=== PATIENT | female | born 1960 | race Caucasian/White ===

== ENCOUNTER 2016-09-11 09:02 | Inpatient (IN) | payer MEDICARE ==
[2016-09-11] MEDS ORDERED: Colace 100 MG PO PRN (12:34)
[2016-09-11] MEDS ORDERED: Phenergan 25 MG INJ IV PRN (12:34)
[2016-09-11] MEDS ORDERED: Sodium Chloride 0.9% 10 ML FLUSH Syringe IJ PRN (12:34)
--- NOTE | 2016-09-11 13:04 | XRAY ---
Indication: Short of breath. COPD. Comparison: None PA/lateral chest hyperinflated without focal infiltrate, consolidation, or large effusion. Heart is not enlarged. Vascularity normal. Bony thorax intact. Numerous surgical clips project over the base of the neck. Impression: Nonacute hyperinflated chest.
[2016-09-11 13:10] LABS: BASOPHIL % 0.2 % (0.0-0.4); Eosinophil % 0.3 % (0.00-5.0); Granulocytes % 77.1 % (36.0-66.0); Lymphocytes % 14.2 % (24.0-44.0); Mean Cell Volume 94.3 fl (78-100); Mean Corpuscular Hemoglobin 30.7 pg (26-32); Mean Platelet Volume 10.3 fl (6-9.5); Monocytes % 8.2 % (0.0-12.0); Platelet Count 235 K/mm3 (150-450); Red Blood Count 4.53 M/mm3 (4.1-5.4); Red Cell Distribution Width 13.5 % (11.5-14.0); White Blood Count 15.6 K/mm3 (4.0-10.5)
[2016-09-11 13:38] LABS: ALBUMIN 3.8 g/dL (3.4-5.0); ALKALINE PHOSPHATASE 133 U/L (46-116); ANION GAP 10.7 MEQ/L (5-15); BILIRUBIN,TOTAL 1.6 mg/dL (0.2-1.0); BLOOD UREA NITROGEN 12 mg/dL (9-20); CHLORIDE 98 mEq/L (98-107); Carbon Dioxide 35.4 mEq/L (21-32); Glucose 105 MG/DL (70-110); Potassium 4.2 mEq/L (3.5-5.1); SGOT/AST 19 U/L (15-37); SGPT/ALT 33 U/L (12-78); SODIUM 140 mEq/L (136-145); TROPONIN < 0.017 ng/ml (0.000-0.056); Total Protein 7.5 gm/dL (6.4-8.2)
[2016-09-11] MEDS: DUONEB 0.5-3 MG/3 ml Neb IH SCH ×3 (13:50→22:39)
[2016-09-11] MEDS: solu-MEDROL 125 MG IV SCH ×3 (13:55→23:21)
[2016-09-11] MEDS: Zithromax 500 MG/ 250 ML NaCl Premix 250 ML IV SCH (13:55)
[2016-09-11] MEDS: Sodium Chloride 0.9% 10 ML FLUSH Syringe IJ SCH ×2 (13:56→22:07)
[2016-09-11] MEDS: Advair Hfa 115/21 Common canister IH SCH (18:35)
[2016-09-11] MEDS: Mirapex 0.5 MG Tablet PO SCH (22:06)
[2016-09-11] MEDS: Lyrica 25 MG PO SCH (22:06)
[2016-09-11] MEDS: Lyrica 50MG PO SCH (22:06)
[2016-09-11] MEDS: Toprol-Xl 25MG Tablets PO SCH (22:06)
[2016-09-12] MEDS: DUONEB 0.5-3 MG/3 ml Neb IH SCH ×5 (02:51→20:29)
[2016-09-12 05:45] LABS: BASOPHIL % 0.1 % (0.0-0.4); Granulocytes % 91.4 % (36.0-66.0); Lymphocytes % 6.5 % (24.0-44.0); Mean Cell Volume 94.1 fl (78-100); Mean Corpuscular Hemoglobin 30.3 pg (26-32); Mean Platelet Volume 10.6 fl (6-9.5); Platelet Count 242 K/mm3 (150-450); Red Blood Count 4.22 M/mm3 (4.1-5.4); Red Cell Distribution Width 13.2 % (11.5-14.0); White Blood Count 13.1 K/mm3 (4.0-10.5)
[2016-09-12 06:07] LABS: ANION GAP 16.5 MEQ/L (5-15); Carbon Dioxide 30.5 mEq/L (21-32)
[2016-09-12] MEDS: solu-MEDROL 125 MG IV SCH ×3 (06:07→23:36)
[2016-09-12] MEDS: Sodium Chloride 0.9% 10 ML FLUSH Syringe IJ SCH ×3 (06:07→23:36)
[2016-09-12] MEDS: Advair Hfa 115/21 Common canister IH SCH ×2 (07:10→20:29)
[2016-09-12] MEDS: TYLENOL 325 MG PO PRN ×2 (07:41→23:37)
[2016-09-12] MEDS: Toprol-Xl 25MG Tablets PO SCH ×2 (07:42→23:37)
[2016-09-12] MEDS: Zithromax 500 MG/ 250 ML NaCl Premix 250 ML IV SCH (07:42)
[2016-09-12] MEDS: Lyrica 25 MG PO SCH ×2 (07:42→23:36)
[2016-09-12] MEDS: Lyrica 50MG PO SCH ×2 (07:42→23:35)
[2016-09-12] MEDS ORDERED: BUSPIRONE HCL 7.5 MG PO PRN (08:03)
[2016-09-12] MEDS ORDERED: BUSPAR 5 MG PO PRN (08:53)
--- NOTE | 2016-09-12 09:24 | HP ---
HISTORY OF PRESENT ILLNESS: This is a 56 year-old patient of mine who presented to the clinic complaining of increased shortness of breath over the past few days. She has a long standing history of chronic obstructive pulmonary disease and also has some congestive heart failure. She is on home oxygen 2 to 3 liters nasal cannula. She states she started feeling bad on Sunday. She was coughing up some sputum inside her CPAP and had trouble wearing her CPAP because of this. She felt like she was choking. She reported a fever up to 102.4F and states she was sleeping sitting up because if she laid down she felt like she was drowning. She reports her oxygen saturation at home on the meter that she had was 84%. She has been using her breathing treatments even up to every three hours. She denied any sick contacts. She did have a friend that had come over to the house that smoked outside. REVIEW OF SYSTEMS: She had some nausea but no vomiting. She had diarrhea on Sunday but not on Sunday. She had the cough and headache. Otherwise review of systems is negative. PAST MEDICAL HISTORY: Chronic obstructive pulmonary disease with history of hypoxia. She sees Dr. Abner Wade. History of thyroid cancer with the gland removed in 2007. Depression, hyperlipidemia. She had a cardiac stress test June 2016 but they opted for medical management. Hypertension. Hypothyroidism. Langerhans cell histiocytosis. Restless leg syndrome. C3 to C6 herniated or bulging disc. Carpal tunnel both wrists. Fibromyalgia. Obstructive sleep apnea for which she wears CPAP at night. Edema. 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 PAST SURGICAL HISTORY: Knee arthroscopy. Cholecystectomy. Hysterectomy. She had upper endoscopy 08/01/2016 which revealed gastritis. Colonoscopy 08/01/2016 revealed normal colon but poor prep and chronic constipation. Her thyroid gland was removed in 2007. MEDICATIONS: Albuterol 2 puffs b.i.d. as needed, DuoNebs 3 to 4 times a day, aspirin 81 mg p.o. daily, atorvastatin 20 mg p.o. daily, buspirone 7.5 mg p.o. b.i.d., fluoxetine 40 mg daily, Breo 1 puff daily, furosemide 40 mg p.o. daily, levothyroxine 150 mcg p.o. daily, Amitiza 24 mcg p.o. daily, metoprolol succinate 25 mg p.o. b.i.d., nitroglycerin 0.4 mg as needed, MiraLAX 17 gm daily, potassium chloride 20 mEq daily, Mirapex 2 tablets p.o. q.h.s., Lyrica 75 mg p.o. b.i.d., ranitidine 150 mg p.o. daily, Aldactone 50 mg p.o. daily. ALLERGIES: IODINATED CONTRAST, LEVAQUIN, PENICILLIN. SOCIAL HISTORY: She uses marijuana, denies any alcohol use. She used to smoke and used tobacco for 44 years. She is a . FAMILY HISTORY: Her mother of coronary artery disease at age 72 and her father of coronary artery disease at age of 49. PHYSICAL EXAMINATION: VITAL SIGNS: Temperature current 98.3F, temperature max 98.3F, heart rate 82 to 85, respiratory rate 18 to 21, blood pressure 112 to 121 over 58 to 60, weight 118 kg. Oxygen saturation 92 to 96% on 3 to 4 liters nasal cannula. GENERAL: The patient is a pleasant talkative lady sitting up in no acute distress. CVS: She has a regular rate and rhythm. No murmurs, gallops or rubs. CHEST: She has a few scattered wheezes, equal breath sounds. She is talking in full sentences. ABDOMEN: Soft, nontender, nondistended with normal bowel sounds. EXTREMITIES: Trace edema. No clubbing, no cyanosis. SKIN: Warm, dry and intact. LABORATORY DATA AND TESTS: On admission white blood cell count 15,600 with 77% granulocytes. Repeat white blood cell today was 13,100 with 91% granulocytes. BMP revealed glucose of 227 today. BNP was slightly elevated at 460. She has blood cultures and sputum culture in lab. Chest x-ray was read as nonacute hyperinflated chest. EKG sinus rhythm with no ST-T wave changes. Her troponin was negative. ASSESSMENT AND PLAN: 1) CHRONIC OBSTRUCTIVE PULMONARY DISEASE EXACERBATION: She was started on ceftriaxone and azithromycin. Will plan to continue with these. Continue with oxygen and breathing treatments. She was also started on IV steroids will plan to work on decreasing these after wheezing has improved and plan to observe her another night. If she is doing well and back to her home oxygen requirement she may be able to be discharged tomorrow. 2) HISTORY OF CORONARY ARTERY DISEASE: Will continue with her home medications. She appears stable at this time. 3) DEEP VENOUS THROMBOSIS PROPHYLAXIS: Will start her on Lovenox. 4) HYPERTENSION: This is currently well controlled on her home antihypertensive.
[2016-09-12] MEDS: Prozac 20 MG PO SCH (09:44)
[2016-09-12] MEDS: ECOTRIN 81 MG PO SCH (09:44)
[2016-09-12] MEDS: SYNTHROID 150 MCG PO SCH (09:45)
[2016-09-12] MEDS: Miralax Powder 17GM PACKET PO SCH (09:45)
[2016-09-12] MEDS: Lasix 40 MG PO SCH (09:45)
[2016-09-12] MEDS ORDERED: SYNTHROID 112 MCG PO SCH (10:00)
[2016-09-12] MEDS ORDERED: NON-FORMULARY ITEM (Fluoxetine Hcl [Prozac] 40 MG) PO SCH (10:00)
[2016-09-12] MEDS ORDERED: NON-FORMULARY ITEM (Aspirin [Aspirin] 81 MG) PO SCH (10:00)
[2016-09-12] MEDS ORDERED: NON-FORMULARY ITEM (Atorvastatin Calcium [Lipitor] 20 MG) PO SCH (10:00)
[2016-09-12] MEDS: AMITIZA PO SCH (10:51)
[2016-09-12] MEDS: ENOXAPARIN SODIUM SQ SCH (13:50)
[2016-09-12] MEDS: Robitussin 100 MG/5 ML PO PRN ×2 (17:14→23:38)
[2016-09-12] MEDS: Mirapex 0.5 MG Tablet PO SCH (23:36)
[2016-09-12] MEDS: ZOCOR 20MG PO SCH (23:37)
[2016-09-13] MEDS: DUONEB 0.5-3 MG/3 ml Neb IH SCH ×7 (01:21→22:54)
[2016-09-13] MEDS: solu-MEDROL 125 MG IV SCH ×3 (05:10→22:22)
[2016-09-13] MEDS: Sodium Chloride 0.9% 10 ML FLUSH Syringe IJ SCH ×3 (05:10→22:22)
[2016-09-13 05:58] LABS: Granulocytes % 89.4 % (36.0-66.0); Lymphocytes % 6.4 % (24.0-44.0); Mean Cell Volume 95.5 fl (78-100); Mean Platelet Volume 10.5 fl (6-9.5); Monocytes % 4.2 % (0.0-12.0); Platelet Count 253 K/mm3 (150-450); Red Blood Count 3.96 M/mm3 (4.1-5.4); Red Cell Distribution Width 13.2 % (11.5-14.0)
[2016-09-13 06:04] LABS: Mean Corpuscular Hemoglobin 30.5 pg (26-32)
[2016-09-13 06:18] LABS: ANION GAP 10.6 MEQ/L (5-15); BLOOD UREA NITROGEN 21 mg/dL (9-20); CHLORIDE 101 mEq/L (98-107); Carbon Dioxide 32.9 mEq/L (21-32); Glucose 202 MG/DL (70-110); Potassium 4.4 mEq/L (3.5-5.1); SODIUM 140 mEq/L (136-145)
[2016-09-13] MEDS: Advair Hfa 115/21 Common canister IH SCH ×2 (06:39→19:21)
[2016-09-13] MEDS: Zithromax 500 MG/ 250 ML NaCl Premix 250 ML IV SCH (09:57)
[2016-09-13] MEDS: Prozac 20 MG PO SCH (10:00)
[2016-09-13] MEDS: Miralax Powder 17GM PACKET PO SCH (10:00)
[2016-09-13] MEDS: ENOXAPARIN SODIUM SQ SCH (10:00)
[2016-09-13] MEDS: SYNTHROID 150 MCG PO SCH (10:01)
[2016-09-13] MEDS: Toprol-Xl 25MG Tablets PO SCH ×2 (10:01→22:22)
[2016-09-13] MEDS: ECOTRIN 81 MG PO SCH (10:01)
[2016-09-13] MEDS: Lyrica 50MG PO SCH ×2 (10:01→22:21)
[2016-09-13] MEDS: Lasix 40 MG PO SCH (10:01)
[2016-09-13] MEDS: Lyrica 25 MG PO SCH ×2 (10:01→22:21)
[2016-09-13] MEDS: AMITIZA PO SCH (10:01)
--- NOTE | 2016-09-13 18:22 | PCM.NOTE ---
Date and Time: 09/13/161817 Subjective Assessment: She reports that she continues to have some cough but she is starting to feel better. She has been able to get up around her room some. Her appetite has been ok. - Review of Systems Constitutional: No Symptoms Eyes: No Symptoms Ears, Nose, & Throat: No Symptoms Respiratory: Cough, Short Of Breath, Wheezing Cardiac: No Symptoms Abdominal/Gastrointestinal: No Symptoms Genitourinary Symptoms: No Symptoms Musculoskeletal: No Symptoms Objective Exam General Appearance: no apparent distress, alert, obese Neurologic Exam: alert, cooperative, normal mood/affect Skin Exam: normal color, warm, dry Respiratory Exam: other (few scattered wheezes, equal breath sounds, distant breath sounds) Cardiovascular Exam: regular rate/rhythm, normal heart sounds, No murmur, No friction rub, No gallop Gastrointestinal/Abdomen Exam: soft, normal bowel sounds, No tenderness, No distention, No mass, No guarding Extremity Exam: normal inspection, other (trace edema, no c/c) OBJECTIVE DATA Vital Signs: Vital Signs - 24 hr Temp Pulse Resp BP Pulse Ox 09/13/16 16:46 97.8 F 86 22 128/67 94 L 09/13/16 14:42 93 H 20 96 09/13/16 11:46 97.9 F 79 20 114/56 94 L 09/13/16 10:28 87 20 96 09/13/16 09:06 98 09/13/16 07:48 97.6 F 73 22 105/57 96 09/13/16 06:42 68 22 92 L 09/13/16 04:00 98.2 F 80 84 H 109/55 95 09/13/16 03:32 80 18 96 09/12/16 21:52 98.0 F 83 22 123/60 95 09/12/16 20:50 97 09/12/16 20:30 80 18 97 Oxygen-Last 24 hours O2 Percentage 2 Liters = 28% O2 Percentage 2 Liters = 28% O2 Percentage 4 Liters = 36% O2 Percentage 5 Liters = 40% O2 Percentage 4 Liters = 36% Pain Assessment - Last Documented Pain Intensity 4 Pain Scale Used 0-10 Pain Scale Intake and Output: Intake & Output 09/11/16 09/12/16 09/13/16 09/14/16 06:59 06:59 06:59 06:59 Intake Total 840 1180 1740 Output Total 2300 900 1000 Balance -1460 280 740 Weight 118.115 kg 120.021 kg Lab Results: Lab Results-Last 24 Hours 09/13/16 09/13/16 Range/Units 05:30 05:30 WBC 15.0 H (4.0-10.5) K/mm3 RBC 3.96 L (4.1-5.4) M/mm3 Hgb 12.1 (12.0-16.0) gm/dl Hct 37.8 (35-47) % MCV 95.5 (78-100) fl MCH 30.5 (26-32) pg MCHC 32.0 (32-36) g/dl RDW 13.2 (11.5-14.0) % Plt Count 253 (150-450) K/mm3 MPV 10.5 H (6-9.5) fl Gran % 89.4 H (36.0-66.0) % Lymphocytes % 6.4 L (24.0-44.0) % Monocytes % 4.2 (0.0-12.0) % Eosinophils % 0.0 (0.00-5.0) % Basophils % 0.0 (0.0-0.4) % Basophils # 0 (0-0.4) Sodium 140 (136-145) mEq/L Potassium 4.4 (3.5-5.1) mEq/L Chloride 101 (98-107) mEq/L Carbon Dioxide 32.9 H (21-32) mEq/L Anion Gap 10.6 (5-15) MEQ/L BUN 21 H (9-20) mg/dL Creatinine 0.87 (0.55-1.30) mg/dl Estimated GFR > 60 ML/MIN Glucose 202 H (70-110) MG/DL Calcium 9.0 (8.5-10.1) mg/dL Assessment/Plan (1) COPD exacerbation Current Visit: Yes Status: Acute Assessment & Plan: Continue with IV antibiotics and try to wean oxygen down to home level of 2 L by NC. Continue IV steroids. Continue breathing treatments. Slowly improving. One blood culture with growth. She has a severe allergic reaction with both penicillins and levofloxacin so plan to continue azithromycin right now as she is showing clinical improvement and she has been afebrile.. Code(s): J44.1 - CHRONIC OBSTRUCTIVE PULMONARY DISEASE W (ACUTE) EXACERBATION (2) Hx of coronary artery disease Current Visit: Yes Status: Acute Assessment & Plan: Stable. Continue home medications. Code(s): Z86.79 - PERSONAL HISTORY OF OTHER DISEASES OF THE CIRCULATORY SYSTEM (3) Hypertension Current Visit: Yes Status: Acute Assessment & Plan: Continue home medications. Stable. Code(s): I10 - ESSENTIAL (PRIMARY) HYPERTENSION
[2016-09-13] MEDS: Pepcid 20 MG PO SCH (18:25)
[2016-09-13] MEDS: Aldactone 25 MG PO SCH (18:25)
[2016-09-13] MEDS: Robitussin 100 MG/5 ML PO PRN (18:25)
[2016-09-13] MEDS ORDERED: PRAMIPEXOLE DI HCL PO SCH (22:00)
[2016-09-13] MEDS: Mirapex 0.5 MG Tablet PO SCH (22:21)
[2016-09-13] MEDS: ZOCOR 20MG PO SCH (22:23)
[2016-09-14] MEDS: DUONEB 0.5-3 MG/3 ml Neb IH SCH ×3 (02:59→10:14)
[2016-09-14] MEDS: solu-MEDROL 125 MG IV SCH (05:53)
[2016-09-14 05:54] LABS: BASOPHIL % 0.1 % (0.0-0.4); Eosinophil % 0.1 % (0.00-5.0); Lymphocytes % 6.7 % (24.0-44.0); Mean Cell Volume 97.4 fl (78-100); Mean Platelet Volume 10.5 fl (6-9.5); Monocytes % 4.1 % (0.0-12.0); Platelet Count 264 K/mm3 (150-450); Red Blood Count 3.86 M/mm3 (4.1-5.4); Red Cell Distribution Width 13.6 % (11.5-14.0); White Blood Count 10.3 K/mm3 (4.0-10.5)
[2016-09-14] MEDS: Sodium Chloride 0.9% 10 ML FLUSH Syringe IJ SCH (05:54)
[2016-09-14 06:03] LABS: Mean Corpuscular Hemoglobin 30.5 pg (26-32)
[2016-09-14 06:09] LABS: ANION GAP 12.5 MEQ/L (5-15); BLOOD UREA NITROGEN 19 mg/dL (9-20); CHLORIDE 103 mEq/L (98-107); Carbon Dioxide 30.5 mEq/L (21-32); Glucose 231 MG/DL (70-110); Potassium 4.4 mEq/L (3.5-5.1); SODIUM 142 mEq/L (136-145)
[2016-09-14] MEDS: Advair Hfa 115/21 Common canister IH SCH (07:05)
[2016-09-14] MEDS: Lasix 40 MG PO SCH (08:59)
[2016-09-14] MEDS: Miralax Powder 17GM PACKET PO SCH (08:59)
[2016-09-14] MEDS: Aldactone 25 MG PO SCH (08:59)
[2016-09-14] MEDS: Prozac 20 MG PO SCH (08:59)
[2016-09-14] MEDS: ENOXAPARIN SODIUM SQ SCH (08:59)
[2016-09-14] MEDS: Lyrica 25 MG PO SCH (09:00)
[2016-09-14] MEDS: Lyrica 50MG PO SCH (09:00)
[2016-09-14] MEDS: ECOTRIN 81 MG PO SCH (09:00)
[2016-09-14] MEDS: SYNTHROID 150 MCG PO SCH (09:00)
[2016-09-14] MEDS: AMITIZA PO SCH (09:00)
[2016-09-14] MEDS: Pepcid 20 MG PO SCH (09:00)
[2016-09-14] MEDS: Zithromax 500 MG/ 250 ML NaCl Premix 250 ML IV SCH (09:01)
[2016-09-14] MEDS: Toprol-Xl 25MG Tablets PO SCH (09:05)
--- NOTE | 2016-09-14 09:30 | PCM.DCORD ---
- Discharge Discharge Date: 09/14/16 Disposition: Home, Self-Care Condition: Good Prescriptions: New Azithromycin 250 mg PO DAILY #1 tablet Albuterol/Ipratropium 3ml Neb* [DUONEB 0.5-3 MG/3 ml Neb] 3 ml IH Q6H #150 ampul.neb Prednisone 20 mg [Deltasone 20 mg] 20 mg PO UD #18 tablet Levothyroxine Sodium 150 Mcg [Synthroid 150 Mcg] 150 mcg PO DAILY #30 tablet Continue Potassium Chloride 10 Meq Tab* [Klor Con 10 MEQ] 20 meq PO DAILY Furosemide 40 mg [Lasix 40 MG] 40 mg PO DAILY Albuterol Sulfate [Proair Hfa] 2 puffs IH BIDPRN PRN PRN Reason: Shortness Of Breath Fluoxetine HCl [Prozac] 40 mg PO DAILY Spironolactone [Aldactone] 50 mg PO DAILY Buspirone HCl 7.5 mg PO BIDPRN PRN PRN Reason: Anxiety Ranitidine HCl [Zantac] 150 mg PO DAILY Pramipexole Di-HCl [Mirapex] 2 tab PO HS Pregabalin [Lyrica] 75 mg PO BID Metoprolol Succinate 25 mg Xl* [Toprol-Xl 25MG Tablets] 25 mg PO BID Fluticasone/Vilanterol [Breo Ellipta 100-25 Mcg INH] 1 inh IH DAILY Atorvastatin Calcium [Lipitor] 20 mg PO DAILY Aspirin 81 mg PO DAILY Nitroglycerin 0.4 mg Tablet [Nitrostat 0.4 MG Tablet] 0.4 mg IH UD Polyethylene Glycol 3350 17 gm [Miralax Powder 17GM PACKET] 17 gm PO DAILY Lubiprostone [Amitiza] 24 mcg PO DAILY Discontinued Albuterol/Ipratropium 3ml Neb* [DUONEB 0.5-3 MG/3 ml Neb] 3 ml IH TID Levothyroxine Sodium 112 Mcg [Synthroid 112 Mcg] 150 mcg PO DAILY Instructions: Chronic Obstructive Pulmonary Disease, Fever (Symptom) -- Adult Additional Instructions: [facility] WILL CALL YOU TO ARRANGE YOUR FIRST VISIT. YOU MAY REACH THEM AT ext [phone] FOR ANY QUESTIONS OR CONCERNS. Follow up with: ILA SPAULDING [Primary Care Provider] - 09/22/16 1:00 pm Forms: Discharge Instructions, Patient Portal Information
[2016-09-14] MEDS ORDERED: Klor Con 10 MEQ PO SCH (10:00)
[2016-09-14] MEDS ORDERED: NON-FORMULARY ITEM (Spironolactone [Aldactone] 50 MG) PO SCH (10:00)
[2016-09-14 11:17] VITALS: BP 136/65; PULSE 83; O2SAT 93
--- NOTE | 2016-09-14 12:03 | DS ---
DISCHARGE DIAGNOSES: 1) CHRONIC OBSTRUCTIVE PULMONARY DISEASE EXACERBATION. 2) HISTORY OF CORONARY ARTERY DISEASE. 3) HYPERTENSION. 4) HYPOTHYROIDISM. DISCHARGE PHYSICAL EXAMINATION: VITALS: Temperature current 97.9F, temperature max 97.9F, heart rate 72 to 89, respiratory rate 18 to 22, blood pressure 117 to 152 over 69 to 74. Oxygen saturation 92 to 95% on 2 liters nasal cannula. GENERAL: The patient is pleasant talkative lady sitting up in no acute distress. CVS: She has a regular rate and rhythm. No murmurs, gallops or rubs. CHEST: Scattered wheezes throughout with equal breath sounds and good air exchange. No crackles are appreciated. ABDOMEN: Soft, nontender, nondistended with normal bowel sounds. EXTREMITIES: Trace edema. No clubbing or cyanosis. SKIN: Warm, dry and intact. HOSPITAL COURSE: 1) Chronic obstructive pulmonary disease exacerbation: She was started on azithromycin 500 mg IV and received four doses of that while she was here in the hospital. I am planning to discharge her on azithromycin 250 mg p.o. once tomorrow. She was on oxygen here in the hospital up to 4 liters this was weaned down to her home oxygen of 2 liters and she is going to have a repeat home oxygen evaluation for [facility] as she would like to switch her oxygen from [facility] to [facility]. She was continued on DuoNeb during her hospitalization as well as her inhaled steroids. She was given IV steroids and these were slowly weaned down and will plan to discharge her on prednisone 60 mg daily for three days and then 40 mg daily for three days and then 20 mg daily for three days. Will have her follow up with me in the clinic this coming week. 2) History of coronary artery disease: She did not have any problems while here in the hospital and was continued on her home medications. 3) Hypertension: Her blood pressure was well controlled during her hospitalization and she was continued on her home antihypertensive. 4) Hypothyroidism: She is due to have her TSH checked. I just put an order in for that. Will continue her home dose of levothyroxine until we have that result back and a prescription was written for this. DISCHARGE MEDICATIONS: She is to resume all her home medications as well as take azithromycin and prednisone as above. She will also need home oxygen. She usually wears 2 liters per nasal cannula and the respiratory therapist is going to evaluate her for this before discharge. DISPOSITION: The patient was discharged to home in fair condition to follow up with me in one week.
== END 2016-09-14 12:30 | disposition home or self-care (01) | DRG 192 ==
LOC: MED SURG 09:02 → OBSVTOIN 09-12 09:02
PROVIDERS: ADMIT Internal Medicine; ATTEND Internal Medicine
DX: J44.1 Chronic obstructive pulmonary disease with (acute) exacerbation (principal); I25.10 Atherosclerotic heart disease of native coronary artery without angina pectoris; I10 Essential (primary) hypertension; E03.9 Hypothyroidism, unspecified; Z99.81 Dependence on supplemental oxygen; M79.7 Fibromyalgia; E78.5 Hyperlipidemia, unspecified; G47.33 Obstructive sleep apnea (adult) (pediatric)
CPT/HCPCS: 36415; 71020; 80048; 80053; 83605; 83880; 84443; 84484; 85025; 87040; 87070; 93005; 93268; 94640; 94760; G0378; J0456; J1650; J2930

== ENCOUNTER 2016-09-18 09:15 | Emergency (ER) | payer MEDICARE ==
[2016-09-18] MEDS ORDERED: ROCEPHIN 1 Gm-D5w 50 ml Bag** 50 ML IV ONE ×2 (09:45→09:56)
[2016-09-18] MEDS ORDERED: PROVENTIL 2.5 MG/3 ML NEB IH ONE (09:45)
[2016-09-18] MEDS ORDERED: solu-MEDROL 125 MG IV ONE (09:45)
[2016-09-18] MEDS ORDERED: BUMEX 1 MG IV ONE (09:48)
[2016-09-18] MEDS ORDERED: PROVENTIL Solution 2.5 MG/0.5 ML IH ONE ×2 (09:52→09:58)
[2016-09-18] MEDS ORDERED: Sodium Chloride 3 ML UD NEBULES IH ONE (09:53)
[2016-09-18] MEDS ORDERED: solu-MEDROL 125 MG ONE (09:56)
[2016-09-18] MEDS ORDERED: BUMEX 1 MG ONE (09:56)
--- NOTE | 2016-09-18 10:02 | XRAY ---
Indication: Cough and short of breath. Comparison: September 11. Portable chest unchanged again hyperinflated and clear. Heart is not enlarged. No new/acute findings.
--- NOTE | 2016-09-18 10:09 | ERPHSYRPT ---
- History of Present Illness Time Seen by Provider: 09/18/16 09:35 Source: patient Exam Limitations: clinical condition Patient Subjective Stated Complaint: pt co increase sob for over a week , pt was dc for pnuemonia and states she was only better for couple days, pt normally wears home o2,pt is finished with antiboitics, Triage Nursing Assessment: pt alert and resp labored with talking, has dry hacky cough, chest with wheezes, had resp tx at about 0730 this am.slin w/d, pink, edema to lower legs plus 1, legs tight. Physician History: PATIENT WITH A HISTORY OF CORONARY ARTERY DISEASE, COPD, RECENTLY HOSPITALIZED 4 DAYS AGO FOR EXACERBATION OR COPE, COMPLAINS OF PERSIST DYSPNEA, DIFFICULTY BREATHING, WHEEZES ASSOCIATED WITH A NONPRODUCTIVE COUGH. DENIES CHEST PAIN, FEVER OR CHILLS. Timing/Duration: day(s) Activities at Onset: activity Severity of Dyspnea-Max: moderate Severity of Dyspnea-Current: moderate Possible Cause: occasional episodes Modifying Factors: Improves With: coughing Associated Symptoms: cough, wheezing International travel in last 2 weeks: No Allergies/Adverse Reactions: Iodinated Contrast Media - Oral and [Iodinated Contrast Media - IV Dye] Allergy (Severe, Verified 09/18/16 09:34) Difficulty Breathing USED 2 EPI PENS Penicillins Allergy (Severe, Verified 09/18/16 09:34) Difficulty Breathing EPI PEN USED. levofloxacin [From Levaquin] Allergy (Verified 09/18/16 09:34) CYST BEHIND BOTH KNEES. Home Medications: Albuterol Sulfate [Proair Hfa] 2 puffs IH BIDPRN PRN 10/20/15 [History] Fluoxetine HCl [Prozac] 40 mg PO DAILY 10/20/15 [History] Furosemide 40 mg [Lasix 40 MG] 40 mg PO DAILY 10/20/15 [History] Potassium Chloride 10 Meq Tab* [Klor Con 10 MEQ] 20 meq PO DAILY 10/20/15 [ History] Buspirone HCl 7.5 mg PO BIDPRN PRN 07/11/16 [History] Spironolactone [Aldactone] 50 mg PO DAILY 07/11/16 [History] Fluticasone/Vilanterol [Breo Ellipta 100-25 Mcg INH] 1 inh IH DAILY 07/27/16 [ History] Metoprolol Succinate 25 mg Xl* [Toprol-Xl 25MG Tablets] 25 mg PO BID [History] Pramipexole Di-HCl [Mirapex] 2 tab PO HS 07/27/16 [History] Pregabalin [Lyrica] 75 mg PO BID 07/27/16 [History] Ranitidine HCl [Zantac] 150 mg PO DAILY 07/27/16 [History] Aspirin 81 mg PO DAILY 09/11/16 [History] Atorvastatin Calcium [Lipitor] 20 mg PO DAILY 09/11/16 [History] Lubiprostone [Amitiza] 24 mcg PO DAILY 09/11/16 [History] Nitroglycerin 0.4 mg Tablet [Nitrostat 0.4 MG Tablet] 0.4 mg IH UD [History] Polyethylene Glycol 3350 17 gm [Miralax Powder 17GM PACKET] 17 gm PO DAILY [History] Hx Tetanus, Diphtheria Vaccination/Date Given: Yes (up to date) Hx Influenza Vaccination/Date Given: Yes Hx Pneumococcal Vaccination/Date Given: Yes (2012) - Review of Systems Constitutional: No Fever, No Chills Eyes: No Symptoms Ears, Nose, & Throat: No Symptoms Respiratory: Cough, Dyspnea Cardiac: No Symptoms, No Chest Pain, No Edema, No Syncope Abdominal/Gastrointestinal: No Symptoms, No Abdominal Pain, No Nausea, No Vomiting, No Diarrhea Genitourinary Symptoms: No Symptoms, No Dysuria Musculoskeletal: No Symptoms, No Back Pain, No Neck Pain Skin: No Symptoms, No Rash Neurological: No Symptoms, No Dizziness, No Focal Weakness, No Sensory Changes Psychological: No Symptoms Endocrine: No Symptoms All Other Systems: Reviewed and Negative - Past Medical History Pertinent Past Medical History: Yes Neurological History: No Pertinent History ENT History: No Pertinent History Cardiac History: Hypertension Respiratory History: COPD, Other Endocrine Medical History: Thyroid Cancer Musculoskeletal History: Fibromyalgia GI Medical History: GERD, Other History: No Pertinent History Psycho-Social History: Anxiety, Depression Female Reproductive Disorders: Fibroids Other Medical History: neuropathy. 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 colonscopy. spinal L4,L5 , S1 removed disc "completely"per pt and "not fused". thyroidectomy. right ovary removed - Social History Smoking Status: Former smoker How long have you smoked: 42 YEARS Exposure to second hand smoke: Yes Drug Use: none Patient Lives Alone: No - Female History Hx Last Menstrual Period: post - Nursing Vital Signs Nursing Vital Signs: Initial Vital Signs Temperature 98.0 F Temperature Source Oral Pulse Rate 66 Respiratory Rate 18 Blood Pressure [Right Arm] 122/58 Pain Intensity 0 - Physical Exam General Appearance: mild distress Eye Exam: PERRL/EOMI, eyes nml inspection Ears, Nose, Throat Exam: abnormal TM (R) Neck Exam: normal inspection, supple Respiratory Exam: diminished breath sounds, prolonged expirations Cardiovascular/Chest Exam: normal heart sounds, regular rate/rhythm Abdominal/Gastrointestinal Exam: soft, normal bowel sounds (NONTENDER), No tenderness, No distention, No mass Extremity Exam: non-tender, normal range of motion, normal inspection, no calf tenderness, no pedal edema Peripheral Pulses Exam: carotid (R): 2+, carotid (L): 2+, femoral (R): 2+, femoral (L): 2+, dorsalis-pedis (R): 2+, dorsalis-pedis (L): 2+ Neurologic Exam: alert, oriented x 3, cooperative, 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 as tested, sensation nml, No motor deficits Skin Exam: normal color, warm, No dry SpO2 Interpretation: borderline oxygenation SpO2: 94 Oxygen Delivery: Room Air - Course EKG Interpreted by Me: RATE, Sinus Rhythm, NORMAL AXIS - Radiology Exams Chest X-ray Interpretation: Discussed w/ radiologist (CHEST UNCHANGED AGAIN HYPERINFLATED AND CLEAR) Ordered Tests: Active Orders 24 hr Category Date Time Status Door Maker STAT Care 09/18/16 09:45 Active EKG-ER Only STAT Care 09/18/16 09:45 Active IV Insertion STAT Care 09/18/16 09:45 Active Oxygen-ED Only NASAL CANNULA 2 lpm Care 09/18/16 09:54 Active CHEST 1 VIEW (PORTABLE) Stat Exams 09/18/16 09:46 Completed BLOOD CULTURE Stat Lab 09/18/16 09:59 Received CBC W DIFF Stat Lab 09/18/16 09:59 Completed CMP Stat Lab 09/18/16 09:50 Completed MAGNESIUM Stat Lab 09/18/16 09:50 Completed Manual Differential NC Stat Lab 09/18/16 09:59 Completed NT PRO BNP Stat Lab 09/18/16 09:50 Completed PROTIME WITH INR Stat Lab 09/18/16 09:59 Completed TROPONIN Stat Lab 09/18/16 09:50 Completed Respiratory Nebulizer STAT RT 09/18/16 09:47 Completed Medication Summary Discontinued Medications Generic Name Dose Route Start Last Admin Trade Name Freq PRN Reason Stop Dose Admin Albuterol Sulfate 10 mg 09/18/16 09:45 Proventil 2.5 Mg/3 Ml Neb IH 09/18/16 09:46 STAT ONE Albuterol Sulfate Confirm 09/18/16 09:52 Proventil Solution 2.5 Mg/0.5 Ml Administered 09/18/16 09:53 Dose 10 mg IH .STK-MED ONE Albuterol Sulfate 10 mg 09/18/16 09:58 09/18/16 10:01 Proventil Solution 2.5 Mg/0.5 Ml IH 09/18/16 09:59 10 mg STAT ONE Administration Bumetanide 1 mg 09/18/16 09:48 09/18/16 10:00 Bumex 1 Mg IV 09/18/16 09:49 1 mg STAT ONE Administration Bumetanide Confirm 09/18/16 09:56 Bumex 1 Mg Administered 09/18/16 09:57 Dose 1 mg .ROUTE .STK-MED ONE Ceftriaxone Sodium/Dextrose 50 mls @ 100 mls/hr 09/18/16 09:45 09/18/16 10:00 Rocephin 1 Gm-D5w 50 Ml Bag IV 09/18/16 10:14 100 mls/hr STAT ONE Administration Ceftriaxone Sodium/Dextrose Confirm 09/18/16 09:56 Rocephin 1 Gm-D5w 50 Ml Bag Administered 09/18/16 09:57 Dose 50 mls @ ud IV .STK-MED ONE Methylprednisolone Sodium Succinate 125 mg 09/18/16 09:45 09/18/16 10:00 Solu-Medrol 125 Mg IV 09/18/16 09:46 125 mg STAT ONE Administration Methylprednisolone Sodium Succinate Confirm 09/18/16 09:56 Solu-Medrol 125 Mg Administered 09/18/16 09:57 Dose 125 mg .ROUTE .STK-MED ONE Sodium Chloride Confirm 09/18/16 09:53 Sodium Chloride 3 Ml Ud Nebules Administered 09/18/16 09:54 Dose 9 ml IH .STK-MED ONE Lab/Rad Data: Laboratory Result Diagrams 09/18/16 09:59 09/18/16 09:50 Laboratory Results 09/18/16 09/18/16 09/18/16 Range/Units 09:59 09:59 09:50 WBC 11.7 H (4.0-10.5) K/mm3 RBC 4.40 (4.1-5.4) M/mm3 Hgb 13.5 (12.0-16.0) gm/dl Hct 41.9 (35-47) % MCV 95.2 (78-100) fl MCH 30.7 (26-32) pg MCHC 32.2 (32-36) g/dl RDW 13.6 (11.5-14.0) % Plt Count 304 (150-450) K/mm3 MPV 9.6 H (6-9.5) fl Gran % 76.0 H (36.0-66.0) % Lymphocytes % 13.4 L (24.0-44.0) % Monocytes % 7.1 (0.0-12.0) % Eosinophils % 3.5 (0.00-5.0) % Basophils % 0.0 (0.0-0.4) % Basophils # 0 (0-0.4) INR 0.99 (0.8-3.0) Sodium 143 (136-145) mEq/L Potassium 3.9 (3.5-5.1) mEq/L Chloride 101 (98-107) mEq/L Carbon Dioxide 33.0 H (21-32) mEq/L Anion Gap 12.4 (5-15) MEQ/L BUN 14 (9-20) mg/dL Creatinine 1.14 (0.55-1.30) mg/dl Estimated GFR 52 ML/MIN Glucose 156 H (70-110) MG/DL Calcium 9.3 (8.5-10.1) mg/dL Magnesium 2.1 (1.8-2.4) mg/dL Total Bilirubin 0.8 (0.2-1.0) mg/dL AST 32 (15-37) U/L ALT 41 (12-78) U/L Alkaline Phosphatase 108 (46-116) U/L Troponin I < 0.017 (0.000-0.056) ng/ml NT-Pro-B Natriuret Pep 626 H (0-125) pg/ml Serum Total Protein 6.7 (6.4-8.2) gm/dL Albumin 3.4 (3.4-5.0) g/dL - Progress Progress: improved Air Movement: good Progress Note: 09/18/16 10:10 PATIENT GIVEN CONTINUOUS ALBUTEROL AEROSOL 10MG OVER 1 HOUR, SOLUMEDROL 125MG IV AND ROCEPHIN 1GM IVPB AFTER BLOOD CULTURES OTBAINED 09/18/16 11:40 CLINICAL EXAM-CHEST BREATH SOUNDS IMPROVED, WHEEZES ARE FAINT Blood Culture(s) Obtained: Yes Antibiotics given: Yes Counseled pt/family regarding: lab results, diagnosis, need for follow-up - Departure Time of Disposition: 11:39 Departure Disposition: Home Clinical Impression: EXACERBATION COPD Condition: Stable Critical Care Time: No Additional Instructions: CONTINUE AEROSOL TREATMENTS EVERY 4 HOURS NEEDED FOR DIFFICULTY BREATHING. ANTIBIOTIC CEFTIN 250MG TWICE DAILY FOR 10 DAYS. PREDNISONE 20MG TWICE DAILY FOR 5 DAYS. CONSULT YOUR FAMILY PHYSICIAN FOR FOLLOWUP, CALL OFFICE TODAY TO SCHEDULE APPOINTMENT. FOLLOWUP WITH DR BROWN FOR APPOINTMENT ON Sep AT 10:45AM Prescriptions: Cefuroxime Axetil [Cefuroxime] 250 mg PO BID #20 tablet Prednisone 20 mg [Deltasone 20 mg] 20 mg PO BID #10 tablet
[2016-09-18 10:22] LABS: Eosinophil % 3.5 % (0.00-5.0); Lymphocytes % 13.4 % (24.0-44.0); Mean Cell Volume 95.2 fl (78-100); Mean Corpuscular Hemoglobin 30.7 pg (26-32); Mean Platelet Volume 9.6 fl (6-9.5); Monocytes % 7.1 % (0.0-12.0); Platelet Count 304 K/mm3 (150-450); Red Cell Distribution Width 13.6 % (11.5-14.0); White Blood Count 11.7 K/mm3 (4.0-10.5)
[2016-09-18 10:31] LABS: INR 0.99 (0.8-3.0); PROTIME 11.1 SECONDS (9.95-12.35)
[2016-09-18 11:06] LABS: ALBUMIN 3.4 g/dL (3.4-5.0); ALKALINE PHOSPHATASE 108 U/L (46-116); ANION GAP 12.4 MEQ/L (5-15); BILIRUBIN,TOTAL 0.8 mg/dL (0.2-1.0); BLOOD UREA NITROGEN 14 mg/dL (9-20); CHLORIDE 101 mEq/L (98-107); Glucose 156 MG/DL (70-110); MAGNESIUM 2.1 mg/dL (1.8-2.4); Potassium 3.9 mEq/L (3.5-5.1); SGOT/AST 32 U/L (15-37); SGPT/ALT 41 U/L (12-78); SODIUM 143 mEq/L (136-145); Total Protein 6.7 gm/dL (6.4-8.2)
[2016-09-18 11:08] LABS: TROPONIN < 0.017 ng/ml (0.000-0.056)
[2016-09-18 12:09] VITALS: BP 116/64; PULSE 71; O2SAT 97
[2016-09-18 12:28] LABS: Eosinophil 5 % (0.00-3.0); Total Cells Counted 100
[2016-09-18 12:29] LABS: ANISOCYTOSIS 1+; Platelet Estimate NORMAL (NORMAL); Poikilocytosis 1+
== END 2016-09-18 12:09 | disposition home or self-care (01) ==
LOC: ED 09:15
DX: J44.1 Chronic obstructive pulmonary disease with (acute) exacerbation (principal); I25.10 Atherosclerotic heart disease of native coronary artery without angina pectoris
CPT/HCPCS: 36000; 36415; 71010; 80053; 83735; 83880; 84484; 85025; 85610; 87040; 93005; 93041; 94640; 96365; 96374; 96375; 99284; J0696; J2930

== ENCOUNTER 2016-11-14 20:46 | Inpatient (IN) | payer MEDICARE ==
[2016-11-14] MEDS ORDERED: Hydromorphone 1 mg/ml Ampule IV ONE (21:42)
[2016-11-14] MEDS ORDERED: Phenergan 25 MG INJ IV ONE (21:42)
[2016-11-14] MEDS ORDERED: CLINDAMYCIN-D5W 900 MG/50 ML*** 50 ML IV ONE ×2 (21:44→21:54)
[2016-11-14] MEDS ORDERED: Sodium Chloride 0.9% 1000 ML 1,000 ML IV SCH ×2 (21:45→23:53)
[2016-11-14] MEDS ORDERED: PROVENTIL 2.5 MG/3 ML NEB IH ONE ×2 (21:48→22:08)
--- NOTE | 2016-11-14 21:48 | ERPHSYRPT ---
- History of Present Illness Time Seen by Provider: 11/14/16 21:39 Source: patient Exam Limitations: no limitations Patient Subjective Stated Complaint: pt states she has been having swelling in her lower extremities since june. her doctor changed her meds around and increased lasix and added aldactone but she hasnt been voiding any more and is still having swelling and is now having redness and swelling Triage Nursing Assessment: pt alert and oriented, answers questions approp. skin pink warm and dry. pt ambulatory with steady gait noted. respirations nonlabored, lungs with insp and exp wheezes throughout. +3 nonpitting edema to bilat lower ext. redness noted to bilat lower legs. Physician History: FOR THE PAST 5 MONTHS PT HAS HAD PROGRESSIVE SWELLING IN BOTH LEGS; FOR THE PAST 3 MONTHS INTERMITTENT HEADACHE; FOR THE PAST 2 MONTHS INTERMITTENT DIARRHEA ; FOR THE PAST MONTH PAIN IN BOTH LEGS; FOR THE PAST 2 WEEKS ABDOMINAL BLOATING AND REDNESS OF THE LEGS. PT ALSO C/O INTERMITTENT DIAPHORESIS AND CHILLS FOR THE PAST 4 YEARS. Allergies/Adverse Reactions: Iodinated Contrast Media - Oral and [Iodinated Contrast Media - IV Dye] Allergy (Severe, Verified 11/14/16 21:24) Difficulty Breathing USED 2 EPI PENS Penicillins Allergy (Severe, Verified 11/14/16 21:24) Difficulty Breathing EPI PEN USED. levofloxacin [From Levaquin] Allergy (Verified 11/14/16 21:24) CYST BEHIND BOTH KNEES. Home Medications: Albuterol Sulfate [Proair Hfa] 2 puffs IH BIDPRN PRN 10/20/15 [History] Furosemide 40 mg [Lasix 40 MG] 80 mg PO DAILY 10/20/15 [History] Buspirone HCl 7.5 mg PO BIDPRN PRN 07/11/16 [History] Spironolactone [Aldactone] 50 mg PO DAILY 07/11/16 [History] Fluticasone/Vilanterol [Breo Ellipta 100-25 Mcg INH] 1 inh IH DAILY 07/27/16 [ History] Metoprolol Succinate 25 mg Xl* [Toprol-Xl 25MG Tablets] 25 mg PO BID [History] Pramipexole Di-HCl [Mirapex] 2 tab PO HS 07/27/16 [History] Pregabalin [Lyrica] 75 mg PO BID 07/27/16 [History] Ranitidine HCl [Zantac] 150 mg PO DAILY 07/27/16 [History] Aspirin 81 mg PO DAILY 09/11/16 [History] Atorvastatin Calcium [Lipitor] 20 mg PO HS 09/11/16 [History] Nitroglycerin 0.4 mg Tablet [Nitrostat 0.4 MG Tablet] 0.4 mg IH UD [History] Albuterol/Ipratropium 3ml Neb* [DUONEB 0.5-3 MG/3 ml Neb] 3 ml IH TID [History] Levothyroxine Sodium 150 Mcg [Synthroid 150 Mcg] 125 mcg PO DAILY 11/14/16 [History] Potassium Chloride 20 meq PO DAILY 11/14/16 [History] Prednisone 20 mg [Deltasone 20 mg] 10 mg PO BID 11/14/16 [History] Hx Tetanus, Diphtheria Vaccination/Date Given: Yes (up to date) Hx Influenza Vaccination/Date Given: Yes Hx Pneumococcal Vaccination/Date Given: Yes (2012) Immunizations Up to Date: Yes - Review of Systems Constitutional: Chills Abdominal/Gastrointestinal: Diarrhea, Other (ABDOMINAL BLOATING) Musculoskeletal: Other (PAIN, SWELLING AND REDNESS OF THE LEGS.) Neurological: Headache Endocrine: Excessive Sweating All Other Systems: Reviewed and Negative - Past Medical History Pertinent Past Medical History: Yes Neurological History: No Pertinent History ENT History: No Pertinent History Cardiac History: Hypertension Respiratory History: COPD, Other Endocrine Medical History: Thyroid Cancer Musculoskeletal History: Fibromyalgia GI Medical History: GERD, Other History: No Pertinent History Psycho-Social History: Anxiety, Depression Female Reproductive Disorders: Fibroids Other Medical History: neuropathy. 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 colonscopy. spinal L4,L5 , S1 removed disc "completely"per pt and "not fused". thyroidectomy. right ovary removed - Social History Smoking Status: Former smoker How long have you smoked: 42 YEARS Exposure to second hand smoke: Yes Drug Use: none Patient Lives Alone: Yes - Female History Hx Last Menstrual Period: post - Nursing Vital Signs Nursing Vital Signs: Initial Vital Signs Temperature 97.9 F Temperature Source Oral Pulse Rate 69 Respiratory Rate 21 Blood Pressure [] 106/66 Pain Intensity 10 - Physical Exam General Appearance: alert Eye Exam: PERRL/EOMI Ears, Nose, Throat Exam: pharynx normal, moist mucous membranes Neck Exam: normal inspection Respiratory Exam: wheezing (MILD) Cardiovascular Exam: normal heart sounds Gastrointestinal/Abdomen Exam: soft, normal bowel sounds, No tenderness Back Exam: normal range of motion Extremity Exam: swelling (+3 EDEMA, ANTERIOR ERYTHEMA AND MILD TENDERNESS OF BOTH LEGS) Neurologic Exam: alert, cooperative Skin Exam: warm, dry SpO2 Interpretation: normal SpO2: 95 Oxygen Delivery: Nasal Cannula - Course Nursing assessment & vital signs reviewed: Yes - Radiology Exams Chest X-ray Interpretation: Interpreted by me, No Pneumonia - Radiology Ultrasound Exam Venous Lower Extremity Ultrasound: Other (TECH REPORT: NO DVT EITHER LEG.) Ordered Tests: Active Orders 24 hr Category Date Time Status IV Insertion STAT Care 11/14/16 21:42 Active Oxygen-ED Only NASAL CANNULA 2 lpm Care 11/14/16 21:48 Active Pulse Oximetry (ED) STAT Care 11/14/16 21:48 Active CHEST 1 VIEW (PORTABLE) Stat Exams 11/14/16 21:48 Taken VENOUS BILATERAL EXTREMITY [US] Stat Exams 11/14/16 21:46 Ordered AMYLASE Stat Lab 11/14/16 22:00 Completed BLOOD CULTURE Stat Lab 11/14/16 22:05 Received CBC W DIFF Stat Lab 11/14/16 22:00 Completed CMP Stat Lab 11/14/16 22:00 Completed Erythrocyte Sedimentation Rate Stat Lab 11/14/16 22:00 Completed LIPASE Stat Lab 11/14/16 22:00 Completed T4 Stat Lab 11/14/16 22:00 Completed TSH [TSH, 3RD Generation] Stat Lab 11/14/16 22:00 Completed UA Stat Lab 11/14/16 22:19 Completed Respiratory Nebulizer STAT RT 11/14/16 21:49 Completed Medication Summary Generic Name Dose Route Start Last Admin Trade Name Freq PRN Reason Stop Dose Admin Sodium Chloride 1,000 mls @ 100 mls/hr 11/14/16 21:45 11/14/16 21:57 Sodium Chloride 0.9% 1000 Ml IV 04/27/17 21:44 100 mls/hr .Q10H OSWALDO Administration Discontinued Medications Generic Name Dose Route Start Last Admin Trade Name Danilo HUTSON Reason Stop Dose Admin Albuterol Sulfate 2.5 mg 11/14/16 21:48 11/14/16 22:10 Proventil 2.5 Mg/3 Ml Neb IH 11/14/16 21:49 2.5 mg STAT ONE Administration Albuterol Sulfate Confirm 11/14/16 22:08 Proventil 2.5 Mg/3 Ml Neb Administered 11/14/16 22:09 Dose 2.5 mg IH .STK-MED ONE Hydromorphone HCl 0.5 mg 11/14/16 21:42 11/14/16 21:58 Hydromorphone 1 Mg/Ml Ampule IV 11/14/16 21:43 0.5 mg STAT ONE Administration Hydromorphone HCl Confirm 11/14/16 21:54 Hydromorphone 1 Mg/Ml Ampule Administered 11/14/16 21:55 Dose 1 mg .ROUTE .STK-MED ONE Clindamycin HCl/Dextrose 50 mls @ 100 mls/hr 11/14/16 21:44 11/14/16 21:57 Clindamycin-D5w 900 Mg/50 Ml IV 11/14/16 22:13 100 mls/hr STAT ONE Administration Clindamycin HCl/Dextrose Confirm 11/14/16 21:54 Clindamycin-D5w 900 Mg/50 Ml Administered 11/14/16 21:55 Dose 50 mls @ ud IV .STK-MED ONE Sodium Chloride Confirm 11/14/16 21:55 Sodium Chloride 0.9% 1000 Ml Administered 11/14/16 21:56 Dose 1,000 mls @ ud .ROUTE .STK-MED ONE Promethazine HCl 6.25 mg 11/14/16 21:42 11/14/16 21:58 Phenergan 25 Mg Inj IV 11/14/16 21:43 6.25 mg STAT ONE Administration Promethazine HCl Confirm 11/14/16 21:54 Phenergan 25 Mg Inj Administered 11/14/16 21:55 Dose 25 mg .ROUTE .STK-MED ONE Lab/Rad Data: Laboratory Result Diagrams 11/14/16 22:00 11/14/16 22:00 Laboratory Results 11/14/16 11/14/16 11/14/16 Range/Units 22:19 22:00 22:00 WBC (4.0-10.5) K/mm3 RBC (4.1-5.4) M/mm3 Hgb (12.0-16.0) gm/dl Hct (35-47) % MCV (78-100) fl MCH (26-32) pg MCHC (32-36) g/dl RDW (11.5-14.0) % Plt Count (150-450) K/mm3 MPV (6-9.5) fl Gran % (36.0-66.0) % Lymphocytes % (24.0-44.0) % Monocytes % (0.0-12.0) % Eosinophils % (0.00-5.0) % Basophils % (0.0-0.4) % Basophils # (0-0.4) ESR 9 (0-20) mm/hr Sodium (136-145) mEq/L Potassium (3.5-5.1) mEq/L Chloride (98-107) mEq/L Carbon Dioxide (21-32) mEq/L Anion Gap (5-15) MEQ/L BUN (9-20) mg/dL Creatinine (0.55-1.30) mg/dl Estimated GFR ML/MIN Glucose (70-110) MG/DL Calcium (8.5-10.1) mg/dL Total Bilirubin (0.2-1.0) mg/dL AST (15-37) U/L ALT (12-78) U/L Alkaline Phosphatase (46-116) U/L Serum Total Protein (6.4-8.2) gm/dL Albumin (3.4-5.0) g/dL Amylase (25-115) U/L Lipase (73-393) U/L Thyroxine (T4) 7.1 (4.7-13.3) UG/DL TSH 3rd Generation 8.500 H (0.358-3.740) mIU/L Ur Collection Type CCMS Urine Color YELLOW (YELLOW) Urine Appearance CLEAR (CLEAR) Urine pH 5.5 (5-6) Ur Specific [place] 1.025 (1.005-1.025) Urine Protein NEGATIVE (Negative) Urine Glucose (UA) NEGATIVE (NEGATIVE) mg/dL Urine Ketones NEGATIVE (NEGATIVE) Urine Nitrite NEGATIVE (NEGATIVE) Urine Bilirubin NEGATIVE (NEGATIVE) Urine Urobilinogen 1 (0-1) mg/dL Urine WBC (Auto) NEGATIVE (NEGATIVE) Urine RBC (Auto) NEGATIVE (0-5) Francisco Javier/ul Specimen Received 11-14-16 2225 11/14/16 11/14/16 Range/Units 22:00 22:00 WBC 8.2 (4.0-10.5) K/mm3 RBC 4.53 (4.1-5.4) M/mm3 Hgb 14.0 (12.0-16.0) gm/dl Hct 42.7 (35-47) % MCV 94.3 (78-100) fl MCH 30.9 (26-32) pg MCHC 32.8 (32-36) g/dl RDW 14.2 H (11.5-14.0) % Plt Count 238 (150-450) K/mm3 MPV 10.1 H (6-9.5) fl Gran % 60.0 (36.0-66.0) % Lymphocytes % 28.3 (24.0-44.0) % Monocytes % 8.8 (0.0-12.0) % Eosinophils % 2.4 (0.00-5.0) % Basophils % 0.5 (0.0-0.4) % Basophils # 0.04 (0-0.4) ESR (0-20) mm/hr Sodium 144 (136-145) mEq/L Potassium 3.9 (3.5-5.1) mEq/L Chloride 104 (98-107) mEq/L Carbon Dioxide 33.4 H (21-32) mEq/L Anion Gap 10.8 (5-15) MEQ/L BUN 22 H (9-20) mg/dL Creatinine 1.17 (0.55-1.30) mg/dl Estimated GFR 50 ML/MIN Glucose 98 (70-110) MG/DL Calcium 8.8 (8.5-10.1) mg/dL Total Bilirubin 0.7 (0.2-1.0) mg/dL AST 22 (15-37) U/L ALT 24 (12-78) U/L Alkaline Phosphatase 129 H (46-116) U/L Serum Total Protein 7.1 (6.4-8.2) gm/dL Albumin 3.8 (3.4-5.0) g/dL Amylase 38 (25-115) U/L Lipase 147 (73-393) U/L Thyroxine (T4) (4.7-13.3) UG/DL TSH 3rd Generation (0.358-3.740) mIU/L Ur Collection Type Urine Color (YELLOW) Urine Appearance (CLEAR) Urine pH (5-6) Ur Specific [place] (1.005-1.025) Urine Protein (Negative) Urine Glucose (UA) (NEGATIVE) mg/dL Urine Ketones (NEGATIVE) Urine Nitrite (NEGATIVE) Urine Bilirubin (NEGATIVE) Urine Urobilinogen (0-1) mg/dL Urine WBC (Auto) (NEGATIVE) Urine RBC (Auto) (0-5) Francisco Javier/ul Specimen Received - Progress Discussed with : Tom (OBS - [id number]) - Departure Time of Disposition: 23:00 Departure Disposition: Observation Clinical Impression: CELLULITIS OF LEGS, COPD, HTN, FIBROMYALGIA, GERD, ANXIETY, DEPRESSION, NEUROPATHY, HYPOTHYROIDISM, ELEVATED TSH Condition: Stable Critical Care Time: No Referrals: ILA SPAULDING [Primary Care Provider] -
[2016-11-14] MEDS ORDERED: Phenergan 25 MG INJ ONE (21:54)
[2016-11-14] MEDS ORDERED: Hydromorphone 1 mg/ml Ampule ONE (21:54)
[2016-11-14] MEDS ORDERED: Sodium Chloride 0.9% 1000 ML 1,000 ML ONE (21:55)
[2016-11-14 22:11] LABS: BASOPHIL % 0.5 % (0.0-0.4); Eosinophil % 2.4 % (0.00-5.0); Lymphocytes % 28.3 % (24.0-44.0); Mean Cell Volume 94.3 fl (78-100); Mean Corpuscular Hemoglobin 30.9 pg (26-32); Mean Platelet Volume 10.1 fl (6-9.5); Monocytes % 8.8 % (0.0-12.0); Platelet Count 238 K/mm3 (150-450); Red Blood Count 4.53 M/mm3 (4.1-5.4); Red Cell Distribution Width 14.2 % (11.5-14.0); White Blood Count 8.2 K/mm3 (4.0-10.5)
[2016-11-14 22:23] LABS: Collection Type CCMS
[2016-11-14 22:24] LABS: COMPLETE URINE MICROSCOPIC? NO; Ph 5.5 (5-6)
[2016-11-14 22:39] LABS: ALBUMIN 3.8 g/dL (3.4-5.0); ANION GAP 10.8 MEQ/L (5-15); BILIRUBIN,TOTAL 0.7 mg/dL (0.2-1.0); Carbon Dioxide 33.4 mEq/L (21-32); Potassium 3.9 mEq/L (3.5-5.1); Total Protein 7.1 gm/dL (6.4-8.2)
[2016-11-14] MEDS ORDERED: Zofran 4 MG/2 ML VIAL IV PRN (23:53)
[2016-11-14] MEDS ORDERED: Phenergan 25 MG INJ IV PRN (23:53)
[2016-11-14] MEDS ORDERED: TYLENOL 325 MG PO PRN (23:53)
[2016-11-14] MEDS ORDERED: PROVENTIL 2.5 MG/3 ML NEB IH PRN (23:53)
[2016-11-15] MEDS: Lyrica 25 MG PO SCH ×3 (00:35→21:28)
[2016-11-15] MEDS: Toprol-Xl 25MG Tablets PO SCH ×3 (00:35→21:28)
[2016-11-15] MEDS: Mirapex 0.5 MG Tablet PO SCH ×2 (00:35→21:27)
[2016-11-15] MEDS: Cleocin Phosphate IV 600 MG/4 ML IV SCH ×2 (00:37→05:09)
[2016-11-15] MEDS ORDERED: DUONEB 0.5-3 MG/3 ml Neb IH ONE (02:35)
[2016-11-15] MEDS: DUONEB 0.5-3 MG/3 ml Neb IH SCH ×6 (02:38→22:40)
[2016-11-15] MEDS ORDERED: CLINDAMYCIN-D5W 600 MG/50 ML*** 50 ML IV ONE (05:08)
[2016-11-15 05:29] LABS: BASOPHIL % 0.3 % (0.0-0.4); Eosinophil % 2.5 % (0.00-5.0); Granulocytes % 57.9 % (36.0-66.0); Lymphocytes % 28.8 % (24.0-44.0); Monocytes % 10.5 % (0.0-12.0); Platelet Count 197 K/mm3 (150-450); Red Blood Count 3.98 M/mm3 (4.1-5.4); Red Cell Distribution Width 14.2 % (11.5-14.0); White Blood Count 6.4 K/mm3 (4.0-10.5)
[2016-11-15 05:38] LABS: Mean Corpuscular Hemoglobin 30.6 pg (26-32)
[2016-11-15 06:02] LABS: ALBUMIN 3.2 g/dL (3.4-5.0); ANION GAP 10.7 MEQ/L (5-15); BILIRUBIN,TOTAL 0.6 mg/dL (0.2-1.0); Carbon Dioxide 30.7 mEq/L (21-32); Potassium 3.9 mEq/L (3.5-5.1); Total Protein 6.1 gm/dL (6.4-8.2)
[2016-11-15] MEDS: Advair Hfa 115/21 Common canister IH SCH ×2 (06:44→19:15)
--- NOTE | 2016-11-15 08:41 | XRAY ---
Indication: Wheezing and swollen legs. Comparison: September 18, 2016. Portable apical lordotic chest again demonstrates chronic interstitial lung markings without focal infiltrate, consolidation, or large effusion. Heart is not enlarged for AP portable technique. Bony thorax intact again with mild degenerative changes. Impression: Stable nonacute chest with chronic features.
--- NOTE | 2016-11-15 08:43 | XRAY ---
Indication: Pain, erythema, and edema. 2 dimensional US and color Doppler imaging of the major veins of the left and right leg performed. Comparison: July 11, 2016. Again no thrombus seen in the examined deep venous of the left and right leg including greater saphenous veins. Veins demonstrate normal compression. Venous wave forms are normal. Impression: Left and right legs again negative for DVT. Comment: Preliminary report was given.
--- NOTE | 2016-11-15 09:27 | PCM.HP ---
History of Present Illness - Chief Complaint Chief Complaint: Bilateral leg Cellulitis, COPD, Wlevated TSH of 8.5 History of Present Illness: is a 56 year old female with a history of chronic lower extremity edema, she states she has had problems since June 2016. She reported to the ER with increasing pain, swelling and redness to bilateral lower extremities. 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 She also has a history of copd, she is chronically dependant on oxygen. She has wheezing and nonproductive cough, states her current breathing is worse than usual. - Review of Systems Constitutional: No Fever, No Chills Respiratory: Cough, Wheezing Cardiac: No Chest Pain, No Edema, No Syncope Skin: Cellulitis Neurological: No Dizziness, No Focal Weakness, No Sensory Changes All Other Systems: Reviewed and Negative Medications & Allergies Home Medications: Home Medication List Albuterol Sulfate [Proair Hfa] 2 puffs IH BIDPRN PRN 10/20/15 [History Confirmed 11/14/16] Furosemide 40 mg [Lasix 40 MG] 80 mg PO DAILY 10/20/15 [History Confirmed 11/14/16] Buspirone HCl 7.5 mg PO BIDPRN PRN 07/11/16 [History Confirmed 11/14/16] Spironolactone [Aldactone] 50 mg PO DAILY 07/11/16 [History Confirmed 11/14/16] Fluticasone/Vilanterol [Breo Ellipta 100-25 Mcg INH] 1 inh IH DAILY 07/27/16 [ History Confirmed 11/14/16] Metoprolol Succinate 25 mg Xl* [Toprol-Xl 25MG Tablets] 25 mg PO BID [History Confirmed 11/14/16] Pramipexole Di-HCl [Mirapex] 0.5 tab PO HS 07/27/16 [History Confirmed 11/15/16] Pregabalin [Lyrica] 75 mg PO BID 07/27/16 [History Confirmed 11/14/16] Ranitidine HCl [Zantac] 150 mg PO DAILY 07/27/16 [History Confirmed 11/14/16] Aspirin 81 mg PO DAILY 09/11/16 [History Confirmed 11/14/16] Atorvastatin Calcium [Lipitor] 20 mg PO HS 09/11/16 [History Confirmed 11/14/16] Nitroglycerin 0.4 mg Tablet [Nitrostat 0.4 MG Tablet] 0.4 mg IH UD [History Confirmed 11/14/16] Albuterol/Ipratropium 3ml Neb* [DUONEB 0.5-3 MG/3 ml Neb] 3 ml IH TID [History Confirmed 11/14/16] Levothyroxine Sodium 150 Mcg [Synthroid 150 Mcg] 125 mcg PO DAILY 11/14/16 [History Confirmed 11/14/16] Potassium Chloride 20 meq PO DAILY 11/14/16 [History Confirmed 11/14/16] Prednisone 20 mg [Deltasone 20 mg] 10 mg PO BID 11/14/16 [History Confirmed 11/14/16] Allergies/Adverse Reactions: Allergies Allergy/AdvReac Type Severity Reaction Status Date / Time Iodinated Contrast Media - Allergy Severe Difficulty Verified 11/14/16 21:24 Oral and Breathing [Iodinated Contrast Media - IV Dye] Penicillins Allergy Severe Difficulty Verified 11/14/16 21:24 Breathing levofloxacin [From Levaquin] Allergy Verified 11/14/16 21:24 - Past Medical History Past Medical History: Yes Neurological History: No Pertinent History ENT History: No Pertinent History Cardiac History: High Cholesterol, Hypertension Respiratory History: Asthma, COPD, Pneumonia, Pulmonary Embolism, Sleep Apnea, Other Endocrine Medical History: Thyroid Cancer Musculoskelatal History: Fibromyalgia GI Medical History: GERD History: No Pertinent History Pyscho-Social History: Anxiety, Depression Reproductive Disorders: Fibroids, Other Comment: neuropathy. 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 colonscopy. spinal L4,L5 , S1 removed disc "completely"per pt and "not fused". thyroidectomy. right ovary removed - Social History Smoking Status: Former smoker How long have you smoked: 42 YEARS Exposure to second hand smoke: Yes Alcohol: None Drug Use: none - Physical Exam Vital Signs: Vital Signs - 24 hr Temp Pulse Resp BP Pulse Ox 11/15/16 07:54 97.6 F 68 20 108/69 95 11/15/16 06:47 71 20 96 11/15/16 05:43 18 11/15/16 04:20 97.5 F 62 18 104/61 93 L 11/15/16 02:38 66 18 93 L 11/15/16 00:45 97.5 F 73 24 131/78 95 11/15/16 00:10 66 23 96 11/14/16 23:16 86 18 98/34 96 11/14/16 23:00 95 11/14/16 22:19 96 11/14/16 22:10 69 21 94 L 11/14/16 21:55 67 20 106/66 100 11/14/16 20:52 97.9 F 68 20 108/60 95 Oxygen-Last 24 hours O2 Percentage 3 Liters = 32% O2 Percentage 3 Liters = 32% O2 Percentage 3 Liters = 32% O2 Percentage 2 Liters = 28% O2 Percentage 2 Liters = 28% O2 Percentage 100% General Appearance: no apparent distress, alert Respiratory Exam: prolonged expirations, wheezing Cardiovascular Exam: regular rate/rhythm, normal heart sounds, normal peripheral pulses Gastrointestinal/Abdomen Exam: soft, normal bowel sounds, No tenderness, No mass Extremity Exam: pedal edema, swelling (2+ pitting edema BLE, warmth anteriorly to palpation), No saturnino's sign Results - Labs Lab/Micro Results: Lab Results-Last 24 Hours 11/15/16 11/15/16 Range/Units 05:25 05:25 WBC 6.4 (4.0-10.5) K/mm3 RBC 3.98 L (4.1-5.4) M/mm3 Hgb 12.2 (12.0-16.0) gm/dl Hct 37.8 (35-47) % MCV 95.0 (78-100) fl MCH 30.6 (26-32) pg MCHC 32.3 (32-36) g/dl RDW 14.2 H (11.5-14.0) % Plt Count 197 (150-450) K/mm3 MPV 10.0 H (6-9.5) fl Gran % 57.9 (36.0-66.0) % Lymphocytes % 28.8 (24.0-44.0) % Monocytes % 10.5 (0.0-12.0) % Eosinophils % 2.5 (0.00-5.0) % Basophils % 0.3 (0.0-0.4) % Basophils # 0.02 (0-0.4) Sodium 144 (136-145) mEq/L Potassium 3.9 (3.5-5.1) mEq/L Chloride 106 (98-107) mEq/L Carbon Dioxide 30.7 (21-32) mEq/L Anion Gap 10.7 (5-15) MEQ/L BUN 21 H (9-20) mg/dL Creatinine 1.08 (0.55-1.30) mg/dl Estimated GFR 55 ML/MIN Glucose 104 (70-110) MG/DL Calcium 8.1 L (8.5-10.1) mg/dL Total Bilirubin 0.6 (0.2-1.0) mg/dL AST 21 (15-37) U/L ALT 21 (12-78) U/L Alkaline Phosphatase 106 (46-116) U/L Serum Total Protein 6.1 L (6.4-8.2) gm/dL Albumin 3.2 L (3.4-5.0) g/dL - Other Procedures and Tests Respiratory Therapy 11/15/16 00:18 BiPap/CPAP Assessment ROUTINE Respiratory Nebulizer PRN 11/15/16 03:00 Respiratory Nebulizer Q4H 11/15/16 07:00 Respiratory MDI BID Assessment/Plan (1) Cellulitis Current Visit: Yes Status: Acute Assessment & Plan: continue IV clindamycin at this time, will attempt to diurese with lasix. no hx of chf per patient, has had echo with cardiology within the last year Code(s): L03.90 - CELLULITIS, UNSPECIFIED (2) COPD exacerbation Current Visit: Yes Status: Acute Assessment & Plan: IV solumedrol and nebs ordered. significant wheezing on exam Code(s): J44.1 - CHRONIC OBSTRUCTIVE PULMONARY DISEASE W (ACUTE) EXACERBATION (3) Hypothyroidism Current Visit: Yes Status: Acute Assessment & Plan: synthroid dosage increased, was subtherapeutic. in hopes there will be improvement with swelling if we can get her euthyroid Code(s): E03.9 - HYPOTHYROIDISM, UNSPECIFIED
[2016-11-15] MEDS ORDERED: BUSPIRONE HCL 7.5 MG PO PRN (09:52)
[2016-11-15] MEDS ORDERED: BUSPAR 5 MG PO PRN (09:59)
[2016-11-15] MEDS ORDERED: NON-FORMULARY ITEM (Spironolactone [Aldactone] 50 MG) PO SCH (10:00)
[2016-11-15] MEDS ORDERED: SYNTHROID 150 MCG PO SCH (10:00)
[2016-11-15] MEDS ORDERED: NON-FORMULARY ITEM (Aspirin [Aspirin] 81 MG) PO SCH (10:00)
[2016-11-15] MEDS: Aldactone 25 MG PO SCH (10:12)
[2016-11-15] MEDS: ECOTRIN 81 MG PO SCH (10:13)
[2016-11-15] MEDS: SYNTHROID 100 MCG PO SCH (10:13)
[2016-11-15] MEDS: Pepcid 20 MG PO SCH (10:13)
[2016-11-15] MEDS: ENOXAPARIN SODIUM SQ SCH (10:14)
[2016-11-15] MEDS: Klor Con 10 MEQ PO SCH ×2 (10:14→21:27)
[2016-11-15] MEDS: solu-MEDROL 125 MG IV SCH ×2 (10:14→17:27)
[2016-11-15] MEDS: Lasix 40 MG/4 ML IV SCH ×2 (10:14→21:21)
[2016-11-15] MEDS: PROTONIX 40 MG IV IV SCH (10:14)
[2016-11-15] MEDS ORDERED: PREVNAR 13 SYRINGE IM ONE (10:15)
[2016-11-15] MEDS: SYNTHROID 75 MCG PO SCH (10:15)
[2016-11-15] MEDS: CLINDAMYCIN-D5W 600 MG/50 ML*** 50 ML IV SCH ×2 (11:45→17:26)
[2016-11-15] MEDS: DILAUDID 2 MG INJECTION IV PRN ×2 (14:25→21:44)
[2016-11-15] MEDS: ZOCOR 20MG PO SCH (21:28)
[2016-11-15] MEDS ORDERED: NON-FORMULARY ITEM (Atorvastatin Calcium [Lipitor] 20 MG) PO SCH (22:00)
[2016-11-16] MEDS: CLINDAMYCIN-D5W 600 MG/50 ML*** 50 ML IV SCH ×4 (00:27→17:02)
[2016-11-16] MEDS: solu-MEDROL 125 MG IV SCH ×3 (01:39→17:02)
[2016-11-16] MEDS: DUONEB 0.5-3 MG/3 ml Neb IH SCH ×6 (02:54→23:24)
[2016-11-16 05:56] LABS: BASOPHIL % 0.1 % (0.0-0.4); Granulocytes % 87.3 % (36.0-66.0); Lymphocytes % 10.3 % (24.0-44.0); Mean Cell Volume 94.3 fl (78-100); Mean Corpuscular Hemoglobin 30.7 pg (26-32); Mean Platelet Volume 10.1 fl (6-9.5); Monocytes % 2.3 % (0.0-12.0); Platelet Count 223 K/mm3 (150-450); Red Blood Count 4.23 M/mm3 (4.1-5.4); Red Cell Distribution Width 14.2 % (11.5-14.0); White Blood Count 7.4 K/mm3 (4.0-10.5)
[2016-11-16] MEDS: Advair Hfa 115/21 Common canister IH SCH ×2 (06:35→18:46)
[2016-11-16 06:37] LABS: ANION GAP 11.7 MEQ/L (5-15); Carbon Dioxide 33.2 mEq/L (21-32); Potassium 4.7 mEq/L (3.5-5.1)
--- NOTE | 2016-11-16 08:20 | PCM.NOTE ---
Date and Time: 11/16/16818 Subjective Assessment: breathing is improved, not as labored or wheezing as much. redness, pain and swelling have improved slightly as well in yung feet and lower legs Objective Exam General Appearance: no apparent distress, alert Respiratory Exam: prolonged expirations, wheezing Cardiovascular Exam: regular rate/rhythm, normal heart sounds Gastrointestinal/Abdomen Exam: soft, No tenderness, No mass Extremity Exam: pedal edema, swelling (mild erythema anterior lower shins with warmth, improved) OBJECTIVE DATA Vital Signs: Vital Signs - 24 hr Temp Pulse Resp BP Pulse Ox 11/16/16 07:13 82 21 117/56 92 L 11/16/16 06:38 78 20 96 11/16/16 06:00 16 11/16/16 04:00 97.8 F 74 16 118/57 94 L 11/16/16 02:58 74 16 94 L 11/16/16 02:00 16 11/16/16 00:00 98.1 F 76 18 122/66 97 11/15/16 22:43 82 20 91 L 11/15/16 22:00 19 11/15/16 20:00 97.9 F 74 19 121/63 94 L 11/15/16 19:00 80 20 97 11/15/16 18:00 18 11/15/16 16:00 98.7 F 80 23 108/55 97 11/15/16 15:00 74 16 97 11/15/16 14:00 22 11/15/16 11:15 97.8 F 73 20 127/83 97 11/15/16 10:32 71 22 87 L 11/15/16 10:00 20 Oxygen-Last 24 hours O2 Percentage 3 Liters = 32% O2 Percentage 3 Liters = 32% O2 Percentage 3 Liters = 32% O2 Percentage 3 Liters = 32% Pain Assessment - Last Documented Pain Intensity 6 Pain Scale Used 0-10 Pain Scale Intake and Output: Intake & Output 11/13/16 11/14/16 11/15/16 11/16/16 11:59 11:59 11:59 11:59 Intake Total 1196 1900 Output Total 700 Balance 496 1900 Weight 125.9 kg 119.476 kg Lab Results: Lab Results-Last 24 Hours 11/16/16 11/16/16 Range/Units 05:40 05:40 WBC 7.4 (4.0-10.5) K/mm3 RBC 4.23 (4.1-5.4) M/mm3 Hgb 13.0 (12.0-16.0) gm/dl Hct 39.9 (35-47) % MCV 94.3 (78-100) fl MCH 30.7 (26-32) pg MCHC 32.6 (32-36) g/dl RDW 14.2 H (11.5-14.0) % Plt Count 223 (150-450) K/mm3 MPV 10.1 H (6-9.5) fl Gran % 87.3 H (36.0-66.0) % Lymphocytes % 10.3 L (24.0-44.0) % Monocytes % 2.3 (0.0-12.0) % Eosinophils % 0.0 (0.00-5.0) % Basophils % 0.1 (0.0-0.4) % Basophils # 0.01 (0-0.4) Sodium 143 (136-145) mEq/L Potassium 4.7 (3.5-5.1) mEq/L Chloride 103 (98-107) mEq/L Carbon Dioxide 33.2 H (21-32) mEq/L Anion Gap 11.7 (5-15) MEQ/L BUN 16 (9-20) mg/dL Creatinine 1.06 (0.55-1.30) mg/dl Estimated GFR 57 ML/MIN Glucose 177 H (70-110) MG/DL Calcium 8.6 (8.5-10.1) mg/dL Assessment/Plan (1) Cellulitis Current Visit: Yes Status: Acute Assessment & Plan: improving cellulitis and swelling, continue lasix and vanc Code(s): L03.90 - CELLULITIS, UNSPECIFIED (2) COPD exacerbation Current Visit: Yes Status: Acute Code(s): J44.1 - CHRONIC OBSTRUCTIVE PULMONARY DISEASE W (ACUTE) EXACERBATION (3) Hypothyroidism Current Visit: Yes Status: Acute Assessment & Plan: improving Code(s): E03.9 - HYPOTHYROIDISM, UNSPECIFIED
[2016-11-16] MEDS: DILAUDID 2 MG INJECTION IV PRN ×3 (08:48→22:23)
[2016-11-16] MEDS: PROTONIX 40 MG IV IV SCH (08:49)
[2016-11-16] MEDS: SYNTHROID 75 MCG PO SCH (08:50)
[2016-11-16] MEDS: SYNTHROID 100 MCG PO SCH (08:50)
[2016-11-16] MEDS: Aldactone 25 MG PO SCH (08:50)
[2016-11-16] MEDS: Pepcid 20 MG PO SCH (08:50)
[2016-11-16] MEDS: Klor Con 10 MEQ PO SCH ×2 (08:50→22:01)
[2016-11-16] MEDS: Toprol-Xl 25MG Tablets PO SCH ×2 (08:50→22:01)
[2016-11-16] MEDS: ENOXAPARIN SODIUM SQ SCH (08:51)
[2016-11-16] MEDS: Lyrica 25 MG PO SCH ×2 (08:51→22:00)
[2016-11-16] MEDS: ECOTRIN 81 MG PO SCH (08:51)
[2016-11-16] MEDS: Lasix 40 MG/4 ML IV SCH ×2 (08:51→22:00)
[2016-11-16] MEDS: ZOCOR 20MG PO SCH (22:01)
[2016-11-16] MEDS: Mirapex 0.5 MG Tablet PO SCH (22:01)
[2016-11-17] MEDS: CLINDAMYCIN-D5W 600 MG/50 ML*** 50 ML IV SCH ×3 (00:44→11:02)
[2016-11-17] MEDS: solu-MEDROL 125 MG IV SCH ×2 (01:26→09:04)
[2016-11-17] MEDS: DUONEB 0.5-3 MG/3 ml Neb IH SCH ×3 (03:32→10:30)
[2016-11-17 05:53] LABS: BASOPHIL % 0.1 % (0.0-0.4); Granulocytes % 88.7 % (36.0-66.0); Lymphocytes % 7.4 % (24.0-44.0); Mean Cell Volume 96.7 fl (78-100); Mean Corpuscular Hemoglobin 30.3 pg (26-32); Mean Platelet Volume 10.3 fl (6-9.5); Monocytes % 3.8 % (0.0-12.0); Platelet Count 241 K/mm3 (150-450); Red Blood Count 4.22 M/mm3 (4.1-5.4); Red Cell Distribution Width 14.7 % (11.5-14.0); White Blood Count 11.7 K/mm3 (4.0-10.5)
[2016-11-17 06:28] LABS: ANION GAP 10.3 MEQ/L (5-15); BLOOD UREA NITROGEN 22 mg/dL (9-20); CHLORIDE 102 mEq/L (98-107); Carbon Dioxide 34.8 mEq/L (21-32); Glucose 181 MG/DL (70-110); Potassium 4.3 mEq/L (3.5-5.1); SODIUM 143 mEq/L (136-145)
[2016-11-17] MEDS: Advair Hfa 115/21 Common canister IH SCH (06:56)
--- NOTE | 2016-11-17 08:16 | PCM.DS ---
Discharge Summary Date of Admission: 11/15/16 09:22 Admitting Physician: ILA SPAULDING Primary Care Provider: ILA SPAULDING Allergies Allergies Iodinated Contrast Media - Oral and [Iodinated Contrast Media - IV Dye] Allergy (Severe, Verified 11/14/16 21:24) Difficulty Breathing USED 2 EPI PENS Penicillins Allergy (Severe, Verified 11/14/16 21:24) Difficulty Breathing EPI PEN USED. levofloxacin [From Levaquin] Allergy (Verified 11/14/16 21:24) CYST BEHIND BOTH KNEES. Hospital Summary - Hospital Course Hospital Course: patient was admitted with cellulitis BLE, has chronic severe edema and is on lasix 80mg po daily and aldactone 50mg daily. has severe copd, is oxygen dependant. always has wheezing per patient. she was diuresed with IV lasix, swelling in legs has improved but still presetn, redness is dramatically better. no warmth. lung sounds have improved and breathing is back to baseline. - Vitals & Intake/Output Vital Signs: Vital Signs Temperature 97.5 F 11/17/16 07:15 Pulse Rate 66 11/17/16 07:15 Respiratory Rate 18 11/17/16 07:15 Blood Pressure 123/70 11/17/16 07:15 O2 Sat by Pulse Oximetry 95 11/17/16 07:15 Oxygen-Last Documented O2 Percentage 2 Liters = 28% Intake & Output: Intake & Output 11/14/16 11/15/16 11/16/16 11/17/16 11:59 11:59 11:59 11:59 Intake Total 447 2300 1860 Output Total 700 Balance -253 2300 1860 Weight 119.476 kg 120.656 kg - Lab Result Diagrams: 11/17/16 05:00 11/17/16 05:20 Lab Results-Last 24 Hrs: Lab Results-Last 24 Hours 11/17/16 11/17/16 Range/Units 05:00 05:20 WBC 11.7 H (4.0-10.5) K/mm3 RBC 4.22 (4.1-5.4) M/mm3 Hgb 12.8 (12.0-16.0) gm/dl Hct 40.8 (35-47) % MCV 96.7 (78-100) fl MCH 30.3 (26-32) pg MCHC 31.4 L (32-36) g/dl RDW 14.7 H (11.5-14.0) % Plt Count 241 (150-450) K/mm3 MPV 10.3 H (6-9.5) fl Gran % 88.7 H (36.0-66.0) % Lymphocytes % 7.4 L (24.0-44.0) % Monocytes % 3.8 (0.0-12.0) % Eosinophils % 0.0 (0.00-5.0) % Basophils % 0.1 (0.0-0.4) % Basophils # 0.01 (0-0.4) Sodium 143 (136-145) mEq/L Potassium 4.3 (3.5-5.1) mEq/L Chloride 102 (98-107) mEq/L Carbon Dioxide 34.8 H (21-32) mEq/L Anion Gap 10.3 (5-15) MEQ/L BUN 22 H (9-20) mg/dL Creatinine 0.88 (0.55-1.30) mg/dl Estimated GFR > 60 ML/MIN Glucose 181 H (70-110) MG/DL Calcium 8.6 (8.5-10.1) mg/dL Discharge Exam General Appearance: no apparent distress, alert Respiratory Exam: prolonged expirations, wheezing Cardiovascular Exam: regular rate/rhythm, normal heart sounds Gastrointestinal/Abdomen Exam: soft, No tenderness, No mass Extremity Exam: swelling (1+ edema BLE, mild erythema, warmth absent now) Final Diagnosis/Problem List - Final Discharge Diagnosis/Problem (1) Cellulitis Current Visit: Yes Status: Acute Assessment & Plan: improved on clindamycin, will continue x 7 more days. resume home doses of diuretics (2) COPD exacerbation Current Visit: Yes Status: Acute Assessment & Plan: add po prednisone 20mg daily x 7 days, seems to be at her baseline at this time (3) Hypothyroidism Current Visit: Yes Status: Acute Assessment & Plan: TSH was 8.5 dose was increased during hospital stay from 125mcg to 175mcg daily , rx written at discharge, will need followup labs in 6-8 weeks - Discharge Disposition: Home, Self-Care Condition: Stable Prescriptions: New Clindamycin HCl 1 cap PO TID #21 capsule Tramadol HCl [Ultram] 50 mg PO Q6H PRN PRN #20 tablet PRN Reason: Pain Levothyroxine Sodium 100 Mcg [Synthroid 100 Mcg] 100 mcg PO QAM #30 tablet Levothyroxine Sodium 75 Mcg [Synthroid 75 Mcg] 75 mcg PO QAM #30 tablet Continue Furosemide 40 mg [Lasix 40 MG] 80 mg PO DAILY Albuterol Sulfate [Proair Hfa] 2 puffs IH BIDPRN PRN PRN Reason: Shortness Of Breath Spironolactone [Aldactone] 50 mg PO DAILY Buspirone HCl 7.5 mg PO BIDPRN PRN PRN Reason: Anxiety Ranitidine HCl [Zantac] 150 mg PO DAILY Pramipexole Di-HCl [Mirapex] 0.5 tab PO HS Pregabalin [Lyrica] 75 mg PO BID Metoprolol Succinate 25 mg Xl* [Toprol-Xl 25MG Tablets] 25 mg PO BID Fluticasone/Vilanterol [Breo Ellipta 100-25 Mcg INH] 1 inh IH DAILY Atorvastatin Calcium [Lipitor] 20 mg PO HS Aspirin 81 mg PO DAILY Nitroglycerin 0.4 mg Tablet [Nitrostat 0.4 MG Tablet] 0.4 mg IH UD Albuterol/Ipratropium 3ml Neb* [DUONEB 0.5-3 MG/3 ml Neb] 3 ml IH TID Potassium Chloride 20 meq PO DAILY Changed Prednisone 20 mg [Deltasone 20 mg] 20 mg PO DAILY #7 tablet Discontinued Levothyroxine Sodium 150 Mcg [Synthroid 150 Mcg] 125 mcg PO DAILY Follow up with: ILA SPAULDING [Primary Care Provider] -
[2016-11-17] MEDS: PROTONIX 40 MG IV IV SCH (09:04)
[2016-11-17] MEDS: Lasix 40 MG/4 ML IV SCH (09:06)
[2016-11-17] MEDS: DILAUDID 2 MG INJECTION IV PRN (09:11)
[2016-11-17] MEDS: ENOXAPARIN SODIUM SQ SCH (09:12)
[2016-11-17] MEDS: Aldactone 25 MG PO SCH (09:13)
[2016-11-17] MEDS: Toprol-Xl 25MG Tablets PO SCH (09:13)
[2016-11-17] MEDS: ECOTRIN 81 MG PO SCH (09:13)
[2016-11-17] MEDS: Pepcid 20 MG PO SCH (09:13)
[2016-11-17] MEDS: SYNTHROID 75 MCG PO SCH (09:14)
[2016-11-17] MEDS: Klor Con 10 MEQ PO SCH (09:14)
[2016-11-17] MEDS: SYNTHROID 100 MCG PO SCH (09:14)
[2016-11-17] MEDS: Lyrica 25 MG PO SCH (09:14)
[2016-11-17 12:21] VITALS: BP 121/62; PULSE 72; O2SAT 92
== END 2016-11-17 12:40 | disposition home or self-care (01) | DRG 603 ==
LOC: ED 20:46 → ICU 23:52 → OBSVTOIN 11-15 09:22 → MED SURG 11-15 11:34
PROVIDERS: ADMIT Internal Medicine; ATTEND Internal Medicine
DX: L03.116 Cellulitis of left lower limb (principal); L03.115 Cellulitis of right lower limb; J44.9 Chronic obstructive pulmonary disease, unspecified; E03.9 Hypothyroidism, unspecified; F41.9 Anxiety disorder, unspecified; Z79.899 Other long term (current) drug therapy; I10 Essential (primary) hypertension; G47.30 Sleep apnea, unspecified; M79.89 Other specified soft tissue disorders; J45.909 Unspecified asthma, uncomplicated; Z86.711 Personal history of pulmonary embolism; Z85.850 Personal history of malignant neoplasm of thyroid; M79.7 Fibromyalgia; K21.9 Gastro-esophageal reflux disease without esophagitis; F41.8 Other specified anxiety disorders
CPT/HCPCS: 36000; 36415; 71010; 80048; 80053; 81002; 82150; 83690; 84436; 84443; 85025; 85652; 87040; 90670; 93970; 94640; 94660; 94760; 96360; 96361; 96365; 99285; J1170; J1650; J1940; J2550; J2930; A9270-GY

== ENCOUNTER 2017-10-15 21:05 | Inpatient (IN) | payer MEDICARE ==
[2017-10-15] MEDS ORDERED: PROVENTIL 2.5 MG/3 ML NEB IH ONE ×2 (21:12→21:24)
[2017-10-15] MEDS ORDERED: solu-MEDROL 125 MG IV ONE (21:12)
--- NOTE | 2017-10-15 21:17 | ERPHSYRPT ---
- History of Present Illness Time Seen by Provider: 10/15/17 21:10 Source: patient, family Exam Limitations: no limitations Patient Subjective Stated Complaint: shortness of breath Physician History: 57 y/o female with history of Langerhan's Histiocytosis and COPD on home O2 comes to the ER with complaints of shortness of breath, cough, congestion, wheezing and subjective fever for the past 2 days. Pt also noted her O2 sat being 81%. Pt is on prednisone 10mg and has been using duonebs with no relief. Pt also admits to having substernal chest pain that started today. No sick contacts. Timing/Duration: day(s) Activities at Onset: none Severity of Dyspnea-Max: severe Severity of Dyspnea-Current: severe Possible Cause: occasional episodes Modifying Factors: Improves With: nothing Associated Symptoms: cough, chest pain/discomfort, fever International travel in last 2 weeks: No Allergies/Adverse Reactions: Iodinated Contrast- Oral and IV Dye [Iodinated Contrast Media - IV Dye] Allergy (Severe, Verified 10/15/17 21:34) Difficulty Breathing USED 2 EPI PENS Penicillins Allergy (Severe, Verified 10/15/17 21:34) Difficulty Breathing EPI PEN USED. levofloxacin [From Levaquin] Allergy (Verified 10/15/17 21:34) CYST BEHIND BOTH KNEES. Home Medications: Albuterol Sulfate [Proair Hfa] 2 puffs IH BIDPRN PRN 10/20/15 [History] Spironolactone [Aldactone] 50 mg PO DAILY 07/11/16 [History] Fluticasone/Vilanterol [Breo Ellipta 100-25 Mcg INH] 1 inh IH DAILY 07/27/16 [ History] Metoprolol Succinate 25 mg Xl* [Toprol-Xl 25MG Tablets] 25 mg PO BID [History] Pramipexole Di-HCl [Mirapex] 0.5 tab PO HS 07/27/16 [History] Ranitidine HCl [Zantac] 150 mg PO HS 07/27/16 [History] Aspirin 81 mg PO DAILY 09/11/16 [History] Atorvastatin Calcium [Lipitor] 20 mg PO HS 09/11/16 [History] Nitroglycerin 0.4 mg Tablet [Nitrostat 0.4 MG Tablet] 0.4 mg IH UD [History] Albuterol/Ipratropium 3ml Neb* [DUONEB 0.5-3 MG/3 ml Neb] 3 ml IH QID [History] Potassium Chloride 20 meq PO DAILY 11/14/16 [History] Bumetanide [Bumetanide] 2 mg PO BIDWM 10/16/17 [History] Duloxetine HCl 30 mg [Cymbalta 30 MG Capsule] 30 mg PO BID 10/16/17 [ History] Levothyroxine Sodium 150 mcg PO DAILY 10/16/17 [History] Lubiprostone [Amitiza] 24 mg PO DAILY 10/16/17 [History] Metformin HCl 500 mg [Glucophage 500 MG] 500 mg PO DAILY 10/16/17 [History ] Modafinil [Modafinil] 200 mg PO BID 10/16/17 [History] Hx Tetanus, Diphtheria Vaccination/Date Given: Yes (up to date) Hx Influenza Vaccination/Date Given: Yes Hx Pneumococcal Vaccination/Date Given: Yes (2012) - Review of Systems Constitutional: Fever, No Chills Eyes: No Symptoms Ears, Nose, & Throat: No Symptoms, Nose Discharge Respiratory: Cough, Dyspnea, Dyspnea on Exertion (HDEZ), Wheezing Cardiac: Chest Pain, No Edema, No Syncope Abdominal/Gastrointestinal: No Abdominal Pain, No Nausea, No Vomiting, No Diarrhea Genitourinary Symptoms: No Dysuria Musculoskeletal: No Back Pain, No Neck Pain Skin: No Rash Neurological: No Dizziness, No Focal Weakness, No Sensory Changes Psychological: No Symptoms Endocrine: No Symptoms All Other Systems: Reviewed and Negative - Past Medical History Pertinent Past Medical History: Yes Neurological History: No Pertinent History ENT History: No Pertinent History Cardiac History: High Cholesterol, Hypertension Respiratory History: Asthma, COPD, Pneumonia, Pulmonary Embolism, Sleep Apnea, Other Endocrine Medical History: Thyroid Cancer Musculoskeletal History: Fibromyalgia GI Medical History: GERD History: No Pertinent History Psycho-Social History: Anxiety, Depression Female Reproductive Disorders: Fibroids, Other Other Medical History: neuropathy. cytosis, rt ovary removed - Past Surgical History Past Surgical History: Yes Neuro Surgical History: No Pertinent History Cardiac: Cardiac Catheterization, Cardiac Stent Respiratory: Other Gastrointestinal: Cholecystectomy Genitourinary: No Pertinent History Musculoskeletal: Orthopedic Surgery Female Surgical History: Hysterectomy, Other Other Surgical History: lung biopsy right lung 2013 r/t langerhines cytosis of the lungs. colonscopy. spinal L4,L5 , S1 removed disc "completely"per pt and "not fused". thyroidectomy. right ovary removed - Social History Smoking Status: Former smoker How long have you smoked: 42 YEARS Exposure to second hand smoke: Yes Drug Use: none Patient Lives Alone: Yes - Nursing Vital Signs Nursing Vital Signs: Initial Vital Signs Temperature 97.9 F 10/15/17 21:34 Pulse Rate 85 10/15/17 21:34 Respiratory Rate 28 H 10/15/17 21:34 Blood Pressure 109/84 10/15/17 21:34 O2 Sat by Pulse Oximetry 98 10/15/17 21:34 Pain Scale Pain Intensity 3 - Physical Exam General Appearance: moderate distress, alert Eye Exam: PERRL/EOMI Neck Exam: normal inspection, supple Respiratory Exam: respiratory distress, crackles/rales, wheezing Cardiovascular/Chest Exam: normal heart sounds, regular rate/rhythm, normal peripheral pulses Abdominal/Gastrointestinal Exam: soft, normal bowel sounds, No tenderness, No distention, No mass Extremity Exam: non-tender, normal range of motion, normal inspection, no calf tenderness, no pedal edema Neurologic Exam: alert, oriented x 3, cooperative, learning design specialist II-XII nml as tested, sensation nml, No motor deficits Skin Exam: normal color, warm, No dry SpO2 Interpretation: normal SpO2: 98 - Course Nursing assessment & vital signs reviewed: Yes EKG Interpreted by Me: RATE, NORMAL AXIS, NORMAL INTERVALS, NORMAL QRS, NORMAL ST-T (HR 69) Ordered Tests: Active Orders 24 hr Category Date Time Status Bedrest ROUTINE Activity 10/15/17 22:33 Active Admission/Status Order ROUTINE Care 10/15/17 22:33 Active Pmo Manager STAT Care 10/15/17 21:12 Completed Code Status Order ROUTINE Care 10/15/17 22:33 Active EKG-ER Only STAT Care 10/15/17 21:12 Completed IV Care Q6H Care 10/15/17 22:33 Active IV Insertion STAT Care 10/15/17 21:12 Completed Moreno Arcos, Apply ROUTINE Care 10/15/17 22:33 Active Weight,Daily 0600 Care 10/15/17 22:33 Active Cardiac Diet Diet 10/16/17 Breakfast Active CHEST 1 VIEW (PORTABLE) Stat Exams 10/15/17 21:13 Taken ARTERIAL BLOOD GASES Stat Lab 10/15/17 21:40 Completed BLOOD CULTURE Stat Lab 10/15/17 21:35 Received BMP AM.LAB Lab 10/16/17 04:00 Ordered CBC AM.LAB Lab 10/16/17 04:00 Ordered CBC W DIFF Stat Lab 10/15/17 21:30 Completed CMP Stat Lab 10/15/17 21:30 Completed Lactic Acid Stat Lab 10/15/17 21:40 Completed NT PRO BNP Stat Lab 10/15/17 21:30 Completed PROTIME WITH INR Stat Lab 10/15/17 21:30 Completed PTT Stat Lab 10/15/17 21:30 Completed TROPONIN Q3H Lab 10/15/17 21:30 Completed TROPONIN Q3H Lab 10/16/17 00:23 Completed TROPONIN Q3H Lab 10/16/17 03:15 Ordered TROPONIN Q3H Lab 10/16/17 06:15 Ordered TROPONIN Q3H Lab 10/16/17 09:15 Ordered UA W/RFX UR CULTURE Stat Lab 10/15/17 21:12 Ordered Oxygen NASAL CANNULA 2 lpm RT 10/15/17 22:33 Active Respiratory Nebulizer STAT RT 10/15/17 21:13 Completed Respiratory Nebulizer STAT RT 10/15/17 22:13 Completed Medication Summary Generic Name Dose Route Start Last Admin Trade Name Freq PRN Reason Stop Dose Admin Acetaminophen 650 mg 10/16/17 01:55 10/16/17 02:08 Tylenol 325 Mg PO 11/15/17 01:54 650 mg Q4H PRN PRN Administration PAIN AND/OR FEVER Albuterol Sulfate 2.5 mg 10/15/17 23:00 10/15/17 23:48 Proventil 2.5 Mg/3 Ml Neb IH 11/14/17 22:59 Not Given Q4HRT OSWALDO Duloxetine HCl 30 mg 10/16/17 02:00 10/16/17 02:08 Cymbalta 30 Mg Capsule PO 11/15/17 01:59 30 mg BID OSWALDO Administration Famotidine 20 mg 10/16/17 02:00 10/16/17 02:08 Pepcid 20 Mg PO 11/15/17 01:59 20 mg HS OWSALDO Administration Azithromycin 500 mg in 250 mls @ 250 mls/hr 10/16/17 10:00 Zithromax 500 Mg/ 250 Ml Nacl Premix IV 11/15/17 09:59 Q24H10 OSWALDO Insulin Aspart 0 unit 10/16/17 01:57 Novolog Insulin SQ 11/15/17 01:56 UD PRN HYPERGLYCEMIA Methylprednisolone Sodium Succinate 80 mg 10/16/17 00:00 Solu-Medrol 125 Mg IV 11/15/17 00:00 Q6HT OSWALDO Metoprolol Succinate 25 mg 10/16/17 02:00 10/16/17 02:08 Toprol-Xl 25mg Tablets PO 11/15/17 01:59 25 mg BID OSWALDO Administration Pramipexole Dihydrochloride 0.5 mg 10/16/17 02:00 10/16/17 02:08 Mirapex 0.5 Mg Tablet PO 11/15/17 01:59 0.5 mg HS OSWALDO Administration Simvastatin 20 mg 10/16/17 02:00 10/16/17 02:08 Zocor 20mg PO 11/15/17 01:59 20 mg HS OSWALDO Administration Discontinued Medications Generic Name Dose Route Start Last Admin Trade Name Freq PRN Reason Stop Dose Admin Albuterol Sulfate 2.5 mg 10/15/17 21:12 10/15/17 21:28 Proventil 2.5 Mg/3 Ml Neb IH 10/15/17 21:13 2.5 mg STAT ONE Administration Albuterol Sulfate Confirm 10/15/17 21:24 Proventil 2.5 Mg/3 Ml Neb Administered 10/15/17 21:25 Dose 2.5 mg IH .STK-MED ONE Albuterol/Ipratropium 3 ml 10/15/17 22:13 10/15/17 22:28 Duoneb 0.5-3 Mg/3 Ml Neb IH 10/15/17 22:14 3 ml STAT ONE Administration Albuterol/Ipratropium Confirm 10/15/17 22:27 Duoneb 0.5-3 Mg/3 Ml Neb Administered 10/15/17 22:28 Dose 3 ml IH .STK-MED ONE Furosemide 40 mg 10/15/17 22:29 10/15/17 23:07 Lasix 40 Mg/4 Ml IV 10/15/17 22:30 40 mg STAT ONE Administration Furosemide Confirm 10/15/17 22:43 Lasix 40 Mg/4 Ml Administered 10/15/17 22:44 Dose 40 mg .ROUTE .STK-MED ONE Azithromycin 500 mg in 250 mls @ 250 mls/hr 10/15/17 21:50 10/15/17 21:58 Zithromax 500 Mg/ 250 Ml Nacl Premix IV 10/15/17 22:49 250 mls/hr STAT ONE Administration Azithromycin Confirm 10/15/17 21:55 Zithromax 500 Mg/ 250 Ml Nacl Premix Administered 10/15/17 21:56 Dose 500 mg in 250 mls @ ud IV .STK-MED ONE Methylprednisolone Sodium Succinate 125 mg 10/15/17 21:12 10/15/17 21:49 Solu-Medrol 125 Mg IV 10/15/17 21:13 125 mg STAT ONE Administration Methylprednisolone Sodium Succinate Confirm 10/15/17 21:32 Solu-Medrol 125 Mg Administered 10/15/17 21:33 Dose 125 mg .ROUTE .STK-MED ONE Lab/Rad Data: Laboratory Result Diagrams 10/15/17 21:30 10/15/17 21:30 Laboratory Results 10/15/17 10/15/17 10/15/17 Range/Units 21:40 21:30 21:30 WBC (4.0-10.5) K/mm3 RBC (4.1-5.4) M/mm3 Hgb (12.0-16.0) gm/dl Hct (35-47) % MCV (78-100) fl MCH (26-32) pg MCHC (32-36) g/dl RDW (11.5-14.0) % Plt Count (150-450) K/mm3 MPV (6-9.5) fl Gran % (36.0-66.0) % Lymphocytes % (24.0-44.0) % Monocytes % (0.0-12.0) % Eosinophils % (0.00-5.0) % Basophils % (0.0-0.4) % Basophils # (0-0.4) INR (0.8-3.0) APTT (25.3-37.0) SECONDS Puncture Site RIGHT RADIAL pCO2 57 H (35-45) mmHg pO2 89 (75-100) mmHg Base Excess 12.8 H (-2.0-2.0) O2 Saturation 95.3 (94-100) g/dF ABG pH 7.45 (7.35-7.45) ABG HCO3 39.6 H* (22-28) ABG O2 Sat (Measured) 98.3 (95-100) % Jaun Test YES A-a Gradient 96 a/A Ratio 0.48 Hemoglobin 15.5 Carboxyhemoglobin 2.0 (0.0-6.9) % THgb Methemoglobin 1.1 L (1.4-1.5) % Temperature 37.0 C POC O2 Flow Rate 36 % Sodium (136-145) mEq/L Potassium 4.0 (3.5-5.1) mEq/L Chloride (98-107) mEq/L Carbon Dioxide (21-32) mEq/L Anion Gap (5-15) MEQ/L BUN (9-20) mg/dL Creatinine (0.55-1.30) mg/dl Estimated GFR ML/MIN Glucose (70-110) MG/DL Lactic Acid 1.0 (0.4-2.0) Calcium (8.5-10.1) mg/dL Total Bilirubin (0.2-1.0) mg/dL AST (15-37) U/L ALT (12-78) U/L Alkaline Phosphatase (46-116) U/L Troponin I < 0.017 (0.000-0.056) ng/ml NT-Pro-B Natriuret Pep (0-125) pg/ml Serum Total Protein (6.4-8.2) gm/dL Albumin (3.4-5.0) g/dL Influenza Type A Ag NEGATIVE (NEGATIVE) Influenza Type B Ag NEGATIVE (NEGATIVE) RSV (PCR) NEGATIVE (Negative) 10/15/17 10/15/17 10/15/17 Range/Units 21:30 21:30 21:30 WBC 10.5 (4.0-10.5) K/mm3 RBC 5.03 (4.1-5.4) M/mm3 Hgb 15.3 (12.0-16.0) gm/dl Hct 46.8 (35-47) % MCV 93.0 (78-100) fl MCH 30.4 (26-32) pg MCHC 32.7 (32-36) g/dl RDW 13.6 (11.5-14.0) % Plt Count 268 (150-450) K/mm3 MPV 9.9 H (6-9.5) fl Gran % 69.8 H (36.0-66.0) % Lymphocytes % 21.1 L (24.0-44.0) % Monocytes % 7.8 (0.0-12.0) % Eosinophils % 1.0 (0.00-5.0) % Basophils % 0.3 (0.0-0.4) % Basophils # 0.03 (0-0.4) INR 1.02 (0.8-3.0) APTT 32.1 (25.3-37.0) SECONDS Puncture Site pCO2 (35-45) mmHg pO2 (75-100) mmHg Base Excess (-2.0-2.0) O2 Saturation (94-100) g/dF ABG pH (7.35-7.45) ABG HCO3 (22-28) ABG O2 Sat (Measured) (95-100) % Jaun Test A-a Gradient a/A Ratio Hemoglobin Carboxyhemoglobin (0.0-6.9) % THgb Methemoglobin (1.4-1.5) % Temperature C POC O2 Flow Rate % Sodium 144 (136-145) mEq/L Potassium 3.9 (3.5-5.1) mEq/L Chloride 100 (98-107) mEq/L Carbon Dioxide 35.0 H (21-32) mEq/L Anion Gap 12.7 (5-15) MEQ/L BUN 20 (9-20) mg/dL Creatinine 1.05 (0.55-1.30) mg/dl Estimated GFR 57 ML/MIN Glucose 115 H (70-110) MG/DL Lactic Acid (0.4-2.0) Calcium 9.5 (8.5-10.1) mg/dL Total Bilirubin 0.40 (0.2-1.0) mg/dL AST 24 (15-37) U/L ALT 44 (12-78) U/L Alkaline Phosphatase 180 H (46-116) U/L Troponin I (0.000-0.056) ng/ml NT-Pro-B Natriuret Pep 328 H (0-125) pg/ml Serum Total Protein 8.0 (6.4-8.2) gm/dL Albumin 4.2 (3.4-5.0) g/dL Influenza Type A Ag (NEGATIVE) Influenza Type B Ag (NEGATIVE) RSV (PCR) (Negative) - Progress Progress: improved Air Movement: fair Progress Note: 10/15/17 22:30 Pt feels slightly better after receiving 2 duonebs and solumedrol. The CXR shows vascular congestion, BNP over 300 and the patient will receive a dose of lasix 40mg IV X 1 dose. The influenza is negative and the rest of the labs are unremarkable. The patient will also receive a dose of azithromycin. Pt has been admitted to Dr Santiago for CHF and COPD. - Departure Time of Disposition: 22:32 Departure Disposition: In-patient Admission Clinical Impression: COPD exacerbation CHF (congestive heart failure) Qualifiers: Heart failure type: unspecified Heart failure chronicity: acute on chronic Qualified Code(s): I50.9 - Heart failure, unspecified Condition: Fair Critical Care Time: Yes Critical Care Time(excluding separately billable procedures): 75-104 minutes
[2017-10-15] MEDS ORDERED: solu-MEDROL 125 MG ONE (21:32)
[2017-10-15 21:43] LABS: BASOPHIL % 0.3 % (0.0-0.4); Basophil (Absolute #) 0.03 (0-0.4); Granulocyte Absolute (ANC) 7.34 (1.4-6.9); Granulocytes % 69.8 % (36.0-66.0); Hematocrit 46.8 % (35-47); Hemoglobin 15.3 gm/dl (12.0-16.0); Lymphocyte (Absolute #) 2.22 (1.0-4.6); Lymphocytes % 21.1 % (24.0-44.0); Mean Corpuscular Hemoglobin 30.4 pg (26-32); Mean Corpuscular Hgb Concent. 32.7 g/dl (32-36); Mean Platelet Volume 9.9 fl (6-9.5); Monocyte (Absolute #) 0.82 (0.0-1.3); Monocytes % 7.8 % (0.0-12.0); Platelet Count 268 K/mm3 (150-450); Red Blood Count 5.03 M/mm3 (4.1-5.4); Red Cell Distribution Width 13.6 % (11.5-14.0); White Blood Count 10.5 K/mm3 (4.0-10.5)
[2017-10-15 21:45] LABS: A-aADO2 96; ABG HEMOGLOBIN 15.5; ABG SITE RIGHT RADIAL; ALLEN TEST OK? YES; ARTERIAL BLD GAS O2 SATURATION 98.3 % (95-100); ARTERIAL BLOOD GAS BASE EXCESS 12.8 (-2.0-2.0); ARTERIAL BLOOD GAS FIO2 36 %; ARTERIAL BLOOD GAS PCO2 57 mmHg (35-45); ARTERIAL BLOOD GAS PO2 89 mmHg (75-100); ARTERIAL BLOOD GAS pH 7.45 (7.35-7.45); HCO3- 39.6 (22-28); HGB O2 SAT 95.3 g/dF (94-100); Methhemoglobin 1.1 % (1.4-1.5); paO2 pAO1 0.48
[2017-10-15] MEDS ORDERED: Zithromax 500 MG/ 250 ML NaCl Premix 500 MG/250 ML IVPB IV ONE ×2 (21:50→21:55)
[2017-10-15 21:57] LABS: INR 1.02 (0.8-3.0)
[2017-10-15 22:00] LABS: PTT 32.1 SECONDS (25.3-37.0)
[2017-10-15 22:12] LABS: ALBUMIN 4.2 g/dL (3.4-5.0); ANION GAP 12.7 MEQ/L (5-15); BILIRUBIN,TOTAL 0.4 mg/dL (0.2-1.0); Calcium 9.5 mg/dL (8.5-10.1); Creatinine 1 1.05 mg/dl (0.55-1.30); Potassium 3.9 mEq/L (3.5-5.1)
[2017-10-15] MEDS ORDERED: DUONEB 0.5-3 MG/3 ml Neb IH ONE ×2 (22:13→22:27)
[2017-10-15 22:19] LABS: INFLUENZA A NEGATIVE (NEGATIVE); INFLUENZA B NEGATIVE (NEGATIVE); RESPIRATORY SYNCTIAL VIRUS NEGATIVE (Negative)
[2017-10-15] MEDS ORDERED: Lasix 40 MG/4 ML IV ONE (22:29)
[2017-10-15] MEDS ORDERED: Lasix 40 MG/4 ML ONE (22:43)
[2017-10-15] MEDS: PROVENTIL 2.5 MG/3 ML NEB IH SCH (23:48)
[2017-10-16] MEDS ORDERED: solu-MEDROL 125 MG IV SCH
[2017-10-16] MEDS ORDERED: TYLENOL 325 MG PO PRN (01:55)
[2017-10-16] MEDS ORDERED: Toprol-Xl 25MG Tablets PO SCH (02:00)
[2017-10-16] MEDS: Mirapex 0.5 MG Tablet PO SCH ×2 (02:08→22:45)
[2017-10-16] MEDS: Pepcid 20 MG PO SCH ×2 (02:08→22:45)
[2017-10-16] MEDS: Cymbalta 30 MG Capsule PO SCH ×3 (02:08→22:44)
[2017-10-16] MEDS: ZOCOR 20MG PO SCH ×2 (02:08→22:45)
[2017-10-16] MEDS: PROVENTIL 2.5 MG/3 ML NEB IH SCH ×6 (03:23→23:36)
[2017-10-16] MEDS: Advair Hfa 115/21 Common canister IH SCH ×2 (07:04→19:17)
[2017-10-16 07:08] LABS: Hematocrit 43.5 % (35-47); Hemoglobin 14.4 gm/dl (12.0-16.0); Mean Cell Volume 93.3 fl (78-100); Mean Corpuscular Hemoglobin 30.9 pg (26-32); Mean Corpuscular Hgb Concent. 33.1 g/dl (32-36); Mean Platelet Volume 10.2 fl (6-9.5); Platelet Count 261 K/mm3 (150-450); Red Blood Count 4.66 M/mm3 (4.1-5.4); Red Cell Distribution Width 13.5 % (11.5-14.0); White Blood Count 9.2 K/mm3 (4.0-10.5)
[2017-10-16 07:46] LABS: ANION GAP 13.9 MEQ/L (5-15); Calcium 9.2 mg/dL (8.5-10.1); Carbon Dioxide 33.3 mEq/L (21-32); Creatinine 1 1.16 mg/dl (0.55-1.30)
--- NOTE | 2017-10-16 08:36 | XRAY ---
Indication: Short of breath. Comparison: November 14, 2016. Portable chest unchanged again demonstrating chronic interstitial lung markings, right apical suture material, and left midlung calcified granuloma. Heart is not enlarged. Bony thorax intact again with mild degenerative changes. Impression: Stable nonacute chest with chronic features.
[2017-10-16] MEDS ORDERED: Ventolin Hfa MDI IH PRN (09:32)
[2017-10-16] MEDS ORDERED: PROVENTIL COMMON CANISTER IH PRN (09:41)
[2017-10-16] MEDS ORDERED: NON-FORMULARY ITEM (Spironolactone [Aldactone] 50 MG) PO SCH (10:00)
[2017-10-16] MEDS ORDERED: NON-FORMULARY ITEM (Aspirin [Aspirin] 81 MG) PO SCH (10:00)
[2017-10-16] MEDS ORDERED: BUMEX 1 MG PO SCH (10:00)
[2017-10-16] MEDS ORDERED: NON-FORMULARY ITEM (Potassium Chloride [Potassium Chloride] 20 MEQ) PO SCH (10:00)
--- NOTE | 2017-10-16 10:14 | HP ---
HISTORY OF PRESENT ILLNESS: This is a 57 year-old patient of mine who presented to the emergency department with worsening shortness of breath, chest pain and cough. She reports that she started to feel bad on 10/12/2017 with a cough. She sometimes will cough until she vomits. She reports that she had lots of nasal congestion, rhinorrhea and headache that felt like a squeezing pain. She reports she checked her oxygen saturation at home and that it was 81% on 3 liters of oxygen at home with exertion and 85 to 87% at rest. She reports she normally wears 2 liters of oxygen at home. She was also using her CPAP at night she reports. She reports temperature up to 99.1F and also coughing up some yellow-green sputum. She reports chest pain is in the sternal area. She states it felt like a fluttering last night but a pressure this morning and it still hurt. She reports recently being told she has a complex cyst to the left of her bladder. She has a report dated 09/26/2017 on her phone from [facility] where it said it measured 7.8 to 9.5. She reports she has a PET scan scheduled ordered by Dr. Hickey tomorrow evening at 1800 hours[address] I spoke with Dr. Hickey and he reports she had some scans set up to further assess this and either saw Dr. Car or will be seeing him. Dr. Hickey was made aware of her admission. The patient also reports she has continued to have some pain in her left lower abdomen that radiates to her right back. REVIEW OF SYSTEMS: She had watery diarrhea that started Sunday that is better now. No constipation. She vomits with her cough. She reports she is always nauseated when she wakes up. She reports the headache. She has some urinary retention alternating with some stress incontinence. She reports cyst of her left hand that are painful. The chest pain as described above and abdominal pain as described above. PAST MEDICAL HISTORY: Chronic obstructive pulmonary disease. Thyroid cancer with the thyroid gland being removed in 2007. Depression. Diabetes mellitus type 2 diagnosed June 2017. Hyperlipidemia. History of chest pain. She reported an abnormal stress test 07/05/2017 and following up with Dr. Bradford Fortune. Hypertension, hypothyroidism, Langerhans cell histiocytosis, hypoxia on home oxygen 2 to 3 liters by nasal cannula provided by [facility] [place]. Restless leg syndrome, C3-C6 herniated or bulging disc in her neck. According to the patient carpal tunnel bilaterally, fibromyalgia, obstructive sleep apnea for which she wears CPAP at night, narcolepsy diagnosed on the sleep study in 2018. Edema in her feet and knees. PAST SURGICAL HISTORY: Knee scopes bilaterally for Cabezas's cyst. Cholecystectomy, upper endoscopy and colonoscopy July 2016 revealing gastritis and a normal colon with poor prep. Thyroid removed 2007. Right lung biopsy. One ovary removed she is unsure which one. Lipoma removed from her left upper quadrant. She reports ductal surgery on her left breast x2 when she was 28 years old. Bilateral carpal tunnel surgery 2016. MEDICATIONS: Albuterol 2 puffs b.i.d. PRN, DuoNeb 3 ml four times a day, aspirin 81 mg daily, atorvastatin 20 mg p.o. q.h.s., bumetanide 2 mg p.o. b.i.d. with meals, Cymbalta 30 mg b.i.d., Breo 1 puff daily, levothyroxine 150 mcg p.o. daily, Amitiza 24 mg p.o. daily, Metformin 500 mg daily, metoprolol succinate 25 mg b.i.d., Provigil 200 mg p.o. b.i.d., nitroglycerin 0.4 mg sublingual as needed, potassium chloride 20 mEq daily, Mirapex 0.5 mg p.o. q.h.s., prednisone 20 mg p.o. daily, ranitidine 150 mg p.o. q.h.s., Spironolactone 50 mg p.o. daily. ALLERGIES: CEFTIN, IODINATED CONTRAST, ORAL AND IV LEVAQUIN, PENICILLIN. SOCIAL HISTORY: She quit smoking February 2017. She still smokes marijuana rarely. She reports no alcohol. She has a friend that lives at home with her. FAMILY HISTORY: Both her mother and father had coronary artery disease. PHYSICAL EXAMINATION: VITAL SIGNS: Temperature current 98.6F, temperature max 98.6F, heart rate 71 to 85, respiratory rate 15 to 30 currently 18, blood pressure 107 to 136 over 60 to 84, weight 118 kg. Oxygen saturation 93 to 98% on 3 to 4 liters nasal cannula. GENERAL: The patient is sitting up, a pleasant talkative lady speaking in full sentences in no acute distress. CVS: She has a regular rate and rhythm. Other heart sounds are hard to hear over wheezing in her lungs. CHEST: She has scattered wheezes throughout. No retractions. No tachypnea. ABDOMEN: Soft, nontender, nondistended with normal bowel sounds. EXTREMITIES: No clubbing, cyanosis or edema. SKIN: Warm, dry and intact. LABORATORY DATA AND TESTS: Her CBC is within normal limits. Carbon dioxide on admission was 35, glucose 115, alkaline phosphatase 180, BNP 328. She had three negative serial troponins. Influenza A, B and respiratory syncytial virus were all negative. Chest x-ray has not been read by the radiologist yet but looks some mild vascular congestion. EKG revealed 10/15/2017 2118 hours was normal sinus rhythm with no ST-T wave changes. ASSESSMENT AND PLAN: 1) CHRONIC OBSTRUCTIVE PULMONARY DISEASE EXACERBATION: She has been started on IV Solu-Medrol as well as azithromycin. She was not started on ceftriaxone and levofloxacin as she has allergies to both of these. Will ask the performance makeup artist, Dr. Abner Wade, to see her. We will continue with oxygen as needed. 2) CONGESTIVE HEART FAILURE: She was given a dose of IV Lasix in the emergency room with good response. Will continue her home dose of Bumex and Spironolactone and ask her diagnostics tech, Dr. Bradford Fortune to see her. 3) HISTORY OF LANGERHANS CELL HISTIOCYTOSIS: She follows Dr. Hickey. He was made aware of her admission as the patient reports she had a PET scan scheduled tomorrow night at 1800 hours at [facility]. 4) DIABETES MELLITUS TYPE 2: I will use low dose sliding scale of insulin and continue her Metformin. 5) ILLICIT DRUG USE: The patient has been counseled extensively in the past that she should quit smoking marijuana. 6) HYPERTENSION: Currently well controlled. I am holding her metoprolol because her systolic blood pressure is at the lower end of normal. 7) HYPOTHYROIDISM: Will continue with her current dose of levothyroxine. 8) DEEP VENOUS THROMBOSIS PROPHYLAXIS: I started her on NERI hose and Lovenox.
[2017-10-16] MEDS: ENOXAPARIN SODIUM SQ SCH (10:28)
[2017-10-16] MEDS: SYNTHROID 150 MCG PO SCH (10:29)
[2017-10-16] MEDS: Provigil 100MG Tablet PO SCH ×2 (10:29→22:50)
[2017-10-16] MEDS: Klor Con 10 MEQ PO SCH (10:29)
[2017-10-16] MEDS: Glucophage 500 MG PO SCH (10:29)
[2017-10-16] MEDS: ECOTRIN 81 MG PO SCH (10:29)
[2017-10-16] MEDS: Aldactone 25 MG PO SCH (10:29)
[2017-10-16] MEDS: AMITIZA PO SCH (10:30)
[2017-10-16] MEDS: solu-MEDROL 125 MG IV SCH ×3 (11:28→23:34)
[2017-10-16] MEDS: NovoLOG Insulin SQ PRN (11:49)
--- NOTE | 2017-10-16 12:41 | PCM.HP ---
History of Present Illness - Chief Complaint Chief Complaint: COPD, CHF Date: 10/16/17 History of Present Illness: Reason for consultation: CHF Requesting provider: Dr. Cleary is a 57 year old female with history of COPD, diastolic CHF, HTN, CAD who presented with URI symptoms and progressive shortness breath and was found to be in an acute COPD exacerbation. Her BNP was also slightly increased and she has been continued on her oral Bumex. She has not noted any real increase in urine output overnight. She continues to have shortness of breath and wheezing but no chest pain. Her diuretics are principally managed by Dr. Thibodeaux and has been on a combination of Bumex, spironolactone and metolazone in the past. Currently, denies fever/chills, no orthopnea/PND. She does use CPAP at night for MIESHA. Tropnins are negative. - Review of Systems Constitutional: No Fever, No Chills Eyes: No Symptoms Ears, Nose, & Throat: No Symptoms Respiratory: Cough, Short Of Breath, Wheezing Cardiac: Edema, No Chest Pain, No Syncope, No Orthopnea, No PND Abdominal/Gastrointestinal: No Abdominal Pain, No Nausea, No Vomiting, No Diarrhea Genitourinary Symptoms: No Dysuria, No Frequency Musculoskeletal: No Symptoms Skin: No Symptoms, No Rash Neurological: No Dizziness, No Focal Weakness, No Sensory Changes Psychological: No Symptoms Endocrine: No Symptoms Hematologic/Lymphatic: No Symptoms Immunological/Allergic: No Symptoms Medications & Allergies Home Medications: Home Medication List Albuterol Sulfate [Proair Hfa] 2 puffs IH BIDPRN PRN 10/20/15 [History Confirmed 10/16/17] Spironolactone [Aldactone] 50 mg PO DAILY 07/11/16 [History Confirmed 10/16/17] Fluticasone/Vilanterol [Breo Ellipta 100-25 Mcg INH] 1 inh IH DAILY 07/27/16 [ History Confirmed 10/16/17] Metoprolol Succinate 25 mg Xl* [Toprol-Xl 25MG Tablets] 25 mg PO BID [History Confirmed 10/16/17] Pramipexole Di-HCl [Mirapex] 0.5 tab PO HS 07/27/16 [History Confirmed 10/16/17] Ranitidine HCl [Zantac] 150 mg PO HS 07/27/16 [History Confirmed 10/16/17] Aspirin 81 mg PO DAILY 09/11/16 [History Confirmed 10/16/17] Atorvastatin Calcium [Lipitor] 20 mg PO HS 09/11/16 [History Confirmed 10/16/17] Nitroglycerin 0.4 mg Tablet [Nitrostat 0.4 MG Tablet] 0.4 mg IH UD [History Confirmed 10/16/17] Albuterol/Ipratropium 3ml Neb* [DUONEB 0.5-3 MG/3 ml Neb] 3 ml IH QID [History Confirmed 10/16/17] Potassium Chloride 20 meq PO DAILY 11/14/16 [History Confirmed 10/16/17] Prednisone 20 mg [Deltasone 20 mg] 20 mg PO DAILY #7 tablet 11/17/16 [Rx Confirmed 10/16/17] Bumetanide [Bumetanide] 2 mg PO BIDWM 10/16/17 [History Confirmed 10/16/17] Duloxetine HCl 30 mg [Cymbalta 30 MG Capsule] 30 mg PO BID 10/16/17 [ History Confirmed 10/16/17] Levothyroxine Sodium 150 mcg PO DAILY 10/16/17 [History Confirmed 10/16/17] Lubiprostone [Amitiza] 24 mg PO DAILY 10/16/17 [History Confirmed 10/16/17] Metformin HCl 500 mg [Glucophage 500 MG] 500 mg PO DAILY 10/16/17 [ History Confirmed 10/16/17] Modafinil [Modafinil] 200 mg PO BID 10/16/17 [History Confirmed 10/16/17] Allergies/Adverse Reactions: Allergies Allergy/AdvReac Type Severity Reaction Status Date / Time Iodinated Contrast- Oral and Allergy Severe Difficulty Verified 10/15/17 21:34 IV Dye Breathing [Iodinated Contrast Media - IV Dye] Penicillins Allergy Severe Difficulty Verified 10/15/17 21:34 Breathing levofloxacin [From Levaquin] Allergy Verified 10/15/17 21:34 - Past Medical History Past Medical History: Yes Neurological History: No Pertinent History ENT History: No Pertinent History Cardiac History: High Cholesterol, Hypertension Respiratory History: Asthma, COPD, Pneumonia, Pulmonary Embolism, Sleep Apnea, Other Endocrine Medical History: Thyroid Cancer Musculoskelatal History: Fibromyalgia GI Medical History: GERD History: No Pertinent History Pyscho-Social History: Anxiety, Depression Reproductive Disorders: Fibroids, Other Comment: neuropathy. cytosis, rt ovary removed - Female History Are you now?: No - Past Surgical History Past Surgical History: Yes Neuro Surgical History: No Pertinent History Cardiac History: Cardiac Catheterization, Cardiac Stent Respiratory Surgery: Other GI Surgical History: Cholecystectomy Genitourinary Surgical Hx: No Pertinent History Musculskeletal Surgical Hx: Orthopedic Surgery Female Surgical History: Hysterectomy, Other Other Surgical History: lung biopsy right lung 2013 r/t langerhines cytosis of the lungs. colonscopy. spinal L4,L5 , S1 removed disc "completely"per pt and "not fused". thyroidectomy. right ovary removed - Social History Smoking Status: Former smoker How long have you smoked: 42 YEARS Exposure to second hand smoke: Yes Alcohol: None Drug Use: none - Physical Exam Vital Signs: Vital Signs - 24 hr Temp Pulse Resp BP Pulse Ox 10/16/17 10:41 80 20 10/16/17 08:00 18 10/16/17 07:49 98.6 F 71 18 120/60 93 L 10/16/17 07:08 81 22 96 10/16/17 04:00 97.9 F 79 15 107/56 93 L 10/16/17 03:00 98 10/16/17 03:00 74 22 90 L 10/16/17 01:54 85 24 97 10/16/17 00:08 98.6 F 80 21 136/63 95 10/15/17 22:37 85 24 97 10/15/17 22:05 72 20 112/74 98 10/15/17 21:53 78 30 H 98 10/15/17 21:34 97.9 F 85 28 H 109/84 98 Oxygen-Last 24 hours O2 Percentage 2 Liters = 28% O2 Percentage 4 Liters = 36% O2 Percentage 3 Liters = 32% Oxygen Flowrate (L/min)-RT 4 General Appearance: no apparent distress, alert, obese Neurologic Exam: alert, oriented x 3, cooperative Eye Exam: eyes nml inspection Ears, Nose, Throat Exam: other (hearing intact) Neck Exam: non-tender, supple, full range of motion, No carotid bruit Respiratory Exam: crackles/rales, wheezing, No respiratory distress, No accessory muscle use Cardiovascular Exam: regular rate/rhythm, normal heart sounds, edema, No murmur , No gallop Gastrointestinal/Abdomen Exam: soft, No tenderness, No distention, No guarding, No rebound Extremity Exam: pedal edema Skin Exam: normal color, warm Results - Labs Lab/Micro Results: Accuchecks Accucheck Value: 279 Accucheck Value: 196 Lab Results-Last 24 Hours 10/16/17 10/16/17 10/16/17 Range/Units 00:23 04:03 06:20 WBC (4.0-10.5) K/mm3 RBC (4.1-5.4) M/mm3 Hgb (12.0-16.0) gm/dl Hct (35-47) % MCV (78-100) fl MCH (26-32) pg MCHC (32-36) g/dl RDW (11.5-14.0) % Plt Count (150-450) K/mm3 MPV (6-9.5) fl Sodium (136-145) mEq/L Potassium (3.5-5.1) mEq/L Chloride (98-107) mEq/L Carbon Dioxide (21-32) mEq/L Anion Gap (5-15) MEQ/L BUN (9-20) mg/dL Creatinine (0.55-1.30) mg/dl Estimated GFR ML/MIN Glucose (70-110) MG/DL Calcium (8.5-10.1) mg/dL Troponin I < 0.017 < 0.017 < 0.017 (0.000-0.056) ng/ml 10/16/17 10/16/17 10/16/17 Range/Units 06:20 06:20 09:15 WBC 9.2 (4.0-10.5) K/mm3 RBC 4.66 (4.1-5.4) M/mm3 Hgb 14.4 (12.0-16.0) gm/dl Hct 43.5 (35-47) % MCV 93.3 (78-100) fl MCH 30.9 (26-32) pg MCHC 33.1 (32-36) g/dl RDW 13.5 (11.5-14.0) % Plt Count 261 (150-450) K/mm3 MPV 10.2 H (6-9.5) fl Sodium 143 (136-145) mEq/L Potassium 4.0 (3.5-5.1) mEq/L Chloride 100 (98-107) mEq/L Carbon Dioxide 33.3 H (21-32) mEq/L Anion Gap 13.9 (5-15) MEQ/L BUN 24 H (9-20) mg/dL Creatinine 1.16 (0.55-1.30) mg/dl Estimated GFR 51 ML/MIN Glucose 170 H (70-110) MG/DL Calcium 9.2 (8.5-10.1) mg/dL Troponin I < 0.017 (0.000-0.056) ng/ml Accuchecks Accucheck Value: 279 Accucheck Value: 196 - Radiology Impressions Radiology Exams & Impressions: Radiology Procedures Category Date Time Status ECHO W/2D AND DOPPLER [US] Routine Exams 10/16/17 Ordered - Other Procedures and Tests Respiratory Therapy 10/16/17 01:44 BiPap/CPAP Assessment ROUTINE 10/16/17 03:00 Respiratory Nebulizer Q4H 10/16/17 07:03 Respiratory MDI BID Assessment/Plan (1) CHF (congestive heart failure) Current Visit: Yes Status: Acute Qualifiers: Heart failure type: unspecified Heart failure chronicity: acute on chronic Qualified Code(s): I50.9 - Heart failure, unspecified Assessment & Plan: - Change Bumex 2mg IV BID; once she has good diuresis can transition back to PO Bumex. She may need metolazone intermittently to augment diuresis - Monitor renal function and electrolytes daily - Obtain echo Code(s): I50.9 - HEART FAILURE, UNSPECIFIED (2) Sick sinus syndrome Current Visit: Yes Status: Chronic Onset Date: ~06/20/17 Assessment & Plan: Noted multiple >3 second pauses on 30 day event monitor. She also had episode of dizziness correlated with sinus pause > 3 seconds. Also with intermittent 2nd degree, type 1 AV block on monitor. She has continued to have dizziness and monitor was ordered because she was found unresponsive on the side of the road. - She will need a permanent pacemaker as an outpatient - Monitor for bradyarrhythmias - Avoid AV-node blocking agents Code(s): I49.5 - SICK SINUS SYNDROME (3) COPD exacerbation Current Visit: Yes Status: Acute Assessment & Plan: Continue treatment per Dr. Cleary. I feel this is the primary cause of shortness of breath and hypoxia at this time Code(s): J44.1 - CHRONIC OBSTRUCTIVE PULMONARY DISEASE W (ACUTE) EXACERBATION (4) Hypertension Current Visit: No Status: Chronic Qualifiers: Hypertension type: essential hypertension Qualified Code(s): I10 - Essential (primary) hypertension Assessment & Plan: stable Code(s): I10 - ESSENTIAL (PRIMARY) HYPERTENSION (5) Hx of coronary artery disease Current Visit: No Status: Chronic Assessment & Plan: stable Code(s): Z86.79 - PERSONAL HISTORY OF OTHER DISEASES OF THE CIRCULATORY SYSTEM
[2017-10-16 16:42] LABS: Appearance CLEAR (CLEAR); Bilirubin NEGATIVE (NEGATIVE); Blood NEGATIVE Ery/ul (0-5); Glucose NEGATIVE (NEGATIVE); Ketones NEGATIVE (NEGATIVE); Leukocyte Esterase NEGATIVE (NEGATIVE); Nitrite NEGATIVE (NEGATIVE); Protein,Urine Dip NEGATIVE (Negative); Urobilinogen NORMAL mg/dL (0-1)
[2017-10-16] MEDS: BUMEX 1 MG IV SCH (17:09)
[2017-10-16] MEDS ORDERED: Zithromax 500 MG/ 250 ML NaCl Premix 500 MG/250 ML IVPB IV SCH (22:00)
[2017-10-17] MEDS: PROVENTIL 2.5 MG/3 ML NEB IH SCH ×2 (03:24→07:30)
[2017-10-17 06:00] LABS: Basophil (Absolute #) 0 (0-0.4); Eosinophil (Absolute #) 0 (0-0.5); Granulocyte Absolute (ANC) 10.47 (1.4-6.9); Granulocytes % 89.1 % (36.0-66.0); Hematocrit 42.1 % (35-47); Hemoglobin 13.8 gm/dl (12.0-16.0); Lymphocyte (Absolute #) 0.83 (1.0-4.6); Lymphocytes % 7.1 % (24.0-44.0); Mean Cell Volume 92.9 fl (78-100); Mean Corpuscular Hemoglobin 30.5 pg (26-32); Mean Corpuscular Hgb Concent. 32.8 g/dl (32-36); Mean Platelet Volume 10.3 fl (6-9.5); Monocyte (Absolute #) 0.45 (0.0-1.3); Monocytes % 3.8 % (0.0-12.0); Platelet Count 287 K/mm3 (150-450); Red Blood Count 4.53 M/mm3 (4.1-5.4); Red Cell Distribution Width 13.6 % (11.5-14.0); White Blood Count 11.8 K/mm3 (4.0-10.5)
[2017-10-17] MEDS: solu-MEDROL 125 MG IV SCH ×3 (06:34→18:30)
[2017-10-17 06:51] LABS: ANION GAP 13.1 MEQ/L (5-15); Calcium 9.6 mg/dL (8.5-10.1); Carbon Dioxide 32.8 mEq/L (21-32); Creatinine 1 1.12 mg/dl (0.55-1.30); Potassium 3.9 mEq/L (3.5-5.1)
[2017-10-17] MEDS: DUONEB 0.5-3 MG/3 ml Neb IH SCH ×5 (07:30→22:10)
--- NOTE | 2017-10-17 08:52 | PCM.NOTE ---
Date and Time: 10/17/17846 Subjective Assessment: She reports she thinks she is feeling a little better. She has been able to ambulate in her room. She reports her driller multiple spindle, Dr. Cesia Fortune, came in person to see her yesterday and told her that she will need a pacemaker. She continues to have a cough but isn't coughing up as much and her nasal congestion is a little better although she reports the nasal cannula is irritating her nose more. She struggles at home with housework and is agreeable to home health care and meals and wheels if these would be available to her. She also has trouble with transportation at home. - Review of Systems Constitutional: Fatigue Ears, Nose, & Throat: No Symptoms Respiratory: Cough, Short Of Breath Cardiac: No Symptoms Abdominal/Gastrointestinal: No Symptoms Genitourinary Symptoms: No Symptoms Musculoskeletal: No Symptoms Skin: No Symptoms Objective Exam General Appearance: obese, other (mild dyspnea but speaking in full sentences; she has her oxygen off and reports this is because she just took her cpap off) Neurologic Exam: alert, cooperative, normal mood/affect Skin Exam: normal color, warm, dry Respiratory Exam: normal breath sounds, airway intact, prolonged expirations, wheezing, No accessory muscle use, No crackles/rales Cardiovascular Exam: regular rate/rhythm, normal heart sounds, No murmur, No friction rub, No gallop Gastrointestinal/Abdomen Exam: soft, normal bowel sounds, No tenderness, No distention, No mass, No guarding Extremity Exam: other (no c/c/e) OBJECTIVE DATA Vital Signs: Vital Signs - 24 hr Temp Pulse Resp BP BP Pulse Ox 10/17/17 07:39 97.5 F 85 20 142/74 92 L 10/17/17 07:38 97.5 F 85 20 142/74 92 L 10/17/17 04:00 97.4 F 109 H 18 114/55 93 L 10/17/17 03:24 109 H 18 93 L 10/17/17 00:00 97.4 F 90 17 107/57 93 L 10/16/17 23:36 90 17 93 L 10/16/17 20:00 97.4 F 90 20 119/59 94 L 10/16/17 19:17 90 20 94 L 10/16/17 16:00 98.2 F 78 20 125/60 92 L 10/16/17 15:42 80 20 94 L 10/16/17 12:00 98.5 F 81 20 113/64 95 10/16/17 10:41 80 20 Oxygen-Last 24 hours O2 Percentage 2 Liters = 28% O2 Percentage 2 Liters = 28% O2 Percentage 2 Liters = 28% O2 Percentage 2 Liters = 28% Oxygen Flowrate (L/min)-RT 3 Oxygen Flowrate (L/min)-RT 3 Oxygen Flowrate (L/min)-RT 3 Pain Assessment - Last Documented Pain Intensity 5 Pain Scale Used 0-10 Pain Scale Intake and Output: Intake & Output 10/15/17 10/16/17 10/17/17 10/18/17 06:59 06:59 06:59 06:59 Intake Total 360 1470 240 Output Total 2000 Balance 360 -530 240 Weight 119 kg 119.2 kg Lab Results: Accuchecks Accucheck Value: 183 Accucheck Value: 167 Accucheck Value: 279 Lab Results-Last 24 Hours 10/16/17 10/16/17 10/17/17 Range/Units 09:15 16:42 05:34 WBC 11.8 H (4.0-10.5) K/mm3 RBC 4.53 (4.1-5.4) M/mm3 Hgb 13.8 (12.0-16.0) gm/dl Hct 42.1 (35-47) % MCV 92.9 (78-100) fl MCH 30.5 (26-32) pg MCHC 32.8 (32-36) g/dl RDW 13.6 (11.5-14.0) % Plt Count 287 (150-450) K/mm3 MPV 10.3 H (6-9.5) fl Gran % 89.1 H (36.0-66.0) % Lymphocytes % 7.1 L (24.0-44.0) % Monocytes % 3.8 (0.0-12.0) % Eosinophils % 0.0 (0.00-5.0) % Basophils % 0.0 (0.0-0.4) % Basophils # 0 (0-0.4) Sodium (136-145) mEq/L Potassium (3.5-5.1) mEq/L Chloride (98-107) mEq/L Carbon Dioxide (21-32) mEq/L Anion Gap (5-15) MEQ/L BUN (9-20) mg/dL Creatinine (0.55-1.30) mg/dl Estimated GFR ML/MIN Glucose (70-110) MG/DL Calcium (8.5-10.1) mg/dL Troponin I < 0.017 (0.000-0.056) ng/ml Ur Collection Type CLEAN CATCH Urine Color YELLOW (YELLOW) Urine Appearance CLEAR (CLEAR) Urine pH 5.0 (5-6) Ur Specific Kirkman 1.010 (1.005-1.025) Urine Protein NEGATIVE (Negative) Urine Ketones NEGATIVE (NEGATIVE) Urine Blood NEGATIVE (0-5) Francisco Javier/ul Urine Nitrite NEGATIVE (NEGATIVE) Urine Bilirubin NEGATIVE (NEGATIVE) Urine Urobilinogen NORMAL (0-1) mg/dL Ur Leukocyte Esterase NEGATIVE (NEGATIVE) Urine Culture Reflexed NO (NO) Urine Glucose NEGATIVE (NEGATIVE) mg/dL Specimen Received 10-16-17 1600 10/17/17 Range/Units 05:34 WBC (4.0-10.5) K/mm3 RBC (4.1-5.4) M/mm3 Hgb (12.0-16.0) gm/dl Hct (35-47) % MCV (78-100) fl MCH (26-32) pg MCHC (32-36) g/dl RDW (11.5-14.0) % Plt Count (150-450) K/mm3 MPV (6-9.5) fl Gran % (36.0-66.0) % Lymphocytes % (24.0-44.0) % Monocytes % (0.0-12.0) % Eosinophils % (0.00-5.0) % Basophils % (0.0-0.4) % Basophils # (0-0.4) Sodium 142 (136-145) mEq/L Potassium 3.9 (3.5-5.1) mEq/L Chloride 100 (98-107) mEq/L Carbon Dioxide 32.8 H (21-32) mEq/L Anion Gap 13.1 (5-15) MEQ/L BUN 28 H (9-20) mg/dL Creatinine 1.12 (0.55-1.30) mg/dl Estimated GFR 53 ML/MIN Glucose 239 H (70-110) MG/DL Calcium 9.6 (8.5-10.1) mg/dL Troponin I (0.000-0.056) ng/ml Ur Collection Type Urine Color (YELLOW) Urine Appearance (CLEAR) Urine pH (5-6) Ur Specific Kirkman (1.005-1.025) Urine Protein (Negative) Urine Ketones (NEGATIVE) Urine Blood (0-5) Francisco Javier/ul Urine Nitrite (NEGATIVE) Urine Bilirubin (NEGATIVE) Urine Urobilinogen (0-1) mg/dL Ur Leukocyte Esterase (NEGATIVE) Urine Culture Reflexed (NO) Urine Glucose (NEGATIVE) mg/dL Specimen Received Radiology Exams: Radiology Procedures Category Date Time Status ECHO W/2D AND DOPPLER [US] Routine Exams 10/16/17 14:44 Taken Assessment/Plan (1) Acute exacerbation of CHF (congestive heart failure) Current Visit: Yes Status: Acute Assessment & Plan: She continues on IV bumex per Dr. Cesia Fortune. Continue to monitor ins and outs and daily weights. Will need to consider an CELSA inhibitor at discharge. Echo ordered and taken but not read yet. Beta john paul held due to low normal blood pressure yesterday. Code(s): I50.9 - HEART FAILURE, UNSPECIFIED (2) COPD exacerbation Current Visit: Yes Status: Acute Assessment & Plan: Continue azithromycin and IV steroids. Her electrical prospecting supervisor, Dr. Ewa Wade consulted. Continue breathing treatments and oxygen. Code(s): J44.1 - CHRONIC OBSTRUCTIVE PULMONARY DISEASE W (ACUTE) EXACERBATION (3) Langerhans cell histiocytoses Current Visit: Yes Status: Acute Assessment & Plan: I talked with Dr. Hickey yesterday to let him know of her admission. She will not be discharged in time to go to her PET scan this evening at 6 pm. Code(s): C96.6 - UNIFOCAL LANGERHANS-CELL HISTIOCYTOSIS (4) Sick sinus syndrome Current Visit: Yes Status: Chronic Onset Date: ~06/20/17 Assessment & Plan: Dr. Fortune plans on pacemaker in the future. Continue telemetry. Further management per driller multiple spindle. Code(s): I49.5 - SICK SINUS SYNDROME (5) Diabetes Current Visit: Yes Status: Acute Qualifiers: Diabetes mellitus type: type 2 Diabetes mellitus complication status: without complication Diabetes mellitus [facility] insulin use: without [facility] use Qualified Code(s): E11.9 - Type 2 diabetes mellitus without complications Assessment & Plan: Her blood glucose is higher this am most likely due to steroids. Continue metformin and low dose sliding scale of insulin. Code(s): E11.9 - TYPE 2 DIABETES MELLITUS WITHOUT COMPLICATIONS (6) Hypertension Current Visit: No Status: Chronic Qualifiers: Hypertension type: essential hypertension Qualified Code(s): I10 - Essential (primary) hypertension Assessment & Plan: Fairly well controlled. Beta john paul currently held. Code(s): I10 - ESSENTIAL (PRIMARY) HYPERTENSION (7) Illicit drug use Current Visit: Yes Status: Acute Code(s): F19.90 - OTHER PSYCHOACTIVE SUBSTANCE USE, UNSPECIFIED, UNCOMPLICATED (8) Hypothyroidism Current Visit: No Status: Acute Assessment & Plan: Continue levothyroxine. Code(s): E03.9 - HYPOTHYROIDISM, UNSPECIFIED
[2017-10-17] MEDS: Advair Hfa 115/21 Common canister IH SCH ×2 (10:45→17:40)
[2017-10-17] MEDS: Aldactone 25 MG PO SCH (11:02)
[2017-10-17] MEDS: Klor Con 10 MEQ PO SCH (11:02)
[2017-10-17] MEDS: Provigil 100MG Tablet PO SCH ×2 (11:02→22:30)
[2017-10-17] MEDS: BUMEX 1 MG IV SCH ×2 (11:02→18:01)
[2017-10-17] MEDS: SYNTHROID 150 MCG PO SCH (11:02)
[2017-10-17] MEDS: Glucophage 500 MG PO SCH (11:02)
[2017-10-17] MEDS: Cymbalta 30 MG Capsule PO SCH ×2 (11:03→21:41)
[2017-10-17] MEDS: ENOXAPARIN SODIUM SQ SCH (11:03)
[2017-10-17] MEDS: ECOTRIN 81 MG PO SCH (11:03)
[2017-10-17] MEDS: AMITIZA PO SCH (11:03)
[2017-10-17] MEDS: ZOCOR 20MG PO SCH (21:41)
[2017-10-17] MEDS: Pepcid 20 MG PO SCH (21:41)
[2017-10-17] MEDS: Mirapex 0.5 MG Tablet PO SCH (21:41)
[2017-10-17] MEDS: NovoLOG Insulin SQ PRN (22:30)
[2017-10-17] MEDS ORDERED: BENADRYL 25 MG CAPSULE PO PRN (23:20)
[2017-10-18] MEDS: solu-MEDROL 125 MG IV SCH ×4 (01:13→22:38)
[2017-10-18] MEDS: DUONEB 0.5-3 MG/3 ml Neb IH SCH ×6 (02:11→23:49)
[2017-10-18 06:16] LABS: Hematocrit 45.5 % (35-47); Hemoglobin 14.7 gm/dl (12.0-16.0); Mean Corpuscular Hemoglobin 30.4 pg (26-32); Mean Corpuscular Hgb Concent. 32.3 g/dl (32-36); Mean Platelet Volume 10.2 fl (6-9.5); Platelet Count 298 K/mm3 (150-450); Red Blood Count 4.84 M/mm3 (4.1-5.4); White Blood Count 15.8 K/mm3 (4.0-10.5)
[2017-10-18] MEDS: Advair Hfa 115/21 Common canister IH SCH ×2 (06:40→19:56)
[2017-10-18 06:47] LABS: ANION GAP 15.1 MEQ/L (5-15); Calcium 10.1 mg/dL (8.5-10.1); Carbon Dioxide 32.7 mEq/L (21-32); Creatinine 1 1.25 mg/dl (0.55-1.30); Potassium 4.2 mEq/L (3.5-5.1)
[2017-10-18] MEDS ORDERED: Nitrostat 0.4 MG Tablet SL PRN (07:08)
[2017-10-18 07:29] LABS: BAND 8 % (0.0-2.0); Lymphocytes 9 % (24-44); Monocyte 7 % (0.0-12.0); Neutrophils 76 % (36.0-66.0); Total Cells Counted 100
[2017-10-18 07:30] LABS: Platelet Estimate NORMAL (NORMAL)
--- NOTE | 2017-10-18 07:42 | CONS ---
CONSULT DATE: 10/17/2017 HISTORY: Patti Clifford is a 57 year-old woman with history of chronic obstructive pulmonary disease, well known to me who has been sick for about four to five days. The patient reportedly started having cough, shortness of breath, wheezing and called our office on Sunday. She was noted to have significant clinical bronchospasm even on phone and we advised that she go to the emergency room. The patient presented to the emergency room at [facility] with oxygen saturation of 81% on room air. She reported cough productive of yellow expectoration along with episodes of vomiting. After initial work up the patient has now been hospitalized. She reportedly has been doing "much better" according to her since admission. She has cough which has been productive of clear expectoration. She has been afebrile. The patient has been able to ambulate in the room. PAST MEDICAL HISTORY: Positive for chronic obstructive pulmonary disease, obstructive sleep apnea, hypoxemia, coronary artery disease. She sees Dr. Tonia Fortune and has been scheduled for pacemaker placement soon. In addition, the patient was noted to have a bladder tumor which is being investigated by urology and oncology as well. There is also history of hypertension, hyperlipidemia and reflux. PAST SURGICAL HISTORY: Knee scope for bilateral Cabezas's cyst. Cholecystectomy. Upper GI endoscopy. Thyroidectomy. Right lung biopsy. PERSONAL AND SOCIAL HISTORY: The patient quit smoking about six months ago. She still smokes marijuana. MEDICATIONS: Home and current medications are reviewed. ALLERGIES: CEFTIN, CONTRAST, LEVAQUIN, PENICILLIN. PHYSICAL EXAMINATION: This is a middle aged woman who appears comfortable. The patient is able to speak full sentences. Vital signs are noted. HEENT: Normocephalic. Oral exam shows small oropharynx. NECK: Supple. Accessory muscles are mildly prominent.CVS: First and second heart sounds are normal, regular, rhythmic. RESPIRATORY: Shows diminished breath sounds, bilateral rhonchi heard. ABDOMEN: Obese, minimal edema is noted. LABORATORY DATA AND TESTS: Chest x-ray was negative. Blood cultures have been negative to date. Sodium 142, potassium 3.9, chloride 100, bicarb 33, glucose 239, BUN 20, creatinine 1.1. White blood cell count 11.8, hemoglobin 13.8, hematocrit 42, PLT 287,000. UA unremarkable. Troponin I negative. ASSESSMENT: This is a 57 year old woman admitted with: 1) Chronic obstructive pulmonary disease with acute exacerbation. 2) Acute bronchitis. 3) Hypoxemia. 4) Obstructive sleep apnea. 5) Coronary artery disease. 6) Substance abuse. RECOMMENDATIONS: The patient is showing clinical improvement with current therapy. I agree with current treatment. Gradual steroid taper, continue bronchodilators, continue antibiotics, deep venous thrombosis and GI prophylaxis. Cardiology follow up has been arranged as outpatient. I will see the patient within a week of being discharged from the hospital in outpatient setting as well. Thank you for allowing me to participate in the care of Patti Clifford.
--- NOTE | 2017-10-18 08:33 | XRAY ---
Exam: AP upright portable chest film from 0713 hours on 10/18/2017. Comparison: AP upright chest film from 10/15/2017. Indication: Chest pain. Findings: I again see some fine surgical suture material overlying the right upper lobe. The film has been obtained in a lordotic projection. The transverse heart size appears within normal limits. The ana and mediastinal structures appear unremarkable. No air space infiltrates, significant vascular congestion, Mario B lines, pneumothorax, or pleural fluid is seen. Multiple leads are seen in place. There appears to be some surgical suture material projected over the base of the neck on each side of midline representing no change. No acute osseous process is seen. Impression: 1. No acute cardiopulmonary disease is seen. The findings are unchanged from 10/15/2017.
--- NOTE | 2017-10-18 09:26 | PCM.NOTE ---
Date and Time: 10/18/17919 Subjective Assessment: She had a rash on her chest, legs, abdomen and ankles last night. She states it was itchy. She had not had her azithromycin yet for the day when she got the rash. Dr. Wade was able to see her yesterday. She developed chest pain during a breathing treatment this AM. She states it felt like someone was standing on her chest. Sh estates it lasted for 7-9 minutes and then felt better after 2 nitro but she still has some slight pain like someone is sitting there. This radiated to her left breast. She is not sure if she had shortness of breath as she was receiving a breathing treatment when it happened. - Review of Systems Constitutional: No Symptoms Eyes: No Symptoms Ears, Nose, & Throat: No Symptoms Respiratory: Short Of Breath, Wheezing Cardiac: Chest Pain Abdominal/Gastrointestinal: Constipation Genitourinary Symptoms: No Symptoms Musculoskeletal: No Symptoms Skin: Rash Objective Exam General Appearance: no apparent distress, alert Neurologic Exam: alert, cooperative, normal mood/affect Skin Exam: normal color, warm, dry, other (a little rash over her chest) Respiratory Exam: other (scattered wheezes throughout, equal breath sounds, no crackles, no retractions.) Cardiovascular Exam: regular rate/rhythm, normal heart sounds, No murmur, No friction rub, No gallop Gastrointestinal/Abdomen Exam: soft, normal bowel sounds, No tenderness, No distention, No mass Extremity Exam: other (no c/c/e) OBJECTIVE DATA Vital Signs: Vital Signs - 24 hr Temp Pulse Resp BP BP Pulse Ox 10/18/17 08:00 97.6 F 90 16 164/65 92 L 10/18/17 07:00 97 H 20 92 L 10/18/17 04:00 97.8 F 98 H 18 124/65 125/60 10/18/17 03:43 19 10/18/17 02:11 91 H 19 95 10/18/17 00:00 97.8 F 94 H 19 128/67 92 L 10/17/17 22:10 107 H 20 94 L 10/17/17 20:00 98.3 F 106 H 20 123/62 125/60 95 10/17/17 17:42 106 H 20 95 10/17/17 16:00 98.3 F 98 H 20 123/62 91 L 10/17/17 15:21 97 H 20 95 10/17/17 12:00 20 10/17/17 11:43 97.6 F 84 20 144/36 91 L 10/17/17 10:52 102 H 20 92 L Oxygen-Last 24 hours O2 Percentage 3 Liters = 32% O2 Percentage 3 Liters = 32% O2 Percentage 2 Liters = 28% O2 Percentage 2 Liters = 28% Pain Assessment - Last Documented Pain Intensity 5 Pain Scale Used 0-10 Pain Scale Intake and Output: Intake & Output 10/16/17 10/17/17 10/18/17 10/19/17 06:59 06:59 06:59 06:59 Intake Total 360 1470 1760 360 Output Total 2000 1400 400 Balance 360 -530 360 -40 Weight 119 kg 119.2 kg 119.2 kg Lab Results: Accuchecks Date 10/18/17 Date 10/17/17 Date 10/17/17 Time 07:30 Time 16:30 Time 11:30 Accucheck Value: 188 Accucheck Value: 263 Accucheck Value: 130 Accucheck Value: 234 Lab Results-Last 24 Hours 10/17/17 10/18/17 10/18/17 Range/Units 05:30 06:06 06:06 WBC 15.8 H (4.0-10.5) K/mm3 RBC 4.84 (4.1-5.4) M/mm3 Hgb 14.7 (12.0-16.0) gm/dl Hct 45.5 (35-47) % MCV 94.0 (78-100) fl MCH 30.4 (26-32) pg MCHC 32.3 (32-36) g/dl RDW 14.0 (11.5-14.0) % Plt Count 298 (150-450) K/mm3 MPV 10.2 H (6-9.5) fl Segmented Neutrophils 76 H (36.0-66.0) % Band Neutrophils 8 H (0.0-2.0) % Lymphocytes (Manual) 9 L (24-44) % Monocytes (Manual) 7 (0.0-12.0) % Differential Comment NORMAL Platelet Estimate NORMAL (NORMAL) Sodium 140 (136-145) mEq/L Potassium 4.2 (3.5-5.1) mEq/L Chloride 96 L (98-107) mEq/L Carbon Dioxide 32.7 H (21-32) mEq/L Anion Gap 15.1 H (5-15) MEQ/L BUN 31 H (9-20) mg/dL Creatinine 1.25 (0.55-1.30) mg/dl Estimated GFR 47 ML/MIN Glucose 188 H (70-110) MG/DL Hemoglobin A1c 6.0 (4.5-6.2) Calcium 10.1 (8.5-10.1) mg/dL Troponin I (0.000-0.056) ng/ml 10/18/17 Range/Units 07:10 WBC (4.0-10.5) K/mm3 RBC (4.1-5.4) M/mm3 Hgb (12.0-16.0) gm/dl Hct (35-47) % MCV (78-100) fl MCH (26-32) pg MCHC (32-36) g/dl RDW (11.5-14.0) % Plt Count (150-450) K/mm3 MPV (6-9.5) fl Segmented Neutrophils (36.0-66.0) % Band Neutrophils (0.0-2.0) % Lymphocytes (Manual) (24-44) % Monocytes (Manual) (0.0-12.0) % Differential Comment Platelet Estimate (NORMAL) Sodium (136-145) mEq/L Potassium (3.5-5.1) mEq/L Chloride (98-107) mEq/L Carbon Dioxide (21-32) mEq/L Anion Gap (5-15) MEQ/L BUN (9-20) mg/dL Creatinine (0.55-1.30) mg/dl Estimated GFR ML/MIN Glucose (70-110) MG/DL Hemoglobin A1c (4.5-6.2) Calcium (8.5-10.1) mg/dL Troponin I < 0.017 (0.000-0.056) ng/ml Radiology Exams: Radiology Procedures Category Date Time Status CHEST 1 VIEW (PORTABLE) Stat Exams 10/18/17 07:03 Completed ECHO W/2D AND DOPPLER [US] Routine Exams 10/16/17 14:44 Taken Assessment/Plan (1) Acute exacerbation of CHF (congestive heart failure) Current Visit: Yes Status: Acute Assessment & Plan: Continue management per supervisor metal hanging. He was notified of her chest pain this AM and increased her bumex and also put her on a fluid restriction. Code(s): I50.9 - HEART FAILURE, UNSPECIFIED (2) COPD exacerbation Current Visit: Yes Status: Acute Assessment & Plan: Dr. Wade saw her yesterday and agreed with current management. Will start to wean IV steroids. I think the IV steroids are causing her leukocytosis. I will change her azithromycin to doxycycline today as she had a rash yesterday. She has multiple allergies which limits which antibiotics can be used. Code(s): J44.1 - CHRONIC OBSTRUCTIVE PULMONARY DISEASE W (ACUTE) EXACERBATION (3) Langerhans cell histiocytoses Current Visit: Yes Status: Acute Code(s): C96.6 - UNIFOCAL LANGERHANS-CELL HISTIOCYTOSIS (4) Sick sinus syndrome Current Visit: Yes Status: Chronic Onset Date: ~06/20/17 Assessment & Plan: Management per her supervisor metal hanging. Her nurse noted that she had some bigeminy on her tele this AM and Dr. Cesia Fortune was notified. Code(s): I49.5 - SICK SINUS SYNDROME (5) Diabetes Current Visit: Yes Status: Acute Qualifiers: Diabetes mellitus type: type 2 Diabetes mellitus complication status: without complication Diabetes mellitus jail insulin use: without ferry terminal agent use Qualified Code(s): E11.9 - Type 2 diabetes mellitus without complications Assessment & Plan: Continue metformin and start lantus 10 units daily and continue low dose sliding scale of novolog. Code(s): E11.9 - TYPE 2 DIABETES MELLITUS WITHOUT COMPLICATIONS (6) Hypertension Current Visit: No Status: Chronic Qualifiers: Hypertension type: essential hypertension Qualified Code(s): I10 - Essential (primary) hypertension Assessment & Plan: Restart her metoprolol today. Code(s): I10 - ESSENTIAL (PRIMARY) HYPERTENSION (7) Illicit drug use Current Visit: Yes Status: Acute Code(s): F19.90 - OTHER PSYCHOACTIVE SUBSTANCE USE, UNSPECIFIED, UNCOMPLICATED (8) Hypothyroidism Current Visit: No Status: Acute Code(s): E03.9 - HYPOTHYROIDISM, UNSPECIFIED (9) Chest pain Current Visit: Yes Status: Acute Assessment & Plan: Better with sublingual nitro. EKG with PVC but otherwise normal. Troponin neg , will check two more serial troponins today and again, her supervisor metal hanging is following too. Code(s): R07.9 - CHEST PAIN, UNSPECIFIED
[2017-10-18] MEDS: Provigil 100MG Tablet PO SCH ×2 (11:13→22:39)
[2017-10-18] MEDS: ECOTRIN 81 MG PO SCH (11:13)
[2017-10-18] MEDS: Toprol-Xl 25MG Tablets PO SCH ×2 (11:13→22:39)
[2017-10-18] MEDS: Vibramycin 100 MG PO SCH ×2 (11:14→22:39)
[2017-10-18] MEDS: Aldactone 25 MG PO SCH (11:14)
[2017-10-18] MEDS: SYNTHROID 150 MCG PO SCH (11:14)
[2017-10-18] MEDS: Cymbalta 30 MG Capsule PO SCH ×2 (11:14→22:39)
[2017-10-18] MEDS: Glucophage 500 MG PO SCH (11:14)
[2017-10-18] MEDS: SENOKOT 8.6 MG PO PRN (11:15)
[2017-10-18] MEDS: Klor Con 10 MEQ PO SCH (11:15)
[2017-10-18] MEDS: ENOXAPARIN SODIUM SQ SCH (11:15)
[2017-10-18] MEDS: AMITIZA PO SCH (11:16)
[2017-10-18] MEDS: BUMEX 1 MG IV SCH ×3 (11:16→17:36)
[2017-10-18] MEDS: Lantus Insulin SQ SCH (11:20)
[2017-10-18] MEDS: Mirapex 0.5 MG Tablet PO SCH (22:39)
[2017-10-18] MEDS: Pepcid 20 MG PO SCH (22:39)
[2017-10-18] MEDS: ZOCOR 20MG PO SCH (22:39)
[2017-10-19] MEDS: DUONEB 0.5-3 MG/3 ml Neb IH SCH ×3 (03:29→10:25)
[2017-10-19 06:13] LABS: Hematocrit 43.8 % (35-47); Mean Cell Volume 94.6 fl (78-100); Mean Corpuscular Hemoglobin 30.2 pg (26-32); Mean Platelet Volume 10.1 fl (6-9.5); Platelet Count 274 K/mm3 (150-450); Red Blood Count 4.63 M/mm3 (4.1-5.4); Red Cell Distribution Width 14.1 % (11.5-14.0)
[2017-10-19 06:31] LABS: ANION GAP 11.6 MEQ/L (5-15); Calcium 9.2 mg/dL (8.5-10.1); Carbon Dioxide 35.6 mEq/L (21-32); Creatinine 1 1.17 mg/dl (0.55-1.30); Potassium 3.4 mEq/L (3.5-5.1)
[2017-10-19] MEDS: solu-MEDROL 125 MG IV SCH ×2 (06:53→13:25)
[2017-10-19] MEDS: Advair Hfa 115/21 Common canister IH SCH (06:56)
[2017-10-19 07:22] LABS: BAND 1 % (0.0-2.0); Lymphocytes 8 % (24-44); Monocyte 4 % (0.0-12.0); Neutrophils 87 % (36.0-66.0); Total Cells Counted 100
[2017-10-19 07:23] LABS: ANISOCYTOSIS 1+; Platelet Estimate NORMAL (NORMAL)
[2017-10-19] MEDS: Lantus Insulin SQ SCH (08:17)
[2017-10-19] MEDS: ENOXAPARIN SODIUM SQ SCH (08:17)
[2017-10-19] MEDS: Cymbalta 30 MG Capsule PO SCH (08:18)
[2017-10-19] MEDS: Glucophage 500 MG PO SCH (08:18)
[2017-10-19] MEDS: Provigil 100MG Tablet PO SCH (08:18)
[2017-10-19] MEDS: SYNTHROID 150 MCG PO SCH (08:18)
[2017-10-19] MEDS: Vibramycin 100 MG PO SCH (08:18)
[2017-10-19] MEDS: Klor Con 10 MEQ PO SCH (08:18)
[2017-10-19] MEDS: SENOKOT 8.6 MG PO PRN (08:19)
[2017-10-19] MEDS: Toprol-Xl 25MG Tablets PO SCH (08:19)
[2017-10-19] MEDS: ECOTRIN 81 MG PO SCH (08:19)
[2017-10-19] MEDS: Aldactone 25 MG PO SCH (08:19)
[2017-10-19] MEDS: AMITIZA PO SCH (08:19)
[2017-10-19] MEDS: BUMEX 1 MG IV SCH ×2 (08:19→13:25)
--- NOTE | 2017-10-19 09:10 | PCM.DCORD ---
- Discharge Discharge Date: 10/19/17 Disposition: Swing Bed @ [facility] Condition: Fair Prescriptions: New Bumetanide 1 mg [Bumex 1 mg] 2 mg IV TID DIURETIC vial Enoxaparin Sodium [Enoxaparin Sodium] 40 mg SQ DAILY ml Insulin Glargine [Lantus Insulin] 10 unit SQ AMINSULIN unit Senna 8.6 mg [Senokot 8.6 mg] 17.2 mg PO DAILY PRN tablet PRN Reason: Constipation Methylprednis Sod Succ 125 mg* [solu-MEDROL 125 MG] 60 mg IV Q8HT vial Acetaminophen 325 mg [Tylenol 325 mg] 650 mg PO Q4H PRN PRN tablet PRN Reason: Pain And/Or Fever Doxycycline Hyclate 100 mg [Vibramycin 100 MG] 100 mg PO BID tab Continue Albuterol Sulfate [Proair Hfa] 2 puffs IH BIDPRN PRN PRN Reason: Shortness Of Breath Spironolactone [Aldactone] 50 mg PO DAILY Ranitidine HCl [Zantac] 150 mg PO HS Pramipexole Di-HCl [Mirapex] 0.5 tab PO HS Metoprolol Succinate 25 mg Xl* [Toprol-Xl 25MG Tablets] 25 mg PO BID Fluticasone/Vilanterol [Breo Ellipta 100-25 Mcg INH] 1 inh IH DAILY Atorvastatin Calcium [Lipitor] 20 mg PO HS Aspirin 81 mg PO DAILY Nitroglycerin 0.4 mg Tablet [Nitrostat 0.4 MG Tablet] 0.4 mg IH UD Albuterol/Ipratropium 3ml Neb* [DUONEB 0.5-3 MG/3 ml Neb] 3 ml IH QID Potassium Chloride 20 meq PO DAILY Metformin HCl 500 mg [Glucophage 500 MG] 500 mg PO DAILY Modafinil 200 mg PO BID Lubiprostone [Amitiza] 24 mg PO DAILY Levothyroxine Sodium 150 mcg PO DAILY Duloxetine HCl 30 mg [Cymbalta 30 MG Capsule] 30 mg PO BID Discontinued Prednisone 20 mg [Deltasone 20 mg] 20 mg PO DAILY #7 tablet Bumetanide [Bumetanide] 2 mg PO BIDWM Additional Instructions: appointment with Dr. Car at [facility] on 11/13/17 at 10:25 AM. 's office rescheduled your abd/pelvic/chest scan which is now set for 10/26/17 @ 4p.m. Follow up with: JOSE BANEGAS [ACTIVE STAFF] - 1 Week (FOLLOW UP IN 1 WEEK UPON D/C ) SHAGGY CAR MD [CONSULTING PHYSICIAN] - 11/13/17 10:25 am
[2017-10-19 13:48] VITALS: BP 167/75; PULSE 93; O2SAT 98
== END 2017-10-19 14:00 | disposition swing bed (61) | DRG 292 ==
LOC: ED 21:05 → MED SURG 23:39
PROVIDERS: ADMIT Internal Medicine; ATTEND Internal Medicine
DX: I50.9 Heart failure, unspecified (principal); J44.1 Chronic obstructive pulmonary disease with (acute) exacerbation; E78.00 Pure hypercholesterolemia, unspecified; J44.9 Chronic obstructive pulmonary disease, unspecified; J45.909 Unspecified asthma, uncomplicated; Z86.711 Personal history of pulmonary embolism; G47.30 Sleep apnea, unspecified; C96.6 Unifocal Langerhans-cell histiocytosis; F41.8 Other specified anxiety disorders; I49.5 Sick sinus syndrome; I10 Essential (primary) hypertension; G62.9 Polyneuropathy, unspecified; F17.200 Nicotine dependence, unspecified, uncomplicated; I25.10 Atherosclerotic heart disease of native coronary artery without angina pectoris; E11.9 Type 2 diabetes mellitus without complications; Z79.4 Long term (current) use of insulin; F19.90 Other psychoactive substance use, unspecified, uncomplicated; K21.9 Gastro-esophageal reflux disease without esophagitis; M79.7 Fibromyalgia; Z85.850 Personal history of malignant neoplasm of thyroid; Z87.891 Personal history of nicotine dependence; E03.9 Hypothyroidism, unspecified; E78.5 Hyperlipidemia, unspecified; F12.929 Cannabis use, unspecified with intoxication, unspecified; J20.9 Acute bronchitis, unspecified; R09.02 Hypoxemia; G47.33 Obstructive sleep apnea (adult) (pediatric)
CPT/HCPCS: 36000; 36415; 36600; 71045; 80048; 80053; 81002; 82375; 82803; 82962; 83036; 83605; 83735; 83880; 84484; 85025; 85027; 85610; 85730; 87040; 87070; 87631; 93005; 93041; 93306; 94150; 94640; 94760; 96365; 96374; 99285; J0456; J1650; J1940; J2930; A9270-GY

== ENCOUNTER 2017-10-19 10:05 | Inpatient (IN) | payer MEDICARE ==
[2017-10-19] MEDS ORDERED: DUONEB 0.5-3 MG/3 ml Neb IH ONE (14:21)
[2017-10-19] MEDS ORDERED: PROVENTIL 2.5 MG/3 ML NEB IH SCH (14:29)
[2017-10-19] MEDS ORDERED: PROVENTIL COMMON CANISTER IH PRN (14:29)
[2017-10-19] MEDS ORDERED: TYLENOL 325 MG PO PRN (14:29)
[2017-10-19] MEDS ORDERED: BENADRYL 25 MG CAPSULE PO PRN (14:29)
[2017-10-19] MEDS: DUONEB 0.5-3 MG/3 ml Neb IH SCH ×3 (14:30→22:05)
[2017-10-19] MEDS: BUMEX 1 MG IV SCH (16:24)
[2017-10-19] MEDS: Provigil 100MG Tablet PO SCH (16:24)
[2017-10-19] MEDS: Toprol-Xl 25MG Tablets PO SCH (22:36)
[2017-10-19] MEDS: Vibramycin 100 MG PO SCH (22:36)
[2017-10-19] MEDS: solu-MEDROL 125 MG IV SCH (22:36)
[2017-10-19] MEDS: Pepcid 20 MG PO SCH (22:36)
[2017-10-19] MEDS: Cymbalta 30 MG Capsule PO SCH (22:36)
[2017-10-19] MEDS: ZOCOR 20MG PO SCH (22:36)
[2017-10-19] MEDS: Mirapex 0.5 MG Tablet PO SCH (22:36)
[2017-10-20] MEDS: DUONEB 0.5-3 MG/3 ml Neb IH SCH ×6 (02:59→23:15)
[2017-10-20] MEDS: solu-MEDROL 125 MG IV SCH ×3 (06:10→22:12)
[2017-10-20 06:27] LABS: Hematocrit 42.7 % (35-47); Hemoglobin 13.8 gm/dl (12.0-16.0); Mean Cell Volume 94.9 fl (78-100); Mean Corpuscular Hemoglobin 30.7 pg (26-32); Mean Corpuscular Hgb Concent. 32.3 g/dl (32-36); Mean Platelet Volume 10.2 fl (6-9.5); Platelet Count 270 K/mm3 (150-450); Red Cell Distribution Width 13.9 % (11.5-14.0)
[2017-10-20 06:58] LABS: ANION GAP 10.3 MEQ/L (5-15); Calcium 9.1 mg/dL (8.5-10.1); Carbon Dioxide 36.5 mEq/L (21-32); Creatinine 1 1.18 mg/dl (0.55-1.30); Potassium 4.4 mEq/L (3.5-5.1)
[2017-10-20] MEDS: Advair Hfa 115/21 Common canister IH SCH ×2 (06:59→19:32)
[2017-10-20] MEDS: ENOXAPARIN SODIUM SQ SCH (07:47)
[2017-10-20] MEDS: SYNTHROID 150 MCG PO SCH (07:48)
[2017-10-20] MEDS: Aldactone 25 MG PO SCH (07:48)
[2017-10-20] MEDS: SENOKOT 8.6 MG PO PRN (07:48)
[2017-10-20] MEDS: Klor Con 10 MEQ PO SCH (07:48)
[2017-10-20] MEDS: Toprol-Xl 25MG Tablets PO SCH ×2 (07:48→22:12)
[2017-10-20] MEDS: Provigil 100MG Tablet PO SCH ×2 (07:48→17:24)
[2017-10-20] MEDS: Vibramycin 100 MG PO SCH ×2 (07:48→22:13)
[2017-10-20] MEDS: ECOTRIN 81 MG PO SCH (07:49)
[2017-10-20] MEDS: Cymbalta 30 MG Capsule PO SCH ×2 (07:49→22:12)
[2017-10-20] MEDS: Glucophage 500 MG PO SCH (07:49)
[2017-10-20] MEDS: Lantus Insulin SQ SCH (07:49)
[2017-10-20] MEDS: AMITIZA PO SCH (07:50)
[2017-10-20] MEDS: BUMEX 1 MG IV SCH ×3 (07:51→17:24)
[2017-10-20] MEDS ORDERED: Aplisol ID SCH (10:00)
[2017-10-20] MEDS: Mirapex 0.5 MG Tablet PO SCH (22:12)
[2017-10-20] MEDS: ZOCOR 20MG PO SCH (22:13)
[2017-10-20] MEDS: Pepcid 20 MG PO SCH (22:13)
[2017-10-21] MEDS: NovoLOG Insulin SQ PRN ×2 (00:20→11:39)
[2017-10-21] MEDS: solu-MEDROL 125 MG IV SCH ×3 (06:17→22:36)
[2017-10-21] MEDS: Advair Hfa 115/21 Common canister IH SCH ×2 (07:37→19:54)
[2017-10-21] MEDS: DUONEB 0.5-3 MG/3 ml Neb IH SCH ×4 (07:37→19:47)
[2017-10-21] MEDS: ENOXAPARIN SODIUM SQ SCH (08:32)
[2017-10-21] MEDS: Toprol-Xl 25MG Tablets PO SCH ×2 (08:33→22:35)
[2017-10-21] MEDS: Provigil 100MG Tablet PO SCH ×2 (08:33→17:59)
[2017-10-21] MEDS: Vibramycin 100 MG PO SCH ×2 (08:33→22:35)
[2017-10-21] MEDS: Klor Con 10 MEQ PO SCH (08:33)
[2017-10-21] MEDS: BUMEX 1 MG IV SCH ×3 (08:33→17:30)
[2017-10-21] MEDS: Lantus Insulin SQ SCH (08:33)
[2017-10-21] MEDS: Cymbalta 30 MG Capsule PO SCH ×2 (08:33→22:35)
[2017-10-21] MEDS: SENOKOT 8.6 MG PO PRN (08:33)
[2017-10-21] MEDS: Aldactone 25 MG PO SCH (08:34)
[2017-10-21] MEDS: Glucophage 500 MG PO SCH (08:34)
[2017-10-21] MEDS: ECOTRIN 81 MG PO SCH (08:34)
[2017-10-21] MEDS: SYNTHROID 150 MCG PO SCH (08:34)
[2017-10-21] MEDS: AMITIZA PO SCH (08:34)
[2017-10-21] MEDS: Nitrostat 0.4 MG Tablet SL PRN ×2 (16:24→16:48)
[2017-10-21] MEDS ORDERED: MORPHINE SULFATE 4 MG INJ IV PRN (16:31)
[2017-10-21] MEDS ORDERED: ZOFRAN ODT 4 MG PO PRN (17:41)
[2017-10-21] MEDS: Mirapex 0.5 MG Tablet PO SCH (22:34)
[2017-10-21] MEDS: ZOCOR 20MG PO SCH (22:35)
[2017-10-21] MEDS: Pepcid 20 MG PO SCH (22:35)
[2017-10-22] MEDS: solu-MEDROL 125 MG IV SCH (06:14)
[2017-10-22] MEDS: Advair Hfa 115/21 Common canister IH SCH (07:20)
[2017-10-22] MEDS: DUONEB 0.5-3 MG/3 ml Neb IH SCH (07:20)
[2017-10-22] MEDS ORDERED: Sodium Chloride 0.9% 10 ML FLUSH Syringe IV PRN (07:35)
[2017-10-22] MEDS: Lantus Insulin SQ SCH (08:23)
[2017-10-22] MEDS: Provigil 100MG Tablet PO SCH ×2 (08:23→17:42)
--- NOTE | 2017-10-22 08:45 | XRAY ---
Indication: Short of breath. CHF. Comparison: October 18, 2017. Portable apical lordotic chest unchanged again demonstrating normal heart and lungs. Bony thorax intact with mild degenerative changes. No new/acute findings. Comment: Preliminary interpretation was made by [facility]. No discrepancy.
[2017-10-22] MEDS: Aldactone 25 MG PO SCH (09:44)
[2017-10-22] MEDS: BUMEX 1 MG PO SCH ×2 (09:44→17:42)
[2017-10-22] MEDS: ENOXAPARIN SODIUM SQ SCH (09:45)
[2017-10-22] MEDS: DELTASONE 20 MG PO SCH (09:45)
[2017-10-22] MEDS: Cymbalta 30 MG Capsule PO SCH ×2 (09:45→22:01)
[2017-10-22] MEDS: ECOTRIN 81 MG PO SCH (09:45)
[2017-10-22] MEDS: Vibramycin 100 MG PO SCH ×2 (09:47→22:01)
[2017-10-22] MEDS: SYNTHROID 150 MCG PO SCH (09:47)
[2017-10-22] MEDS: Toprol-Xl 25MG Tablets PO SCH ×2 (09:47→22:01)
[2017-10-22] MEDS: Klor Con 10 MEQ PO SCH (09:47)
[2017-10-22] MEDS: Glucophage 500 MG PO SCH (09:47)
[2017-10-22] MEDS ORDERED: Xopenex 1.25 MG/0.5 ML UD NEBULE IH ONE (09:48)
[2017-10-22] MEDS: AMITIZA PO SCH (09:52)
[2017-10-22] MEDS: Spiriva 18 Mcg/Cap Inhaler IH SCH (10:50)
[2017-10-22] MEDS: Xopenex 1.25 MG/0.5 ML UD NEBULE IH SCH ×3 (10:50→20:09)
[2017-10-22] MEDS: Sodium Chloride 3 ML UD NEBULES IH SCH ×3 (10:50→20:09)
[2017-10-22] MEDS: NovoLOG Insulin SQ PRN (11:59)
[2017-10-22] MEDS: Sodium Chloride 0.9% 10 ML FLUSH Syringe IV SCH ×2 (14:05→22:01)
--- NOTE | 2017-10-22 21:51 | PCM.NOTE ---
Date and Time: 10/22/172145 Subjective Assessment: Patient and nurses report she had chest pain last night. She reports some nausea too and was afraid to eat her supper 10/21/17. She states her chest pain feels like a fluttering and then like someone is sitting on her chest or a pressure on her chest that gets better with nitro. - Review of Systems Constitutional: No Symptoms Eyes: No Symptoms Ears, Nose, & Throat: No Symptoms Respiratory: Cough, Wheezing Cardiac: Chest Pain Abdominal/Gastrointestinal: Other (She reports a good bowel movement) Genitourinary Symptoms: No Symptoms Musculoskeletal: No Symptoms Skin: No Symptoms Objective Exam General Appearance: no apparent distress, obese Neurologic Exam: alert, cooperative, normal mood/affect Skin Exam: normal color, warm, dry, No rash Respiratory Exam: airway intact, wheezing, No respiratory distress, No diminished breath sounds, No accessory muscle use, No crackles/rales, No rhonchi Cardiovascular Exam: regular rate/rhythm, normal heart sounds, No murmur, No friction rub, No gallop Gastrointestinal/Abdomen Exam: soft, normal bowel sounds Extremity Exam: other (trace edema, no c/c) OBJECTIVE DATA Vital Signs: Vital Signs - 24 hr Temp Pulse Resp BP Pulse Ox 10/22/17 21:39 97.9 F 76 20 111/66 98 10/22/17 20:33 79 20 96 10/22/17 16:00 97.6 F 88 22 129/71 92 L 10/22/17 14:46 88 20 10/22/17 11:11 66 20 94 L 10/22/17 07:36 97.8 F 66 20 105/64 94 L 10/22/17 07:20 88 22 94 L Oxygen-Last 24 hours O2 Percentage 3 Liters = 32% O2 Percentage 3 Liters = 32% O2 Percentage 3 Liters = 32% Pain Assessment - Last Documented Pain Intensity 0 Pain Scale Used 0-10 Pain Scale Intake and Output: Intake & Output 10/20/17 10/21/17 10/22/17 10/23/17 06:59 06:59 06:59 06:59 Intake Total 920 958 365 2676 Output Total 1600 4500 0878 700 [facility], [place] [phone] 800 Weight 119.9 kg 118.7 kg 119 kg Lab Results: Accuchecks Date 10/22/17 Date 10/22/17 Date 10/22/17 Date 10/21/17 Time 16:30 Time 11:30 Time 07:30 Time 21:30 Accucheck Value: 112 Accucheck Value: 258 Accucheck Value: 164 Accucheck Value: 173 Lab Results-Last 24 Hours 10/22/17 Range/Units 05:20 Troponin I < 0.017 (0.000-0.056) ng/ml Radiology Exams: Radiology Procedures Category Date Time Status CHEST 1 VIEW (PORTABLE) Stat Exams 10/21/17 18:30 Completed Assessment/Plan (1) Acute exacerbation of CHF (congestive heart failure) Current Visit: No Status: Acute Assessment & Plan: I called Dr. Bradford Fortune this AM and discussed with him. He asked to change her back to oral bumex at her home dose. Continue with fluid restriction and he will plan to follow up with her as an outpatient. Code(s): I50.9 - HEART FAILURE, UNSPECIFIED (2) COPD exacerbation Current Visit: No Status: Acute Assessment & Plan: IV steroids changed to prednisone 20 mg po daily. At the request of her supervisor microfilm duplicating unit, stopped albuterol and started xopenex prn. Also added spiriva as duonebs were stopped. Continue inhaled steroid. Continue oxygen. Code(s): J44.1 - CHRONIC OBSTRUCTIVE PULMONARY DISEASE W (ACUTE) EXACERBATION (3) Chest pain Current Visit: No Status: Acute Assessment & Plan: Her troponin last night and this AM were neg. Dr. Cesia Fortune, supervisor microfilm duplicating unit, aware of her chest pain. He reports she has had a negative stress test in the past. He states he will follow up as an outpatient. Code(s): R07.9 - CHEST PAIN, UNSPECIFIED (4) Diabetes Current Visit: No Status: Acute Qualifiers: Diabetes mellitus type: type 2 Diabetes mellitus complication status: with hyperglycemia Diabetes mellitus emt intermediate insulin use: without emt intermediate use Qualified Code(s): E11.65 - Type 2 diabetes mellitus with hyperglycemia Assessment & Plan: She may need to go home on lantus. I will need to see how her blood glucoses do as her steroids are weaned. Code(s): E11.9 - TYPE 2 DIABETES MELLITUS WITHOUT COMPLICATIONS (5) Hypoxia Current Visit: No Status: Acute Assessment & Plan: She wears 3 L oxygen at home which is what she is on here. Code(s): R09.02 - HYPOXEMIA (6) Illicit drug use Current Visit: No Status: Acute Code(s): F19.90 - OTHER PSYCHOACTIVE SUBSTANCE USE, UNSPECIFIED, UNCOMPLICATED (7) Langerhans cell histiocytoses Current Visit: No Status: Acute Code(s): C96.6 - UNIFOCAL LANGERHANS-CELL HISTIOCYTOSIS (8) Sick sinus syndrome Current Visit: No Status: Chronic Onset Date: ~06/20/17 Assessment & Plan: Dr. Cesia Fortune plans for pacemaker as an outpatient. Code(s): I49.5 - SICK SINUS SYNDROME
[2017-10-22] MEDS: Pepcid 20 MG PO SCH (22:01)
[2017-10-22] MEDS: Mirapex 0.5 MG Tablet PO SCH (22:01)
[2017-10-22] MEDS: ZOCOR 20MG PO SCH (22:02)
[2017-10-23] MEDS: Sodium Chloride 3 ML UD NEBULES IH SCH ×4 (06:49→20:54)
[2017-10-23] MEDS: Xopenex 1.25 MG/0.5 ML UD NEBULE IH SCH ×4 (06:49→20:54)
[2017-10-23] MEDS: DUONEB 0.5-3 MG/3 ml Neb IH SCH (08:10)
[2017-10-23] MEDS: Aldactone 25 MG PO SCH (08:50)
[2017-10-23] MEDS: Cymbalta 30 MG Capsule PO SCH ×2 (08:50→21:16)
[2017-10-23] MEDS: BUMEX 1 MG PO SCH ×2 (08:50→17:09)
[2017-10-23] MEDS: DELTASONE 20 MG PO SCH (08:50)
[2017-10-23] MEDS: SENOKOT 8.6 MG PO PRN (08:51)
[2017-10-23] MEDS: Toprol-Xl 25MG Tablets PO SCH ×2 (08:51→21:17)
[2017-10-23] MEDS: Provigil 100MG Tablet PO SCH ×2 (08:51→17:09)
[2017-10-23] MEDS: Klor Con 10 MEQ PO SCH (08:51)
[2017-10-23] MEDS: SYNTHROID 150 MCG PO SCH (08:51)
[2017-10-23] MEDS: Vibramycin 100 MG PO SCH ×2 (08:52→21:17)
[2017-10-23] MEDS: ECOTRIN 81 MG PO SCH (08:52)
[2017-10-23] MEDS: ENOXAPARIN SODIUM SQ SCH (08:52)
[2017-10-23] MEDS: Glucophage 500 MG PO SCH (08:52)
[2017-10-23] MEDS: AMITIZA PO SCH (08:53)
[2017-10-23] MEDS: Lantus Insulin SQ SCH (08:53)
--- NOTE | 2017-10-23 08:54 | PCM.NOTE ---
Date and Time: 10/23/17 0850 Subjective Assessment: Patient reports she has felt a little more wheezy. She was able to go to rehab yesterday and states she felt like where was some pulling in her chest when she lifted the weights. - Review of Systems Constitutional: No Symptoms Eyes: No Symptoms Ears, Nose, & Throat: No Symptoms Respiratory: Cough, Short Of Breath, Wheezing Cardiac: No Symptoms Abdominal/Gastrointestinal: No Symptoms, Other (She reports a normal stool 2 days ago) Genitourinary Symptoms: No Symptoms Musculoskeletal: No Symptoms Skin: No Symptoms Objective Exam General Appearance: no apparent distress, alert, obese, other (on oxygen by MD) Neurologic Exam: alert, cooperative, normal mood/affect Skin Exam: normal color, warm, dry, No rash Respiratory Exam: airway intact, wheezing, other (equal breath sounds), No respiratory distress, No accessory muscle use, No crackles/rales, No rhonchi Cardiovascular Exam: regular rate/rhythm, normal heart sounds, No murmur, No friction rub, No gallop Gastrointestinal/Abdomen Exam: soft, normal bowel sounds Extremity Exam: other (no c/c/e) OBJECTIVE DATA Vital Signs: Vital Signs - 24 hr Temp Pulse Resp BP Pulse Ox 10/23/17 08:32 98 F 67 22 109/64 96 10/23/17 06:58 78 20 97 10/22/17 21:39 97.9 F 76 20 111/66 98 10/22/17 20:33 79 20 96 10/22/17 16:00 97.6 F 88 22 129/71 92 L 10/22/17 14:46 88 20 10/22/17 11:11 66 20 94 L Oxygen-Last 24 hours O2 Percentage 3 Liters = 32% O2 Percentage 3 Liters = 32% Pain Assessment - Last Documented Pain Intensity 6 Pain Scale Used 0-10 Pain Scale Intake and Output: Intake & Output 10/21/17 10/22/17 10/23/17 10/24/17 06:59 06:59 06:59 06:59 Intake Total 530 608 1370 Output Total 6702 8280 9310 Balance -5960 -5880 -800 Weight 118.7 kg 119 kg 119.4 kg Lab Results: Accuchecks Date 10/22/17 Date 10/22/17 Time 16:30 Time 11:30 Accucheck Value: 114 Accucheck Value: 112 Accucheck Value: 258 Radiology Exams: Radiology Procedures Category Date Time Status CHEST 1 VIEW (PORTABLE) Stat Exams 10/21/17 18:30 Completed Assessment/Plan (1) Acute exacerbation of CHF (congestive heart failure) Current Visit: No Status: Acute Assessment & Plan: Continue bumex, check BMP, continue fluid restriction, plan for her to follow up with cycle counter as an outpatient. Code(s): I50.9 - HEART FAILURE, UNSPECIFIED (2) COPD exacerbation Current Visit: No Status: Acute Assessment & Plan: Continue prednisone, continue doxycycline, continue oxygen and breathing treatments. Code(s): J44.1 - CHRONIC OBSTRUCTIVE PULMONARY DISEASE W (ACUTE) EXACERBATION (3) Diabetes Current Visit: No Status: Acute Qualifiers: Diabetes mellitus type: type 2 Diabetes mellitus complication status: with hyperglycemia Diabetes mellitus shelter insulin use: without shelter use Qualified Code(s): E11.65 - Type 2 diabetes mellitus with hyperglycemia Code(s): E11.9 - TYPE 2 DIABETES MELLITUS WITHOUT COMPLICATIONS (4) Hypoxia Current Visit: No Status: Acute Code(s): R09.02 - HYPOXEMIA (5) Illicit drug use Current Visit: No Status: Acute Code(s): F19.90 - OTHER PSYCHOACTIVE SUBSTANCE USE, UNSPECIFIED, UNCOMPLICATED (6) Langerhans cell histiocytoses Current Visit: No Status: Acute Code(s): C96.6 - UNIFOCAL LANGERHANS-CELL HISTIOCYTOSIS (7) Sick sinus syndrome Current Visit: No Status: Chronic Onset Date: ~06/20/17 Code(s): I49.5 - SICK SINUS SYNDROME
[2017-10-23 12:23] LABS: Granulocyte Absolute (ANC) 15.87 (1.4-6.9); Hematocrit 50.8 % (35-47); Hemoglobin 16.6 gm/dl (12.0-16.0); Mean Cell Volume 93.6 fl (78-100); Mean Corpuscular Hgb Concent. 32.7 g/dl (32-36); Mean Platelet Volume 10.1 fl (6-9.5); Platelet Count 283 K/mm3 (150-450); Red Blood Count 5.43 M/mm3 (4.1-5.4); Red Cell Distribution Width 13.9 % (11.5-14.0); White Blood Count 19.6 K/mm3 (4.0-10.5)
[2017-10-23 12:57] LABS: Mean Corpuscular Hemoglobin 30.5 pg (26-32)
[2017-10-23 13:37] LABS: BLOOD UREA NITROGEN 41 mg/dl (7-17); CHLORIDE 90 mEq/L (98-107); Calcium 9.4 mg/dl (8.4-10.2); Carbon Dioxide > 40 mmol/L (22-30); Creatinine 1 1.15 mg/dl (0.52-1.04); Glucose 114 mg/dL (74-106); Potassium 4.5 mmol/L (3.5-5.1); SODIUM 138 mmol/L (137-145)
[2017-10-23 16:46] LABS: ATYPICAL LYMPHS 2 %; Eosinophil 2 % (0.00-3.0); Lymphocytes 5 % (24-44); Monocyte 5 % (0.0-12.0); Neutrophils 86 % (36.0-66.0); Platelet Estimate NORMAL (NORMAL); Total Cells Counted 100
[2017-10-23] MEDS: Mirapex 0.5 MG Tablet PO SCH (21:16)
[2017-10-23] MEDS: Pepcid 20 MG PO SCH (21:16)
[2017-10-23] MEDS: ZOCOR 20MG PO SCH (21:17)
[2017-10-24] MEDS: Xopenex 1.25 MG/0.5 ML UD NEBULE IH SCH ×4 (06:51→20:09)
[2017-10-24] MEDS: Sodium Chloride 3 ML UD NEBULES IH SCH ×4 (06:51→20:08)
[2017-10-24] MEDS: Spiriva 18 Mcg/Cap Inhaler IH SCH (06:54)
[2017-10-24] MEDS: Toprol-Xl 25MG Tablets PO SCH ×2 (08:48→22:05)
[2017-10-24] MEDS: Aldactone 25 MG PO SCH (08:49)
[2017-10-24] MEDS: SENOKOT 8.6 MG PO PRN (08:49)
[2017-10-24] MEDS: Glucophage 500 MG PO SCH (08:49)
[2017-10-24] MEDS: Klor Con 10 MEQ PO SCH (08:49)
[2017-10-24] MEDS: SYNTHROID 150 MCG PO SCH (08:49)
[2017-10-24] MEDS: Vibramycin 100 MG PO SCH ×2 (08:49→22:06)
[2017-10-24] MEDS: BUMEX 1 MG PO SCH ×2 (08:50→17:10)
[2017-10-24] MEDS: AMITIZA PO SCH (08:50)
[2017-10-24] MEDS: Provigil 100MG Tablet PO SCH ×2 (08:50→17:10)
[2017-10-24] MEDS: ECOTRIN 81 MG PO SCH (08:50)
[2017-10-24] MEDS: DELTASONE 20 MG PO SCH (08:50)
[2017-10-24] MEDS: Cymbalta 30 MG Capsule PO SCH ×2 (08:50→22:05)
[2017-10-24] MEDS: ENOXAPARIN SODIUM SQ SCH (08:50)
[2017-10-24] MEDS: Mirapex 0.5 MG Tablet PO SCH (22:05)
[2017-10-24] MEDS: Pepcid 20 MG PO SCH (22:05)
[2017-10-24] MEDS: ZOCOR 20MG PO SCH (22:06)
[2017-10-25] MEDS: Xopenex 1.25 MG/0.5 ML UD NEBULE IH SCH ×2 (06:28→11:02)
[2017-10-25] MEDS: Sodium Chloride 3 ML UD NEBULES IH SCH ×2 (06:28→11:02)
[2017-10-25] MEDS: Spiriva 18 Mcg/Cap Inhaler IH SCH (06:30)
[2017-10-25] MEDS: Provigil 100MG Tablet PO SCH (08:25)
--- NOTE | 2017-10-25 09:05 | PCM.DCORD ---
- Discharge Disposition: Home, Self-Care Condition: Good Prescriptions: New Bumetanide 1 mg [Bumex 1 mg] 2 mg PO BID DIURETIC tablet Prednisone 10 mg [Deltasone 10 mg] 10 mg PO DAILY #7 tablet Nitroglycerin 0.4 mg Tablet [Nitrostat 0.4 MG Tablet] 0.4 mg SL Q5MIN PRN MR X 3 PRN #20 bottle PRN Reason: Chest Pain Tiotropium Anderson Inhaler [Spiriva 18 Mcg/Cap Inhaler] 1 ea IH DAILY # 30 inh Metoprolol Succinate 25 mg Xl* [Toprol-Xl 25MG Tablets] 25 mg PO BID tab Levalbuterol HCl 1.25 MG/0.5M* [Xopenex 1.25 MG/0.5 ML UD NEBULE] 1.25 mg IH QIDRT #120 neb Continue Albuterol Sulfate [Proair Hfa] 2 puffs IH BIDPRN PRN PRN Reason: Shortness Of Breath Spironolactone [Aldactone] 50 mg PO DAILY Ranitidine HCl [Zantac] 150 mg PO HS Pramipexole Di-HCl [Mirapex] 0.5 tab PO HS Fluticasone/Vilanterol [Breo Ellipta 100-25 Mcg INH] 1 inh IH DAILY Atorvastatin Calcium [Lipitor] 20 mg PO HS Aspirin 81 mg PO DAILY Potassium Chloride 20 meq PO DAILY Metformin HCl 500 mg [Glucophage 500 MG] 500 mg PO DAILY Modafinil 200 mg PO BID Lubiprostone [Amitiza] 24 mg PO DAILY Levothyroxine Sodium 150 mcg PO DAILY Duloxetine HCl 30 mg [Cymbalta 30 MG Capsule] 30 mg PO BID Senna 8.6 mg [Senokot 8.6 mg] 17.2 mg PO DAILY PRN tablet PRN Reason: Constipation Acetaminophen 325 mg [Tylenol 325 mg] 650 mg PO Q4H PRN PRN tablet PRN Reason: Pain And/Or Fever Discontinued Metoprolol Succinate 25 mg Xl* [Toprol-Xl 25MG Tablets] 25 mg PO BID Nitroglycerin 0.4 mg Tablet [Nitrostat 0.4 MG Tablet] 0.4 mg IH UD Albuterol/Ipratropium 3ml Neb* [DUONEB 0.5-3 MG/3 ml Neb] 3 ml IH QID Bumetanide 1 mg [Bumex 1 mg] 2 mg IV TID DIURETIC vial Enoxaparin Sodium [Enoxaparin Sodium] 40 mg SQ DAILY ml Insulin Glargine [Lantus Insulin] 10 unit SQ AMINSULIN unit Methylprednis Sod Succ 125 mg* [solu-MEDROL 125 MG] 60 mg IV Q8HT vial Doxycycline Hyclate 100 mg [Vibramycin 100 MG] 100 mg PO BID tab Additional Instructions: Follow up with at [facility] @on 11/13/17 @ 10:25. 's office rescheduled your abd/pelvic/chest scan which is now set for 10/26/17 @ 4 p.m. Follow up with: JOSE BANEGAS [ACTIVE STAFF] - 1 Week SHAGGY CAR MD [CONSULTING PHYSICIAN] - 11/13/17 10:25 am ILA SPAULDING [Primary Care Provider] - 1 Week
[2017-10-25 10:07] VITALS: BP 117/56
[2017-10-25] MEDS: Aldactone 25 MG PO SCH (10:08)
[2017-10-25] MEDS: DELTASONE 20 MG PO SCH (10:09)
[2017-10-25] MEDS: Cymbalta 30 MG Capsule PO SCH (10:09)
[2017-10-25] MEDS: AMITIZA PO SCH (10:09)
[2017-10-25] MEDS: BUMEX 1 MG PO SCH (10:09)
[2017-10-25] MEDS: Glucophage 500 MG PO SCH (10:10)
[2017-10-25] MEDS: ECOTRIN 81 MG PO SCH (10:10)
[2017-10-25] MEDS: Klor Con 10 MEQ PO SCH (10:10)
[2017-10-25] MEDS: SYNTHROID 150 MCG PO SCH (10:10)
[2017-10-25] MEDS: Vibramycin 100 MG PO SCH (10:11)
[2017-10-25] MEDS: Toprol-Xl 25MG Tablets PO SCH (10:11)
[2017-10-25] MEDS: ENOXAPARIN SODIUM SQ SCH (10:11)
[2017-10-25 11:06] VITALS: PULSE 83; O2SAT 95
--- NOTE | 2017-10-25 14:26 | DS ---
DISCHARGE DIAGNOSES: 1) CHRONIC OBSTRUCTIVE PULMONARY DISEASE EXACERBATION. 2) CONGESTIVE HEART FAILURE. 3) HISTORY OF LANGERHAN CELL HISTIOCYTOSIS. 4) DIABETES MELLITUS TYPE 2. 5) ILLICIT DRUG USE. 6) HYPERTENSION. 7) HYPOTHYROIDISM. DISCHARGE PHYSICAL EXAMINATION: VITALS: Temperature current 97.3F, temperature max 98.3F, heart rate 55 to 82, respiratory rate 18 to 20, blood pressure 94 to 115 over 59 to 65, weight 116 kg. Oxygen saturation 96 to 99% on 3 liters nasal cannula. GENERAL: The patient is a pleasant talkative lady sitting up in no acute distress on 3 liters oxygen by nasal cannula. CVS: She has a regular rate and rhythm. No murmurs, gallops or rubs. CHEST: She has a few scattered wheezes throughout, equal breath sounds. No dyspnea. No retractions. ABDOMEN: Soft, nontender, nondistended with normal bowel sounds. EXTREMITIES: No clubbing, cyanosis or edema. SKIN: Warm, dry and intact. HOSPITAL COURSE: 1) CHRONIC OBSTRUCTIVE PULMONARY DISEASE EXACERBATION: In the swing-bed she was continued on doxycycline 100 mg p.o. b.i.d. Her last white blood cell count that was checked was elevated at 19,600 but I think this was from steroids that she has been on. Clinically she continued to improve during her hospitalization. The patient was in rehab and reported that she was able to ride on the bike on her oxygen which she always wears at home without a drop in her oxygen saturation. Her DuoNeb was changed to Xopenex during the hospitalization because of palpitations and chest pain. She had no further palpitations or chest pain once we changed her to Xopenex. Since the DuoNeb was stopped she was started on Spiriva. Dr. Abner Wade had seen her during her inpatient hospitalization and she plans to follow up with him as an outpatient. She will need to continue on the 3 liters of oxygen by nasal cannula. 2) CONGESTIVE HEART FAILURE: She was seen by Dr. Bradford Fortune, her configuration management consultant, during her hospital stay. She had good diuresis. She was continued on fluid restriction and I have asked the nurse to clarify if he wants her to continue this at home. Her discharge weight was 116 kg down from 119.9 kg. She was discharged on metoprolol. At the time of discharge her blood pressure was on the low end of normal so CELSA inhibitor was not started and also that decision was left up to the configuration management consultant, Dr. Bradford Fortune. 3) HISTORY OF LANGERHAN CELL HISTIOCYTOSIS: Dr. Hickey was made aware of her admission. She did miss a PET scan while she was here and Dr. Hickey will need to have that rescheduled. 4) DIABETES MELLITUS TYPE 2: She is on a low dose sliding scale here and also while she was on IV steroids 10 units of Lantus daily. At the time of discharge we continued her Metformin. Her blood sugars were well controlled at the time of discharge. 5) ILLICIT DRUG USE: The patient has been counseled extensively in the past that she should not be smoking marijuana. 6) HYPERTENSION: Her blood pressure was well controlled during her hospitalization. 7) HYPOTHYROIDISM: She was continued on levothyroxine during her hospital stay. DISCHARGE MEDICATIONS: Please see her discharge order. FOLLOW UP: She is to follow up with me in one week, Dr. Abner Wade in one week and she has an appointment set up with her configuration management consultant, Dr. Bradford Fortune. She is also interested in cardiopulmonary rehab which I think would greatly benefit the patient and we are working on approval for that. DISPOSITION: The patient was discharged to home in good condition.
[2017-10-30] MEDS ORDERED: Aplisol ID SCH (10:00)
== END 2017-10-25 13:40 | disposition home or self-care (01) | DRG 999 ==
LOC: MED SURG 14:00
PROVIDERS: ADMIT Internal Medicine; ATTEND Internal Medicine
DX: J44.9 Chronic obstructive pulmonary disease, unspecified (principal); C96.6 Unifocal Langerhans-cell histiocytosis; I50.9 Heart failure, unspecified; E11.9 Type 2 diabetes mellitus without complications; F19.90 Other psychoactive substance use, unspecified, uncomplicated; I10 Essential (primary) hypertension; E03.9 Hypothyroidism, unspecified; R07.9 Chest pain, unspecified; R11.0 Nausea; I49.5 Sick sinus syndrome
CPT/HCPCS: 36415; 71045; 80048; 82962; 84484; 85025; 85027; 93005; 94150; 94640; 94760; J1650; J2270; J2930; Q0162; 97110-GP; A9270-GY

== ENCOUNTER 2018-06-07 17:01 | Emergency (ER) | payer MEDICARE ==
--- NOTE | 2018-06-07 17:36 | ERPHSYRPT ---
- History of Present Illness Time Seen by Provider: 06/07/18 17:36 Source: patient, family Exam Limitations: no limitations Physician History: 57 y/o white female presents with cough for 5 days. pt has copd and gets bronchitis and pneumonia a few times a year. she was just prescribed an increase in her steroids. pt states she can take rocephin and zpack. pt would like rx for tessalon perles. Timing/Duration: day(s) (5) Cough Quality/Degree: moderate, dry cough Possible Cause: occasional episodes Modifying Factors: Improves With: nothing Associated Symptoms: cough Allergies/Adverse Reactions: Iodinated Contrast- Oral and IV Dye [Iodinated Contrast Media - IV Dye] Allergy (Severe, Verified 06/07/18 17:45) Difficulty Breathing USED 2 EPI PENS Penicillins Allergy (Severe, Verified 06/07/18 17:45) Difficulty Breathing EPI PEN USED. clindamycin Allergy (Verified 06/07/18 17:45) levofloxacin [From Levaquin] Allergy (Verified 06/07/18 17:45) CYST BEHIND BOTH KNEES. Home Medications: Albuterol Sulfate [Proair Hfa] 2 puffs IH BIDPRN PRN 10/20/15 [History] Spironolactone [Aldactone] 50 mg PO DAILY 07/11/16 [History] Pramipexole Di-HCl [Mirapex] 0.5 tab PO HS 07/27/16 [History] Ranitidine HCl [Zantac] 150 mg PO HS 07/27/16 [History] Aspirin 81 mg PO DAILY 09/11/16 [History] Atorvastatin Calcium [Lipitor] 20 mg PO HS 09/11/16 [History] Potassium Chloride 20 meq PO DAILY 11/14/16 [History] Duloxetine HCl 30 mg [Cymbalta 30 MG Capsule] 30 mg PO BID 10/16/17 [ History] Levothyroxine Sodium 150 mcg PO DAILY 10/16/17 [History] Lubiprostone [Amitiza] 24 mg PO DAILY 10/16/17 [History] Metformin HCl 500 mg [Glucophage 500 MG] 500 mg PO DAILY 10/16/17 [History ] Modafinil 200 mg PO BID 10/16/17 [History] Fluticasone/Umeclidin/Vilanter [Trelegy Ellipta 100-62.5-25] 0 mg IH DAILY 06/07 [History] Furosemide 40 mg PO DAILY 06/07/18 [History] Lipase/Protease/Amylase [Creon Dr 24,000 Units Capsule] 72,000 mg PO 5XD [History] Ondansetron [Ondansetron Odt] 4 mg PO AC 06/07/18 [History] Hx Tetanus, Diphtheria Vaccination/Date Given: Yes (up to date) Hx Influenza Vaccination/Date Given: Yes Hx Pneumococcal Vaccination/Date Given: Yes (2012) - Review of Systems Constitutional: No Symptoms, No Fever Eyes: No Symptoms Ears, Nose, & Throat: No Symptoms Respiratory: Cough, Wheezing Cardiac: No Symptoms, No Chest Pain, No Palpitations, No Syncope Abdominal/Gastrointestinal: No Symptoms, No Abdominal Pain, No Nausea, No Vomiting, No Diarrhea Genitourinary Symptoms: No Symptoms, Dysuria, Frequency, No Hematuria Musculoskeletal: No Symptoms Skin: No Symptoms Neurological: No Symptoms Psychological: No Symptoms Endocrine: No Symptoms Hematologic/Lymphatic: No Symptoms Immunological/Allergic: No Symptoms All Other Systems: Reviewed and Negative - Past Medical History Pertinent Past Medical History: Yes Neurological History: No Pertinent History ENT History: No Pertinent History Cardiac History: High Cholesterol, Hypertension Respiratory History: Asthma, COPD, Pneumonia, Pulmonary Embolism, Sleep Apnea, Other Endocrine Medical History: Thyroid Cancer Musculoskeletal History: Fibromyalgia GI Medical History: GERD History: No Pertinent History Psycho-Social History: Anxiety, Depression Female Reproductive Disorders: Fibroids, Other Other Medical History: neuropathy. cytosis, rt ovary removed. CA - Past Surgical History Past Surgical History: Yes Neuro Surgical History: No Pertinent History Cardiac: Cardiac Catheterization, Cardiac Stent Respiratory: Other Gastrointestinal: Cholecystectomy Genitourinary: No Pertinent History Musculoskeletal: Orthopedic Surgery Female Surgical History: Hysterectomy, Other Other Surgical History: lung biopsy right lung 2012 r/t [facility] cytosis of the lungs. colonscopy. spinal L4,L5 , S1 removed disc "completely"per pt and "not fused". thyroidectomy. right ovary removed. carpel tunnel bilateral hands - Social History Smoking Status: Former smoker How long have you smoked: 42 YEARS Exposure to second hand smoke: Yes Drug Use: none Patient Lives Alone: Yes - Nursing Vital Signs Nursing Vital Signs: Initial Vital Signs Temperature 98.3 F 06/07/18 17:33 Pulse Rate 81 10/19/18 17:33 Respiratory Rate 20 06/07/18 17:33 Blood Pressure 124/59 06/07/18 17:33 O2 Sat by Pulse Oximetry 91 L 06/07/18 17:33 Pain Scale Pain Intensity 8 - Physical Exam General Appearance: no apparent distress, mild distress, alert Eye Exam: PERRL/EOMI Ears, Nose, Throat Exam: normal ENT inspection, moist mucous membranes Neck Exam: normal inspection, non-tender, supple, full range of motion Respiratory Exam: wheezing, No chest tenderness, No respiratory distress, No accessory muscle use, No rhonchi, No stridor Cardiovascular Exam: regular rate/rhythm, normal heart sounds, normal peripheral pulses Gastrointestinal/Abdomen Exam: soft, normal bowel sounds, No tenderness, No guarding, No rebound Pelvic Exam: not done Rectal Exam: not done Back Exam: normal inspection, normal range of motion, No CVA tenderness, No vertebral tenderness Extremity Exam: normal inspection Neurologic Exam: alert, oriented x 3, cooperative, dot compliance specialist II-XII nml as tested Skin Exam: normal color, warm, dry Lymphatic Exam: No adenopathy SpO2 Interpretation: normal - Course Nursing assessment & vital signs reviewed: Yes Ordered Tests: Active Orders 24 hr Category Date Time Status Peak Expiratory Flow Rate ONCE RT 06/07/18 18:40 Active Respiratory Therapy Assessment DAILY RT 06/07/18 18:39 Active Medication Summary Discontinued Medications Generic Name Dose Route Start Last Admin Trade Name Freq PRN Reason Stop Dose Admin Albuterol/Ipratropium Confirm 06/07/18 18:30 Duoneb 0.5-3 Mg/3 Ml Neb Administered 06/07/18 18:31 Dose 3 ml IH .STK-MED ONE Albuterol/Ipratropium 3 ml 06/07/18 18:30 06/07/18 18:33 Duoneb 0.5-3 Mg/3 Ml Neb IH 06/07/18 18:31 3 ml STAT ONE Administration Ceftriaxone Sodium 1,000 mg 06/07/18 18:30 Rocephin 1000 Mg Inj IM 06/07/18 18:31 STAT ONE Ceftriaxone Sodium Confirm 06/07/18 18:35 Rocephin 1000 Mg Inj Administered 06/07/18 18:36 Dose 1,000 mg .ROUTE .STK-MED ONE Lidocaine HCl Confirm 06/07/18 18:35 Xylocaine 1% Hcl 20 Ml Mdv Administered 06/07/18 18:36 Dose 3 ml .ROUTE .STK-MED ONE Methylprednisolone Sodium Succinate 125 mg 06/07/18 18:31 Solu-Medrol 125 Mg IM 06/07/18 18:32 STAT ONE Methylprednisolone Sodium Succinate Confirm 06/07/18 18:35 Solu-Medrol 125 Mg Administered 06/07/18 18:36 Dose 125 mg .ROUTE .STK-MED ONE - Progress Progress: improved Air Movement: good Progress Note: 06/07/18 18:28 i discussed with pt and told her i can order a cxr to eval for pneumonia. i told her this is likely copd exacerbation, bronchitis or pneumonia and i would tx for these. she does not want a cxr. Blood Culture(s) Obtained: No Antibiotics given: No Counseled pt/family regarding: diagnosis, need for follow-up - Departure Time of Disposition: 18:35 Departure Disposition: Home Clinical Impression: Bronchitis Condition: Stable Critical Care Time: No Referrals: ILA SPAULDING [Primary Care Provider] - Additional Instructions: continue your medications as prescribed. follow up with primary doctor for further management. Prescriptions: Azithromycin 250 mg [Zithromax 250 MG TABLET] 250 mg PO ZPACK #6 tablet Benzonatate [Tessalon Perle] 100 mg PO TID PRN #15 capsule PRN Reason: Cough
[2018-06-07] MEDS ORDERED: DUONEB 0.5-3 MG/3 ml Neb IH ONE ×2 (18:30)
[2018-06-07] MEDS ORDERED: Rocephin 1000 MG INJ IM ONE (18:30)
[2018-06-07] MEDS ORDERED: solu-MEDROL 125 MG IM ONE (18:31)
[2018-06-07] MEDS ORDERED: XYLOCAINE 1% HCL 20 ML MDV ONE (18:35)
[2018-06-07] MEDS ORDERED: solu-MEDROL 125 MG ONE (18:35)
[2018-06-07] MEDS ORDERED: Rocephin 1000 MG INJ ONE (18:35)
[2018-06-07] MEDS ORDERED: HYDROCODONE-ACETAMIN 2.5-108/5 ML SOLUTION PO STA (18:42)
[2018-06-07] MEDS ORDERED: HYDROCODONE-ACETAMIN 2.5-108/5 ML SOLUTION ONE (18:46)
[2018-06-07 18:50] VITALS: O2SAT 95
[2018-06-07 19:17] VITALS: BP 106/64; PULSE 74
== END 2018-06-07 19:18 | disposition home or self-care (01) ==
LOC: ED 17:01
DX: J20.9 Acute bronchitis, unspecified (principal); J44.9 Chronic obstructive pulmonary disease, unspecified; Z79.899 Other long term (current) drug therapy; R05 Cough; R06.2 Wheezing; Z95.1 Presence of aortocoronary bypass graft; Z98.61 Coronary angioplasty status
CPT/HCPCS: 94150; 94640; 96372; 99284; J0696; J2930; A9270-GY

== ENCOUNTER 2018-08-06 19:55 | Emergency (ER) | payer MEDICARE ==
--- NOTE | 2018-08-06 21:01 | ERPHSYRPT ---
- History of Present Illness Time Seen by Provider: 08/06/18 20:25 Source: patient, family Patient Subjective Stated Complaint: Facial/Neck swelling Triage Nursing Assessment: Patient ambulated back to ED and transferred to bed per self. Patient A+O X 3. Patient complains of facial swelling and neck swelling since yesterday when she had a bronchoscopy done per Dr. Debbie Wade. Slight swelling noted to neck. No respiratory distress noted. Patient on 2 liters per N/C at home. O2 sat 96% on 2 liters per N/C. Wheezes noted throughout lung mendes. Patient also complaining of left lower leg redness and swelling. Left lower leg noted to be slightly swollen and red. Physician History: 57 y/o obese white female presents to ED one day after bronchoscopy as an outpatient with c/o swollen neck and painful swallowing. pt denies cp. pt ate well today for breakfast and lunch. Timing/Duration: today Severity: mild Modifying Factors: Improves With: other (hurts to swallow ) Associated Symptoms: No cough, No chest pain Allergies/Adverse Reactions: Iodinated Contrast- Oral and IV Dye [Iodinated Contrast Media - IV Dye] Allergy (Severe, Verified 08/06/18 20:34) Difficulty Breathing USED 2 EPI PENS Penicillins Allergy (Severe, Verified 08/06/18 20:34) Difficulty Breathing EPI PEN USED. clindamycin Allergy (Verified 08/06/18 20:34) levofloxacin [From Levaquin] Allergy (Verified 08/06/18 20:34) CYST BEHIND BOTH KNEES. Home Medications: Albuterol Sulfate [Proair Hfa] 2 puffs IH BIDPRN PRN 10/20/15 [History] Spironolactone [Aldactone] 50 mg PO DAILY 07/11/16 [History] Pramipexole Di-HCl [Mirapex] 0.5 tab PO HS 07/27/16 [History] Ranitidine HCl [Zantac] 150 mg PO HS 07/27/16 [History] Aspirin 81 mg PO DAILY 09/11/16 [History] Atorvastatin Calcium [Lipitor] 20 mg PO HS 09/11/16 [History] Potassium Chloride 20 meq PO DAILY 11/14/16 [History] Duloxetine HCl 30 mg [Cymbalta 30 MG Capsule] 30 mg PO BID 10/16/17 [ History] Levothyroxine Sodium 150 mcg PO DAILY 10/16/17 [History] Lubiprostone [Amitiza] 24 mg PO DAILY 10/16/17 [History] Metformin HCl 500 mg [Glucophage 500 MG] 500 mg PO DAILY 10/16/17 [History ] Modafinil 200 mg PO BID 10/16/17 [History] Fluticasone/Umeclidin/Vilanter [Trelegy Ellipta 100-62.5-25] 0 mg IH DAILY 06/07 [History] Furosemide 40 mg PO DAILY 06/07/18 [History] Lipase/Protease/Amylase [Creon Dr 24,000 Units Capsule] 72,000 mg PO 5XD [History] Ondansetron [Ondansetron Odt] 4 mg PO AC 06/07/18 [History] Hx Tetanus, Diphtheria Vaccination/Date Given: Yes Hx Influenza Vaccination/Date Given: Yes Hx Pneumococcal Vaccination/Date Given: Yes Immunizations Up to Date: Yes (2012) - Review of Systems Constitutional: No Symptoms Eyes: No Symptoms Ears, Nose, & Throat: Throat Pain Respiratory: No Symptoms Cardiac: No Symptoms Abdominal/Gastrointestinal: No Symptoms Genitourinary Symptoms: No Symptoms Musculoskeletal: No Symptoms Skin: No Symptoms Neurological: No Symptoms Psychological: No Symptoms Endocrine: No Symptoms Hematologic/Lymphatic: No Symptoms Immunological/Allergic: No Symptoms All Other Systems: Reviewed and Negative - Past Medical History Pertinent Past Medical History: Yes Neurological History: No Pertinent History ENT History: No Pertinent History Cardiac History: High Cholesterol, Hypertension Respiratory History: Asthma, COPD, Pneumonia, Pulmonary Embolism, Sleep Apnea, Other Endocrine Medical History: Thyroid Cancer Musculoskeletal History: Fibromyalgia GI Medical History: GERD History: No Pertinent History Psycho-Social History: Anxiety, Depression Female Reproductive Disorders: Fibroids, Other Other Medical History: neuropathy. cytosis, rt ovary removed. CA. Narcolepsy - Past Surgical History Past Surgical History: Yes Neuro Surgical History: No Pertinent History Cardiac: Cardiac Catheterization, Cardiac Stent, Pacemaker Respiratory: Other Gastrointestinal: Cholecystectomy Genitourinary: No Pertinent History Musculoskeletal: Orthopedic Surgery Female Surgical History: Hysterectomy, Other Other Surgical History: lung biopsy right lung 2012 r/t [facility] cytosis of the lungs. colonscopy. spinal L4,L5 , S1 removed disc "completely"per pt and "not fused". thyroidectomy. right ovary removed. carpel tunnel bilateral hands - Social History Smoking Status: Former smoker How long have you smoked: 45 years Exposure to second hand smoke: No Drug Use: none Patient Lives Alone: No - Female History Hx Now: No - Nursing Vital Signs Nursing Vital Signs: Initial Vital Signs Temperature 98.2 F 08/06/18 20:20 Pulse Rate 85 08/06/18 20:20 Respiratory Rate 18 08/06/18 20:20 Blood Pressure 150/117 08/06/18 20:20 O2 Sat by Pulse Oximetry 93 L 08/06/18 20:20 Pain Scale Pain Intensity 9 - Physical Exam General Appearance: no apparent distress, alert Eye Exam: PERRL/EOMI Ears, Nose, Throat Exam: normal ENT inspection, TMs normal, pharynx normal, moist mucous membranes Neck Exam: normal inspection, non-tender, supple, full range of motion, other ( no stridor; no obvious swelling; no crepitance) Respiratory Exam: normal breath sounds, lungs clear, airway intact, No chest tenderness, No respiratory distress, No accessory muscle use, No rhonchi, No wheezing, No stridor Cardiovascular Exam: regular rate/rhythm, normal heart sounds, normal peripheral pulses Gastrointestinal/Abdomen Exam: soft, normal bowel sounds, No tenderness, No guarding, No rebound Pelvic Exam: not done Rectal Exam: not done Back Exam: normal inspection, normal range of motion, No CVA tenderness, No vertebral tenderness Extremity Exam: normal inspection, normal range of motion, pelvis stable Neurologic Exam: alert, oriented x 3, cooperative, processing rep II-XII nml as tested Skin Exam: normal color, warm, dry Lymphatic Exam: No adenopathy SpO2 Interpretation: normal (for copd pt.) SpO2: 93 Oxygen Delivery: Nasal Cannula - Course Nursing assessment & vital signs reviewed: Yes - Progress Counseled pt/family regarding: diagnosis, need for follow-up, rad results - Departure Time of Disposition: 21:01 Departure Disposition: Home Clinical Impression: Pharyngitis Condition: Stable Critical Care Time: No Referrals: ILA SPAULDING [Primary Care Provider] - Additional Instructions: drink plenty of liquids. follow up with your student services dean tomorrow for further management. Prescriptions: Hydrocodone Bit/Acetaminophen [Hydrocodone-Acetaminophen Soln] 10 ml PO Q6H # 120 ml Prednisone 10 mg [Deltasone 10 mg] 10 mg PO TID #12 tablet
[2018-08-06] MEDS ORDERED: HYDROCODONE-ACETAMIN 2.5-108/5 ML SOLUTION PO STA (21:05)
[2018-08-06] MEDS ORDERED: solu-MEDROL 125 MG IM ONE (21:05)
[2018-08-06] MEDS ORDERED: HYDROCODONE-ACETAMIN 2.5-108/5 ML SOLUTION ONE (21:22)
[2018-08-06] MEDS ORDERED: solu-MEDROL 125 MG ONE (21:22)
[2018-08-06 21:28] VITALS: BP 107/66; PULSE 81; O2SAT 94
== END 2018-08-06 21:53 | disposition home or self-care (01) ==
LOC: ED 19:55
DX: J02.9 Acute pharyngitis, unspecified (principal); Z98.890 Other specified postprocedural states; Z79.899 Other long term (current) drug therapy
CPT/HCPCS: 96372; 99283; J2930; A9270-GY

== ENCOUNTER 2018-09-14 17:32 | Inpatient (IN) | payer MEDICARE ==
--- NOTE | 2018-09-14 18:00 | ERPHSYRPT ---
- History of Present Illness Time Seen by Provider: 09/14/18 17:50 Source: patient, family Exam Limitations: no limitations Patient Subjective Stated Complaint: cough for 3-4 days,has occ has blood in sputum. fever 102. chills, headache Triage Nursing Assessment: pt alert, walked in, resp labored with excertion, has cough, pt wears home o2 at 2 LNC, Physician History: 58 y/o obese white female with oxygen and steroid dependent copd presents with cough and worsening soa over last few days. pt was coughing up blood. pt states she had a fever of 102 F at home. no cp, no abd pain. pt has pacemaker in place Timing/Duration: day(s) (3 to 4) Activities at Onset: none Severity of Dyspnea-Max: moderate Severity of Dyspnea-Current: moderate Possible Cause: occasional episodes Associated Symptoms: cough, hemoptysis Allergies/Adverse Reactions: Iodinated Contrast- Oral and IV Dye [Iodinated Contrast Media - IV Dye] Allergy (Severe, Verified 09/14/18 17:50) Difficulty Breathing USED 2 EPI PENS Penicillins Allergy (Severe, Verified 09/14/18 17:50) Difficulty Breathing EPI PEN USED. clindamycin Allergy (Verified 09/14/18 17:50) levofloxacin [From Levaquin] Allergy (Verified 09/14/18 17:50) CYST BEHIND BOTH KNEES. Home Medications: Albuterol Sulfate [Proair Hfa] 2 puffs IH BIDPRN PRN 10/20/15 [History] Spironolactone [Aldactone] 50 mg PO DAILY 07/11/16 [History] Pramipexole Di-HCl [Mirapex] 0.5 tab PO HS 07/27/16 [History] Ranitidine HCl [Zantac] 150 mg PO HS 07/27/16 [History] Aspirin 81 mg PO DAILY 09/11/16 [History] Atorvastatin Calcium [Lipitor] 20 mg PO HS 09/11/16 [History] Potassium Chloride 20 meq PO DAILY 11/14/16 [History] Duloxetine HCl 30 mg [Cymbalta 30 MG Capsule] 30 mg PO BID 10/16/17 [ History] Levothyroxine Sodium 150 mcg PO DAILY 10/16/17 [History] Lubiprostone [Amitiza] 24 mg PO DAILY 10/16/17 [History] Metformin HCl 500 mg [Glucophage 500 MG] 500 mg PO DAILY 10/16/17 [History ] Modafinil 200 mg PO BID 10/16/17 [History] Fluticasone/Umeclidin/Vilanter [Trelegy Ellipta 100-62.5-25] 0 mg IH DAILY 06/07 [History] Furosemide 40 mg PO DAILY 06/07/18 [History] Lipase/Protease/Amylase [Creon Dr 24,000 Units Capsule] 72,000 mg PO 5XD [History] Citalopram Hydrobromide [Celexa] 20 mg DAILY 09/14/18 [History] Fluticasone/Umeclidin/Vilanter [Trelegy Ellipta 100-62.5-25] 1 puff DAILY [History] Lipase/Protease/Amylase [Creon Dr 24,000 Units Capsule] 1 tab DAILY 09/14/18 [ History] Pregabalin [Lyrica 100Mg] 100 mg BID 09/14/18 [History] Hx Tetanus, Diphtheria Vaccination/Date Given: Yes Hx Influenza Vaccination/Date Given: Yes Hx Pneumococcal Vaccination/Date Given: Yes (2012) Immunizations Up to Date: Yes - Review of Systems Constitutional: Fever Eyes: No Symptoms Ears, Nose, & Throat: No Symptoms Respiratory: Cough, Dyspnea (mild), Wheezing, No Stridor Cardiac: No Symptoms, No Chest Pain, No Palpitations, No Syncope Abdominal/Gastrointestinal: No Symptoms, No Abdominal Pain, No Nausea, No Vomiting, No Diarrhea Genitourinary Symptoms: No Symptoms, No Dysuria, No Frequency, No Hematuria Musculoskeletal: No Symptoms Skin: No Symptoms Neurological: No Symptoms Psychological: No Symptoms Endocrine: No Symptoms Hematologic/Lymphatic: No Symptoms Immunological/Allergic: No Symptoms All Other Systems: Reviewed and Negative - Past Medical History Pertinent Past Medical History: Yes Neurological History: No Pertinent History ENT History: No Pertinent History Cardiac History: High Cholesterol, Hypertension Respiratory History: Asthma, COPD, Pneumonia, Pulmonary Embolism, Sleep Apnea, Other Endocrine Medical History: Thyroid Cancer Musculoskeletal History: Fibromyalgia GI Medical History: GERD History: No Pertinent History Psycho-Social History: Anxiety, Depression Female Reproductive Disorders: Fibroids, Other Other Medical History: neuropathy. cytosis, rt ovary removed. CA. Narcolepsy - Past Surgical History Past Surgical History: Yes Neuro Surgical History: No Pertinent History Cardiac: Cardiac Catheterization, Cardiac Stent, Pacemaker Respiratory: Other Gastrointestinal: Cholecystectomy Genitourinary: No Pertinent History Musculoskeletal: Orthopedic Surgery Female Surgical History: Hysterectomy, Other Other Surgical History: lung biopsy right lung 2013 r/t [facility] cytosis of the lungs. colonscopy. spinal L4,L5 , S1 removed disc "completely"per pt and "not fused". thyroidectomy. right ovary removed. carpel tunnel bilateral hands - Social History Smoking Status: Former smoker How long have you smoked: 45 years Exposure to second hand smoke: No Drug Use: none Patient Lives Alone: No - Female History Hx Last Menstrual Period: post Hx Now: No - Nursing Vital Signs Nursing Vital Signs: Initial Vital Signs Temperature 100.0 F 09/14/18 17:41 Pulse Rate 105 H 09/14/18 17:41 Respiratory Rate 28 H 09/14/18 17:41 Blood Pressure 105/71 09/14/18 17:41 O2 Sat by Pulse Oximetry 95 09/14/18 17:41 Pain Scale Pain Intensity 6 - Physical Exam General Appearance: mild distress, alert, anxiety Eye Exam: PERRL/EOMI Ears, Nose, Throat Exam: hearing grossly normal, normal ENT inspection, normal pharynx Neck Exam: normal inspection, non-tender, supple, full range of motion Respiratory Exam: airway intact, wheezing, No chest tenderness, No lungs clear, No respiratory distress, No accessory muscle use, No rhonchi, No stridor Cardiovascular/Chest Exam: normal heart sounds, tachycardia Abdominal/Gastrointestinal Exam: soft, normal bowel sounds, No tenderness, No guarding Rectal Exam: not done Extremity Exam: non-tender, normal range of motion, normal inspection Neurologic Exam: alert, oriented x 3, cooperative, photoresist contact printer II-XII nml as tested Skin Exam: normal color, warm, dry Lymphatic Exam: No adenopathy SpO2 Interpretation: normal (for this copd pt.) SpO2: 95 O2 Delivery: Nasal Cannula - Course Nursing assessment & vital signs reviewed: Yes EKG Interpreted by Me: RATE (99), Sinus Rhythm, NORMAL AXIS, NORMAL INTERVALS, NORMAL QRS, Other (no change from comparison ekg dated ) Ordered Tests: Active Orders 24 hr Category Date Time Status Electrical Design Engineer STAT Care 09/14/18 18:02 Active EKG-ER Only STAT Care 09/14/18 18:01 Active IV Insertion STAT Care 09/14/18 18:01 Active CHEST 1 VIEW (PORTABLE) Stat Exams 09/14/18 18:01 Taken BLOOD CULTURE Stat Lab 09/14/18 18:38 Received CBC W DIFF Stat Lab 09/14/18 18:14 Completed CMP Stat Lab 09/14/18 18:14 Completed D-DIMER QUANTITATION Stat Lab 09/14/18 18:39 Completed Lactic Acid Stat Lab 09/14/18 18:15 Completed NT PRO BNP Stat Lab 09/14/18 18:14 Completed TROPONIN Q3H Lab 09/14/18 18:14 Completed TROPONIN Q3H Lab 09/14/18 21:15 Ordered TROPONIN Q3H Lab 09/15/18 00:15 Ordered TROPONIN Q3H Lab 09/15/18 03:15 Ordered TROPONIN Q3H Lab 09/15/18 06:15 Ordered Peak Expiratory Flow Rate ONCE RT 09/14/18 18:39 Active Respiratory Therapy Assessment DAILY RT 09/14/18 18:38 Active Transfer Order Routine Transfer 09/14/18 Ordered Medication Summary Discontinued Medications Generic Name Dose Route Start Last Admin Trade Name Freq PRN Reason Stop Dose Admin Albuterol/Ipratropium 3 ml 09/14/18 18:33 09/14/18 18:36 Duoneb 0.5-3 Mg/3 Ml Neb IH 09/14/18 18:34 3 ml STAT ONE Administration Albuterol/Ipratropium Confirm 09/14/18 18:31 Duoneb 0.5-3 Mg/3 Ml Neb Administered 09/14/18 18:32 Dose 3 ml IH .STK-MED ONE Bumetanide 1 mg 09/14/18 19:28 Bumex 1 Mg IV 09/14/18 19:29 STAT ONE Bumetanide Confirm 09/14/18 19:58 Bumex 1 Mg Administered 09/14/18 19:59 Dose 1 mg .ROUTE .STK-MED ONE Enoxaparin Sodium 120 mg 09/14/18 19:52 Enoxaparin Sodium SQ 09/14/18 19:53 STAT STA Enoxaparin Sodium Confirm 09/14/18 19:58 Enoxaparin Sodium Administered 09/14/18 19:59 Dose 120 mg SQ .STK-MED ONE Ceftriaxone Sodium/Dextrose 1 g in 50 mls @ 100 mls/hr 09/14/18 19:26 Rocephin 1 Gm-D5w 50 Ml Bag IV 09/14/18 19:55 STAT STA Methylprednisolone Sodium Succinate 125 mg 09/14/18 18:01 09/14/18 18:14 Solu-Medrol 125 Mg IV 09/14/18 18:02 125 mg STAT ONE Administration Methylprednisolone Sodium Succinate Confirm 09/14/18 18:14 Solu-Medrol 125 Mg Administered 09/14/18 18:15 Dose 125 mg .ROUTE .STK-MED ONE Lab/Rad Data: Laboratory Result Diagrams 09/14/18 18:14 09/14/18 18:14 Laboratory Results 09/14/18 09/14/18 09/14/18 Range/Units 18:39 18:15 18:14 WBC (4.0-10.5) K/mm3 RBC (4.1-5.4) M/mm3 Hgb (12.0-16.0) gm/dl Hct (35-47) % MCV (78-100) fl MCH (26-32) pg MCHC (32-36) g/dl RDW (11.5-14.0) % Plt Count (150-450) K/mm3 MPV (6-9.5) fl Gran % (36.0-66.0) % Eos # (Auto) (0-0.5) Absolute Lymphs (auto) (1.0-4.6) Absolute Monos (auto) (0.0-1.3) Lymphocytes % (24.0-44.0) % Monocytes % (0.0-12.0) % Eosinophils % (0.00-5.0) % Basophils % (0.0-0.4) % Absolute Granulocytes (1.4-6.9) Basophils # (0-0.4) D-Dimer 707 H* (215-500) ng/mL Sodium (137-145) mmol/L Potassium (3.5-5.1) mmol/L Chloride (98-107) mmol/L Carbon Dioxide (22-30) mmol/L Anion Gap (5-15) MEQ/L BUN (7-17) mg/dL Creatinine (0.52-1.04) mg/dL Estimated GFR ML/MIN Glucose (74-106) mg/dL Lactic Acid 1.3 (0.4-2.0) Calcium (8.4-10.2) mg/dL Total Bilirubin (0.2-1.3) mg/dL AST (14-36) U/L ALT (0-35) U/L Alkaline Phosphatase (38-126) U/L Troponin I 0.016 (0.000-0.034) ng/mL NT-Pro-B Natriuret Pep (0-900) pg/mL Serum Total Protein (6.3-8.2) g/dL Albumin (3.5-5.0) g/dL 09/14/18 09/14/18 Range/Units 18:14 18:14 WBC 17.7 H (4.0-10.5) K/mm3 RBC 3.77 L (4.1-5.4) M/mm3 Hgb 11.9 L (12.0-16.0) gm/dl Hct 38.7 (35-47) % MCV 102.7 H (78-100) fl MCH 31.5 (26-32) pg MCHC 30.7 L (32-36) g/dl RDW 15.0 H (11.5-14.0) % Plt Count 208 (150-450) K/mm3 MPV 10.0 H (6-9.5) fl Gran % 82.2 H (36.0-66.0) % Eos # (Auto) 0.02 (0-0.5) Absolute Lymphs (auto) 1.41 (1.0-4.6) Absolute Monos (auto) 1.72 H (0.0-1.3) Lymphocytes % 7.9 L (24.0-44.0) % Monocytes % 9.7 (0.0-12.0) % Eosinophils % 0.1 (0.00-5.0) % Basophils % 0.1 (0.0-0.4) % Absolute Granulocytes 14.57 H (1.4-6.9) Basophils # 0.02 (0-0.4) D-Dimer (215-500) ng/mL Sodium 136 L (137-145) mmol/L Potassium 4.4 (3.5-5.1) mmol/L Chloride 92 L (98-107) mmol/L Carbon Dioxide 39 H (22-30) mmol/L Anion Gap 9.4 (5-15) MEQ/L BUN 26 H (7-17) mg/dL Creatinine 1.34 H (0.52-1.04) mg/dL Estimated GFR 42.9 ML/MIN Glucose 140 H (74-106) mg/dL Lactic Acid (0.4-2.0) Calcium 8.5 (8.4-10.2) mg/dL Total Bilirubin 1.40 H (0.2-1.3) mg/dL AST 76 H (14-36) U/L ALT 97 H (0-35) U/L Alkaline Phosphatase 125 (38-126) U/L Troponin I (0.000-0.034) ng/mL NT-Pro-B Natriuret Pep 1060 H (0-900) pg/mL Serum Total Protein 6.5 (6.3-8.2) g/dL Albumin 3.7 (3.5-5.0) g/dL - Progress Progress: improved, re-examined Air Movement: fair Progress Note: 09/14/18 19:[address] chest, however, pt has a severe rxn to iodinated contrast. therefore, we cancelled test. 09/14/18 19:27 pt states she has had keflex and azithromycin in past 09/14/18 19:[address] lamb (covering for dr. tovar). i reviewed pt hx, condition, labs, ekg and xray findings. he accepts pt for admission. write for lovenox, and obtain respiratory panel. rocephin and azithromycin ok. vq scan to be scheduled 09/16/18 Blood Culture(s) Obtained: Yes Antibiotics given: Yes Counseled pt/family regarding: lab results, diagnosis, rad results - Departure Time of Disposition: 20:00 Departure Disposition: In-patient Admission Clinical Impression: Pneumonia, Elevated d-dimer, Fever Condition: Stable Critical Care Time: No Referrals: ILA TOVAR [Primary Care Provider] -
[2018-09-14] MEDS ORDERED: solu-MEDROL 125 MG IV ONE (18:01)
[2018-09-14] MEDS ORDERED: solu-MEDROL 125 MG ONE (18:14)
[2018-09-14 18:19] LABS: BASOPHIL % 0.1 % (0.0-0.4); Basophil (Absolute #) 0.02 (0-0.4); Eosinophil % 0.1 % (0.00-5.0); Eosinophil (Absolute #) 0.02 (0-0.5); Granulocyte Absolute (ANC) 14.57 (1.4-6.9); Granulocytes % 82.2 % (36.0-66.0); Hematocrit 38.7 % (35-47); Hemoglobin 11.9 gm/dl (12.0-16.0); Lymphocyte (Absolute #) 1.41 (1.0-4.6); Lymphocytes % 7.9 % (24.0-44.0); Mean Cell Volume 102.7 fl (78-100); Mean Corpuscular Hgb Concent. 30.7 g/dl (32-36); Monocyte (Absolute #) 1.72 (0.0-1.3); Monocytes % 9.7 % (0.0-12.0); Platelet Count 208 K/mm3 (150-450); Red Blood Count 3.77 M/mm3 (4.1-5.4); White Blood Count 17.7 K/mm3 (4.0-10.5)
[2018-09-14] MEDS ORDERED: DUONEB 0.5-3 MG/3 ml Neb IH ONE ×2 (18:31→18:33)
[2018-09-14 18:40] LABS: Mean Corpuscular Hemoglobin 31.5 pg (26-32)
[2018-09-14 18:54] LABS: ALBUMIN 3.7 g/dL (3.5-5.0); ANION GAP 9.4 MEQ/L (5-15); BILIRUBIN,TOTAL 1.4 mg/dL (0.2-1.3); Calcium 8.5 mg/dL (8.4-10.2); Creatinine 1 1.34 mg/dL (0.52-1.04); Potassium 4.4 mmol/L (3.5-5.1); Total Protein 6.5 g/dL (6.3-8.2)
[2018-09-14] MEDS ORDERED: ROCEPHIN 1 Gm-D5w 50 ml Bag** 1 G/50 ML IVPB IV STA (19:26)
[2018-09-14] MEDS ORDERED: BUMEX 1 MG IV ONE (19:28)
[2018-09-14] MEDS ORDERED: ENOXAPARIN SODIUM SQ STA (19:52)
[2018-09-14] MEDS ORDERED: ENOXAPARIN SODIUM SQ ONE (19:58)
[2018-09-14] MEDS ORDERED: ROCEPHIN 1 Gm-D5w 50 ml Bag** 1 G/50 ML IVPB IV ONE (19:58)
[2018-09-14] MEDS ORDERED: BUMEX 1 MG ONE (19:58)
--- NOTE | 2018-09-14 20:15 | XRAY ---
Indication: Fever and cough. Comparison: December 11, 2017. Portable chest again demonstrates chronic lung markings without focal infiltrate, consolidation, or large effusion. Heart is not enlarged again with left-sided dual-lead pacemaker. Bony thorax intact again with mild degenerative changes. Stable surgical clips at the base the neck. Impression: Stable nonacute chest with chronic features. Comment: Preliminary interpretation was made by [facility]. No critical discrepancy.
[2018-09-14 20:57] LABS: INFLUENZA A NEGATIVE (NEGATIVE); INFLUENZA B NEGATIVE (NEGATIVE); RESPIRATORY SYNCTIAL VIRUS NEGATIVE (Negative)
[2018-09-14] MEDS ORDERED: PROVENTIL 2.5 MG/3 ML NEB IH ONE (23:33)
[2018-09-14] MEDS: PROVENTIL 2.5 MG/3 ML NEB IH SCH (23:40)
[2018-09-14] MEDS ORDERED: ZOFRAN ODT 4 MG PO PRN (23:40)
[2018-09-15] MEDS: Pepcid 20 MG PO SCH ×2 (00:03→20:13)
[2018-09-15] MEDS: ZOCOR 20MG PO SCH ×2 (00:03→20:14)
[2018-09-15] MEDS: BUMEX 1 MG IV SCH ×3 (00:03→20:09)
[2018-09-15] MEDS: Tessalon Perles 100 MG PO PRN ×2 (00:03→20:29)
[2018-09-15] MEDS: ENOXAPARIN SODIUM SQ SCH ×3 (00:03→21:24)
[2018-09-15] MEDS: TYLENOL EXTRA STRENGTH 500 MG PO PRN (00:04)
[2018-09-15] MEDS: LYRICA 100MG PO SCH ×3 (00:04→20:14)
[2018-09-15] MEDS: Provigil 100MG Tablet PO SCH ×3 (00:04→20:14)
[2018-09-15] MEDS: Toprol-Xl 25MG Tablets PO SCH ×3 (00:05→20:13)
[2018-09-15] MEDS: Mirapex 0.5 MG Tablet PO SCH ×2 (00:05→20:15)
[2018-09-15] MEDS: PROVENTIL 2.5 MG/3 ML NEB IH SCH ×6 (03:25→22:53)
[2018-09-15 06:21] LABS: BASOPHIL % 0.1 % (0.0-0.4); Basophil (Absolute #) 0.01 (0-0.4); Eosinophil (Absolute #) 0 (0-0.5); Granulocyte Absolute (ANC) 12.49 (1.4-6.9); Granulocytes % 91.6 % (36.0-66.0); Hematocrit 39.6 % (35-47); Hemoglobin 12.1 gm/dl (12.0-16.0); Lymphocyte (Absolute #) 0.75 (1.0-4.6); Lymphocytes % 5.5 % (24.0-44.0); Mean Cell Volume 101.8 fl (78-100); Mean Corpuscular Hemoglobin 31.1 pg (26-32); Mean Corpuscular Hgb Concent. 30.6 g/dl (32-36); Mean Platelet Volume 10.2 fl (6-9.5); Monocyte (Absolute #) 0.38 (0.0-1.3); Monocytes % 2.8 % (0.0-12.0); Platelet Count 202 K/mm3 (150-450); Red Blood Count 3.89 M/mm3 (4.1-5.4); Red Cell Distribution Width 14.7 % (11.5-14.0); White Blood Count 13.6 K/mm3 (4.0-10.5)
[2018-09-15 06:38] LABS: ALBUMIN 3.7 g/dL (3.5-5.0); ANION GAP 11.8 MEQ/L (5-15); BILIRUBIN,TOTAL 0.7 mg/dL (0.2-1.3); Calcium 8.6 mg/dL (8.4-10.2); Creatinine 1 1.3 mg/dL (0.52-1.04); Potassium 4.5 mmol/L (3.5-5.1); Total Protein 6.5 g/dL (6.3-8.2)
[2018-09-15] MEDS ORDERED: Sodium Chloride 0.9% 10 ML FLUSH Syringe IV PRN (08:30)
[2018-09-15] MEDS: Zithromax 500 MG/ 250 ML NaCl Premix 500 MG/250 ML IVPB IV SCH (08:35)
[2018-09-15] MEDS ORDERED: NON-FORMULARY ITEM (Hydrocodone Bit/Acetaminophen [Hydrocodone-Acetaminophen Soln] 10 ML) PO SCH (12:15)
[2018-09-15] MEDS ORDERED: AMITIZA PO SCH (12:45)
[2018-09-15] MEDS: SYNTHROID 150 MCG PO SCH (13:18)
[2018-09-15] MEDS: solu-MEDROL 125 MG IV SCH ×2 (13:18→20:11)
[2018-09-15] MEDS: AMITIZA PO SCH (13:19)
[2018-09-15] MEDS: Aldactone 25 MG PO SCH (13:19)
[2018-09-15] MEDS: Glucophage 500 MG PO SCH (13:19)
[2018-09-15] MEDS: ceLEXa 20 MG PO SCH (13:19)
[2018-09-15] MEDS ORDERED: AMYLASE PO SCH (15:00)
[2018-09-15] MEDS ORDERED: PROTEASE PO SCH (15:00)
[2018-09-15] MEDS ORDERED: LIPASE PO SCH (15:00)
[2018-09-15] MEDS: HYDROCODONE-ACETAMIN 2.5-108/5 ML SOLUTION PO SCH ×2 (16:49→23:44)
[2018-09-15] MEDS: Sodium Chloride 0.9% 10 ML FLUSH Syringe IV SCH ×2 (16:50→20:16)
[2018-09-15] MEDS: PANCRELIPASE DR 5,000 UNIT CAP PO SCH (16:50)
[2018-09-15] MEDS: NovoLOG Insulin SQ PRN (17:50)
[2018-09-15] MEDS: ROCEPHIN 1 Gm-D5w 50 ml Bag** 1 G/50 ML IVPB IV SCH (20:16)
[2018-09-16] MEDS: PROVENTIL 2.5 MG/3 ML NEB IH SCH ×6 (04:02→23:28)
[2018-09-16] MEDS: solu-MEDROL 125 MG IV SCH ×3 (05:30→21:29)
[2018-09-16] MEDS: HYDROCODONE-ACETAMIN 2.5-108/5 ML SOLUTION PO SCH ×4 (05:30→23:40)
[2018-09-16] MEDS: Sodium Chloride 0.9% 10 ML FLUSH Syringe IV SCH ×2 (05:31→15:03)
[2018-09-16 06:04] LABS: Hematocrit 37.2 % (35-47); Hemoglobin 11.4 gm/dl (12.0-16.0); Mean Cell Volume 102.8 fl (78-100); Mean Corpuscular Hgb Concent. 30.6 g/dl (32-36); Mean Platelet Volume 10.7 fl (6-9.5); Platelet Count 213 K/mm3 (150-450); Red Blood Count 3.62 M/mm3 (4.1-5.4); Red Cell Distribution Width 14.6 % (11.5-14.0); White Blood Count 12.5 K/mm3 (4.0-10.5)
[2018-09-16 06:18] LABS: ALBUMIN 3.6 g/dL (3.5-5.0); ANION GAP 12.2 MEQ/L (5-15); BILIRUBIN,TOTAL 0.4 mg/dL (0.2-1.3); Calcium 8.9 mg/dL (8.4-10.2); Creatinine 1 1.2 mg/dL (0.52-1.04); Potassium 4.5 mmol/L (3.5-5.1); Total Protein 6.5 g/dL (6.3-8.2)
[2018-09-16 06:57] LABS: Mean Corpuscular Hemoglobin 31.4 pg (26-32)
[2018-09-16] MEDS: PANCRELIPASE DR 5,000 UNIT CAP PO SCH ×3 (07:39→17:21)
--- NOTE | 2018-09-16 09:13 | XRAY ---
Indication: Pneumonia. Elevated d-dimer. Comparison: September 14, 2018. Portable chest again demonstrates chronic lung markings and a few calcified granulomas. Heart is not enlarged with stable left-sided dual-lead pacemaker. No new/acute findings.
--- NOTE | 2018-09-16 09:58 | XRAY ---
Indication: Left-sided chest pain. Short of breath. Elevated d-dimer. History of COPD and DVTs. Comparison: None Patient received 5.7 mCi technetium 99 MAA for the perfusion portion of the exam and inhaled 33.6 mCi of aerosolized technetium 99 DTPA for the ventilation portion of the exam. Multi planar images obtained. Perfusion images demonstrates small segmental defect in the superior segment of the left lower lobe and smaller focus in the posterior right upper lobe. Ventilation images demonstrates diffuse heterogeneous radiopharmaceutical activity predominantly more central favoring chronic obstructive disease. Small amount of ingested radiopharmaceutical activity in the GI system. Impression: 1. Small perfusion defect in the left lower lobe and smaller focus in the right upper lobe. PIOPED criteria for diagnosis of pulmonary embolus is intermediate probability. 2. Ventilation images demonstrates predominantly central radiopharmaceutical activity favoring chronic obstructive disease.
[2018-09-16] MEDS ORDERED: NON-FORMULARY ITEM (Spironolactone [Aldactone] 50 MG) PO SCH (10:00)
[2018-09-16] MEDS ORDERED: NON-FORMULARY ITEM (Potassium Chloride [Potassium Chloride] 20 MEQ) PO SCH (10:00)
[2018-09-16] MEDS ORDERED: NON-FORMULARY ITEM (Aspirin [Aspirin] 81 MG) PO SCH (10:00)
[2018-09-16] MEDS ORDERED: ECOTRIN 81 MG PO SCH (10:00)
[2018-09-16] MEDS: BUMEX 1 MG IV SCH ×2 (10:31→21:29)
[2018-09-16] MEDS: Toprol-Xl 25MG Tablets PO SCH ×2 (10:34→21:29)
[2018-09-16] MEDS: Provigil 100MG Tablet PO SCH ×2 (10:34→21:28)
[2018-09-16] MEDS: SYNTHROID 150 MCG PO SCH (10:34)
[2018-09-16] MEDS: Zithromax 500 MG/ 250 ML NaCl Premix 500 MG/250 ML IVPB IV SCH (10:35)
[2018-09-16] MEDS: LYRICA 100MG PO SCH ×2 (10:35→21:27)
[2018-09-16] MEDS: AMITIZA PO SCH (10:35)
[2018-09-16] MEDS: Glucophage 500 MG PO SCH (10:35)
[2018-09-16] MEDS: Klor Con 10 MEQ PO SCH (10:35)
[2018-09-16] MEDS: ceLEXa 20 MG PO SCH (10:35)
[2018-09-16] MEDS: Aldactone 25 MG PO SCH (10:35)
[2018-09-16] MEDS: ENOXAPARIN SODIUM SQ SCH ×2 (10:37→21:27)
--- NOTE | 2018-09-16 11:42 | HP ---
CHIEF COMPLAINT: Cough, shortness of breath, blood in the sputum, fever and chills. HISTORY OF PRESENT ILLNESS: The patient is a 58 year-old white female who presented to the emergency room after having increasing shortness of breath episode but mostly got her attention when she started coughing up streaks of blood. 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 She does see Dr. Abner Wade routinely. She also has multiple medical problems otherwise. PAST MEDICAL/SURGICAL HISTORY: Otherwise significant for a fairly recent celiac plexus block for chronic pancreatitis. She has had deep venous thrombosis in the legs before. She did have a positive D-dimer. However her CT scan showed her creatinine was elevated so a CT scan per pulmonary embolism protocol could not be performed at this time. HOME MEDICATIONS: Currently are Albuterol PRN basis, Aldactone 50 mg a day, Mirapex 0.5 mg at night, Zantac 150 mg at night, aspirin 81 mg a day, atorvastatin 20 mg a day, potassium 20 mEq a day, duloxetine 30 mg b.i.d., levothyroxine 150 mcg a day, Amitiza 24 mg a day, Glucophage 500 mg daily, modafinil 200 mg b.i.d., Trelegy Ellipta daily, Lasix 40 mg a day, Creon with each meal, Celexa 20 mg a day, Lyrica 100 mg b.i.d. ALLERGIES: IV DYE. PENICILLIN. CLINDAMYCIN. LEVAQUIN. PHYSICAL EXAMINATION: The patient's vital signs on admission showed temperature 100.0F, pulse 105, respiratory rate 28 and blood pressure 105/71. O2 saturation 95% on supplemental oxygen. HEENT: Normocephalic, atraumatic. Pupils equal round reactive to light. Extraocular movements intact. The patient is currently wearing oxygen per nasal cannula. CHEST: Bilateral wheezes. HEART: Regular rate and rhythm without murmurs, rubs or gallops. ABDOMEN: Protuberant but no palpable masses were felt. EXTREMITIES: Without cyanosis. There is a little bit of clubbing present. NEUROLOGIC: The patient is alert and oriented x3 with no focal deficits. LAB DATA AND TESTS: Chest x-ray was read as no new infiltrates. She had influenza swabs which were negative for A, B and respiratory syncytial virus. Her metabolic panel showed a glucose of 140, BUN 26, creatinine 1.34, sodium slightly low at 136, potassium normal. Total bilirubin slightly elevated at 1.40. AST elevated at 76. ALT 97. ProBNP was slightly elevated at 1,060. Troponin 0.016. D-dimer slightly elevated 707. Her white blood cell count 17,700, hemoglobin 11.9, PLT count 208,000. There appeared to be somewhat of a left shift with 82.2% granulocytes. ASSESSMENT: A patient with febrile illness likely viral in nature. She has been admitted to the hospital for chronic obstructive pulmonary disease exacerbation. She has been started on IV antibiotics and will be treated with IV steroids with Solu-Medrol 80 every 8 hours. She will receive nebulizer treatment on PRN basis. The patient does have a slight elevation in the D-dimer with coughing up some blood and history of deep venous thrombosis. We will try to obtain a VQ scan once her creatinine improves enough to be able to do a CT scan with pulmonary embolism protocol. We will therefore gently hydrate her with IV fluids as well as push fluids orally with hope that the creatinine will improve.
--- NOTE | 2018-09-16 12:38 | PCM.NOTE ---
Date and Time: 09/16/18 1233 Subjective Assessment: Patient reports her O2 sats go down to 70's on oxygen and cpap at 14 cm and that she can't get a good night rest. She states she knows she does the same thing at home. She reports gaining 90lbs in the last 2-3 years and trouble losing weight. She reports she only eats 1-2 meals a day but doesn't have a lot of food choices due to limited income. She is motivated to lose weight but gets short of breath with just walking down 5 stairs at home she reports. She feels like her weight is going to kill her. She is still having swelling in her lower extremities. - Review of Systems Constitutional: Fatigue Eyes: No Symptoms Ears, Nose, & Throat: No Symptoms Respiratory: Cough, Short Of Breath, Wheezing Cardiac: No Symptoms Abdominal/Gastrointestinal: Constipation, Other (feels swollen in her abdomen), No Nausea, No Vomiting, No Diarrhea Genitourinary Symptoms: No Symptoms Musculoskeletal: No Symptoms Skin: Other (swelling in her lower extremities.) Objective Exam General Appearance: no apparent distress, obese, other (tearful when talking about weight and medical problems) Neurologic Exam: alert, cooperative, other (depressed) Skin Exam: normal color, warm, dry, other (darker skin over anterior legs bilat) Respiratory Exam: other (scattered wheezes throughout, equal breath sounds, no retractions) Cardiovascular Exam: regular rate/rhythm, normal heart sounds, No murmur, No friction rub, No gallop Gastrointestinal/Abdomen Exam: soft, normal bowel sounds, No tenderness, No distention, No mass Extremity Exam: other (+2 edema to mid shins bilat) OBJECTIVE DATA Vital Signs: Vital Signs - 24 hr Temp Pulse Resp BP Pulse Ox 09/16/18 11:31 65 20 94 L 09/16/18 08:00 19 09/16/18 07:38 97.6 F 73 19 105/55 97 09/16/18 06:49 67 20 94 L 09/16/18 04:00 20 09/16/18 03:44 97.6 F 67 20 102/60 98 09/16/18 03:10 77 18 97 09/16/18 00:00 18 09/15/18 23:43 98.3 F 68 18 109/55 96 09/15/18 22:56 80 20 95 09/15/18 20:00 97.8 F 80 20 123/57 94 L 09/15/18 19:06 62 20 94 L 09/15/18 16:00 97.1 F 72 18 109/54 94 L 09/15/18 15:54 72 18 93 L Oxygen-Last 24 hours O2 Percentage 3 Liters = 32% O2 Percentage 3 Liters = 32% O2 Percentage 3 Liters = 32% O2 Percentage 3 Liters = 32% O2 Percentage 3 Liters = 32% Pain Assessment - Last Documented Pain Intensity 2 Pain Scale Used FLACC Intake and Output: Intake & Output 09/14/18 09/15/18 09/16/18 09/17/18 06:59 06:59 06:59 06:59 Intake Total 480 2465 360 Output Total 800 2400 Balance -320 65 360 Weight 126.3 kg 126.2 kg Lab Results: Accuchecks Date 09/16/18 Date 09/15/18 Date 09/15/18 Time 07:30 Time 22:00 Time 16:30 Accucheck Value: 177 Accucheck Value: 193 Accucheck Value: 203 Lab Results-Last 24 Hours 09/16/18 09/16/18 Range/Units 05:28 05:28 WBC 12.5 H (4.0-10.5) K/mm3 RBC 3.62 L (4.1-5.4) M/mm3 Hgb 11.4 L (12.0-16.0) gm/dl Hct 37.2 (35-47) % MCV 102.8 H (78-100) fl MCH 31.4 (26-32) pg MCHC 30.6 L (32-36) g/dl RDW 14.6 H (11.5-14.0) % Plt Count 213 (150-450) K/mm3 MPV 10.7 H (6-9.5) fl Sodium 138 (137-145) mmol/L Potassium 4.5 (3.5-5.1) mmol/L Chloride 92 L (98-107) mmol/L Carbon Dioxide 39 H (22-30) mmol/L Anion Gap 12.2 (5-15) MEQ/L BUN 38 H (7-17) mg/dL Creatinine 1.20 H (0.52-1.04) mg/dL Estimated GFR 48.7 ML/MIN Glucose 177 H (74-106) mg/dL Calcium 8.9 (8.4-10.2) mg/dL Total Bilirubin 0.40 (0.2-1.3) mg/dL AST 89 H (14-36) U/L ALT 168 H (0-35) U/L Alkaline Phosphatase 161 H (38-126) U/L Serum Total Protein 6.5 (6.3-8.2) g/dL Albumin 3.6 (3.5-5.0) g/dL Radiology Exams: Radiology Procedures Category Date Time Status CHEST 1 VIEW (PORTABLE) Stat Exams 09/14/18 18:01 Completed CHEST 2 VIEWS (PA AND LAT) Urgent Exams 09/16/18 09:03 Completed PULMONARY PERF VENTILATION [NUCMED] Routine Exams 09/16/18 11:25 Completed Assessment/Plan (1) COPD with exacerbation Current Visit: Yes Status: Acute Assessment & Plan: Dr. Wade consulted; Continue oxygen; may need bipap senior care, will defer to pulmonolgist about this. Continue antibiotics and breathing treatments. Continue IV steroids. Code(s): J44.1 - CHRONIC OBSTRUCTIVE PULMONARY DISEASE W (ACUTE) EXACERBATION (2) Elevated d-dimer Current Visit: Yes Status: Acute Onset Date: ~09/14/18 Assessment & Plan: Pt on lovenox at anticoagulation doses; V-q scan was intermediate probability; will defer to addiction treatment counselor if he wants her on senior care anticoagulation; she came into ER with hemoptysis. Will check doppers of LE bilat to rule out DVT. Code(s): R79.89 - OTHER SPECIFIED ABNORMAL FINDINGS OF BLOOD CHEMISTRY (3) Obesity Current Visit: Yes Status: Acute Qualifiers: Body mass index: BMI 45.0-49.9 Assessment & Plan: Will ask contour sander to see her to talk about weight loss. I have book I can give her next time she is in clinic that has some upper body exercises that she can do from [facility]. Code(s): E66.9 - OBESITY, UNSPECIFIED (4) Diabetes Current Visit: No Status: Chronic Qualifiers: Diabetes mellitus type: type 2 Diabetes mellitus long term care administrator insulin use: with long term care administrator use Diabetes mellitus complication status: with hyperglycemia Qualified Code(s): E11.65 - Type 2 diabetes mellitus with hyperglycemia; Z79.4 - care home (current) use of insulin Assessment & Plan: Blood glucoses slightly high on IV steroids. Continue to monitor. Code(s): E11.9 - TYPE 2 DIABETES MELLITUS WITHOUT COMPLICATIONS (5) Langerhans cell histiocytoses Current Visit: Yes Status: Acute Assessment & Plan: Continue management per her addiction treatment counselor. Code(s): C96.6 - UNIFOCAL LANGERHANS-CELL HISTIOCYTOSIS (6) Obstructive sleep apnea Current Visit: Yes Status: Acute Assessment & Plan: Continue CPAP at night. Code(s): G47.33 - OBSTRUCTIVE SLEEP APNEA (ADULT) (PEDIATRIC) (7) Coronary artery disease Current Visit: Yes Status: Acute Assessment & Plan: She follows with Dr. Bradford Fortune; currently stable. Last Echo 09/2017 with EF of 47%. Code(s): I25.10 - ATHSCL HEART DISEASE OF [place] CORONARY ARTERY W/O ANG PCTRS
[2018-09-16] MEDS: NovoLOG Insulin SQ PRN ×2 (13:03→21:38)
--- NOTE | 2018-09-16 14:21 | CONS ---
CONSULT DATE: 09/16/2018 HISTORY: Patti Clifford is a 58 year-old woman well known to me who has been hospitalized with complaints of cough, shortness of breath and difficulty in breathing. The patient reportedly started having these symptoms two to three days prior to admission. She also reported streaky hemoptysis. The patient was noted to have positive D-dimer test, elevated creatinine due to which CT-angiogram could not be performed. She is currently receiving venous Doppler. She has been started on broad spectrum IV antibiotics and does report improvement in symptoms since being hospitalized. PAST MEDICAL HISTORY: The patient has had chronic pancreatitis for which she gets celiac block, history of deep venous thrombosis, restless leg syndrome, hyperlipidemia, anxiety, depression, hypothyroidism, diabetes mellitus, excessive daytime sleepiness, underlying chronic obstructive pulmonary disease and peripheral neuropathy. PAST SURGICAL HISTORY: No recent surgery. She has had frequent EGD's with celiac plexus block. MEDICATIONS: Home and current medications are reviewed. ALLERGIES: IV DYE. PENICILLIN. CLINDAMYCIN. LEVAQUIN. PHYSICAL EXAMINATION: This is a middle aged woman who is comfortable in bed. The patient is currently getting venous Doppler's. She reports improvement in hemoptysis which was streaky to begin with. Vital signs noted. HEENT: Normocephalic. Pupils are reactive. Oral exam shows small oropharynx. NECK: Supple. CVS: First and second heart sounds are normal, regular, rhythmic. RESPIRATORY: Shows diminished breath sounds, bilateral rhonchi heard. ABDOMEN: Obese. EXTREMITIES: Lower extremities show no significant edema. LABORATORY DATA AND TESTS: White blood cell count 12.5, hemoglobin 11.4, hematocrit 37, PLT 213,000. Sodium 138, potassium 4.5, chloride 92, bicarb 39, glucose 177, BUN 38, creatinine 1.2. A1C 6.1. Lactic acid 1.3. D-dimer 707. Chest x-ray noted. ASSESSMENT: This is a 58 year old woman admitted with: 1) BRONCHOPNEUMONIA. 2) HEMOPTYSIS SECONDARY TO THE ABOVE. 3) POSITIVE D-DIMER TEST. Low clinical suspicion with weakly positive D-dimer, will follow venous Doppler's. VQ has been reported indeterminant. 4) HISTORY OF DIABETES MELLITUS. 5) RENAL INSUFFICIENCY MAKING DIFFICULTY IN CONTRAST ADMINISTRATION BESIDES REPORTED ALLERGIES. RECOMMENDATIONS: Continue IV antibiotics, continue bronchodilators, noninvasive ventilation as needed/tolerated. The patient's symptoms of hemoptysis is already improving. May require bronchoscopy at a later point if symptoms fail to resolve. Follow venous Doppler's, continue other supportive care, will continue to follow. Thank you for allowing me to participate in the care of Patti Clifford.
--- NOTE | 2018-09-16 14:22 | XRAY ---
Indication: Elevated d-dimer. Two-dimensional sonogram and color Doppler imaging of the major venous vessels the left and right leg was performed. Comparison: November 14, 2016. Again no thrombus seen in the examined deep venous vessels of the left and right leg including greater saphenous veins. Veins demonstrate normal compressibility. Venous waveforms are normal with and without augmentation. Impression: Left and right legs again negative for DVT.
[2018-09-16] MEDS ORDERED: SENOKOT 8.6 MG PO SCH (15:00)
[2018-09-16] MEDS: Pepcid 20 MG PO SCH (21:27)
[2018-09-16] MEDS: ZOCOR 20MG PO SCH (21:27)
[2018-09-16] MEDS: Mirapex 0.5 MG Tablet PO SCH (21:28)
[2018-09-16] MEDS: Tessalon Perles 100 MG PO PRN (21:28)
[2018-09-16] MEDS: ROCEPHIN 1 Gm-D5w 50 ml Bag** 1 G/50 ML IVPB IV SCH (21:37)
[2018-09-17] MEDS: PROVENTIL 2.5 MG/3 ML NEB IH SCH ×5 (03:45→21:21)
[2018-09-17] MEDS: HYDROCODONE-ACETAMIN 2.5-108/5 ML SOLUTION PO SCH ×3 (06:20→18:17)
[2018-09-17] MEDS: solu-MEDROL 125 MG IV SCH ×3 (06:21→22:24)
[2018-09-17 06:23] LABS: BASOPHIL % 0.1 % (0.0-0.4); Basophil (Absolute #) 0.01 (0-0.4); Eosinophil (Absolute #) 0 (0-0.5); Granulocytes % 82.9 % (36.0-66.0); Hematocrit 39.6 % (35-47); Hemoglobin 12.5 gm/dl (12.0-16.0); Lymphocyte (Absolute #) 1.21 (1.0-4.6); Lymphocytes % 10.1 % (24.0-44.0); Mean Cell Volume 100.8 fl (78-100); Mean Corpuscular Hemoglobin 31.8 pg (26-32); Mean Corpuscular Hgb Concent. 31.6 g/dl (32-36); Mean Platelet Volume 10.5 fl (6-9.5); Monocyte (Absolute #) 0.83 (0.0-1.3); Monocytes % 6.9 % (0.0-12.0); Platelet Count 249 K/mm3 (150-450); Red Blood Count 3.93 M/mm3 (4.1-5.4); Red Cell Distribution Width 14.7 % (11.5-14.0)
[2018-09-17 06:43] LABS: Calcium 9.7 mg/dL (8.4-10.2); Creatinine 1 1.21 mg/dL (0.52-1.04); Potassium 4.6 mmol/L (3.5-5.1)
[2018-09-17 06:52] LABS: ANION GAP 11.6 MEQ/L (5-15)
[2018-09-17] MEDS: Nitrostat 0.4 MG Tablet SL PRN ×3 (07:25→07:35)
[2018-09-17] MEDS ORDERED: MORPHINE SULFATE 2 MG INJ ONE (07:35)
[2018-09-17] MEDS ORDERED: ECOTRIN 81 MG PO ONE ×2 (07:36→08:03)
[2018-09-17] MEDS ORDERED: MORPHINE SULFATE 2 MG INJ IV ONE (07:40)
[2018-09-17 07:45] LABS: BASOPHIL % 0.1 % (0.0-0.4); Basophil (Absolute #) 0.01 (0-0.4); Eosinophil (Absolute #) 0 (0-0.5); Granulocyte Absolute (ANC) 10.53 (1.4-6.9); Granulocytes % 82.7 % (36.0-66.0); Hematocrit 40.4 % (35-47); Hemoglobin 12.2 gm/dl (12.0-16.0); Lymphocyte (Absolute #) 1.32 (1.0-4.6); Lymphocytes % 10.4 % (24.0-44.0); Mean Cell Volume 102.8 fl (78-100); Mean Corpuscular Hgb Concent. 30.2 g/dl (32-36); Mean Platelet Volume 10.2 fl (6-9.5); Monocyte (Absolute #) 0.87 (0.0-1.3); Monocytes % 6.8 % (0.0-12.0); Platelet Count 258 K/mm3 (150-450); Red Blood Count 3.93 M/mm3 (4.1-5.4); Red Cell Distribution Width 14.7 % (11.5-14.0); White Blood Count 12.7 K/mm3 (4.0-10.5)
[2018-09-17 07:59] LABS: INR 0.92 (0.8-3.0); PROTIME 10.7 SECONDS (9.95-12.35)
[2018-09-17 08:02] LABS: PTT 32.4 SECONDS (25.3-37.0)
[2018-09-17 08:07] LABS: ALBUMIN 3.9 g/dL (3.5-5.0); ALKALINE PHOSPHATASE 184 U/L (38-126); ANION GAP 10.6 MEQ/L (5-15); BLOOD UREA NITROGEN 38 mg/dL (7-17); CHLORIDE 94 mmol/L (98-107); Calcium 9.4 mg/dL (8.4-10.2); Carbon Dioxide 40 mmol/L (22-30); Creatinine 1 1.27 mg/dL (0.52-1.04); Glucose 118 mg/dL (74-106); Potassium 4.2 mmol/L (3.5-5.1); SGOT/AST 101 U/L (14-36); SGPT/ALT 240 U/L (0-35); SODIUM 140 mmol/L (137-145); TROPONIN < 0.012 ng/mL (0.000-0.034)
[2018-09-17] MEDS ORDERED: BABY ASPIRIN 81 MG CHEW PO ONE (08:15)
--- NOTE | 2018-09-17 08:36 | XRAY ---
Indication: Chest pain. Comparison: One day earlier. Portable chest unchanged again demonstrating chronic lung markings and a few tiny calcified granulomas. Heart and mediastinal structures within normal limits again with left-sided pacemaker. No new/acute findings.
[2018-09-17] MEDS ORDERED: Tums EX 750 MG PO PRN (08:37)
[2018-09-17] MEDS ORDERED: Dulcolax 10 MG SUPP PR ONE (08:38)
[2018-09-17] MEDS ORDERED: MORPHINE SULFATE 2 MG INJ IV PRN (08:39)
[2018-09-17] MEDS: PANCRELIPASE DR 5,000 UNIT CAP PO SCH ×3 (08:53→17:27)
--- NOTE | 2018-09-17 08:59 | PCM.NOTE ---
Date and Time: 09/17/18 0854 Subjective Assessment: Patient reports she started feeling like she had heartburn this AM that went from the middle of her throat to the top of her stomach and it just kept getting worse. She reports she had stabbing chest pain with this along with dyspnea, nausea but no diaphoresis. A code rapid was called and the ER doctor evaluated her and ordered labs as well as aspirin 325 mg, nitro and morphine. She is feeling better now except for a slight burning at her neck. she reports she slept sitting up in her chair and was able to sleep for 5 hours sleeping sitting up. Patient reports that her blood pressure was high. She sees Dr. Bradford Fortune and recently had [address] an atrial pacemaker with the last one being 12/2017. She reports continued pain in her legs. - Review of Systems Eyes: No Symptoms Ears, Nose, & Throat: No Symptoms Respiratory: Cough, Short Of Breath Cardiac: Chest Pain Abdominal/Gastrointestinal: Nausea, Constipation, No Vomiting, No Diarrhea Genitourinary Symptoms: No Symptoms Musculoskeletal: Other (patient reports her arms hurt after shaking during the chest pain episode this am) Skin: No Symptoms Objective Exam General Appearance: no apparent distress, alert, obese Neurologic Exam: alert, cooperative, normal mood/affect, other (very talkative) Skin Exam: normal color, warm, dry, other (keisha hose in place) Neck Exam: normal inspection Respiratory Exam: other (scattered wheezes throughout, no crackles, equal breathsounds) Cardiovascular Exam: regular rate/rhythm, normal heart sounds, No murmur, No friction rub, No gallop Extremity Exam: normal inspection, other (trace edema bilat) OBJECTIVE DATA Vital Signs: Vital Signs - 24 hr Temp Pulse Resp BP BP Pulse Ox 09/17/18 08:00 98.3 F 63 18 125/62 99 09/17/18 07:35 75 118/55 09/17/18 07:30 68 164/63 09/17/18 07:25 70 142/95 09/17/18 04:00 96.9 F 88 24 128/62 09/17/18 03:59 20 09/17/18 03:20 60 20 94 L 09/17/18 00:00 98 F 68 13 115/72 96 09/16/18 23:30 66 18 97 09/16/18 20:00 98.3 F 65 18 131/69 97 09/16/18 19:35 68 18 96 09/16/18 16:00 97.8 F 89 20 135/60 96 09/16/18 14:56 68 20 97 09/16/18 12:00 97.8 F 67 18 111/59 96 09/16/18 11:31 65 20 94 L Oxygen-Last 24 hours O2 Percentage 3 Liters = 32% O2 Percentage 3 Liters = 32% O2 Percentage 3 Liters = 32% O2 Percentage 3 Liters = 32% O2 Percentage 3 Liters = 32% Pain Assessment - Last Documented Pain Intensity 8 Pain Scale Used 0-10 Pain Scale Intake and Output: Intake & Output 09/15/18 09/16/18 09/17/18 09/18/18 06:59 06:59 06:59 06:59 Intake Total 480 2465 1320 Output Total 800 2400 700 Balance -320 65 620 Weight 126.3 kg 126.2 kg 126 kg Lab Results: Accuchecks Date 09/16/18 Date 09/16/18 Date 09/16/18 Time 22:00 Time 16:30 Time 11:30 Accucheck Value: 263 Accucheck Value: 175 Accucheck Value: 205 Lab Results-Last 24 Hours 09/17/18 09/17/18 09/17/18 Range/Units 05:33 05:33 07:25 WBC 12.0 H 12.7 H (4.0-10.5) K/mm3 RBC 3.93 L 3.93 L (4.1-5.4) M/mm3 Hgb 12.5 12.2 (12.0-16.0) gm/dl Hct 39.6 40.4 (35-47) % MCV 100.8 H 102.8 H (78-100) fl MCH 31.8 31.0 (26-32) pg MCHC 31.6 L 30.2 L (32-36) g/dl RDW 14.7 H 14.7 H (11.5-14.0) % Plt Count 249 258 (150-450) K/mm3 MPV 10.5 H 10.2 H (6-9.5) fl Gran % 82.9 H 82.7 H (36.0-66.0) % Eos # (Auto) 0 0 (0-0.5) Absolute Lymphs (auto) 1.21 1.32 (1.0-4.6) Absolute Monos (auto) 0.83 0.87 (0.0-1.3) Lymphocytes % 10.1 L 10.4 L (24.0-44.0) % Monocytes % 6.9 6.8 (0.0-12.0) % Eosinophils % 0.0 0.0 (0.00-5.0) % Basophils % 0.1 0.1 (0.0-0.4) % Absolute Granulocytes 9.90 H 10.53 H (1.4-6.9) Basophils # 0.01 0.01 (0-0.4) PT (9.95-12.35) SECONDS INR (0.8-3.0) APTT (25.3-37.0) SECONDS D-Dimer (215-500) ng/mL Sodium 140 (137-145) mmol/L Potassium 4.6 (3.5-5.1) mmol/L Chloride 93 L (98-107) mmol/L Carbon Dioxide 40 H (22-30) mmol/L Anion Gap 11.6 (5-15) MEQ/L BUN 38 H (7-17) mg/dL Creatinine 1.21 H (0.52-1.04) mg/dL Estimated GFR 48.2 ML/MIN Glucose 136 H (74-106) mg/dL Calcium 9.7 (8.4-10.2) mg/dL Total Bilirubin (0.2-1.3) mg/dL AST (14-36) U/L ALT (0-35) U/L Alkaline Phosphatase (38-126) U/L Troponin I (0.000-0.034) ng/mL Serum Total Protein (6.3-8.2) g/dL Albumin (3.5-5.0) g/dL 09/17/18 09/17/18 Range/Units 07:25 07:26 WBC (4.0-10.5) K/mm3 RBC (4.1-5.4) M/mm3 Hgb (12.0-16.0) gm/dl Hct (35-47) % MCV (78-100) fl MCH (26-32) pg MCHC (32-36) g/dl RDW (11.5-14.0) % Plt Count (150-450) K/mm3 MPV (6-9.5) fl Gran % (36.0-66.0) % Eos # (Auto) (0-0.5) Absolute Lymphs (auto) (1.0-4.6) Absolute Monos (auto) (0.0-1.3) Lymphocytes % (24.0-44.0) % Monocytes % (0.0-12.0) % Eosinophils % (0.00-5.0) % Basophils % (0.0-0.4) % Absolute Granulocytes (1.4-6.9) Basophils # (0-0.4) PT 10.7 (9.95-12.35) SECONDS INR 0.92 (0.8-3.0) APTT 32.4 (25.3-37.0) SECONDS D-Dimer 309 (215-500) ng/mL Sodium 140 (137-145) mmol/L Potassium 4.2 (3.5-5.1) mmol/L Chloride 94 L (98-107) mmol/L Carbon Dioxide 40 H (22-30) mmol/L Anion Gap 10.6 (5-15) MEQ/L BUN 38 H (7-17) mg/dL Creatinine 1.27 H (0.52-1.04) mg/dL Estimated GFR 45.6 ML/MIN Glucose 118 H (74-106) mg/dL Calcium 9.4 (8.4-10.2) mg/dL Total Bilirubin 0.60 (0.2-1.3) mg/dL AST 101 H (14-36) U/L ALT 240 H (0-35) U/L Alkaline Phosphatase 184 H (38-126) U/L Troponin I < 0.012 (0.000-0.034) ng/mL Serum Total Protein 7.0 (6.3-8.2) g/dL Albumin 3.9 (3.5-5.0) g/dL Radiology Exams: Radiology Procedures Category Date Time Status CHEST 1 VIEW (PORTABLE) Stat Exams 09/17/18 07:33 Completed CHEST 2 VIEWS (PA AND LAT) Urgent Exams 09/16/18 09:03 Completed PULMONARY PERF VENTILATION [NUCMED] Routine Exams 09/16/18 11:25 Completed VENOUS BILATERAL EXTREMITY [US] Routine Exams 09/16/18 13:39 Completed Assessment/Plan (1) COPD with exacerbation Current Visit: Yes Status: Acute Assessment & Plan: Continue with IV steroids and IV antibiotics; oxygen; breathing treatments. Dr. Ewa Wade saw her yesterday. Code(s): J44.1 - CHRONIC OBSTRUCTIVE PULMONARY DISEASE W (ACUTE) EXACERBATION (2) Elevated d-dimer Current Visit: Yes Status: Acute Onset Date: ~09/14/18 Assessment & Plan: Bilat venous dopplers were negative; VQ scan is not conclusive. Will try to discuss personally with Dr. Ewa Wade today. She is on lovenox at anticoaguation doses which I think I will at least continue until she has ruled out for acute VA. Code(s): R79.89 - OTHER SPECIFIED ABNORMAL FINDINGS OF BLOOD CHEMISTRY (3) Obesity Current Visit: Yes Status: Acute Qualifiers: Body mass index: BMI 45.0-49.9 Code(s): E66.9 - OBESITY, UNSPECIFIED (4) Diabetes Current Visit: No Status: Chronic Qualifiers: Diabetes mellitus type: type 2 Diabetes mellitus ferry terminal agent insulin use: with mcc use Diabetes mellitus complication status: with hyperglycemia Qualified Code(s): E11.65 - Type 2 diabetes mellitus with hyperglycemia; Z79.4 - group home (current) use of insulin Assessment & Plan: Continue current treatment. Stopping metformin due to renal insufficiency. Code(s): E11.9 - TYPE 2 DIABETES MELLITUS WITHOUT COMPLICATIONS (5) Langerhans cell histiocytoses Current Visit: Yes Status: Acute Assessment & Plan: Continue management per her sql server consultant. Code(s): C96.6 - UNIFOCAL LANGERHANS-CELL HISTIOCYTOSIS (6) Obstructive sleep apnea Current Visit: Yes Status: Acute Code(s): G47.33 - OBSTRUCTIVE SLEEP APNEA ( ADULT) (PEDIATRIC) (7) Coronary artery disease Current Visit: Yes Status: Acute Assessment & Plan: Will consult her quote clerk, Dr. Bradford Fortune. EKG shows paced rhythm. Tropinin was neg. Will order serial troponins and serial EKG's. She received 325 mg aspirin. Will also order morphine as needed for pain. She is hemodynamically stable and pain is subsiding. Will order medication for DIVINE also. Code(s): I25.10 - ATHSCL HEART DISEASE OF [place] CORONARY ARTERY W/O MICHEAL PCTRS (8) Constipation Current Visit: Yes Status: Acute Assessment & Plan: Dulcolax suppository ordered. Code(s): K59.00 - CONSTIPATION, UNSPECIFIED
[2018-09-17 09:22] LABS: AMYLASE 70 U/L (30-110); LIPASE 171 U/L (23-300)
[2018-09-17] MEDS: SYNTHROID 150 MCG PO SCH (09:38)
[2018-09-17] MEDS: Provigil 100MG Tablet PO SCH ×2 (09:38→22:25)
[2018-09-17] MEDS: Protonix 40MG Tablet PO SCH (09:38)
[2018-09-17] MEDS: ENOXAPARIN SODIUM SQ SCH ×2 (09:38→22:24)
[2018-09-17] MEDS: Aldactone 25 MG PO SCH (09:38)
[2018-09-17] MEDS: Klor Con 10 MEQ PO SCH (09:38)
[2018-09-17] MEDS: ceLEXa 20 MG PO SCH (09:38)
[2018-09-17] MEDS: LYRICA 100MG PO SCH ×2 (09:38→22:25)
[2018-09-17] MEDS: Toprol-Xl 25MG Tablets PO SCH ×2 (09:38→22:25)
[2018-09-17] MEDS: AMITIZA PO SCH (09:39)
[2018-09-17] MEDS: BUMEX 1 MG IV SCH ×2 (09:39→16:49)
[2018-09-17] MEDS: Zithromax 500 MG/ 250 ML NaCl Premix 500 MG/250 ML IVPB IV SCH (09:40)
[2018-09-17] MEDS ORDERED: Zaroxolyn 2.5 MG PO ONE (15:00)
--- NOTE | 2018-09-17 15:02 | CONS ---
CONSULT DATE: 09/17/2018 REASON FOR CONSULT: Chest pain. HISTORY: Patti Clifford is a 58 year-old female with a history of chronic diastolic congestive heart failure, stable coronary artery disease, chronic obstructive pulmonary disease, sick sinus syndrome status post pacemaker placement, Langerhans cell histiocytosis and hypertension, who presented a few days ago with cough, fevers, chills, shortness of breath and bloody sputum production. She was found to have an elevated white count and mildly elevated D-dimer. There was concern pulmonary embolism but due to mild renal insufficiency with a creatinine of 1.[address]-angiogram was performed. VQ scan was performed which demonstrated intermediate probability of pulmonary embolism. She was started on antibiotics as well as steroids and she has had significant improvement in her chest pain and shortness of breath. She is still coughing up green and yellow sputum streaked with blood but overall improved. She gained approximately 17 pounds over a week prior to admission. We had up titrated her oral diuretic therapy which did not have significant improvement. She has been started on IV Bumex. However her fluid balance is even for the last 24 hours. She reports feeling abdominal bloating as well as orthopnea. She is currently on oxygen. She is also being treated with full dose anticoagulation with Lovenox subcu. REVIEW OF SYSTEMS: Fourteen system review performed. Pertinent positives noted in H&P otherwise negative. MEDICATIONS: Medications reviewed with nurse during tele-cardiology consultation. PHYSICAL EXAMINATION: She is obese. She appears to be in no acute distress. She is wearing nasal cannula. She is conversing without any shortness of breath. Further exam unable to perform as this is a tele-cardiology consultation. LAB DATA AND TESTS: Laboratory data reviewed. Initial D-dimer on presentation was mildly elevated, repeat D-dimer was in the 300's which is within normal reference range. White blood cell count was approximately 13,000. Hemoglobin and PLT count are stable. Creatinine is 1.2 to 1.3. EKG personally reviewed and demonstrated sinus rhythm, no acute ischemic changes. Echo performed 12/06/2017 demonstrated ejection fraction of 60-65% with mild left ventricular hypertrophy and mild tricuspid regurgitation with no evidence of pulmonary hypertension. IMPRESSION: 1) Atypical chest pain likely associated with pneumonia. 2) Acute on chronic diastolic congestive heart failure. The patient's volume status has increased and she has gained approximately 17 pounds. Her fluid balance has been even despite IV diuretic therapy in the hospital. 3) Mildly elevated D-dimer with intermediate probability for pulmonary embolism and negative lower extremity duplex for deep venous thrombosis. She is currently being treated with full dose anticoagulation. Her repeat D-dimer appears to be normal. It would be unlikely if significant clot burden that her D-dimer would normalize so quickly. RECOMMENDATIONS: At this time will increase diuresis, will adjust her afternoon Bumex dose to 1500 hours instead of 2200 hours at night to facilitate better sleep, will also add metolazone 2.5 mg p.o. x1 dose today 30 minutes prior to afternoon Bumex dose, put her on a 2 liter fluid restriction as well as 2 gm sodium diet, strict I&O's with goal to maintain net negative diuresis of approximately 1 liter daily. I have advised the nurse contact me if she does not have adequate diuresis as she may need additional therapy. Will continue spironolactone at this time for potassium sparing benefits as well as augment diuresis.
[2018-09-17 17:00] LABS: ANION GAP 9.8 MEQ/L (5-15); Calcium 9.3 mg/dL (8.4-10.2); Creatinine 1 1.33 mg/dL (0.52-1.04); Potassium 4.6 mmol/L (3.5-5.1)
[2018-09-17] MEDS: Magnesium 1 Gm / 100 Ml D5W*** 100 ML IV SCH ×2 (18:17→18:58)
[2018-09-17] MEDS: ROCEPHIN 1 Gm-D5w 50 ml Bag** 1 G/50 ML IVPB IV SCH (22:23)
[2018-09-17] MEDS: Pepcid 20 MG PO SCH (22:25)
[2018-09-17] MEDS: Mirapex 0.5 MG Tablet PO SCH (22:25)
[2018-09-17] MEDS: Sodium Chloride 0.9% 10 ML FLUSH Syringe IV SCH (22:26)
[2018-09-17] MEDS: ZOCOR 20MG PO SCH (22:27)
[2018-09-18] MEDS: HYDROCODONE-ACETAMIN 2.5-108/5 ML SOLUTION PO SCH ×5 (00:09→23:33)
[2018-09-18] MEDS: PROVENTIL 2.5 MG/3 ML NEB IH SCH ×6 (03:25→23:30)
[2018-09-18] MEDS: solu-MEDROL 125 MG IV SCH (05:36)
[2018-09-18 06:14] LABS: BASOPHIL % 0.1 % (0.0-0.4); Basophil (Absolute #) 0.01 (0-0.4); Eosinophil (Absolute #) 0 (0-0.5); Granulocyte Absolute (ANC) 7.11 (1.4-6.9); Granulocytes % 85.1 % (36.0-66.0); Hematocrit 42.5 % (35-47); Hemoglobin 12.8 gm/dl (12.0-16.0); Lymphocyte (Absolute #) 0.74 (1.0-4.6); Lymphocytes % 8.9 % (24.0-44.0); Mean Cell Volume 102.9 fl (78-100); Mean Corpuscular Hgb Concent. 30.1 g/dl (32-36); Mean Platelet Volume 10.4 fl (6-9.5); Monocyte (Absolute #) 0.49 (0.0-1.3); Monocytes % 5.9 % (0.0-12.0); Platelet Count 241 K/mm3 (150-450); Red Blood Count 4.13 M/mm3 (4.1-5.4); Red Cell Distribution Width 14.6 % (11.5-14.0); White Blood Count 8.4 K/mm3 (4.0-10.5)
[2018-09-18 06:38] LABS: Calcium 9.4 mg/dL (8.4-10.2); Creatinine 1 1.22 mg/dL (0.52-1.04); Potassium 4.7 mmol/L (3.5-5.1)
[2018-09-18 06:50] LABS: ANION GAP 9.7 MEQ/L (5-15)
[2018-09-18] MEDS: PATIENT OWN MEDICATION IH SCH (07:10)
[2018-09-18] MEDS: PANCRELIPASE DR 5,000 UNIT CAP PO SCH ×3 (08:01→17:07)
--- NOTE | 2018-09-18 09:05 | PCM.NOTE ---
Date and Time: 09/18/18 0900 Subjective Assessment: Patient reports that she is feeling better but if her oxygen is not on then her O2 sat drops low. She reports she has urinated quite a bit. Dr. Bradford Fortune saw her yesterday via telemedicine. She reports she continues to have some shakes. She is constipated and her suppository did not result in a stool and there was some blood on the suppository. Discussed indeterminant results of VQ scan and negative dopplers of her legs with her and she reports she would leave whether or not she is anticoagulated up to myself and Dr. Wade. I called Dr. Wade and discussed with him and he feels her risk for anticoagulation with the hemoptysis is higher than the benefit. Also, a repeat D-dimer was normal range yesterday. - Review of Systems Constitutional: No Symptoms Eyes: No Symptoms Ears, Nose, & Throat: No Symptoms Respiratory: Cough, Short Of Breath, Wheezing Cardiac: No Symptoms Abdominal/Gastrointestinal: Constipation, No Diarrhea Genitourinary Symptoms: No Symptoms Musculoskeletal: No Symptoms Skin: No Symptoms Objective Exam General Appearance: no apparent distress, obese, other (walking around in her room) Neurologic Exam: alert, cooperative Skin Exam: normal color, warm, dry, other (bruise at right anticubital fossa) Respiratory Exam: wheezing, other (scattered wheezes throughout, equal breath sounds, no crackles.) Cardiovascular Exam: regular rate/rhythm, normal heart sounds, No murmur, No friction rub, No gallop Gastrointestinal/Abdomen Exam: soft, normal bowel sounds, No tenderness, No distention, No mass Extremity Exam: other (trace edema bilat) OBJECTIVE DATA Vital Signs: Vital Signs - 24 hr Temp Pulse Resp BP Pulse Ox 09/18/18 08:00 18 09/18/18 07:27 97.9 F 66 18 112/56 93 L 09/18/18 06:57 82 18 96 09/18/18 05:00 18 09/18/18 04:00 97.5 F 65 18 114/77 95 09/18/18 03:25 64 18 94 L 09/18/18 01:00 18 09/18/18 00:00 98.1 F 68 18 102/66 97 09/17/18 21:23 63 20 92 L 09/17/18 21:00 20 09/17/18 20:00 98.4 F 77 20 107/53 94 L 09/17/18 17:00 20 09/17/18 16:00 97.7 F 66 18 112/57 96 09/17/18 15:34 67 18 97 09/17/18 13:00 18 09/17/18 12:00 98.2 F 72 18 106/51 98 09/17/18 09:03 18 Oxygen-Last 24 hours O2 Percentage 3 Liters = 32% O2 Percentage 3 Liters = 32% O2 Percentage 3 Liters = 32% O2 Percentage 2 Liters = 28% Pain Assessment - Last Documented Pain Intensity 4 Pain Scale Used 0-10 Pain Scale,FLACC Intake and Output: Intake & Output 09/16/18 09/17/18 09/18/18 09/19/18 06:59 06:59 06:59 06:59 Intake Total 2465 1320 600 Output Total 2400 700 1900 1800 Balance 65 620 -1300 -1800 Weight 126.2 kg 126 kg 126.2 kg Lab Results: Accuchecks Date 09/18/18 Date 09/17/18 Date 09/17/18 Date 09/17/18 Time 07:30 Time 22:00 Time 16:30 Time 11:30 Accucheck Value: 175 Accucheck Value: 178 Accucheck Value: 148 Accucheck Value: 116 Lab Results-Last 24 Hours 09/17/18 09/17/18 09/17/18 Range/Units 08:40 12:09 15:02 WBC (4.0-10.5) K/mm3 RBC (4.1-5.4) M/mm3 Hgb (12.0-16.0) gm/dl Hct (35-47) % MCV (78-100) fl MCH (26-32) pg MCHC (32-36) g/dl RDW (11.5-14.0) % Plt Count (150-450) K/mm3 MPV (6-9.5) fl Gran % (36.0-66.0) % Eos # (Auto) (0-0.5) Absolute Lymphs (auto) (1.0-4.6) Absolute Monos (auto) (0.0-1.3) Lymphocytes % (24.0-44.0) % Monocytes % (0.0-12.0) % Eosinophils % (0.00-5.0) % Basophils % (0.0-0.4) % Absolute Granulocytes (1.4-6.9) Basophils # (0-0.4) Sodium (137-145) mmol/L Potassium (3.5-5.1) mmol/L Chloride (98-107) mmol/L Carbon Dioxide (22-30) mmol/L Anion Gap (5-15) MEQ/L BUN (7-17) mg/dL Creatinine (0.52-1.04) mg/dL Estimated GFR ML/MIN Glucose (74-106) mg/dL Calcium (8.4-10.2) mg/dL Magnesium (1.6-2.3) mg/dL Troponin I < 0.012 < 0.012 (0.000-0.034) ng/mL Amylase 70 (30-110) U/L Lipase 171 (23-300) U/L 09/17/18 09/17/18 09/17/18 Range/Units 16:30 16:30 18:38 WBC (4.0-10.5) K/mm3 RBC (4.1-5.4) M/mm3 Hgb (12.0-16.0) gm/dl Hct (35-47) % MCV (78-100) fl MCH (26-32) pg MCHC (32-36) g/dl RDW (11.5-14.0) % Plt Count (150-450) K/mm3 MPV (6-9.5) fl Gran % (36.0-66.0) % Eos # (Auto) (0-0.5) Absolute Lymphs (auto) (1.0-4.6) Absolute Monos (auto) (0.0-1.3) Lymphocytes % (24.0-44.0) % Monocytes % (0.0-12.0) % Eosinophils % (0.00-5.0) % Basophils % (0.0-0.4) % Absolute Granulocytes (1.4-6.9) Basophils # (0-0.4) Sodium 137 (137-145) mmol/L Potassium 4.6 (3.5-5.1) mmol/L Chloride 93 L (98-107) mmol/L Carbon Dioxide 39 H (22-30) mmol/L Anion Gap 9.8 (5-15) MEQ/L BUN 43 H (7-17) mg/dL Creatinine 1.33 H (0.52-1.04) mg/dL Estimated GFR 43.3 ML/MIN Glucose 150 H (74-106) mg/dL Calcium 9.3 (8.4-10.2) mg/dL Magnesium 1.9 (1.6-2.3) mg/dL Troponin I < 0.012 (0.000-0.034) ng/mL Amylase (30-110) U/L Lipase (23-300) U/L 09/18/18 09/18/18 09/18/18 Range/Units 06:07 06:07 06:07 WBC 8.4 (4.0-10.5) K/mm3 RBC 4.13 (4.1-5.4) M/mm3 Hgb 12.8 (12.0-16.0) gm/dl Hct 42.5 (35-47) % MCV 102.9 H (78-100) fl MCH 31.0 (26-32) pg MCHC 30.1 L (32-36) g/dl RDW 14.6 H (11.5-14.0) % Plt Count 241 (150-450) K/mm3 MPV 10.4 H (6-9.5) fl Gran % 85.1 H (36.0-66.0) % Eos # (Auto) 0 (0-0.5) Absolute Lymphs (auto) 0.74 L (1.0-4.6) Absolute Monos (auto) 0.49 (0.0-1.3) Lymphocytes % 8.9 L (24.0-44.0) % Monocytes % 5.9 (0.0-12.0) % Eosinophils % 0.0 (0.00-5.0) % Basophils % 0.1 (0.0-0.4) % Absolute Granulocytes 7.11 H (1.4-6.9) Basophils # 0.01 (0-0.4) Sodium 136 L (137-145) mmol/L Potassium 4.7 (3.5-5.1) mmol/L Chloride 90 L (98-107) mmol/L Carbon Dioxide 41 H (22-30) mmol/L Anion Gap 9.7 (5-15) MEQ/L BUN 42 H (7-17) mg/dL Creatinine 1.22 H (0.52-1.04) mg/dL Estimated GFR 47.8 ML/MIN Glucose 194 H (74-106) mg/dL Calcium 9.4 (8.4-10.2) mg/dL Magnesium 2.6 H (1.6-2.3) mg/dL Troponin I (0.000-0.034) ng/mL Amylase (30-110) U/L Lipase (23-300) U/L Radiology Exams: Radiology Procedures Category Date Time Status CHEST 1 VIEW (PORTABLE) Stat Exams 09/17/18 07:33 Completed CHEST 2 VIEWS (PA AND LAT) Urgent Exams 09/16/18 09:03 Completed PULMONARY PERF VENTILATION [NUCMED] Routine Exams 09/16/18 11:25 Completed VENOUS BILATERAL EXTREMITY [US] Routine Exams 09/16/18 13:39 Completed Multi-Disciplinary Progress Notes: Multi-Disciplinary Progress Notes 09/17/18 17:41 Case Management Note by Rea Flores S/W PT'S PHARMACY: [facility]. WAS INFORMED THAT PT'S INSURANCE WOULD NOT COVER A SHOWER CHAIR. PT WAS NOTIFIED. Initialized on 09/17/18 17:41 - END OF NOTE 09/17/18 16:53 Case Management Note by Rea Flores PT IS CURRENTLY FOLLOWED BY [facility]. SHE EXPRESSED A NEED FOR RAMP AND ASSISTANCE W / PAYING FOR UTILITIES. F/U W/ LEONELA TERRAZAS W/ [facility]; SHE PUT IN A REFERRAL FOR A RAMP TO BE BUILT AT THE PT'S HOME. PT REPORTS THAT SHE CURRENTLY DOES HAVE AN APPLICATION IN W/ [facility]ACE FOR ASSISTANCE TO PAY FOR UTILITIES. GAVE PT A LIST OF NUMBERS FOR LOCAL TRUSTEES WHO CAN HELP W/ FINANCIAL NEEDS. PT ALSO EXPRESSED A NEED FOR A SHOWER CHAIR AT HOME. WILL F/U W/ DR. SPAULDING TOMORROW ABOUT GETTING A PRESCRIPTION FOR IT. Initialized on 09/17/18 16:53 - END OF NOTE Assessment/Plan (1) COPD with exacerbation Current Visit: Yes Status: Acute Assessment & Plan: WBC is back to normal today. She is on Day 4 of azithromycin and ceftriaxone. Will start to wean IV steroids. Continue oxygen and breathing treatments. Code(s): J44.1 - CHRONIC OBSTRUCTIVE PULMONARY DISEASE W (ACUTE) EXACERBATION (2) Elevated d-dimer Current Visit: Yes Status: Acute Onset Date: ~09/14/18 Assessment & Plan: Repeat D-dimer was normal; VQ scan indeterminant and dopplers neg; will stop anticoagulation doses of lovenox today and use lovenox for prophylaxis. 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 Code(s): G47.33 - OBSTRUCTIVE SLEEP APNEA (ADULT) (PEDIATRIC) (7) Coronary artery disease Current Visit: Yes Status: Acute Assessment & Plan: Continue aspirin daily. Her critical care technician, Dr. Cesia Fortune, is following also. Code(s): I25.10 - ATHSCL HEART DISEASE OF [place] CORONARY ARTERY W/O ANG PCTRS (8) Constipation Current Visit: Yes Status: Acute Assessment & Plan: Will add miralax to other medications she is already taking for constipation. Code(s): K59.00 - CONSTIPATION, UNSPECIFIED (9) Acute on chronic diastolic (congestive) heart failure Current Visit: Yes Status: Acute Assessment & Plan: Continue diuresis and fluids restriction per Dr. Cesia Fortune. She had good output yesterday but weight remains the same. Code(s): I50.33 - ACUTE ON CHRONIC DIASTOLIC (CONGESTIVE) HEART FAILURE
[2018-09-18] MEDS: Miralax Powder 17GM PACKET PO SCH (10:03)
[2018-09-18] MEDS: Toprol-Xl 25MG Tablets PO SCH ×2 (10:04→22:27)
[2018-09-18] MEDS: ENOXAPARIN SODIUM SQ SCH (10:04)
[2018-09-18] MEDS: SYNTHROID 150 MCG PO SCH (10:04)
[2018-09-18] MEDS: Provigil 100MG Tablet PO SCH ×2 (10:04→22:27)
[2018-09-18] MEDS: Klor Con 10 MEQ PO SCH (10:05)
[2018-09-18] MEDS: LYRICA 100MG PO SCH ×2 (10:05→22:26)
[2018-09-18] MEDS: SENOKOT 8.6 MG PO PRN (10:05)
[2018-09-18] MEDS: Protonix 40MG Tablet PO SCH (10:05)
[2018-09-18] MEDS: ceLEXa 20 MG PO SCH (10:05)
[2018-09-18] MEDS: AMITIZA PO SCH (10:06)
[2018-09-18] MEDS: ECOTRIN 81 MG PO SCH (10:06)
[2018-09-18] MEDS: BUMEX 1 MG IV SCH ×2 (10:06→17:07)
[2018-09-18] MEDS: Aldactone 25 MG PO SCH (10:06)
[2018-09-18] MEDS: Zithromax 500 MG/ 250 ML NaCl Premix 500 MG/250 ML IVPB IV SCH (10:07)
[2018-09-18] MEDS: NovoLOG Insulin SQ PRN (12:02)
[2018-09-18] MEDS: Sodium Chloride 0.9% 10 ML FLUSH Syringe IV SCH ×2 (14:50→22:26)
[2018-09-18] MEDS: solu-MEDROL 40 MG IV SCH ×2 (14:50→22:27)
[2018-09-18] MEDS: Tessalon Perles 100 MG PO PRN (20:44)
[2018-09-18] MEDS: TYLENOL EXTRA STRENGTH 500 MG PO PRN (20:44)
[2018-09-18] MEDS: Mirapex 0.5 MG Tablet PO SCH (22:26)
[2018-09-18] MEDS: Pepcid 20 MG PO SCH (22:26)
[2018-09-18] MEDS: ROCEPHIN 1 Gm-D5w 50 ml Bag** 1 G/50 ML IVPB IV SCH (22:27)
[2018-09-18] MEDS: ZOCOR 20MG PO SCH (22:28)
[2018-09-19] MEDS: PROVENTIL 2.5 MG/3 ML NEB IH SCH ×6 (03:27→23:49)
[2018-09-19] MEDS: HYDROCODONE-ACETAMIN 2.5-108/5 ML SOLUTION PO SCH ×4 (05:17→23:50)
[2018-09-19] MEDS: solu-MEDROL 40 MG IV SCH ×3 (05:17→23:12)
[2018-09-19] MEDS: Sodium Chloride 0.9% 10 ML FLUSH Syringe IV SCH ×3 (05:18→23:13)
[2018-09-19 06:00] LABS: Hematocrit 39.6 % (35-47); Hemoglobin 12.2 gm/dl (12.0-16.0); Mean Cell Volume 101.8 fl (78-100); Mean Corpuscular Hgb Concent. 30.8 g/dl (32-36); Mean Platelet Volume 10.3 fl (6-9.5); Platelet Count 256 K/mm3 (150-450); Red Blood Count 3.89 M/mm3 (4.1-5.4); Red Cell Distribution Width 14.5 % (11.5-14.0); White Blood Count 10.2 K/mm3 (4.0-10.5)
[2018-09-19 06:11] LABS: Mean Corpuscular Hemoglobin 31.3 pg (26-32)
[2018-09-19 06:17] LABS: Calcium 9.3 mg/dL (8.4-10.2); Creatinine 1 1.14 mg/dL (0.52-1.04); Potassium 4.7 mmol/L (3.5-5.1)
[2018-09-19 06:30] LABS: ANION GAP 8.7 MEQ/L (5-15)
[2018-09-19] MEDS: PATIENT OWN MEDICATION IH SCH (06:49)
[2018-09-19] MEDS: PANCRELIPASE DR 5,000 UNIT CAP PO SCH ×3 (08:48→16:50)
[2018-09-19 09:34] LABS: Lymphocytes 18 % (24-44); Monocyte 4 % (0.0-12.0); Neutrophils 78 % (36.0-66.0); Platelet Estimate NORMAL (NORMAL); Total Cells Counted 100
[2018-09-19] MEDS: Provigil 100MG Tablet PO SCH ×2 (09:53→23:10)
[2018-09-19] MEDS: BUMEX 1 MG IV SCH (09:53)
[2018-09-19] MEDS: Miralax Powder 17GM PACKET PO SCH (09:53)
[2018-09-19] MEDS: ENOXAPARIN SODIUM SQ SCH (09:53)
[2018-09-19] MEDS: Aldactone 25 MG PO SCH (09:54)
[2018-09-19] MEDS: LYRICA 100MG PO SCH ×2 (09:55→23:11)
[2018-09-19] MEDS: Toprol-Xl 25MG Tablets PO SCH ×2 (09:55→23:11)
[2018-09-19] MEDS: SYNTHROID 150 MCG PO SCH (09:55)
[2018-09-19] MEDS: ceLEXa 20 MG PO SCH (09:55)
[2018-09-19] MEDS: ECOTRIN 81 MG PO SCH (09:55)
[2018-09-19] MEDS: Klor Con 10 MEQ PO SCH (09:55)
[2018-09-19] MEDS: Protonix 40MG Tablet PO SCH (09:55)
[2018-09-19] MEDS: Zithromax 500 MG/ 250 ML NaCl Premix 500 MG/250 ML IVPB IV SCH (09:56)
[2018-09-19] MEDS: AMITIZA PO SCH (09:56)
[2018-09-19] MEDS: SENOKOT 8.6 MG PO PRN (09:58)
--- NOTE | 2018-09-19 10:52 | ECHO ---
DATE: 09/18/2018 PROCEDURE: Complete two-dimensional echocardiogram with color Doppler and Spectral analysis. INDICATION FOR STUDY: Congestive heart failure and ventricular bigeminy. FINDINGS: The left ventricle is normal size with mild concentric left ventricular hypertrophy. Ejection fraction is 50 to 55%. The right ventricle is normal size with normal systolic function. There is a pacemaker wire noted in the right ventricle. The left atrium is mildly dilated. The right atrium is normal size. There is a pacemaker wire noted in the right atrium. The aortic valve is not well visualized. There is no aortic stenosis. There is no aortic regurgitation. The mitral valve is not well visualized. There is mitral regurgitation. The tricuspid valve is not well visualized. There is mild tricuspid regurgitation with right ventricular systolic pressure estimated at 35 to 40 mm of Mercury. The inferior vena cava is not well visualized. The aortic root is normal in size. There is no pericardial effusion. SUMMARY: 1) The left ventricle is mildly dilated with mild concentric left ventricular hypertrophy with an ejection fraction of 50%. 2) The right ventricle is normal size with normal systolic function. 3) Trace mitral regurgitation. 4) Mild tricuspid regurgitation with right ventricular systolic pressure estimated at 35 to 40 mm of Mercury. The inferior vena cava is not well visualized. 5) There is no pericardial effusion. 6) There were rare PVC's noted during the study.
--- NOTE | 2018-09-19 11:25 | PCM.NOTE ---
Date and Time: 09/19/18 1119 Subjective Assessment: Patient reports she had choking episode this AM when she was leaned back too far when she took some cough medication. She has not had a bowel movement but is passing gas. She reports her breathing feels better but she is still wheezing some. She notes her legs are noticeably less swollen. She had an Echo done yesterday. - Review of Systems Constitutional: No Symptoms Eyes: No Symptoms Ears, Nose, & Throat: No Symptoms Respiratory: Cough, Short Of Breath, Wheezing Cardiac: No Symptoms Abdominal/Gastrointestinal: Constipation, No Diarrhea, No Appetite Changes Genitourinary Symptoms: No Symptoms Musculoskeletal: No Symptoms Skin: Other (some skin break down in her right anticubital fossa; IV in rigth hand; bruises on abdomen from lovenox and one opening on her abdomen that is bandaged.) Objective Exam General Appearance: no apparent distress, alert Neurologic Exam: alert, cooperative, normal mood/affect Skin Exam: normal color, warm, dry, other (bandage on right anticubital fossa and bandage on abdomen; brusing on abdomen) Respiratory Exam: other (scattered expiratory wheezes throughout, equal breath sounds, no crackles.) Cardiovascular Exam: regular rate/rhythm, normal heart sounds, No murmur, No friction rub, No gallop Gastrointestinal/Abdomen Exam: soft, normal bowel sounds, No tenderness, No distention, No mass, No guarding Extremity Exam: other (trace edema; no c/c; stasis dermatitis.) OBJECTIVE DATA Vital Signs: Vital Signs - 24 hr Temp Pulse Resp BP Pulse Ox 09/19/18 10:57 78 18 99 09/19/18 08:00 20 09/19/18 07:19 98 09/19/18 07:17 98 F 70 20 111/57 94 L 09/19/18 05:00 20 09/19/18 04:19 95 H 21 93 L 09/19/18 04:00 97.6 F 95 H 21 134/70 93 L 09/19/18 01:00 21 09/19/18 00:00 98.3 F 77 21 112/55 96 09/18/18 23:30 77 21 96 09/18/18 21:00 18 09/18/18 20:00 97.7 F 72 18 127/61 96 09/18/18 19:41 69 20 65 L 09/18/18 17:00 18 09/18/18 16:00 98.4 F 68 18 114/61 96 09/18/18 14:54 83 18 98 09/18/18 13:00 18 09/18/18 11:50 98.6 F 72 18 120/58 93 L Oxygen-Last 24 hours O2 Percentage 3 Liters = 32% O2 Percentage 4 Liters = 36% O2 Percentage 3 Liters = 32% O2 Percentage 3 Liters = 32% O2 Percentage 3 Liters = 32% Oxygen Flowrate (L/min)-RT 4 Pain Assessment - Last Documented Pain Intensity 4 Pain Scale Used 0-10 Pain Scale,FLACC Intake and Output: Intake & Output 09/17/18 09/18/18 09/19/18 09/20/18 06:59 06:59 06:59 06:59 Intake Total 1320 600 810 Output Total 700 1900 3600 Balance 620 1300 -2790 Weight 126 kg 126.2 kg 122.8 kg Lab Results: Accuchecks Date 09/19/18 Date 09/18/18 Date 09/18/18 Date 09/18/18 Time 05:00 Time 20:00 Time 16:30 Time 11:30 Accucheck Value: 178 Accucheck Value: 181 Accucheck Value: 204 Lab Results-Last 24 Hours 09/19/18 09/19/18 Range/Units 05:50 05:50 WBC 10.2 (4.0-10.5) K/mm3 RBC 3.89 L (4.1-5.4) M/mm3 Hgb 12.2 (12.0-16.0) gm/dl Hct 39.6 (35-47) % MCV 101.8 H (78-100) fl MCH 31.3 (26-32) pg MCHC 30.8 L (32-36) g/dl RDW 14.5 H (11.5-14.0) % Plt Count 256 (150-450) K/mm3 MPV 10.3 H (6-9.5) fl Segmented Neutrophils 78 H (36.0-66.0) % Lymphocytes (Manual) 18 L (24-44) % Monocytes (Manual) 4 (0.0-12.0) % Platelet Estimate NORMAL (NORMAL) RBC Morphology NORMAL Sodium 136 L (137-145) mmol/L Potassium 4.7 (3.5-5.1) mmol/L Chloride 87 L (98-107) mmol/L Carbon Dioxide 45 H (22-30) mmol/L Anion Gap 8.7 (5-15) MEQ/L BUN 43 H (7-17) mg/dL Creatinine 1.14 H (0.52-1.04) mg/dL Estimated GFR 51.7 ML/MIN Glucose 169 H (74-106) mg/dL Calcium 9.3 (8.4-10.2) mg/dL Radiology Exams: Radiology Procedures Category Date Time Status ECHO W/2D AND DOPPLER [US] Routine Exams 09/18/18 14:59 Draft Assessment/Plan (1) COPD with exacerbation Current Visit: Yes Status: Acute Assessment & Plan: Continue IV antibiotics Day 5. Steroids were weaned down yesterday. She continues with oxygen as needed and breathing treatments as needed. Slowly improving clinically. Continued cough and wheezing. 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 Code(s): E11.9 - TYPE 2 DIABETES MELLITUS WITHOUT COMPLICATIONS (4) Langerhans cell histiocytoses Current Visit: Yes Status: Acute Assessment & Plan: She will follow up with her pulmonolgist as an outpatient. Code(s): C96.6 - UNIFOCAL LANGERHANS-CELL HISTIOCYTOSIS (5) Obstructive sleep apnea Current Visit: Yes Status: Acute Code(s): G47.33 - OBSTRUCTIVE SLEEP APNEA ( ADULT) (PEDIATRIC) (6) Coronary artery disease Current Visit: Yes Status: Acute Assessment & Plan: Her animal cruelty investigator is following. She ruled out for acute MT. Continue aspirin and statin. Code(s): I25.10 - ATHSCL HEART DISEASE OF [place] CORONARY ARTERY W/O ANG PCTRS (7) Constipation Current Visit: Yes Status: Acute Assessment & Plan: Continue senna with colace and miralax. try suppository again today and may need enema tomorrow. Code(s): K59.00 - CONSTIPATION, UNSPECIFIED (8) Acute on chronic diastolic (congestive) heart failure Current Visit: Yes Status: Acute Assessment & Plan: Continue with diuresis. She had good diuresis yesterday. Echo done but not read yet. Dr. Bradford Fortune following. Code(s): I50.33 - ACUTE ON CHRONIC DIASTOLIC (CONGESTIVE) HEART FAILURE (9) Gait instability Current Visit: Yes Status: Acute Assessment & Plan: Patient reports problems getting in and out of shower at home and problems stepping over the side of the tub. Will write an order for a transfer shower chair as this should help her be able to more safely enter her shower and take a shower without hurting herself. Code(s): R26.81 - UNSTEADINESS ON FEET
[2018-09-19] MEDS: NovoLOG Insulin SQ PRN (17:08)
[2018-09-19] MEDS: TYLENOL EXTRA STRENGTH 500 MG PO PRN (20:58)
[2018-09-19] MEDS: Mirapex 0.5 MG Tablet PO SCH (23:10)
[2018-09-19] MEDS: BUMEX 1 MG PO SCH (23:10)
[2018-09-19] MEDS: ZOCOR 20MG PO SCH (23:11)
[2018-09-19] MEDS: Pepcid 20 MG PO SCH (23:11)
[2018-09-19] MEDS: ROCEPHIN 1 Gm-D5w 50 ml Bag** 1 G/50 ML IVPB IV SCH (23:12)
[2018-09-20] MEDS: PROVENTIL 2.5 MG/3 ML NEB IH SCH ×4 (03:54→15:11)
[2018-09-20 05:57] LABS: Hematocrit 41.9 % (35-47); Hemoglobin 13.4 gm/dl (12.0-16.0); Mean Cell Volume 99.3 fl (78-100); Mean Corpuscular Hemoglobin 31.8 pg (26-32); Platelet Count 257 K/mm3 (150-450); Red Blood Count 4.22 M/mm3 (4.1-5.4); Red Cell Distribution Width 14.6 % (11.5-14.0); White Blood Count 11.9 K/mm3 (4.0-10.5)
[2018-09-20] MEDS: solu-MEDROL 40 MG IV SCH ×2 (06:12→13:31)
[2018-09-20] MEDS: HYDROCODONE-ACETAMIN 2.5-108/5 ML SOLUTION PO SCH (06:13)
[2018-09-20] MEDS: Sodium Chloride 0.9% 10 ML FLUSH Syringe IV SCH ×3 (06:13→13:34)
[2018-09-20 06:24] LABS: Calcium 9.3 mg/dL (8.4-10.2); Creatinine 1 1.05 mg/dL (0.52-1.04); Potassium 4.6 mmol/L (3.5-5.1)
[2018-09-20 06:35] LABS: ANION GAP 10.6 MEQ/L (5-15)
[2018-09-20] MEDS: PATIENT OWN MEDICATION IH SCH ×2 (07:30)
[2018-09-20 07:45] LABS: ATYPICAL LYMPHS 2 %; BAND 2 % (0.0-2.0); Lymphocytes 12 % (24-44); Monocyte 8 % (0.0-12.0); Neutrophils 76 % (36.0-66.0); Platelet Estimate NORMAL (NORMAL); Total Cells Counted 100; Toxic Granulation 2+
[2018-09-20 07:46] LABS: ANISOCYTOSIS 1+
[2018-09-20] MEDS: PANCRELIPASE DR 5,000 UNIT CAP PO SCH ×3 (08:25→17:48)
[2018-09-20] MEDS: Aldactone 25 MG PO SCH (08:30)
[2018-09-20] MEDS: AMITIZA PO SCH (08:31)
[2018-09-20] MEDS: ceLEXa 20 MG PO SCH (08:32)
[2018-09-20] MEDS: BUMEX 1 MG PO SCH (08:32)
[2018-09-20] MEDS: ENOXAPARIN SODIUM SQ SCH (08:33)
[2018-09-20] MEDS: ECOTRIN 81 MG PO SCH (08:33)
[2018-09-20] MEDS: LYRICA 100MG PO SCH (08:34)
[2018-09-20] MEDS: Klor Con 10 MEQ PO SCH (08:34)
[2018-09-20] MEDS: Protonix 40MG Tablet PO SCH (08:35)
[2018-09-20] MEDS: Provigil 100MG Tablet PO SCH (08:35)
[2018-09-20] MEDS: Miralax Powder 17GM PACKET PO SCH (08:35)
[2018-09-20] MEDS: Toprol-Xl 25MG Tablets PO SCH (08:36)
[2018-09-20] MEDS: SYNTHROID 150 MCG PO SCH (08:36)
[2018-09-20 11:05] VITALS: PULSE 81
[2018-09-20] MEDS: NovoLOG Insulin SQ PRN (12:38)
[2018-09-20] MEDS ORDERED: CITROMA 296 ML PO ONE (13:08)
[2018-09-20 15:15] VITALS: O2SAT 97
--- NOTE | 2018-09-20 16:29 | PCM.DCORD ---
- Discharge Discharge Date: 09/20/18 Disposition: Home, Self-Care Condition: Good Prescriptions: New Bumetanide 2 mg PO BID #60 tablet Polyethylene Glycol 3350 17 gm [Miralax Powder 17GM PACKET] 17 gm PO DAILY #30 packet Metolazone 2.5 mg [Zaroxolyn 2.5 MG] 2.5 mg PO MoTh@0900 #8 tablet Prednisone 20 mg [Deltasone 20 mg] 20 mg PO UD #11 tablet Cefdinir [Omnicef] 300 mg PO BID #10 capsule Continue Spironolactone [Aldactone] 50 mg PO DAILY Ranitidine HCl [Zantac] 150 mg PO HS Pramipexole Di-HCl [Mirapex] 0.5 mg PO HS Atorvastatin Calcium [Lipitor] 20 mg PO HS Aspirin 81 mg PO DAILY Potassium Chloride 20 meq PO DAILY Metformin HCl 500 mg [Glucophage 500 MG] 500 mg PO DAILY Modafinil 200 mg PO BID Lubiprostone [Amitiza] 24 mg PO DAILY Levothyroxine Sodium 150 mcg PO DAILY Senna 8.6 mg [Senokot 8.6 mg] 17.2 mg PO DAILY PRN tablet PRN Reason: Constipation Nitroglycerin 0.4 mg Tablet [Nitrostat 0.4 MG Tablet] 0.4 mg SL Q5MIN PRN MR X 3 PRN #20 bottle PRN Reason: Chest Pain Metoprolol Succinate 25 mg Xl* [Toprol-Xl 25MG Tablets] 25 mg PO BID tab Benzonatate [Tessalon Perle] 100 mg PO TID PRN #15 capsule PRN Reason: Cough Pregabalin [Lyrica 100Mg] 100 mg BID Fluticasone/Umeclidin/Vilanter [Trelegy Ellipta 100-62.5-25] 1 puff DAILY Citalopram Hydrobromide [Celexa] 20 mg DAILY Albuterol Sulfate [Ventolin Hfa] 2 puffs IH BID PRN PRN Reason: Shortness Of Breath Lipase/Protease/Amylase [Cr Dr 24,000 Units Capsule] 2 cap PO TID Ondansetron ODT 4 MG [Zofran Odt 4 mg] 1 tab SL TID PRN PRN Reason: Nausea Mirabegron [Myrbetriq] 25 mg PO DAILY Discontinued Prednisone 10 mg [Deltasone 10 mg] 10 mg PO DAILY #7 tablet Furosemide 40 mg PO DAILY Hydrocodone Bit/Acetaminophen [Hydrocodone-Acetaminophen Soln] 10 ml PO Q6H # 120 ml Instructions: Pneumonia in Adults, Pneumonia, Adult (DC) Follow up with: JOSE BANEGAS [ACTIVE STAFF] - 1 Week SHAGGY CAR MD [CONSULTING PHYSICIAN] - 10/15/18 11:00 am ([facility]) ILA SPAULDING [Primary Care Provider] - 1 Week Forms: Discharge Instructions
[2018-09-20 16:36] VITALS: BP 129/70
[2018-09-21] MEDS ORDERED: PATIENT OWN MEDICATION IH SCH (07:00)
[2018-09-23] MEDS ORDERED: Zaroxolyn 2.5 MG PO SCH (09:00)
--- NOTE | 2018-09-24 07:50 | DS ---
DISCHARGE DIAGNOSES: 1) CHRONIC OBSTRUCTIVE PULMONARY DISEASE WITH EXACERBATION. 2) ACUTE ON CHRONIC DIASTOLIC CONGESTIVE HEART FAILURE. 3) OBESITY. 4) DIABETES MELLITUS TYPE 2. 5) LANGERHAN CELL HISTIOCYTOSIS. 6) OBSTRUCTIVE SLEEP APNEA. 7) CORONARY ARTERY DISEASE. 8) CONSTIPATION. 9) GAIT INSTABILITY. DISCHARGE PHYSICAL EXAMINATION: VITALS: Temperature current 97.6F, temperature max 98.3F, heart rate 60 to 81, respiratory rate 20 to 22, blood pressure 116 to 141 over 55 to 69. Oxygen saturation 97 to 100% on 4 liters nasal cannula. Her discharge weight is 120.7 kg. GENERAL: The patient is a pleasant talkative lady sitting up in no acute distress. CVS: She has a regular rate and rhythm. No murmurs, gallops or rubs are appreciated. CHEST: She has scattered wheezes throughout that have improved. No retractions. No crackles. No tachypnea. ABDOMEN: Obese, soft, nontender, nondistended. EXTREMITIES: Trace edema. No clubbing. No cyanosis. HOSPITAL COURSE: 1) CHRONIC OBSTRUCTIVE PULMONARY DISEASE WITH EXACERBATION: She was started on IV Solu-Medrol which was tapered during her hospitalization. She was on oxygen and breathing treatments. She was also given ceftriaxone for five days and azithromycin for five days, will finish for five more days of Cefdinir 300 mg p.o. b.i.d. Her tiller worker, Dr. Abner Wade, saw her while she was here in the hospital. 2) ACUTE ON CHRONIC DIASTOLIC CONGESTIVE HEART FAILURE: She was diuresed with IV Bumex. Dr. Bradford Fortune, her beater lead, saw her by tele-medicine during her hospitalization. She had good diuresis during her hospital stay with decrease in swelling of her lower extremities and improvement in her shortness of breath. He adjusted her home medications so that she is taking Bumex 2 mg b.i.d. and metolazone two times a week. He is going to follow up with her in the clinic regarding her heart failure. She had an echo while she was in the hospital. 3) OBESITY: The patient wished to see the digital asset coordinator while she was here and so that was arranged. 4) DIABETES MELLITUS TYPE 2: She was given a low dose sliding scale insulin while she was here and restarted her Metformin at discharge. 5) LANGERHAN CELL HISTIOCYTOSIS: She will follow up with her tiller worker as an outpatient. 6) OBSTRUCTIVE SLEEP APNEA: She was continued on CPAP at night while she was here. 7) CORONARY ARTERY DISEASE: She ruled out for acute myocardial infarction. She was continued on aspirin and statin. 8) CONSTIPATION: She finally had a large stool the day of her discharge. We used Senna, Colace, MiraLAX, Amitiza suppositories, enema and then had to use magnesium citrate 120 ml by mouth once. 9) GAIT INSTABILITY: She reported a lot of problems getting in and out of her shower so I wrote a prescription for a shower transfer chair. 10) ELEVATED D-DIMER: Her D-dimer was elevated on admission. She had a VQ scan that was indeterminate. Bilateral Doppler's of her lower extremities were negative. She was first anticoagulated with Lovenox at full anticoagulation doses. She had a repeat D-dimer that was normal. Dr. Wade saw her and felt, which I agree with as well, that her D-dimer was not elevated due to a pulmonary embolism. I discussed this with the patient who decided not to anticoagulate her and continue with aspirin for her heart problems. DISCHARGE MEDICATIONS: Please see the discharge order. FOLLOW UP: She has follow up scheduled with Dr. Abner Wade, Dr. Bradford Fortune and myself. DISPOSITION: The patient was discharged to home in fair condition.
== END 2018-09-20 17:55 | disposition home or self-care (01) | DRG 190 ==
LOC: ED 17:32 → MED SURG 21:29
PROVIDERS: ADMIT Internal Medicine; ATTEND Internal Medicine
DX: J18.9 Pneumonia, unspecified organism (principal); J44.1 Chronic obstructive pulmonary disease with (acute) exacerbation; I50.33 Acute on chronic diastolic (congestive) heart failure; C96.6 Unifocal Langerhans-cell histiocytosis; I10 Essential (primary) hypertension; Z86.718 Personal history of other venous thrombosis and embolism; R04.2 Hemoptysis; Z95.0 Presence of cardiac pacemaker; Z99.81 Dependence on supplemental oxygen; R79.1 Abnormal coagulation profile; G47.33 Obstructive sleep apnea (adult) (pediatric); Z79.899 Other long term (current) drug therapy; I25.10 Atherosclerotic heart disease of native coronary artery without angina pectoris; R07.9 Chest pain, unspecified; K59.00 Constipation, unspecified; R26.89 Other abnormalities of gait and mobility; E66.9 Obesity, unspecified; E11.9 Type 2 diabetes mellitus without complications
CPT/HCPCS: 36000; 36415; 71045; 71046; 78582; 80048; 80053; 82150; 82962; 83036; 83605; 83690; 83735; 83880; 84484; 85025; 85027; 85379; 85610; 85730; 87040; 87631; 93005; 93041; 93306; 93970; 94003; 94150; 94640; 94660; 94760; 94762; 96365; 96372; 96374; 96375; 99285; A9540; A9567; Q3014; J0456; J0696; J1650; J2270; J2920; J2930; J3475; J7609; A9270-GY

== ENCOUNTER 2018-11-26 16:17 | Inpatient (IN) | payer MEDICARE ==
[2018-11-26] MEDS ORDERED: DUONEB 0.5-3 MG/3 ml Neb IH ONE ×2 (16:38→16:46)
[2018-11-26] MEDS ORDERED: TYLENOL 325 MG PO STA (16:39)
[2018-11-26] MEDS ORDERED: TYLENOL 325 MG ONE (16:42)
[2018-11-26] MEDS ORDERED: solu-MEDROL 125 MG IV ONE (16:46)
[2018-11-26] MEDS ORDERED: ROCEPHIN 2 Gm-D5w 50ML BAG** 2 G/50 ML IVPB IV STA (16:59)
[2018-11-26] MEDS ORDERED: Zithromax 500 MG/ 250 ML NaCl Premix 500 MG/250 ML IVPB IV STA (16:59)
[2018-11-26] MEDS ORDERED: Sodium Chloride 0.9% 1000 ML 1,000 ML IV SCH ×2 (17:00→19:21)
[2018-11-26] MEDS ORDERED: solu-MEDROL 125 MG ONE (17:01)
[2018-11-26] MEDS ORDERED: Sodium Chloride 0.9% 1000 ML 1,000 ML ONE (17:02)
[2018-11-26] MEDS ORDERED: PROVENTIL 2.5 MG/3 ML NEB IH ONE (17:05)
--- NOTE | 2018-11-26 17:06 | ERPHSYRPT ---
- History of Present Illness Time Seen by Provider: 11/26/18 16:40 Source: patient Exam Limitations: clinical condition Patient Subjective Stated Complaint: here for fever, increase sob for last 3 days now, legs more swollen, wears home o2, Triage Nursing Assessment: pt alert, resp labored with excertion, skin w/d/p. edema to lower legs, wheezes heard Physician History: PATIENT WITH A HISTORY OF CONGESTIVE HEART FAILURE, HYPERTENSION, TYPE 2 DIABETES, SLEEP APNEA, CORONARY ARTERY DISEASE, AND COPD USES HOME OXYGEN, COMPLAINS OF A PRODUCTIVE COUGH YELLOW SPUTUM, FEVER AND INCREASING DYSPNEA, WORSE UPON EXERTION OVER THE PAST 3 DAYS. DENIES CHEST PAIN, NAUSEA, EMESIS OR DIARRHEA. Timing/Duration: day(s) Activities at Onset: activity Severity of Dyspnea-Max: severe Severity of Dyspnea-Current: moderate Possible Cause: occasional episodes Modifying Factors: Improves With: activity Associated Symptoms: cough, edema, productive cough International travel in last 2 weeks: No Allergies/Adverse Reactions: Iodinated Contrast- Oral and IV Dye [Iodinated Contrast Media - IV Dye] Allergy (Severe, Verified 11/26/18 16:32) Difficulty Breathing USED 2 EPI PENS Penicillins Allergy (Severe, Verified 11/26/18 16:32) Difficulty Breathing EPI PEN USED. clindamycin Allergy (Verified 11/26/18 16:32) levofloxacin [From Levaquin] Allergy (Verified 11/26/18 16:32) CYST BEHIND BOTH KNEES. Home Medications: Spironolactone [Aldactone] 50 mg PO DAILY 07/11/16 [History] Pramipexole Di-HCl [Mirapex] 0.5 mg PO HS 07/27/16 [History] Ranitidine HCl [Zantac] 150 mg PO HS 07/27/16 [History] Aspirin 81 mg PO DAILY 09/11/16 [History] Atorvastatin Calcium [Lipitor] 20 mg PO HS 09/11/16 [History] Potassium Chloride 20 meq PO DAILY 11/14/16 [History] Levothyroxine Sodium 150 mcg PO DAILY 10/16/17 [History] Lubiprostone [Amitiza] 24 mg PO DAILY 10/16/17 [History] Metformin HCl 500 mg [Glucophage 500 MG] 500 mg PO DAILY 10/16/17 [History ] Modafinil 200 mg PO BID 10/16/17 [History] Albuterol Sulfate [Ventolin Hfa] 2 puffs IH BID PRN 09/14/18 [History] Citalopram Hydrobromide [Celexa] 20 mg DAILY 09/14/18 [History] Fluticasone/Umeclidin/Vilanter [Trelegy Ellipta 100-62.5-25] 1 puff DAILY [History] Lipase/Protease/Amylase [Cr Dr 24,000 Units Capsule] 2 cap PO TID 09/14/18 [ History] Ondansetron ODT 4 MG [Zofran Odt 4 mg] 1 tab SL TID PRN 09/14/18 [History] Pregabalin [Lyrica 100Mg] 100 mg BID 09/14/18 [History] Mirabegron [Myrbetriq] 25 mg PO DAILY 09/16/18 [History] Prednisone 20 mg [Deltasone 20 mg] 10 mg PO UD 11/26/18 [History] Pregabalin [Lyrica 100Mg] 11/26/18 [History] Hx Tetanus, Diphtheria Vaccination/Date Given: Yes Hx Influenza Vaccination/Date Given: Yes Hx Pneumococcal Vaccination/Date Given: Yes Immunizations Up to Date: Yes - Review of Systems Constitutional: Fever, No Chills Eyes: No Symptoms Ears, Nose, & Throat: No Symptoms Respiratory: Cough, Dyspnea, Dyspnea on Exertion (HDEZ) Cardiac: Edema, Orthopnea, No Chest Pain, No Syncope Abdominal/Gastrointestinal: No Abdominal Pain, No Nausea, No Vomiting, No Diarrhea Genitourinary Symptoms: Incontinence, No Dysuria Musculoskeletal: No Symptoms, No Back Pain, No Neck Pain Skin: Skin Lesions, No Rash Neurological: No Dizziness, No Focal Weakness, No Sensory Changes Psychological: No Symptoms Endocrine: No Symptoms All Other Systems: Reviewed and Negative - Past Medical History Pertinent Past Medical History: Yes Neurological History: No Pertinent History ENT History: No Pertinent History Cardiac History: Angina, Arrhythmia, High Cholesterol, Hypertension Respiratory History: Asthma, CHF, COPD, Emphysema, Pneumonia, Pulmonary Embolism , Sleep Apnea, Other Endocrine Medical History: Thyroid Cancer Musculoskeletal History: Fibromyalgia GI Medical History: GERD, Pancreatitis, Other History: No Pertinent History Psycho-Social History: Anxiety, Depression Female Reproductive Disorders: Fibroids, Other Other Medical History: neuropathy. cytosis, rt ovary removed. CA. Narcolepsy. thyroid removed 2007. barretts esophagus. 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 colonscopy. spinal L4,L5 ,S1 removed disc "completely"per pt and "not fused". thyroidectomy. right ovary removed. carpel tunnel bilateral hands. bilat knee sx. - Social History Smoking Status: Former smoker How long have you smoked: 45 years Exposure to second hand smoke: No Drug Use: none Patient Lives Alone: No - Female History Hx Last Menstrual Period: post Hx Now: No - Nursing Vital Signs Nursing Vital Signs: Initial Vital Signs Temperature 101.5 F 11/26/18 16:25 Pulse Rate 106 H 11/26/18 16:25 Respiratory Rate 26 H 11/26/18 16:25 Blood Pressure 134/89 11/26/18 16:25 O2 Sat by Pulse Oximetry 91 L 11/26/18 16:25 Pain Scale Pain Intensity 5 - Physical Exam General Appearance: mild distress Eye Exam: PERRL/EOMI Neck Exam: normal inspection, supple Respiratory Exam: diminished breath sounds, rhonchi, wheezing Cardiovascular/Chest Exam: normal heart sounds, edema, tachycardia Abdominal/Gastrointestinal Exam: soft, normal bowel sounds (OBESE, NONTENDER) Extremity Exam: pedal edema (2+ PITTING EDEMA FEET TO KNEES) Peripheral Pulses Exam: carotid (R): 2+, carotid (L): 2+, femoral (R): 2+, femoral (L): 2+, dorsalis-pedis (R): 2+, dorsalis-pedis (L): 2+ Neurologic Exam: alert, oriented x 3 Skin Exam: normal color, warm SpO2 Interpretation: borderline oxygenation SpO2: 91 O2 Delivery: Nasal Cannula - Course EKG Interpreted by Me: RATE, Sinus Rhythm, Sinus Tach (RATE 91), NORMAL AXIS - Radiology Exams Chest X-ray Interpretation: Discussed w/ radiologist (STABLE NONACUTE CHEST WITH CHRONIC FEATURES) Ordered Tests: Active Orders 24 hr Category Date Time Status Silhouette Artist STAT Care 11/26/18 16:35 Active EKG-ER Only STAT Care 11/26/18 16:35 Active IV Insertion STAT Care 11/26/18 16:35 Active Oxygen-ED Only Nasal Cannula 3 lpm Care 11/26/18 16:35 Active CHEST 1 VIEW (PORTABLE) Stat Exams 11/26/18 16:49 Completed BLOOD CULTURE Stat Lab 11/26/18 17:15 Received CBC W DIFF Stat Lab 11/26/18 16:30 Completed CMP Stat Lab 11/26/18 16:30 Completed D-DIMER QUANTITATION Stat Lab 11/26/18 16:30 Completed Lactic Acid Stat Lab 11/26/18 16:30 Completed MAGNESIUM Stat Lab 11/26/18 16:30 Completed NT PRO BNP Stat Lab 11/26/18 16:30 Completed PROTIME WITH INR Stat Lab 11/26/18 16:30 Completed TROPONIN Q3H Lab 11/26/18 16:30 Completed TROPONIN Q3H Lab 11/26/18 20:00 Ordered TROPONIN Q3H Lab 11/26/18 23:00 Ordered TROPONIN Q3H Lab 11/27/18 02:00 Ordered TROPONIN Q3H Lab 11/27/18 05:00 Ordered UA W/RFX UR CULTURE Stat Lab 11/26/18 16:52 Uncollected VENOUS BLOOD GAS Stat Lab 11/26/18 16:30 Completed Peak Expiratory Flow Rate DAILY RT 11/26/18 07:00 Active Respiratory Nebulizer STAT RT 11/26/18 16:50 Completed Respiratory Nebulizer STAT RT 11/26/18 17:07 Completed Respiratory Nebulizer STAT RT 11/26/18 17:23 Completed Respiratory Therapy Assessment DAILY RT 11/27/18 07:00 Active Transfer Order Routine Transfer 11/26/18 Ordered Medication Summary Generic Name Dose Route Start Last Admin Trade Name Freq PRN Reason Stop Dose Admin Sodium Chloride 1,000 mls @ 50 mls/hr 11/26/18 17:00 11/26/18 17:08 Sodium Chloride 0.9% 1000 Ml IV 12/26/18 16:59 50 mls/hr .Q20H OSWALDO Administration Discontinued Medications Generic Name Dose Route Start Last Admin Trade Name Freq PRN Reason Stop Dose Admin Acetaminophen 650 mg 11/26/18 16:39 11/26/18 16:45 Tylenol 325 Mg PO 11/26/18 16:40 650 mg STAT STA Administration Acetaminophen Confirm 11/26/18 16:42 Tylenol 325 Mg Administered 11/26/18 16:43 Dose 650 mg .ROUTE .STK-MED ONE Albuterol Sulfate 10 mg 11/26/18 17:05 Proventil 2.5 Mg/3 Ml Neb IH 11/26/18 17:06 STAT ONE Albuterol Sulfate Confirm 11/26/18 17:19 Proventil Solution 2.5 Mg/0.5 Ml Administered 11/26/18 17:20 Dose 10 mg IH .STK-MED ONE Albuterol Sulfate 10 mg 11/26/18 17:23 11/26/18 17:23 Proventil Solution 2.5 Mg/0.5 Ml IH 11/26/18 17:24 10 mg STAT ONE Administration Albuterol/Ipratropium Confirm 11/26/18 16:38 Duoneb 0.5-3 Mg/3 Ml Neb Administered 11/26/18 16:39 Dose 3 ml IH .STK-MED ONE Albuterol/Ipratropium 3 ml 11/26/18 16:46 11/26/18 16:40 Duoneb 0.5-3 Mg/3 Ml Neb IH 11/26/18 16:47 3 ml STAT ONE Administration Enoxaparin Sodium 100 mg 11/26/18 18:13 11/26/18 18:28 Enoxaparin Sodium SQ 11/26/18 18:14 100 mg STAT STA Administration Enoxaparin Sodium Confirm 11/26/18 18:21 Enoxaparin Sodium Administered 11/26/18 18:22 Dose 120 mg SQ .STK-MED ONE Fentanyl Citrate 50 mcg 11/26/18 17:23 11/26/18 17:29 Sublimaze 100 Mcg/2 Ml IV 11/26/18 17:24 50 mcg STAT ONE Administration Fentanyl Citrate Confirm 11/26/18 17:26 Sublimaze 100 Mcg/2 Ml Administered 11/26/18 17:27 Dose 100 mcg .ROUTE .STK-MED ONE Ceftriaxone Sodium/Dextrose 2 g in 50 mls @ 100 mls/hr 11/26/18 16:59 17:46 Rocephin 2 Gm-D5w 50ml Bag IV 11/26/18 17:28 Infused STAT STA Infusion Azithromycin 500 mg in 250 mls @ 250 mls/hr 11/26/18 16:59 11/26/18 18:29 Zithromax 500 Mg/ 250 Ml Nacl Premix IV 11/26/18 17:58 250 ml/hr STAT STA 250 mls/hr Administration Ceftriaxone Sodium/Dextrose Confirm 11/26/18 17:11 Rocephin 2 Gm-D5w 50ml Bag Administered 11/26/18 17:12 Dose 2 g in 50 mls @ ud IV .STK-MED ONE Azithromycin Confirm 11/26/18 18:22 Zithromax 500 Mg/ 250 Ml Nacl Premix Administered 11/26/18 18:23 Dose 500 mg in 250 mls @ ud IV .STK-MED ONE Methylprednisolone Sodium Succinate 125 mg 11/26/18 16:46 11/26/18 17:08 Solu-Medrol 125 Mg IV 11/26/18 16:47 125 mg STAT ONE Administration Methylprednisolone Sodium Succinate Confirm 11/26/18 17:01 Solu-Medrol 125 Mg Administered 11/26/18 17:02 Dose 125 mg .ROUTE .STK-MED ONE Ondansetron HCl 4 mg 11/26/18 17:23 11/26/18 17:28 Zofran 4 Mg/2 Ml Vial IV 11/26/18 17:24 4 mg STAT ONE Administration Ondansetron HCl Confirm 11/26/18 17:25 Zofran 4 Mg/2 Ml Vial Administered 11/26/18 17:26 Dose 4 mg .ROUTE .STK-MED ONE Sodium Chloride Confirm 11/26/18 17:19 Sodium Chloride 3 Ml Ud Nebules Administered 11/26/18 17:20 Dose 9 ml IH .STK-MED ONE Sodium Chloride 7 ml 11/26/18 17:23 11/26/18 17:23 Sodium Chloride 3 Ml Ud Nebules IH 11/26/18 17:24 7 ml STAT ONE Administration Lab/Rad Data: Laboratory Result Diagrams 11/26/18 16:30 11/26/18 16:30 Laboratory Results 11/26/18 11/26/18 11/26/18 Range/Units Unknown 17:15 16:30 WBC (4.0-10.5) K/mm3 RBC (4.1-5.4) M/mm3 Hgb (12.0-16.0) gm/dl Hct (35-47) % MCV (78-100) fl MCH (26-32) pg MCHC (32-36) g/dl RDW (11.5-14.0) % Plt Count (150-450) K/mm3 MPV (6-9.5) fl Gran % (36.0-66.0) % Eos # (Auto) (0-0.5) Absolute Lymphs (auto) (1.0-4.6) Absolute Monos (auto) (0.0-1.3) Lymphocytes % (24.0-44.0) % Monocytes % (0.0-12.0) % Eosinophils % (0.00-5.0) % Basophils % (0.0-0.4) % Absolute Granulocytes (1.4-6.9) Basophils # (0-0.4) PT (9.95-12.35) SECONDS INR (0.8-3.0) D-Dimer (215-500) ng/mL pO2/FiO2 Ratio % VBG pH (7.32-7.42) VBG pCO2 at Pat Temp (42-55) mm/Hg VBG pO2 at Pat Temp (25-40) mm/Hg VBG HCO3 (22-28) meq/L VBG O2 Sat (Paz) (95-100) VBG Base Excess (-2.0-2.0) VBG Hemoglobin VBG Carboxyhemoglobin (0.0-6.9) % T HGB POC Potassium (3.5-5.1) Sodium (137-145) mmol/L Potassium (3.5-5.1) mmol/L Chloride (98-107) mmol/L Carbon Dioxide (22-30) mmol/L Anion Gap (5-15) MEQ/L BUN (7-17) mg/dL Creatinine (0.52-1.04) mg/dL Estimated GFR ML/MIN Glucose (74-106) mg/dL Lactic Acid (0.4-2.0) Calcium (8.4-10.2) mg/dL Magnesium (1.6-2.3) mg/dL Total Bilirubin (0.2-1.3) mg/dL AST (14-36) U/L ALT (0-35) U/L Alkaline Phosphatase (38-126) U/L Troponin I < 0.012 (0.000-0.034) ng/mL NT-Pro-B Natriuret Pep (0-900) pg/mL Serum Total Protein (6.3-8.2) g/dL Albumin (3.5-5.0) g/dL Influenza Type A Ag NEGATIVE (NEGATIVE) Influenza Type B Ag NEGATIVE (NEGATIVE) RSV (PCR) NEGATIVE (Negative) Group A Strep Antibody NEGATIVE (NEGATIVE) 11/26/18 11/26/18 11/26/18 Range/Units 16:30 16:30 16:30 WBC (4.0-10.5) K/mm3 RBC (4.1-5.4) M/mm3 Hgb (12.0-16.0) gm/dl Hct (35-47) % MCV (78-100) fl MCH (26-32) pg MCHC (32-36) g/dl RDW (11.5-14.0) % Plt Count (150-450) K/mm3 MPV (6-9.5) fl Gran % (36.0-66.0) % Eos # (Auto) (0-0.5) Absolute Lymphs (auto) (1.0-4.6) Absolute Monos (auto) (0.0-1.3) Lymphocytes % (24.0-44.0) % Monocytes % (0.0-12.0) % Eosinophils % (0.00-5.0) % Basophils % (0.0-0.4) % Absolute Granulocytes (1.4-6.9) Basophils # (0-0.4) PT 12.0 (9.95-12.35) SECONDS INR 1.03 (0.8-3.0) D-Dimer 547 H* (215-500) ng/mL pO2/FiO2 Ratio 32.0 % VBG pH 7.31 L (7.32-7.42) VBG pCO2 at Pat Temp 67 H* (42-55) mm/Hg VBG pO2 at Pat Temp 30 (25-40) mm/Hg VBG HCO3 33.7 H* (22-28) meq/L VBG O2 Sat (Paz) 64.5 L (95-100) VBG Base Excess 5.2 H (-2.0-2.0) VBG Hemoglobin 13.5 VBG Carboxyhemoglobin 4.1 (0.0-6.9) % T HGB POC Potassium 4.6 (3.5-5.1) Sodium 142 (137-145) mmol/L Potassium 4.5 (3.5-5.1) mmol/L Chloride 101 (98-107) mmol/L Carbon Dioxide 32 H (22-30) mmol/L Anion Gap 13.9 (5-15) MEQ/L BUN 11 (7-17) mg/dL Creatinine 1.07 H (0.52-1.04) mg/dL Estimated GFR 55.6 ML/MIN Glucose 92 (74-106) mg/dL Lactic Acid 0.9 (0.4-2.0) Calcium 9.4 (8.4-10.2) mg/dL Magnesium 1.9 (1.6-2.3) mg/dL Total Bilirubin 0.50 (0.2-1.3) mg/dL AST 20 (14-36) U/L ALT 26 (0-35) U/L Alkaline Phosphatase 90 (38-126) U/L Troponin I (0.000-0.034) ng/mL NT-Pro-B Natriuret Pep 903 H (0-900) pg/mL Serum Total Protein 7.1 (6.3-8.2) g/dL Albumin 4.1 (3.5-5.0) g/dL Influenza Type A Ag (NEGATIVE) Influenza Type B Ag (NEGATIVE) RSV (PCR) (Negative) Group A Strep Antibody (NEGATIVE) 11/26/18 Range/Units 16:30 WBC 9.5 (4.0-10.5) K/mm3 RBC 4.24 (4.1-5.4) M/mm3 Hgb 13.2 (12.0-16.0) gm/dl Hct 42.4 (35-47) % MCV 100.0 (78-100) fl MCH 31.1 (26-32) pg MCHC 31.1 L (32-36) g/dl RDW 14.5 H (11.5-14.0) % Plt Count 271 (150-450) K/mm3 MPV 10.4 H (6-9.5) fl Gran % 73.9 H (36.0-66.0) % Eos # (Auto) 0.15 (0-0.5) Absolute Lymphs (auto) 1.57 (1.0-4.6) Absolute Monos (auto) 0.71 (0.0-1.3) Lymphocytes % 16.6 L (24.0-44.0) % Monocytes % 7.5 (0.0-12.0) % Eosinophils % 1.6 (0.00-5.0) % Basophils % 0.4 (0.0-0.4) % Absolute Granulocytes 6.98 H (1.4-6.9) Basophils # 0.04 (0-0.4) PT (9.95-12.35) SECONDS INR (0.8-3.0) D-Dimer (215-500) ng/mL pO2/FiO2 Ratio % VBG pH (7.32-7.42) VBG pCO2 at Pat Temp (42-55) mm/Hg VBG pO2 at Pat Temp (25-40) mm/Hg VBG HCO3 (22-28) meq/L VBG O2 Sat (Paz) (95-100) VBG Base Excess (-2.0-2.0) VBG Hemoglobin VBG Carboxyhemoglobin (0.0-6.9) % T HGB POC Potassium (3.5-5.1) Sodium (137-145) mmol/L Potassium (3.5-5.1) mmol/L Chloride (98-107) mmol/L Carbon Dioxide (22-30) mmol/L Anion Gap (5-15) MEQ/L BUN (7-17) mg/dL Creatinine (0.52-1.04) mg/dL Estimated GFR ML/MIN Glucose (74-106) mg/dL Lactic Acid (0.4-2.0) Calcium (8.4-10.2) mg/dL Magnesium (1.6-2.3) mg/dL Total Bilirubin (0.2-1.3) mg/dL AST (14-36) U/L ALT (0-35) U/L Alkaline Phosphatase (38-126) U/L Troponin I (0.000-0.034) ng/mL NT-Pro-B Natriuret Pep (0-900) pg/mL Serum Total Protein (6.3-8.2) g/dL Albumin (3.5-5.0) g/dL Influenza Type A Ag (NEGATIVE) Influenza Type B Ag (NEGATIVE) RSV (PCR) (Negative) Group A Strep Antibody (NEGATIVE) - Progress Air Movement: fair Progress Note: ADMINISTERED DUO NEB AEROSOL TX FOLLOWED BY CONTINUOUS ALBUTEROL AEROSOL TX 10 MG OVER 1 HOUR, SOLUMEDROL 125MG IV, AFTER 2 SETS OF BLOOD CULTURES ADMINISTERED ROCEPHIN 2GM AND ZITHROMAX 500MG IVPB, LOVENOX 100MG SUBQ 11/26/18 18 11/26/18 18:11 Blood Culture(s) Obtained: Yes Antibiotics given: Yes Discussed with Dr.: Cleary (DISCUSSED WITH DR CLEARY AT 1805 FOR OBSERVATION) - Departure Departure Disposition: Observation Clinical Impression: ACUTE EXACERBATION COPD, ACUTE DYSPNEA Condition: Stable Critical Care Time: No Referrals: ILA CLEARY [Primary Care Provider] -
[2018-11-26] MEDS ORDERED: ROCEPHIN 2 Gm-D5w 50ML BAG** 2 G/50 ML IVPB IV ONE (17:11)
--- NOTE | 2018-11-26 17:18 | XRAY ---
Indication: Dyspnea. Fever. History of COPD. Comparison: September 17, 2018. Portable chest again demonstrates chronic lung markings and a few incidental calcified granulomas. No focal infiltrate, consolidation, or large effusion. Heart is not enlarged with stable left pacemaker. Bony thorax intact again with mild degenerative changes. Impression: Stable nonacute chest with chronic features.
[2018-11-26] MEDS ORDERED: PROVENTIL Solution 2.5 MG/0.5 ML IH ONE ×2 (17:19→17:23)
[2018-11-26] MEDS ORDERED: Sodium Chloride 3 ML UD NEBULES IH ONE ×2 (17:19→17:23)
[2018-11-26] MEDS ORDERED: SUBLIMAZE 100 MCG/2 ML IV ONE (17:23)
[2018-11-26] MEDS ORDERED: Zofran 4 MG/2 ML VIAL IV ONE (17:23)
[2018-11-26] MEDS ORDERED: Zofran 4 MG/2 ML VIAL ONE (17:25)
[2018-11-26] MEDS ORDERED: SUBLIMAZE 100 MCG/2 ML ONE (17:26)
[2018-11-26 17:27] LABS: BASOPHIL % 0.4 % (0.0-0.4); Basophil (Absolute #) 0.04 (0-0.4); Eosinophil % 1.6 % (0.00-5.0); Eosinophil (Absolute #) 0.15 (0-0.5); Granulocyte Absolute (ANC) 6.98 (1.4-6.9); Granulocytes % 73.9 % (36.0-66.0); Hematocrit 42.4 % (35-47); Hemoglobin 13.2 gm/dl (12.0-16.0); Lymphocyte (Absolute #) 1.57 (1.0-4.6); Lymphocytes % 16.6 % (24.0-44.0); Mean Corpuscular Hemoglobin 31.1 pg (26-32); Mean Corpuscular Hgb Concent. 31.1 g/dl (32-36); Mean Platelet Volume 10.4 fl (6-9.5); Monocyte (Absolute #) 0.71 (0.0-1.3); Monocytes % 7.5 % (0.0-12.0); Platelet Count 271 K/mm3 (150-450); Red Blood Count 4.24 M/mm3 (4.1-5.4); Red Cell Distribution Width 14.5 % (11.5-14.0); White Blood Count 9.5 K/mm3 (4.0-10.5)
[2018-11-26 17:37] LABS: INR 1.03 (0.8-3.0)
[2018-11-26 17:40] LABS: Lactic Acid 0.9 (0.4-2.0); VBG BASE EXCESS 5.2 (-2.0-2.0); VBG CARBOXYHEMOGLOBIN 4.1 % T HGB (0.0-6.9); VBG HCO3- 33.7 meq/L (22-28); VBG HEMOGLOBIN 13.5; VBG O2 SATURATION 64.5 (95-100); VBG POTASSIUM 4.6 (3.5-5.1); VBG pH 7.31 (7.32-7.42)
[2018-11-26 17:50] LABS: ALBUMIN 4.1 g/dL (3.5-5.0); ANION GAP 13.9 MEQ/L (5-15); BILIRUBIN,TOTAL 0.5 mg/dL (0.2-1.3); Calcium 9.4 mg/dL (8.4-10.2); Creatinine 1 1.07 mg/dL (0.52-1.04); MAGNESIUM 1.9 mg/dL (1.6-2.3); Potassium 4.5 mmol/L (3.5-5.1); Total Protein 7.1 g/dL (6.3-8.2)
[2018-11-26] MEDS ORDERED: ENOXAPARIN SODIUM SQ STA (18:13)
[2018-11-26 18:21] LABS: INFLUENZA A NEGATIVE (NEGATIVE); INFLUENZA B NEGATIVE (NEGATIVE); RESPIRATORY SYNCTIAL VIRUS NEGATIVE (Negative)
[2018-11-26] MEDS ORDERED: ENOXAPARIN SODIUM SQ ONE (18:21)
[2018-11-26] MEDS ORDERED: Zithromax 500 MG/ 250 ML NaCl Premix 500 MG/250 ML IVPB IV ONE (18:22)
[2018-11-26] MEDS ORDERED: Nitrostat 0.4 MG Tablet SL PRN (19:21)
[2018-11-26] MEDS ORDERED: Xopenex 1.25 MG/0.5 ML UD NEBULE IH PRN (19:21)
[2018-11-26] MEDS: DUONEB 0.5-3 MG/3 ml Neb IH SCH ×2 (20:12→22:57)
[2018-11-26] MEDS ORDERED: ZOFRAN ODT 4 MG PO PRN (21:13)
[2018-11-26] MEDS: Pepcid 20 MG PO SCH (22:24)
[2018-11-26] MEDS: LYRICA 100MG PO SCH (22:24)
[2018-11-26] MEDS: Toprol-Xl 25MG Tablets PO SCH (22:24)
[2018-11-26] MEDS: AMITIZA PO SCH (22:25)
[2018-11-26] MEDS ORDERED: Provigil 100MG Tablet PO ONE (22:30)
[2018-11-26] MEDS ORDERED: Mirapex 0.5 MG Tablet PO ONE (22:30)
[2018-11-26] MEDS ORDERED: ZOCOR 20MG PO ONE (22:30)
[2018-11-26] MEDS: solu-MEDROL 125 MG IV SCH (23:09)
[2018-11-27 00:38] LABS: Appearance CLEAR (CLEAR); Bilirubin NEGATIVE (NEGATIVE); Blood NEGATIVE Ery/ul (0-5); Glucose NEGATIVE (NEGATIVE); Ketones NEGATIVE (NEGATIVE); Leukocyte Esterase NEGATIVE (NEGATIVE); Mucus SLIGHT /HPF (NEGATIVE); Nitrite NEGATIVE (NEGATIVE); Protein,Urine Dip NEGATIVE (Negative); Specific Gravity 1.011 (1.005-1.025); Urobilinogen NEGATIVE mg/dL (0-1); WBC 0-2 /HPF (0-5)
[2018-11-27 00:39] LABS: Bacteria NONE SEEN /HPF (NEGATIVE); RBC NONE SEEN /HPF (0-2)
[2018-11-27] MEDS: DUONEB 0.5-3 MG/3 ml Neb IH SCH ×6 (02:36→23:05)
[2018-11-27 06:16] LABS: MAGNESIUM 2.1 mg/dL (1.6-2.3)
[2018-11-27 06:17] LABS: TROPONIN < 0.012 ng/mL (0.000-0.034)
[2018-11-27] MEDS: solu-MEDROL 125 MG IV SCH ×3 (06:32→17:34)
[2018-11-27] MEDS ORDERED: DUONEB 0.5-3 MG/3 ml Neb IH ONE (06:37)
[2018-11-27] MEDS: Advair Hfa 115/21 Common canister IH SCH ×2 (07:37→20:49)
[2018-11-27] MEDS ORDERED: Glucophage 500 MG PO SCH (08:00)
[2018-11-27] MEDS: ceLEXa 20 MG PO SCH (09:39)
[2018-11-27] MEDS: ECOTRIN 81 MG PO SCH (09:39)
[2018-11-27] MEDS: Aldactone 25 MG PO SCH (09:39)
[2018-11-27] MEDS: SYNTHROID 150 MCG PO SCH (09:39)
[2018-11-27] MEDS: Zithromax 500 MG/ 250 ML NaCl Premix 500 MG/250 ML IVPB IV SCH (09:39)
[2018-11-27] MEDS: BUMEX 1 MG IV SCH ×3 (09:40→14:50)
[2018-11-27] MEDS: Klor Con 10 MEQ PO SCH (09:40)
[2018-11-27] MEDS: LYRICA 100MG PO SCH ×2 (09:40→21:57)
[2018-11-27] MEDS: Zaroxolyn 2.5 MG PO SCH (09:41)
[2018-11-27] MEDS: Toprol-Xl 25MG Tablets PO SCH ×2 (09:45→21:57)
[2018-11-27] MEDS: AMITIZA PO SCH (09:53)
[2018-11-27] MEDS ORDERED: BUMEX 1 MG PO SCH ×3 (10:00→15:00)
[2018-11-27] MEDS: Tessalon Perles 100 MG PO PRN ×2 (10:02→20:08)
[2018-11-27] MEDS ORDERED: SENOKOT 8.6 MG PO PRN (10:25)
[2018-11-27] MEDS ORDERED: Miralax Powder 17GM PACKET PO SCH (10:30)
[2018-11-27] MEDS ORDERED: MEDICATION INTERVENTION MC SCH (10:45)
[2018-11-27] MEDS: Provigil 100MG Tablet PO SCH ×2 (11:05→16:54)
[2018-11-27] MEDS: PANCRELIPASE DR 5,000 UNIT CAP PO SCH ×2 (12:16→16:55)
[2018-11-27] MEDS: ROCEPHIN 1 Gm-D5w 50 ml Bag** 1 G/50 ML IVPB IV SCH (12:16)
[2018-11-27] MEDS ORDERED: AMYLASE PO SCH (15:00)
[2018-11-27] MEDS ORDERED: PROTEASE PO SCH (15:00)
[2018-11-27] MEDS ORDERED: LIPASE PO SCH (15:00)
[2018-11-27] MEDS ORDERED: TYLENOL 325 MG PO PRN (16:40)
[2018-11-27] MEDS: ENOXAPARIN SODIUM SQ SCH (17:33)
[2018-11-27] MEDS: Mirapex 0.5 MG Tablet PO SCH (21:57)
[2018-11-27] MEDS: ZOCOR 20MG PO SCH (21:58)
[2018-11-27] MEDS: Pepcid 20 MG PO SCH (21:58)
[2018-11-27] MEDS ORDERED: NON-FORMULARY ITEM (Atorvastatin Calcium [Lipitor] 20 MG) PO SCH (22:00)
[2018-11-28] MEDS: solu-MEDROL 125 MG IV SCH ×5 (00:25→23:28)
[2018-11-28] MEDS: DUONEB 0.5-3 MG/3 ml Neb IH SCH ×6 (03:17→23:25)
[2018-11-28] MEDS: Advair Hfa 115/21 Common canister IH SCH ×2 (07:11→19:39)
--- NOTE | 2018-11-28 07:51 | HP ---
HISTORY OF PRESENT ILLNESS: This is a 58 year-old patient of mine who presented to the emergency department with increasing shortness of breath as well as increasing swelling and weight gain. She reports she had a temperature up to 102.4F at home and that her oxygen saturations were at 70%. She reports she was having coughing fits that would last approximately five minutes causing her throat to be sore. She also reports that she was having body aches and coughing up thick, white mucus. REVIEW OF SYSTEMS: She reports she had some stomach pain and decreased urination only having urinated once since she got here. No chest pain. No other abdominal pain besides her stomach. She had swelling she feels like in her neck, abdomen and lower extremities. She reports she feels like her diuretics are not working at all. PAST MEDICAL HISTORY: Chronic obstructive pulmonary disease, thyroid cancer 2007, depression, diabetes mellitus type 2 diagnosed June 2017, hyperlipidemia, history of heart cath 2013 at [facility]. She sees Dr. Bradford Fortune. History of congestive heart failure, hypertension, hypothyroidism, Langerhans cell histiocytosis, hypoxia which she uses home oxygen for. Obstructive sleep apnea with CPAP at night. Restless leg syndrome, narcolepsy, abnormal pancreatic enzymes. PAST SURGICAL HISTORY: Breast surgery x2 when she was 28 years old. Bilateral carpal tunnel surgery. Cholecystectomy. Hysterectomy. Surgery for right and left Cabezas's cyst. Pacemaker placed 12/05/2017 and removed 12/25/2017. Ovary removed for a cyst in 2008. Pacemaker placement 2017. Colonoscopy 2015 which was normal. Upper endoscopy 2015 with gastritis. Thyroid surgery. Right lung biopsy which diagnosed Langerhans cell histiocytosis. Lipoma removed from her left upper quadrant. One ovary removed. MEDICATIONS: Please see the medication reconciliation list. She is also on Trulicity which is not on that list. ALLERGIES: IODINE, PENICILLIN, CLINDAMYCIN, LEVOFLOXACIN. SOCIAL HISTORY: She is a former smoker and quit February 2017. She smoked for 44 pack years. She is a . She uses THC. Denies any alcohol use. FAMILY HISTORY: Her mother and father both had coronary artery disease. PHYSICAL EXAMINATION: VITAL SIGNS: Temperature current 98.3F, heart rate 75, respiratory rate 20, blood pressure 117/56, weight 127.3 kg. Oxygen saturation 91% on 3 liters nasal cannula. GENERAL: The patient is a pleasant talkative lady lying in bed in no acute distress. CVS: She has a regular rate and rhythm. No murmurs, gallops or rubs. CHEST: She has scattered wheezes throughout with equal breath sounds. No tachypnea. No retractions. A deep cough. ABDOMEN: Soft, nontender, nondistended with normal bowel sounds. EXTREMITIES: +2 edema to her knees bilaterally. No clubbing or cyanosis. SKIN: Her skin was dry. LABORATORY DATA AND TESTS: CBC was within normal limits. D-dimer 547. Creatinine 1.07. BNP 903. Serial troponins have been negative. UA was negative. Influenza A/B, respiratory syncytial virus and strep were all negative. Chest x-ray portable was read as portable as stable nonacute chest with chronic features. ASSESSMENT AND PLAN: 1) CHRONIC OBSTRUCTIVE PULMONARY DISEASE EXACERBATION: She has been started on ceftriaxone and azithromycin as well as IV steroids and breathing treatments. I will also continue her home medications. 2) CONGESTIVE HEART FAILURE EXACERBATION: I changed her Bumex from oral to IV, will continue to monitor her ins and outs and daily weight closely. She is also currently on metolazone as well as Spironolactone. I will recheck her electrolytes in the morning. 3) DIABETES MELLITUS TYPE 2: Will hold her Metformin at this time, will continue with Trulicity as well as a sliding scale of insulin. 4) HYPERTENSION: Currently well controlled. 5) HYPOTHYROIDISM: Will continue with her home medication. 6) HYPERLIPIDEMIA: Will continue with her home medication. 7) LANGERHANS CELL HISTIOCYTOSIS: She sees a strategic solutions consultant as an outpatient and will have her continue follow up with him. 8) CHRONIC HYPOXIC RESPIRATORY FAILURE: continue with oxygen as needed. 9) OBSTRUCTIVE SLEEP APNEA: Continue with CPAP or BiPAP at night as needed. 10) DEEP VENOUS THROMBOSIS PROPHYLAXIS: Will use Lovenox 30 mg subcutaneously daily. 11) ELEVATED D-DIMER. I think her risk for pulmonary embolism is low. She has multiple other problems most likely causing her symptoms. She does have a VQ scan ordered for the morning. It was unavailable today and she could not have the chest CT with contrast because she is allergic to the contrast.
--- NOTE | 2018-11-28 09:49 | PCM.NOTE ---
Date and Time: 11/28/1844 Subjective Assessment: Patient reports that her swelling is down some but she does still feel like she is swollen in her legs; her neck does not feel as swollen. She reports a headache that was not helped much by tylenol. She states she usually does not get headaches at home. She reports it is in the front of her head. She reports she is urinating well now. She has had a good appetite. Her cough has improved. .She has not had any more fever. - Review of Systems Constitutional: No Symptoms Eyes: No Symptoms Ears, Nose, & Throat: No Symptoms Respiratory: Wheezing Cardiac: No Symptoms Abdominal/Gastrointestinal: No Symptoms Skin: Other (lower extremity swelling) Neurological: Headache Objective Exam General Appearance: no apparent distress, obese, other (very talkative; no cough noted while I was seeing her) Neurologic Exam: alert, cooperative, normal mood/affect Skin Exam: normal color, warm, dry, No rash Respiratory Exam: other (expiratory wheezes at the bases bilat), No crackles/ rales, No rhonchi Cardiovascular Exam: regular rate/rhythm, normal heart sounds, No murmur, No friction rub, No gallop Gastrointestinal/Abdomen Exam: soft, normal bowel sounds, No tenderness, No distention Extremity Exam: other (+1 edema to mid shins bilat; no c/c) OBJECTIVE DATA Vital Signs: Vital Signs - 24 hr Temp Pulse Resp BP Pulse Ox 11/28/18 08:00 97.6 F 71 20 114/55 91 L 11/28/18 07:14 71 20 91 L 11/28/18 04:00 18 11/28/18 03:51 97.9 F 78 18 121/58 95 11/28/18 03:29 98 H 20 95 11/28/18 00:00 98.2 F 80 20 113/56 92 L 11/27/18 23:15 77 18 90 L 11/27/18 20:46 96 H 22 91 L 11/27/18 20:00 98.3 F 78 22 119/62 91 L 11/27/18 16:00 98.6 F 74 19 114/59 91 L 11/27/18 14:24 91 H 16 91 L 11/27/18 12:00 98.3 F 75 20 117/56 91 L 11/27/18 11:24 77 20 91 L Oxygen-Last 24 hours O2 Percentage 3 Liters = 32% O2 Percentage 3 Liters = 32% O2 Percentage 3 Liters = 32% O2 Percentage 3 Liters = 32% O2 Percentage 3 Liters = 32% Pain Assessment - Last Documented Pain Intensity 7 Pain Scale Used 0-10 Pain Scale Intake and Output: Intake & Output 11/26/18 11/27/18 11/28/18 11/29/18 06:59 06:59 06:59 06:59 Intake Total 802 2174 Output Total 600 9700 Balance 202 -7526 Weight 127.3 kg 124.4 kg Lab Results: Accuchecks Date 11/28/18 Date 11/27/18 Date 11/27/18 Time 07:30 Time 16:30 Time 11:30 Accucheck Value: 176 Accucheck Value: 180 Accucheck Value: 174 Accucheck Value: 162 Radiology Exams: Radiology Procedures Category Date Time Status CHEST 1 VIEW (PORTABLE) Stat Exams 11/26/18 16:49 Completed Assessment/Plan (1) Acute on chronic diastolic (congestive) heart failure Current Visit: No Status: Acute Assessment & Plan: Continue with IV bumex, accurate ins and outs, fluid restriction, daily weight ( her weight is down from 127 to 124 kg and she has 5300 recorded out. Check BMP today to make sure electrolytes do not need replaced and to check kidney function. Clinically she is starting to feel better. Code(s): I50.33 - ACUTE ON CHRONIC DIASTOLIC (CONGESTIVE) HEART FAILURE (2) COPD with exacerbation Current Visit: No Status: Acute Assessment & Plan: Continue IV steroids and IV antibiotics as well as oxygen and breathing treatment. Clinically improving. Code(s): J44.1 - CHRONIC OBSTRUCTIVE PULMONARY DISEASE W (ACUTE) EXACERBATION (3) Diabetes type 2, controlled Current Visit: Yes Status: Acute Qualifiers: Diabetes mellitus [facility] insulin use: with [facility] use Assessment & Plan: She reports today that she does not take lantus but she does take a long acting insulin called Basalar. Will plan to restart that today and I asked her nurse to update her home medication list. Continue with home diabetic medication except for metformin. Code(s): E11.9 - TYPE 2 DIABETES MELLITUS WITHOUT COMPLICATIONS (4) Chronic respiratory failure with hypoxia Current Visit: Yes Status: Acute Assessment & Plan: Continue oxygen which she also uses at home. (5) Langerhans cell histiocytoses Current Visit: No Status: Acute Assessment & Plan: Continue outpatient follow up with ancillary services manager. Code(s): C96.6 - UNIFOCAL LANGERHANS-CELL HISTIOCYTOSIS (6) Obstructive sleep apnea Current Visit: No Status: Acute Assessment & Plan: Continue CPAP at night. Code(s): G47.33 - OBSTRUCTIVE SLEEP APNEA (ADULT) (PEDIATRIC)
[2018-11-28] MEDS ORDERED: BENADRYL 25 MG CAPSULE PO PRN (09:55)
[2018-11-28] MEDS ORDERED: MOTRIN 400 MG PO PRN (09:55)
[2018-11-28] MEDS: Zithromax 500 MG/ 250 ML NaCl Premix 500 MG/250 ML IVPB IV SCH (10:30)
[2018-11-28] MEDS: ROCEPHIN 1 Gm-D5w 50 ml Bag** 1 G/50 ML IVPB IV SCH (10:30)
[2018-11-28] MEDS: BUMEX 1 MG IV SCH ×2 (10:31→14:44)
[2018-11-28] MEDS: SYNTHROID 150 MCG PO SCH (10:31)
[2018-11-28] MEDS: Toprol-Xl 25MG Tablets PO SCH ×2 (10:31→22:29)
[2018-11-28] MEDS: Aldactone 25 MG PO SCH (10:31)
[2018-11-28] MEDS: Provigil 100MG Tablet PO SCH ×2 (10:31→16:24)
[2018-11-28] MEDS: AMITIZA PO SCH (10:32)
[2018-11-28] MEDS: Zaroxolyn 2.5 MG PO SCH (10:32)
[2018-11-28] MEDS: LYRICA 100MG PO SCH ×2 (10:32→22:29)
[2018-11-28] MEDS: PANCRELIPASE DR 5,000 UNIT CAP PO SCH ×3 (10:32→16:24)
[2018-11-28] MEDS: Klor Con 10 MEQ PO SCH (10:32)
[2018-11-28] MEDS: ceLEXa 20 MG PO SCH (10:32)
[2018-11-28] MEDS: ECOTRIN 81 MG PO SCH (10:33)
[2018-11-28 11:38] LABS: ANION GAP 16.5 MEQ/L (5-15); Calcium 9.6 mg/dL (8.4-10.2); Creatinine 1 1.04 mg/dL (0.52-1.04); Potassium 4.1 mmol/L (3.5-5.1)
[2018-11-28] MEDS ORDERED: NovoLOG Insulin SQ PRN (11:38)
[2018-11-28] MEDS: Tessalon Perles 100 MG PO PRN (11:52)
[2018-11-28] MEDS ORDERED: Miralax Powder 17GM PACKET PO PRN (14:38)
[2018-11-28] MEDS: ENOXAPARIN SODIUM SQ SCH (17:36)
[2018-11-28] MEDS: Pepcid 20 MG PO SCH (22:29)
[2018-11-28] MEDS: Mirapex 0.5 MG Tablet PO SCH (22:29)
[2018-11-28] MEDS: ZOCOR 20MG PO SCH (22:30)
[2018-11-29] MEDS: Tessalon Perles 100 MG PO PRN (01:47)
[2018-11-29] MEDS: DUONEB 0.5-3 MG/3 ml Neb IH SCH ×3 (03:00→11:14)
[2018-11-29] MEDS: solu-MEDROL 125 MG IV SCH (05:26)
[2018-11-29 06:11] LABS: ANION GAP 14.5 MEQ/L (5-15); Calcium 9.9 mg/dL (8.4-10.2); Creatinine 1 1.13 mg/dL (0.52-1.04); Potassium 3.9 mmol/L (3.5-5.1)
[2018-11-29] MEDS: Advair Hfa 115/21 Common canister IH SCH (07:10)
[2018-11-29] MEDS: Provigil 100MG Tablet PO SCH (08:03)
[2018-11-29] MEDS: PANCRELIPASE DR 5,000 UNIT CAP PO SCH ×2 (08:05→12:36)
--- NOTE | 2018-11-29 08:47 | PCM.DCORD ---
- Discharge Discharge Date: 11/29/18 Disposition: Home, Self-Care Condition: Good Prescriptions: New Insulin Glargine,Hum.rec.anlog [Basaglar Aurypen U-100] 10 unit SQ DAILY #1 insuln.pen Prednisone 20 mg [Deltasone 20 mg] 20 mg PO UD #6 tablet Albuterol/Ipratropium 3ml Neb* [DUONEB 0.5-3 MG/3 ml Neb] 3 ml IH Q4HRT # 50 ampul.neb Cefdinir [Omnicef] 300 mg PO BID #14 capsule Continue Spironolactone [Aldactone] 50 mg PO DAILY Ranitidine HCl [Zantac] 150 mg PO HS Pramipexole Di-HCl [Mirapex] 0.5 mg PO HS Atorvastatin Calcium [Lipitor] 20 mg PO HS Aspirin 81 mg PO DAILY Potassium Chloride 20 meq PO DAILY Metformin HCl 500 mg [Glucophage 500 MG] 500 mg PO DAILY Modafinil 200 mg PO BID Lubiprostone [Amitiza] 24 mg PO DAILY Levothyroxine Sodium 150 mcg PO DAILY Senna 8.6 mg [Senokot 8.6 mg] 17.2 mg PO DAILY PRN tablet PRN Reason: Constipation Nitroglycerin 0.4 mg Tablet [Nitrostat 0.4 MG Tablet] 0.4 mg SL Q5MIN PRN MR X 3 PRN #20 bottle PRN Reason: Chest Pain Metoprolol Succinate 25 mg Xl* [Toprol-Xl 25MG Tablets] 25 mg PO BID tab Benzonatate [Tessalon Perle] 100 mg PO TID PRN #15 capsule PRN Reason: Cough Pregabalin [Lyrica 100Mg] 100 mg BID Fluticasone/Umeclidin/Vilanter [Trelegy Ellipta 100-62.5-25] 1 puff DAILY Citalopram Hydrobromide [Celexa] 20 mg DAILY Albuterol Sulfate [Ventolin Hfa] 2 puffs IH BID PRN PRN Reason: Shortness Of Breath Lipase/Protease/Amylase [Creon Dr 24,000 Units Capsule] 2 cap PO TID Ondansetron ODT 4 MG [Zofran Odt 4 mg] 1 tab SL TID PRN PRN Reason: Nausea Mirabegron [Myrbetriq] 25 mg PO DAILY Polyethylene Glycol 3350 17 gm [Miralax Powder 17GM PACKET] 17 gm PO UD Changed Bumetanide 2 tab PO BID #120 tablet Metolazone 2.5 mg [Zaroxolyn 2.5 MG] 2.5 mg PO DAILY #30 tablet Discontinued Prednisone 20 mg [Deltasone 20 mg] 10 mg PO DAILY Insulin Glargine,Hum.rec.anlog [Basaglar Kwikpen U-100] 100 unit SQ DAILY Additional Instructions: Continue home dose of trulicity. Check BMP for visit next week. Home health care. Follow up with: ILA SPAULDING [Primary Care Provider] - 1 Week SHAGGY CAR MD [CONSULTING PHYSICIAN] - 1 Week
[2018-11-29] MEDS: BUMEX 1 MG IV SCH (10:07)
[2018-11-29] MEDS: Aldactone 25 MG PO SCH (10:07)
[2018-11-29] MEDS: ECOTRIN 81 MG PO SCH (10:07)
[2018-11-29] MEDS: Klor Con 10 MEQ PO SCH (10:07)
[2018-11-29] MEDS: ROCEPHIN 1 Gm-D5w 50 ml Bag** 1 G/50 ML IVPB IV SCH (10:07)
[2018-11-29] MEDS: Zaroxolyn 2.5 MG PO SCH (10:07)
[2018-11-29] MEDS: SYNTHROID 150 MCG PO SCH (10:08)
[2018-11-29] MEDS: AMITIZA PO SCH (10:08)
[2018-11-29] MEDS: Toprol-Xl 25MG Tablets PO SCH (10:08)
[2018-11-29] MEDS: LYRICA 100MG PO SCH (10:08)
[2018-11-29] MEDS: ceLEXa 20 MG PO SCH (10:08)
[2018-11-29] MEDS: Zithromax 500 MG/ 250 ML NaCl Premix 500 MG/250 ML IVPB IV SCH (10:49)
[2018-11-29 12:27] VITALS: BP 115/57; PULSE 87; O2SAT 93
--- NOTE | 2018-12-03 09:46 | DS ---
DISCHARGE DIAGNOSES: 1) ACUTE ON CHRONIC DIASTOLIC CONGESTIVE HEART FAILURE. 2) CHRONIC OBSTRUCTIVE PULMONARY DISEASE WITH EXACERBATION. 3) DIABETES MELLITUS TYPE 2, CONTROLLED. 4) CHRONIC RESPIRATORY FAILURE WITH HYPOXIA. 5) LANGERHAN'S CELL HISTIOCYTOSIS. 6) OBSTRUCTIVE SLEEP APNEA. DISCHARGE PHYSICAL EXAMINATION: VITALS: Temperature current 97.8F, temperature max 98.5F, heart rate 61 to 79, respiratory rate 18 to 20, blood pressure 113 to 134 over 56 to 62. Discharge weight is 119 kg which was down from admission which was 127. Oxygen saturation 91 to 94% on 3 liters nasal cannula. GENERAL: The patient is a pleasant talkative lady sitting up in no acute distress. CVS: She has a regular rate and rhythm. No murmurs, gallops or rubs. CHEST: She has a few scattered wheezes at the bases when auscultated posteriorly. No tachypnea. No retractions. ABDOMEN: Soft, nontender, nondistended. EXTREMITIES: Trace bilateral lower extremity edema. HOSPITAL COURSE: 1) ACUTE ON CHRONIC DIASTOLIC CONGESTIVE HEART FAILURE: During her hospitalization she was given Bumex IV two times a day. She had over 11 liters out over 48 hours. Her admission weight was 127 kg and at the time of discharge 119 kg. She was feeling much better. Her BMP was followed. She had no hypokalemia. Her chloride was slightly low. At home she takes Bumex 3 mg p.o. b.i.d. and metolazone two days a week. I am discharging her Bumex 4 mg b.i.d. and metolazone daily. I will repeat BMP next week and have her follow up with me in the clinic as well as to follow up with her weight guesser, Dr. Bradford Fortune. 2) CHRONIC OBSTRUCTIVE PULMONARY DISEASE WITH EXACERBATION: She came in with a fever. She was started on IV steroids and ceftriaxone, azithromycin. She has improved. Blood cultures have not grown anything. I am discharging her on Cefdinir 300 mg p.o. b.i.d. as well as prednisone with a taper. 3) DIABETES MELLITUS TYPE 2: She was continued on her home medications except for metformin while she was here, will plan to continue these at home. 4) CHRONIC RESPIRATORY FAILURE WITH HYPOXIA: Will continue with oxygen. 5) LANGERHAN'S CELL HISTIOCYTOSIS: She continues to follow up with her air brush operator as an outpatient. 6) OBSTRUCTIVE SLEEP APNEA: She continues with CPAP at night. DISCHARGE MEDICATIONS: Please see the discharge order. FOLLOW UP: She is to follow up with myself and also weight guesser, Dr. Bradford Fortune. DISPOSITION: The patient was discharged home in fair condition.
== END 2018-11-29 12:40 | disposition home or self-care (01) | DRG 292 ==
LOC: ED 16:17 → MED SURG 18:55 → OBSVTOIN 11-27 17:09
PROVIDERS: ADMIT Internal Medicine; ATTEND Internal Medicine
DX: I50.33 Acute on chronic diastolic (congestive) heart failure (principal); J44.1 Chronic obstructive pulmonary disease with (acute) exacerbation; J96.11 Chronic respiratory failure with hypoxia; C96.6 Unifocal Langerhans-cell histiocytosis; I10 Essential (primary) hypertension; G47.33 Obstructive sleep apnea (adult) (pediatric); E11.9 Type 2 diabetes mellitus without complications; I25.10 Atherosclerotic heart disease of native coronary artery without angina pectoris; Z99.81 Dependence on supplemental oxygen; E78.00 Pure hypercholesterolemia, unspecified; Z85.850 Personal history of malignant neoplasm of thyroid; Z79.4 Long term (current) use of insulin; Z79.899 Other long term (current) drug therapy; E78.5 Hyperlipidemia, unspecified; R79.1 Abnormal coagulation profile; R51 Headache
CPT/HCPCS: 36000; 36415; 71045; 80048; 80053; 81001; 82805; 82962; 83605; 83735; 83880; 84484; 85025; 85379; 85610; 87040; 87631; 87651; 93005; 93041; 93268; 94150; 94640; 94660; 94760; 96360; 96361; 96365; 96367; 96372; 96374; 96375; 99285; G0378; J0456; J0696; J1650; J2405; J2930; J3010; A9270-GY

== ENCOUNTER 2018-12-27 12:32 | Inpatient (IN) | payer MEDICARE ==
[2018-12-27] MEDS ORDERED: ROCEPHIN 1 Gm-D5w 50 ml Bag** 1 G/50 ML IVPB IV STA (12:58)
[2018-12-27] MEDS ORDERED: PROVENTIL 2.5 MG/3 ML NEB IH ONE (12:58)
[2018-12-27] MEDS ORDERED: Zithromax 500 MG/ 250 ML NaCl Premix 500 MG/250 ML IVPB IV STA (12:58)
[2018-12-27] MEDS ORDERED: solu-MEDROL 125 MG IV ONE (12:58)
[2018-12-27] MEDS ORDERED: PROVENTIL Solution 2.5 MG/0.5 ML IH ONE (13:01)
[2018-12-27] MEDS ORDERED: Sodium Chloride 3 ML UD NEBULES IH ONE (13:02)
[2018-12-27] MEDS ORDERED: solu-MEDROL 125 MG ONE (13:10)
[2018-12-27] MEDS ORDERED: Zithromax 500 MG/ 250 ML NaCl Premix 500 MG/250 ML IVPB IV ONE (13:11)
[2018-12-27] MEDS ORDERED: Sodium Chloride 0.9% 1000 ML 1,000 ML ONE (13:11)
[2018-12-27] MEDS ORDERED: ROCEPHIN 1 Gm-D5w 50 ml Bag** 1 G/50 ML IVPB IV ONE (13:11)
--- NOTE | 2018-12-27 13:13 | ERPHSYRPT ---
- History of Present Illness Time Seen by Provider: 12/27/18 12:55 Source: patient Exam Limitations: clinical condition Physician History: PATIENT WITH A HISTORY OF STEROID DEPENDENT COPD, HOME OXYGEN, CHF, CORONARY ARTERY DISEASE, PACEMAKER, COMPLAINS OF A PRODUCTIVE COUGH, YELLOW SPUTUM, EXERTIONAL DYSPNEA, SWELLING, PAIN WITH REDNESS IN LEGS. DENIES FEVER, CHILLS OR CHEST PAIN. Timing/Duration: day(s) Activities at Onset: activity Severity of Dyspnea-Max: moderate Severity of Dyspnea-Current: moderate Possible Cause: occasional episodes Modifying Factors: Improves With: activity, coughing Associated Symptoms: cough, calf pain, productive cough International travel in last 2 weeks: No Allergies/Adverse Reactions: Iodinated Contrast- Oral and IV Dye [Iodinated Contrast Media - IV Dye] Allergy (Severe, Verified 12/27/18 13:24) Difficulty Breathing USED 2 EPI PENS Penicillins Allergy (Severe, Verified 12/27/18 13:24) Difficulty Breathing EPI PEN USED. clindamycin Allergy (Verified 12/27/18 13:24) levofloxacin [From Levaquin] Allergy (Verified 12/27/18 13:24) CYST BEHIND BOTH KNEES. Home Medications: Pramipexole Di-HCl [Mirapex] 0.5 mg PO HS 07/27/16 [History] Ranitidine HCl [Zantac] 150 mg PO HS 07/27/16 [History] Aspirin 81 mg PO DAILY 09/11/16 [History] Atorvastatin Calcium [Lipitor] 20 mg PO HS 09/11/16 [History] Levothyroxine Sodium 150 mcg PO DAILY 10/16/17 [History] Lubiprostone [Amitiza] 24 mg PO DAILY 10/16/17 [History] Metformin HCl 500 mg [Glucophage 500 MG] 500 mg PO DAILY 10/16/17 [History ] Modafinil 200 mg PO BID 10/16/17 [History] Albuterol Sulfate [Ventolin Hfa] 2 puffs IH BID PRN 09/14/18 [History] Citalopram Hydrobromide [Celexa] 20 mg DAILY 09/14/18 [History] Fluticasone/Umeclidin/Vilanter [Trelegy Ellipta 100-62.5-25] 1 puff DAILY [History] Lipase/Protease/Amylase [Cr Nur 24,000 Units Capsule] 2 cap PO TID 09/14/18 [ History] Ondansetron ODT 4 MG [Zofran Odt 4 mg] 1 tab SL TID PRN 09/14/18 [History] Pregabalin [Lyrica 100Mg] 100 mg BID 09/14/18 [History] Mirabegron [Myrbetriq] 25 mg PO DAILY 09/16/18 [History] Polyethylene Glycol 3350 17 gm [Miralax Powder 17GM PACKET] 17 gm PO UD 11/26 [History] Torsemide 40 mg PO DAILY 12/27/18 [History] Hx Tetanus, Diphtheria Vaccination/Date Given: Yes Hx Influenza Vaccination/Date Given: Yes Hx Pneumococcal Vaccination/Date Given: Yes - Review of Systems Constitutional: No Fever, No Chills Eyes: No Symptoms Ears, Nose, & Throat: No Symptoms Respiratory: Cough, Dyspnea, Dyspnea on Exertion (HDEZ), Wheezing Cardiac: No Symptoms, No Chest Pain, No Edema, No Syncope Abdominal/Gastrointestinal: No Symptoms, No Abdominal Pain, No Nausea, No Vomiting, No Diarrhea Genitourinary Symptoms: No Symptoms, No Dysuria Musculoskeletal: Other (LOWER EXTREMITY PAIN WITH SWELLING), No Back Pain, No Neck Pain Skin: No Rash Neurological: No Symptoms, No Dizziness, No Focal Weakness, No Sensory Changes Psychological: No Symptoms Endocrine: No Symptoms All Other Systems: Reviewed and Negative - Past Medical History Pertinent Past Medical History: Yes Neurological History: No Pertinent History ENT History: No Pertinent History Cardiac History: Angina, Arrhythmia, High Cholesterol, Hypertension Respiratory History: Asthma, CHF, COPD, Emphysema, Pneumonia, Pulmonary Embolism , Sleep Apnea, Other Endocrine Medical History: Diabetes Type II, Thyroid Cancer Musculoskeletal History: Fibromyalgia GI Medical History: GERD, Pancreatitis, Other History: No Pertinent History Psycho-Social History: Anxiety, Depression Female Reproductive Disorders: Fibroids, Other Other Medical History: neuropathy. cytosis, rt ovary removed. Narcolepsy. barretts esophagus. Langerhans cell histiocytosis- remission 2017 - Past Surgical History Past Surgical History: Yes Neuro Surgical History: No Pertinent History Cardiac: Cardiac Catheterization, Cardiac Stent, Pacemaker Respiratory: Other Gastrointestinal: Cholecystectomy Genitourinary: No Pertinent History Musculoskeletal: Orthopedic Surgery Female Surgical History: Hysterectomy, Other Other Surgical History: lung biopsy right lung 2012 r/t langerhines cytosis of the lungs. colonscopy. spinal L4,L5 ,S1 removed disc "completely"per pt and "not fused". thyroidectomy. right ovary removed. carpel tunnel bilateral hands. bilat knee sx. - Social History Smoking Status: Former smoker How long have you smoked: 45 years Exposure to second hand smoke: No Drug Use: none Patient Lives Alone: No - Nursing Vital Signs Nursing Vital Signs: Initial Vital Signs Temperature 98.4 F 12/27/18 12:56 Pulse Rate 80 12/27/18 12:56 Respiratory Rate 30 H 12/27/18 12:56 Blood Pressure 122/75 12/27/18 12:56 O2 Sat by Pulse Oximetry 92 L 12/27/18 12:56 Pain Scale Pain Intensity 10 - Physical Exam General Appearance: mild distress, alert Eye Exam: PERRL/EOMI Ears, Nose, Throat Exam: hearing grossly normal Neck Exam: normal inspection, supple Respiratory Exam: diminished breath sounds, wheezing, other (MODERATE AIR EXCHANGE, NO RHONCHI, NO LABORED BREATHING. NO ACCESSORY MUSCLE USE OR AUDIBLE WHEEZES) Cardiovascular/Chest Exam: normal heart sounds, regular rate/rhythm Abdominal/Gastrointestinal Exam: soft, No tenderness, No distention, No mass Extremity Exam: non-tender, normal range of motion, normal inspection, no calf tenderness, no pedal edema Neurologic Exam: alert, oriented x 3, cooperative, baggage and mail agent II-XII nml as tested, sensation nml, No motor deficits Skin Exam: normal color, warm, No dry SpO2 Interpretation: normal SpO2: 97 O2 Delivery: Nasal Cannula - Course EKG Interpreted by Me: RATE, Sinus Tach, NORMAL AXIS, 1st degree AV Block - Radiology Exams Chest X-ray Interpretation: Discussed w/ radiologist (RIGHT LOWER LOBE INFILTRATE) Ordered Tests: Active Orders 24 hr Category Date Time Status Up With Assistance ROUTINE Activity 12/27/18 14:31 Ordered Accucheck ACHS Care 12/27/18 14:31 Ordered Code Status Order ROUTINE Care 12/27/18 14:31 Ordered EKG-ER Only STAT Care 12/27/18 12:58 Active IV Care Q6H Care 12/27/18 14:31 Ordered IV Insertion STAT Care 12/27/18 12:58 Active Oxygen-ED Only Nasal Cannula 2 lpm Care 12/27/18 12:[address] in Observation ROUTINE Care 12/27/18 14:31 Ordered Moreno Arcos, Apply ROUTINE Care 12/27/18 14:31 Ordered Vital Signs Q4H Care 12/27/18 14:31 Ordered Weight,Daily 0600 Care 12/27/18 14:31 Ordered 1800 Calorie ADA Diet 12/27/18 Dinner Ordered CHEST 1 VIEW (PORTABLE) Stat Exams 12/27/18 13:00 Completed VENOUS BILATERAL EXTREMITY [US] Stat Exams 12/27/18 14:28 Taken BLOOD CULTURE Stat Lab 12/27/18 13:20 Received CBC W DIFF Stat Lab 12/27/18 12:58 Completed CMP Stat Lab 12/27/18 12:58 Completed Lactic Acid Stat Lab 12/27/18 13:16 Completed NT PRO BNP Stat Lab 12/27/18 12:58 Completed PROTIME WITH INR Stat Lab 12/27/18 12:58 Completed TROPONIN Q3H Lab 12/27/18 13:00 Completed TROPONIN Q3H Lab 12/27/18 16:00 Ordered TROPONIN Q3H Lab 12/27/18 19:00 Ordered TROPONIN Q3H Lab 12/27/18 22:00 Ordered TROPONIN Q3H Lab 12/28/18 01:00 Ordered VENOUS BLOOD GAS Stat Lab 12/27/18 13:16 Completed Oxygen Nasal Cannula 2 lpm RT 12/27/18 14:31 Ordered Peak Expiratory Flow Rate ONCE RT 12/27/18 13:10 Active Respiratory Therapy Assessment DAILY RT 12/27/18 13:10 Active Respiratory Therapy Consult ROUTINE RT 12/27/18 14:33 Ordered Transfer Order Routine Transfer 12/27/18 Ordered Medication Summary Generic Name Dose Route Start Last Admin Trade Name Freq PRN Reason Stop Dose Admin Albuterol Sulfate 10 mg 12/27/18 13:15 12/27/18 13:09 Proventil Solution 2.5 Mg/0.5 Ml IH 01/26/19 13:14 10 mg UD OSWALDO Administration Sodium Chloride 1,000 mls @ 30 mls/hr 12/27/18 13:00 12/27/18 13:14 Sodium Chloride 0.9% 1000 Ml IV 01/26/19 12:59 30 mls/hr .Q24H OSWALDO Administration Discontinued Medications Generic Name Dose Route Start Last Admin Trade Name Freq PRN Reason Stop Dose Admin Albuterol Sulfate 10 mg 12/27/18 12:58 Proventil 2.5 Mg/3 Ml Neb IH 12/27/18 12:59 STAT ONE Albuterol Sulfate Confirm 12/27/18 13:01 Proventil Solution 2.5 Mg/0.5 Ml Administered 12/27/18 13:02 Dose 10 mg IH .STK-MED ONE Ceftriaxone Sodium/Dextrose 1 g in 50 mls @ 100 mls/hr 12/27/18 12:58 13:13 Rocephin 1 Gm-D5w 50 Ml Bag IV 12/27/18 13:27 100 ml/hr STAT STA 100 mls/hr Administration Azithromycin 500 mg in 250 mls @ 250 mls/hr 12/27/18 12:58 12/27/18 13:43 Zithromax 500 Mg/ 250 Ml Nacl Premix IV 12/27/18 13:57 250 ml/hr STAT STA 250 mls/hr Administration Azithromycin Confirm 12/27/18 13:11 Zithromax 500 Mg/ 250 Ml Nacl Premix Administered 12/27/18 13:12 Dose 500 mg in 250 mls @ ud IV .STK-MED ONE Ceftriaxone Sodium/Dextrose Confirm 12/27/18 13:11 Rocephin 1 Gm-D5w 50 Ml Bag Administered 12/27/18 13:12 Dose 1 g in 50 mls @ ud IV .STK-MED ONE Methylprednisolone Sodium Succinate 125 mg 12/27/18 12:58 12/27/18 13:12 Solu-Medrol 125 Mg IV 12/27/18 12:59 125 mg STAT ONE Administration Methylprednisolone Sodium Succinate Confirm 12/27/18 13:10 Solu-Medrol 125 Mg Administered 12/27/18 13:11 Dose 125 mg .ROUTE .STK-MED ONE Ondansetron HCl 4 mg 12/27/18 14:27 12/27/18 14:32 Zofran 4 Mg/2 Ml Vial IV 12/27/18 14:28 4 mg STAT ONE Administration Ondansetron HCl Confirm 12/27/18 14:30 Zofran 4 Mg/2 Ml Vial Administered 12/27/18 14:31 Dose 4 mg .ROUTE .STK-MED ONE Sodium Chloride Confirm 12/27/18 13:02 Sodium Chloride 3 Ml Ud Nebules Administered 12/27/18 13:03 Dose 9 ml IH .STK-MED ONE Lab/Rad Data: Laboratory Result Diagrams 12/27/18 12:58 12/27/18 12:58 Laboratory Results 12/27/18 12/27/18 12/27/18 Range/Units 13:20 13:16 13:00 WBC (4.0-10.5) K/mm3 RBC (4.1-5.4) M/mm3 Hgb (12.0-16.0) gm/dl Hct (35-47) % MCV (78-100) fl MCH (26-32) pg MCHC (32-36) g/dl RDW (11.5-14.0) % Plt Count (150-450) K/mm3 MPV (6-9.5) fl Gran % (36.0-66.0) % Eos # (Auto) (0-0.5) Absolute Lymphs (auto) (1.0-4.6) Absolute Monos (auto) (0.0-1.3) Lymphocytes % (24.0-44.0) % Monocytes % (0.0-12.0) % Eosinophils % (0.00-5.0) % Basophils % (0.0-0.4) % Absolute Granulocytes (1.4-6.9) Basophils # (0-0.4) PT (9.95-12.35) SECONDS INR (0.8-3.0) pO2/FiO2 Ratio 28.0 % VBG pH 7.34 (7.32-7.42) VBG pCO2 at Pat Temp 74 H* (42-55) mm/Hg VBG pO2 at Pat Temp 28 (25-40) mm/Hg VBG HCO3 39.9 H* (22-28) meq/L VBG O2 Sat (Paz) 55.9 L (95-100) VBG Base Excess 10.9 H (-2.0-2.0) VBG Hemoglobin 13.6 VBG Carboxyhemoglobin 3.5 (0.0-6.9) % T HGB POC Potassium 4.2 (3.5-5.1) Sodium (137-145) mmol/L Potassium (3.5-5.1) mmol/L Chloride (98-107) mmol/L Carbon Dioxide (22-30) mmol/L Anion Gap (5-15) MEQ/L BUN (7-17) mg/dL Creatinine (0.52-1.04) mg/dL Estimated GFR ML/MIN Glucose (74-106) mg/dL Lactic Acid 1.3 (0.4-2.0) Calcium (8.4-10.2) mg/dL Total Bilirubin (0.2-1.3) mg/dL AST (14-36) U/L ALT (0-35) U/L Alkaline Phosphatase (38-126) U/L Troponin I < 0.012 (0.000-0.034) ng/mL NT-Pro-B Natriuret Pep (0-900) pg/mL Serum Total Protein (6.3-8.2) g/dL Albumin (3.5-5.0) g/dL Influenza Type A Ag NEGATIVE (NEGATIVE) Influenza Type B Ag NEGATIVE (NEGATIVE) RSV (PCR) NEGATIVE (Negative) 12/27/18 12/27/18 12/27/18 Range/Units 12:58 12:58 12:58 WBC 7.1 (4.0-10.5) K/mm3 RBC 4.31 (4.1-5.4) M/mm3 Hgb 13.6 (12.0-16.0) gm/dl Hct 42.8 (35-47) % MCV 99.3 (78-100) fl MCH 31.6 (26-32) pg MCHC 31.8 L (32-36) g/dl RDW 15.0 H (11.5-14.0) % Plt Count 222 (150-450) K/mm3 MPV 9.7 H (6-9.5) fl Gran % 62.2 (36.0-66.0) % Eos # (Auto) 0.15 (0-0.5) Absolute Lymphs (auto) 1.72 (1.0-4.6) Absolute Monos (auto) 0.77 (0.0-1.3) Lymphocytes % 24.4 (24.0-44.0) % Monocytes % 10.9 (0.0-12.0) % Eosinophils % 2.1 (0.00-5.0) % Basophils % 0.4 (0.0-0.4) % Absolute Granulocytes 4.38 (1.4-6.9) Basophils # 0.03 (0-0.4) PT 11.6 (9.95-12.35) SECONDS INR 1.00 (0.8-3.0) pO2/FiO2 Ratio % VBG pH (7.32-7.42) VBG pCO2 at Pat Temp (42-55) mm/Hg VBG pO2 at Pat Temp (25-40) mm/Hg VBG HCO3 (22-28) meq/L VBG O2 Sat (Paz) (95-100) VBG Base Excess (-2.0-2.0) VBG Hemoglobin VBG Carboxyhemoglobin (0.0-6.9) % T HGB POC Potassium (3.5-5.1) Sodium 140 (137-145) mmol/L Potassium 4.2 (3.5-5.1) mmol/L Chloride 98 (98-107) mmol/L Carbon Dioxide 36 H (22-30) mmol/L Anion Gap 10.5 (5-15) MEQ/L BUN 17 (7-17) mg/dL Creatinine 1.20 H (0.52-1.04) mg/dL Estimated GFR 48.7 ML/MIN Glucose 95 (74-106) mg/dL Lactic Acid (0.4-2.0) Calcium 9.4 (8.4-10.2) mg/dL Total Bilirubin 0.50 (0.2-1.3) mg/dL AST 24 (14-36) U/L ALT 20 (0-35) U/L Alkaline Phosphatase 95 (38-126) U/L Troponin I (0.000-0.034) ng/mL NT-Pro-B Natriuret Pep 565 (0-900) pg/mL Serum Total Protein 6.8 (6.3-8.2) g/dL Albumin 4.0 (3.5-5.0) g/dL Influenza Type A Ag (NEGATIVE) Influenza Type B Ag (NEGATIVE) RSV (PCR) (Negative) - Progress Progress: re-examined, unchanged Progress Note: 12/27/18 13:21 ADMINISTERED IV NORMAL SALINE 30ML/HR, SOLUMEDROL 125MG, AFTER BLOOD CULTURES, IV ROCEPHIN 1GM, ZITHROMAX 500MG IVPB, CONTINUOUS NEBULIZER ALBUTEROL 10MG OVER 1 HOUR. Blood Culture(s) Obtained: Yes Antibiotics given: Yes Discussed with Dr.: Spaulding (DISCUSSED WITH DR SPAULDING AT 1420 FOR OBSERVATION) - Departure Departure Disposition: Observation Clinical Impression: PNEUMONIA, EXACERBATION COPD Condition: Stable Critical Care Time: No Referrals: ILA SPAULDING [Primary Care Provider] -
[2018-12-27] MEDS: Sodium Chloride 0.9% 1000 ML 1,000 ML IV SCH (13:14)
[2018-12-27] MEDS ORDERED: PROVENTIL Solution 2.5 MG/0.5 ML IH SCH (13:15)
[2018-12-27 13:19] LABS: Lactic Acid 1.3 (0.4-2.0); VBG BASE EXCESS 10.9 (-2.0-2.0); VBG CARBOXYHEMOGLOBIN 3.5 % T HGB (0.0-6.9); VBG HCO3- 39.9 meq/L (22-28); VBG HEMOGLOBIN 13.6; VBG O2 SATURATION 55.9 (95-100); VBG POTASSIUM 4.2 (3.5-5.1); VBG pH 7.34 (7.32-7.42)
--- NOTE | 2018-12-27 13:26 | XRAY ---
Indication: Cough and dyspnea. Comparison: November 26, 2018. Portable chest demonstrates developing hazy right base infiltrate versus atelectasis with tiny effusion. Remaining left lung and heart unremarkable again with left-sided dual-lead pacemaker.
[2018-12-27 13:35] LABS: BASOPHIL % 0.4 % (0.0-0.4); Basophil (Absolute #) 0.03 (0-0.4); Eosinophil % 2.1 % (0.00-5.0); Eosinophil (Absolute #) 0.15 (0-0.5); Granulocyte Absolute (ANC) 4.38 (1.4-6.9); Granulocytes % 62.2 % (36.0-66.0); Hematocrit 42.8 % (35-47); Hemoglobin 13.6 gm/dl (12.0-16.0); Lymphocyte (Absolute #) 1.72 (1.0-4.6); Lymphocytes % 24.4 % (24.0-44.0); Mean Cell Volume 99.3 fl (78-100); Mean Corpuscular Hemoglobin 31.6 pg (26-32); Mean Corpuscular Hgb Concent. 31.8 g/dl (32-36); Mean Platelet Volume 9.7 fl (6-9.5); Monocyte (Absolute #) 0.77 (0.0-1.3); Monocytes % 10.9 % (0.0-12.0); Platelet Count 222 K/mm3 (150-450); Red Blood Count 4.31 M/mm3 (4.1-5.4); White Blood Count 7.1 K/mm3 (4.0-10.5)
[2018-12-27 13:41] LABS: PROTIME 11.6 SECONDS (9.95-12.35)
[2018-12-27 13:54] LABS: ANION GAP 10.5 MEQ/L (5-15); BILIRUBIN,TOTAL 0.5 mg/dL (0.2-1.3); Calcium 9.4 mg/dL (8.4-10.2); Creatinine 1 1.2 mg/dL (0.52-1.04); Potassium 4.2 mmol/L (3.5-5.1); Total Protein 6.8 g/dL (6.3-8.2)
[2018-12-27 14:09] LABS: INFLUENZA A NEGATIVE (NEGATIVE); INFLUENZA B NEGATIVE (NEGATIVE); RESPIRATORY SYNCTIAL VIRUS NEGATIVE (Negative)
[2018-12-27] MEDS ORDERED: Zofran 4 MG/2 ML VIAL IV ONE (14:27)
[2018-12-27] MEDS ORDERED: Zofran 4 MG/2 ML VIAL ONE (14:30)
[2018-12-27] MEDS ORDERED: Xopenex 1.25 MG/0.5 ML UD NEBULE IH PRN (14:39)
--- NOTE | 2018-12-27 14:46 | XRAY ---
Indication: Bilateral lower extremity pain 3 weeks. Two-dimensional sonogram and color Doppler imaging of the major venous vessels of the left and right leg was performed. Comparison: September 16, 2018. Again no thrombus seen in the examined deep venous vessels of the left and right leg including greater saphenous veins. Veins demonstrate normal compressibility. Venous waveforms are normal with and without augmentation. Impression: Left and right legs again negative for DVT.
[2018-12-27] MEDS: DUONEB 0.5-3 MG/3 ml Neb IH SCH ×3 (15:38→23:44)
[2018-12-27] MEDS ORDERED: Zofran 4 MG/2 ML VIAL IV PRN (17:34)
[2018-12-27] MEDS: solu-MEDROL 125 MG IV SCH ×2 (18:49→23:25)
[2018-12-27] MEDS: DEMADEX 20 MG PO SCH (18:50)
[2018-12-27] MEDS: ceLEXa 20 MG PO SCH (18:50)
[2018-12-27] MEDS: ECOTRIN 81 MG PO SCH (18:50)
[2018-12-27] MEDS: Advair Hfa 115/21 Common canister IH SCH (19:20)
[2018-12-27] MEDS: ULTRAM 50 MG PO PRN (20:00)
[2018-12-27] MEDS: Toprol-Xl 25MG Tablets PO SCH (21:35)
[2018-12-27] MEDS: NovoLOG Insulin SQ PRN (21:36)
[2018-12-27] MEDS: Pepcid 20 MG PO SCH (21:36)
[2018-12-27] MEDS: Mirapex 0.5 MG Tablet PO SCH (22:15)
[2018-12-27] MEDS: ZOCOR 20MG PO SCH (22:15)
[2018-12-27] MEDS: LYRICA 100MG PO SCH (22:15)
[2018-12-27] MEDS: Tessalon Perles 100 MG PO PRN (23:35)
[2018-12-28] MEDS: DUONEB 0.5-3 MG/3 ml Neb IH SCH ×6 (04:22→23:30)
[2018-12-28] MEDS: solu-MEDROL 125 MG IV SCH ×4 (05:32→23:37)
[2018-12-28] MEDS: ULTRAM 50 MG PO PRN (05:32)
[2018-12-28] MEDS: Advair Hfa 115/21 Common canister IH SCH ×2 (06:58→19:08)
[2018-12-28] MEDS ORDERED: Glucophage 500 MG PO SCH (08:00)
[2018-12-28] MEDS ORDERED: NovoLOG Insulin ONE (08:20)
[2018-12-28] MEDS: Lantus Insulin SQ SCH (08:28)
[2018-12-28] MEDS: NovoLOG Insulin SQ PRN ×4 (08:28→21:16)
[2018-12-28] MEDS ORDERED: MEDICATION INTERVENTION MC SCH (09:00)
[2018-12-28] MEDS: ROCEPHIN 1 Gm-D5w 50 ml Bag** 1 G/50 ML IVPB IV SCH (09:55)
[2018-12-28] MEDS: PANCRELIPASE DR 5,000 UNIT CAP PO SCH ×3 (09:56→16:41)
[2018-12-28] MEDS: ceLEXa 20 MG PO SCH (09:57)
[2018-12-28] MEDS: Provigil 100MG Tablet PO SCH ×2 (09:57→14:41)
[2018-12-28] MEDS: AMITIZA PO SCH (09:57)
[2018-12-28] MEDS: LYRICA 100MG PO SCH ×2 (09:58→21:17)
[2018-12-28] MEDS: ECOTRIN 81 MG PO SCH (09:58)
[2018-12-28] MEDS: DEMADEX 20 MG PO SCH (09:58)
[2018-12-28] MEDS: ENOXAPARIN SODIUM SQ SCH (09:58)
[2018-12-28] MEDS: Toprol-Xl 25MG Tablets PO SCH ×2 (09:59→21:18)
[2018-12-28] MEDS: SYNTHROID 150 MCG PO SCH (09:59)
[2018-12-28] MEDS: Pepcid 20 MG PO SCH ×2 (09:59→21:17)
[2018-12-28] MEDS ORDERED: PROTEASE PO SCH (10:00)
[2018-12-28] MEDS ORDERED: AMYLASE PO SCH (10:00)
[2018-12-28] MEDS ORDERED: LIPASE PO SCH (10:00)
[2018-12-28] MEDS ORDERED: Zaroxolyn 2.5 MG PO SCH (10:00)
[2018-12-28] MEDS: Zithromax 500 MG/ 250 ML NaCl Premix 500 MG/250 ML IVPB IV SCH (10:56)
--- NOTE | 2018-12-28 10:56 | PCM.HP ---
History of Present Illness - Chief Complaint Chief Complaint: COPD exacerbation, Pneumonia, Yung lower leg cellulitis History of Present Illness: is a 58 year old female with multiple medical problems including chf , chronic kidney disease and copd on chronic oxygen. she arrived in ER yesterday complaining of a productive cough, wheezing and shortness of breath. she also complains of worsening swelling in her legs with redness and pain in her lower leg. she was apparently experiencing acute kidney failure after diuresis so her diuretics were stopped and swelling got a lot worse so have been restarted by Dr Thibodeaux. - Review of Systems Constitutional: No Fever, No Chills Respiratory: Cough, Short Of Breath, Wheezing Cardiac: Edema, No Chest Pain, No Syncope Abdominal/Gastrointestinal: No Abdominal Pain, No Nausea, No Vomiting, No Diarrhea Skin: Cellulitis All Other Systems: Reviewed and Negative Medications & Allergies Home Medications: Home Medication List Pramipexole Di-HCl [Mirapex] 0.5 mg PO HS 07/27/16 [History Confirmed 12/27/18] Ranitidine HCl [Zantac] 150 mg PO HS 07/27/16 [History Confirmed 12/27/18] Aspirin 81 mg PO DAILY 09/11/16 [History Confirmed 12/27/18] Atorvastatin Calcium [Lipitor] 20 mg PO HS 09/11/16 [History Confirmed 12/27/18] Levothyroxine Sodium 150 mcg PO DAILY 10/16/17 [History Confirmed 12/27/18] Lubiprostone [Amitiza] 24 mg PO DAILY 10/16/17 [History Confirmed 12/27/18] Metformin HCl 500 mg [Glucophage 500 MG] 500 mg PO DAILY 10/16/17 [ History Confirmed 12/27/18] Modafinil 200 mg PO BID 10/16/17 [History Confirmed 12/27/18] Senna 8.6 mg [Senokot 8.6 mg] 17.2 mg PO DAILY PRN tablet 10/19/17 [Rx Confirmed 12/27/18] Metoprolol Succinate 25 mg Xl* [Toprol-Xl 25MG Tablets] 25 mg PO BID tab 04/06 [Rx Confirmed 12/27/18] Nitroglycerin 0.4 mg Tablet [Nitrostat 0.4 MG Tablet] 0.4 mg SL Q5MIN PRN MR X 3 PRN #20 bottle 10/25/17 [Rx Confirmed 12/27/18] Benzonatate [Tessalon Perle] 100 mg PO TID PRN #15 capsule 06/07/18 [Rx Confirmed 12/27/18] Albuterol Sulfate [Ventolin Hfa] 2 puffs IH BID PRN 09/14/18 [History Confirmed 12/27/18] Citalopram Hydrobromide [Celexa] 20 mg DAILY 09/14/18 [History Confirmed ] Fluticasone/Umeclidin/Vilanter [Trelegy Ellipta 100-62.5-25] 1 puff DAILY [History Confirmed 12/27/18] Lipase/Protease/Amylase [Cr Dr 24,000 Units Capsule] 2 cap PO TID 09/14/18 [ History Confirmed 12/27/18] Ondansetron ODT 4 MG [Zofran Odt 4 mg] 1 tab SL TID PRN 09/14/18 [History Confirmed 12/27/18] Pregabalin [Lyrica 100Mg] 100 mg BID 09/14/18 [History Confirmed 12/27/18] Mirabegron [Myrbetriq] 25 mg PO DAILY 09/16/18 [History Confirmed 12/27/18] Polyethylene Glycol 3350 17 gm [Miralax Powder 17GM PACKET] 17 gm PO UD 11/26 [History Confirmed 12/27/18] Albuterol/Ipratropium 3ml Neb* [DUONEB 0.5-3 MG/3 ml Neb] 3 ml IH Q4HRT #50 ampul.neb 11/29/18 [Rx Confirmed 12/27/18] Insulin Glargine,Hum.rec.anlog [Basaglar Kwikpen U-100] 10 unit SQ DAILY #1 insuln.pen 11/29/18 [Rx Confirmed 12/27/18] Prednisone 20 mg [Deltasone 20 mg] 20 mg PO UD #6 tablet 11/29/18 [Rx Confirmed 12/27/18] Torsemide 40 mg PO DAILY 12/27/18 [History Confirmed 12/27/18] Allergies/Adverse Reactions: Allergies Allergy/AdvReac Type Severity Reaction Status Date / Time Iodinated Contrast- Oral and Allergy Severe Difficulty Verified 12/27/18 13:24 IV Dye Breathing [Iodinated Contrast Media - IV Dye] Penicillins Allergy Severe Difficulty Verified 12/27/18 13:24 Breathing clindamycin Allergy Verified 12/27/18 13:24 levofloxacin [From Levaquin] Allergy Verified 12/27/18 13:24 - Past Medical History Past Medical History: Yes Neurological History: No Pertinent History ENT History: No Pertinent History Cardiac History: Angina, Arrhythmia, High Cholesterol, Hypertension Respiratory History: Asthma, CHF, COPD, Emphysema, Pneumonia, Pulmonary Embolism , Sleep Apnea, Other Endocrine Medical History: Diabetes Type II, Thyroid Cancer Musculoskelatal History: Fibromyalgia GI Medical History: GERD, Pancreatitis, Other History: No Pertinent History Pyscho-Social History: Anxiety, Depression Reproductive Disorders: Fibroids, Other Comment: neuropathy. cytosis, rt ovary removed. Narcolepsy. barretts esophagus. 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 colonscopy. spinal L4,L5 ,S1 removed disc "completely"per pt and "not fused". thyroidectomy. right ovary removed. carpel tunnel bilateral hands. bilat knee sx. - Social History Smoking Status: Former smoker How long have you smoked: 45 years Exposure to second hand smoke: No Alcohol: None Drug Use: none - Physical Exam Vital Signs: Vital Signs - 24 hr Temp Pulse Resp BP Pulse Ox 12/28/18 07:40 97.6 F 81 21 108/56 91 L 12/28/18 06:58 81 20 91 L 12/28/18 04:23 86 20 93 L 12/28/18 04:00 98.2 F 86 20 113/56 93 L 12/28/18 00:00 97.9 F 87 24 109/53 92 L 12/27/18 23:44 87 20 90 L 12/27/18 20:00 98.2 F 88 20 127/73 92 L 12/27/18 19:20 88 22 87 L 12/27/18 16:17 98.2 F 95 H 22 111/60 92 L 12/27/18 15:44 84 22 92 L 12/27/18 14:42 97 12/27/18 14:25 24 128/70 92 L 12/27/18 13:54 94 H 22 102/68 95 12/27/18 13:10 80 24 98 12/27/18 12:56 98.4 F 80 30 H 122/75 92 L Oxygen-Last 24 hours O2 Percentage 4 Liters = 36% O2 Percentage 4 Liters = 36% O2 Percentage 2 Liters = 28% O2 Percentage 3 Liters = 32% O2 Percentage 2 Liters = 28% O2 Percentage 2 Liters = 28% O2 Percentage 2 Liters = 28% O2 Percentage 2 Liters = 28% Oxygen Flowrate (L/min)-RT 7 General Appearance: no apparent distress, obese Neurologic Exam: alert, oriented x 3 Respiratory Exam: prolonged expirations, wheezing Cardiovascular Exam: regular rate/rhythm, normal heart sounds, normal peripheral pulses Gastrointestinal/Abdomen Exam: soft, normal bowel sounds, No tenderness, No mass Extremity Exam: swelling (2+ pitting edema BLE, redness and warmth to yung anterior shins), other Results - Labs Lab/Micro Results: Accuchecks Date 12/28/18 Time 07:30 Accucheck Value: 202 Accucheck Value: 232 Lab Results-Last 24 Hours 12/27/18 12/27/18 12/27/18 Range/Units 12:58 12:58 12:58 WBC 7.1 (4.0-10.5) K/mm3 RBC 4.31 (4.1-5.4) M/mm3 Hgb 13.6 (12.0-16.0) gm/dl Hct 42.8 (35-47) % MCV 99.3 (78-100) fl MCH 31.6 (26-32) pg MCHC 31.8 L (32-36) g/dl RDW 15.0 H (11.5-14.0) % Plt Count 222 (150-450) K/mm3 MPV 9.7 H (6-9.5) fl Gran % 62.2 (36.0-66.0) % Eos # (Auto) 0.15 (0-0.5) Absolute Lymphs (auto) 1.72 (1.0-4.6) Absolute Monos (auto) 0.77 (0.0-1.3) Lymphocytes % 24.4 (24.0-44.0) % Monocytes % 10.9 (0.0-12.0) % Eosinophils % 2.1 (0.00-5.0) % Basophils % 0.4 (0.0-0.4) % Absolute Granulocytes 4.38 (1.4-6.9) Basophils # 0.03 (0-0.4) PT 11.6 (9.95-12.35) SECONDS INR 1.00 (0.8-3.0) pO2/FiO2 Ratio % VBG pH (7.32-7.42) VBG pCO2 at Pat Temp (42-55) mm/Hg VBG pO2 at Pat Temp (25-40) mm/Hg VBG HCO3 (22-28) meq/L VBG O2 Sat (Paz) (95-100) VBG Base Excess (-2.0-2.0) VBG Hemoglobin VBG Carboxyhemoglobin (0.0-6.9) % T HGB POC Potassium (3.5-5.1) Sodium 140 (137-145) mmol/L Potassium 4.2 (3.5-5.1) mmol/L Chloride 98 (98-107) mmol/L Carbon Dioxide 36 H (22-30) mmol/L Anion Gap 10.5 (5-15) MEQ/L BUN 17 (7-17) mg/dL Creatinine 1.20 H (0.52-1.04) mg/dL Estimated GFR 48.7 ML/MIN Glucose 95 (74-106) mg/dL Hemoglobin A1c (4.5-6.0) % Lactic Acid (0.4-2.0) Calcium 9.4 (8.4-10.2) mg/dL Total Bilirubin 0.50 (0.2-1.3) mg/dL AST 24 (14-36) U/L ALT 20 (0-35) U/L Alkaline Phosphatase 95 (38-126) U/L Troponin I (0.000-0.034) ng/mL NT-Pro-B Natriuret Pep 565 (0-900) pg/mL Serum Total Protein 6.8 (6.3-8.2) g/dL Albumin 4.0 (3.5-5.0) g/dL Influenza Type A Ag (NEGATIVE) Influenza Type B Ag (NEGATIVE) RSV (PCR) (Negative) 12/27/18 12/27/18 12/27/18 Range/Units 13:00 13:16 13:20 WBC (4.0-10.5) K/mm3 RBC (4.1-5.4) M/mm3 Hgb (12.0-16.0) gm/dl Hct (35-47) % MCV (78-100) fl MCH (26-32) pg MCHC (32-36) g/dl RDW (11.5-14.0) % Plt Count (150-450) K/mm3 MPV (6-9.5) fl Gran % (36.0-66.0) % Eos # (Auto) (0-0.5) Absolute Lymphs (auto) (1.0-4.6) Absolute Monos (auto) (0.0-1.3) Lymphocytes % (24.0-44.0) % Monocytes % (0.0-12.0) % Eosinophils % (0.00-5.0) % Basophils % (0.0-0.4) % Absolute Granulocytes (1.4-6.9) Basophils # (0-0.4) PT (9.95-12.35) SECONDS INR (0.8-3.0) pO2/FiO2 Ratio 28.0 % VBG pH 7.34 (7.32-7.42) VBG pCO2 at Pat Temp 74 H* (42-55) mm/Hg VBG pO2 at Pat Temp 28 (25-40) mm/Hg VBG HCO3 39.9 H* (22-28) meq/L VBG O2 Sat (Paz) 55.9 L (95-100) VBG Base Excess 10.9 H (-2.0-2.0) VBG Hemoglobin 13.6 VBG Carboxyhemoglobin 3.5 (0.0-6.9) % T HGB POC Potassium 4.2 (3.5-5.1) Sodium (137-145) mmol/L Potassium (3.5-5.1) mmol/L Chloride (98-107) mmol/L Carbon Dioxide (22-30) mmol/L Anion Gap (5-15) MEQ/L BUN (7-17) mg/dL Creatinine (0.52-1.04) mg/dL Estimated GFR ML/MIN Glucose (74-106) mg/dL Hemoglobin A1c (4.5-6.0) % Lactic Acid 1.3 (0.4-2.0) Calcium (8.4-10.2) mg/dL Total Bilirubin (0.2-1.3) mg/dL AST (14-36) U/L ALT (0-35) U/L Alkaline Phosphatase (38-126) U/L Troponin I < 0.012 (0.000-0.034) ng/mL NT-Pro-B Natriuret Pep (0-900) pg/mL Serum Total Protein (6.3-8.2) g/dL Albumin (3.5-5.0) g/dL Influenza Type A Ag NEGATIVE (NEGATIVE) Influenza Type B Ag NEGATIVE (NEGATIVE) RSV (PCR) NEGATIVE (Negative) 12/27/18 12/27/18 12/27/18 Range/Units 16:10 16:55 19:00 WBC (4.0-10.5) K/mm3 RBC (4.1-5.4) M/mm3 Hgb (12.0-16.0) gm/dl Hct (35-47) % MCV (78-100) fl MCH (26-32) pg MCHC (32-36) g/dl RDW (11.5-14.0) % Plt Count (150-450) K/mm3 MPV (6-9.5) fl Gran % (36.0-66.0) % Eos # (Auto) (0-0.5) Absolute Lymphs (auto) (1.0-4.6) Absolute Monos (auto) (0.0-1.3) Lymphocytes % (24.0-44.0) % Monocytes % (0.0-12.0) % Eosinophils % (0.00-5.0) % Basophils % (0.0-0.4) % Absolute Granulocytes (1.4-6.9) Basophils # (0-0.4) PT (9.95-12.35) SECONDS INR (0.8-3.0) pO2/FiO2 Ratio % VBG pH (7.32-7.42) VBG pCO2 at Pat Temp (42-55) mm/Hg VBG pO2 at Pat Temp (25-40) mm/Hg VBG HCO3 (22-28) meq/L VBG O2 Sat (Paz) (95-100) VBG Base Excess (-2.0-2.0) VBG Hemoglobin VBG Carboxyhemoglobin (0.0-6.9) % T HGB POC Potassium (3.5-5.1) Sodium (137-145) mmol/L Potassium (3.5-5.1) mmol/L Chloride (98-107) mmol/L Carbon Dioxide (22-30) mmol/L Anion Gap (5-15) MEQ/L BUN (7-17) mg/dL Creatinine (0.52-1.04) mg/dL Estimated GFR ML/MIN Glucose (74-106) mg/dL Hemoglobin A1c 5.28 (4.5-6.0) % Lactic Acid (0.4-2.0) Calcium (8.4-10.2) mg/dL Total Bilirubin (0.2-1.3) mg/dL AST (14-36) U/L ALT (0-35) U/L Alkaline Phosphatase (38-126) U/L Troponin I < 0.012 < 0.012 (0.000-0.034) ng/mL NT-Pro-B Natriuret Pep (0-900) pg/mL Serum Total Protein (6.3-8.2) g/dL Albumin (3.5-5.0) g/dL Influenza Type A Ag (NEGATIVE) Influenza Type B Ag (NEGATIVE) RSV (PCR) (Negative) 12/27/18 12/28/18 Range/Units 22:30 01:10 WBC (4.0-10.5) K/mm3 RBC (4.1-5.4) M/mm3 Hgb (12.0-16.0) gm/dl Hct (35-47) % MCV (78-100) fl MCH (26-32) pg MCHC (32-36) g/dl RDW (11.5-14.0) % Plt Count (150-450) K/mm3 MPV (6-9.5) fl Gran % (36.0-66.0) % Eos # (Auto) (0-0.5) Absolute Lymphs (auto) (1.0-4.6) Absolute Monos (auto) (0.0-1.3) Lymphocytes % (24.0-44.0) % Monocytes % (0.0-12.0) % Eosinophils % (0.00-5.0) % Basophils % (0.0-0.4) % Absolute Granulocytes (1.4-6.9) Basophils # (0-0.4) PT (9.95-12.35) SECONDS INR (0.8-3.0) pO2/FiO2 Ratio % VBG pH (7.32-7.42) VBG pCO2 at Pat Temp (42-55) mm/Hg VBG pO2 at Pat Temp (25-40) mm/Hg VBG HCO3 (22-28) meq/L VBG O2 Sat (Paz) (95-100) VBG Base Excess (-2.0-2.0) VBG Hemoglobin VBG Carboxyhemoglobin (0.0-6.9) % T HGB POC Potassium (3.5-5.1) Sodium (137-145) mmol/L Potassium (3.5-5.1) mmol/L Chloride (98-107) mmol/L Carbon Dioxide (22-30) mmol/L Anion Gap (5-15) MEQ/L BUN (7-17) mg/dL Creatinine (0.52-1.04) mg/dL Estimated GFR ML/MIN Glucose (74-106) mg/dL Hemoglobin A1c (4.5-6.0) % Lactic Acid (0.4-2.0) Calcium (8.4-10.2) mg/dL Total Bilirubin (0.2-1.3) mg/dL AST (14-36) U/L ALT (0-35) U/L Alkaline Phosphatase (38-126) U/L Troponin I < 0.012 < 0.012 (0.000-0.034) ng/mL NT-Pro-B Natriuret Pep (0-900) pg/mL Serum Total Protein (6.3-8.2) g/dL Albumin (3.5-5.0) g/dL Influenza Type A Ag (NEGATIVE) Influenza Type B Ag (NEGATIVE) RSV (PCR) (Negative) Accuchecks Date 12/28/18 Time 07:30 Accucheck Value: 202 Accucheck Value: 232 - Radiology Impressions Radiology Exams & Impressions: Radiology Procedures Category Date Time Status CHEST 1 VIEW (PORTABLE) Stat Exams 12/27/18 13:00 Completed VENOUS BILATERAL EXTREMITY [US] Stat Exams 12/27/18 14:28 Completed - Other Procedures and Tests Respiratory Therapy 12/27/18 13:10 Peak Expiratory Flow Rate ONCE Respiratory Therapy Assessment DAILY 12/27/18 14:31 Oxygen Nasal Cannula 2 lpm 12/27/18 21:00 BiPap/CPAP ROUTINE Assessment/Plan (1) Acute on chronic diastolic (congestive) heart failure Current Visit: No Status: Acute Assessment & Plan: will give IV lasix, hold po diuretics at this time. monitor renal function closely Code(s): I50.33 - ACUTE ON CHRONIC DIASTOLIC (CONGESTIVE) HEART FAILURE (2) COPD with exacerbation Current Visit: No Status: Acute Assessment & Plan: on rocephin/zithromax, IV steroids and nebs Code(s): J44.1 - CHRONIC OBSTRUCTIVE PULMONARY DISEASE W (ACUTE) EXACERBATION (3) Chronic respiratory failure with hypoxia Current Visit: No Status: Acute
[2018-12-28] MEDS: Lasix 40 MG/4 ML IV SCH ×2 (11:40→23:43)
[2018-12-28] MEDS: NORCO 5/325 MG PO PRN ×2 (13:29→21:18)
[2018-12-28] MEDS: Mirapex 0.5 MG Tablet PO SCH (21:17)
[2018-12-28] MEDS: ZOCOR 20MG PO SCH (21:18)
[2018-12-28] MEDS: Tessalon Perles 100 MG PO PRN (21:18)
[2018-12-28] MEDS: SENOKOT 8.6 MG PO PRN (21:18)
[2018-12-28] MEDS: Sodium Chloride 0.9% 1000 ML 1,000 ML IV SCH (23:51)
[2018-12-29] MEDS: DUONEB 0.5-3 MG/3 ml Neb IH SCH ×6 (03:32→23:43)
[2018-12-29] MEDS: solu-MEDROL 125 MG IV SCH ×3 (05:47→17:48)
[2018-12-29 06:22] LABS: ANION GAP 15.6 MEQ/L (5-15); Calcium 9.3 mg/dL (8.4-10.2); Creatinine 1 1.28 mg/dL (0.52-1.04); Potassium 4.4 mmol/L (3.5-5.1)
[2018-12-29 06:23] LABS: BASOPHIL % 0.1 % (0.0-0.4); Basophil (Absolute #) 0.01 (0-0.4); Eosinophil (Absolute #) 0 (0-0.5); Granulocyte Absolute (ANC) 10.86 (1.4-6.9); Hemoglobin 13.1 gm/dl (12.0-16.0); Lymphocyte (Absolute #) 0.66 (1.0-4.6); Lymphocytes % 5.5 % (24.0-44.0); Mean Cell Volume 100.5 fl (78-100); Mean Corpuscular Hemoglobin 31.3 pg (26-32); Mean Corpuscular Hgb Concent. 31.2 g/dl (32-36); Mean Platelet Volume 10.5 fl (6-9.5); Monocytes % 3.4 % (0.0-12.0); Platelet Count 248 K/mm3 (150-450); Red Blood Count 4.18 M/mm3 (4.1-5.4); Red Cell Distribution Width 14.9 % (11.5-14.0); White Blood Count 11.9 K/mm3 (4.0-10.5)
[2018-12-29] MEDS: Advair Hfa 115/21 Common canister IH SCH ×2 (06:46→23:46)
[2018-12-29] MEDS: PANCRELIPASE DR 5,000 UNIT CAP PO SCH ×3 (08:16→16:55)
[2018-12-29] MEDS: Lantus Insulin SQ SCH (08:16)
[2018-12-29] MEDS: Provigil 100MG Tablet PO SCH ×2 (08:18→14:56)
[2018-12-29] MEDS: NORCO 5/325 MG PO PRN ×2 (08:53→16:25)
[2018-12-29] MEDS: Tessalon Perles 100 MG PO PRN (08:54)
[2018-12-29] MEDS: NovoLOG Insulin SQ PRN ×4 (08:58→22:08)
--- NOTE | 2018-12-29 09:13 | PCM.NOTE ---
Date and Time: 12/29/18910 Subjective Assessment: patient reports some improvement in her cough and breathing, she also has had some diuresis. legs still hurt and are swollen but improved. Objective Exam General Appearance: no apparent distress, obese Neurologic Exam: alert, oriented x 3 Respiratory Exam: prolonged expirations, wheezing Cardiovascular Exam: regular rate/rhythm, normal heart sounds Gastrointestinal/Abdomen Exam: soft, No tenderness, No mass Extremity Exam: swelling (2+ pitting edema BLE, mild erythema to higgins) OBJECTIVE DATA Vital Signs: Vital Signs - 24 hr Temp Pulse Resp BP Pulse Ox 12/29/18 07:34 97.8 F 69 18 104/57 98 12/29/18 06:50 69 18 98 12/29/18 04:00 97.3 F 73 20 107/57 90 L 12/29/18 03:32 74 20 90 L 12/29/18 00:16 98.2 F 67 20 103/51 94 L 12/29/18 00:00 20 12/28/18 23:30 66 20 96 12/28/18 20:24 98.5 F 76 20 109/54 94 L 12/28/18 20:00 20 12/28/18 19:09 76 20 94 L 12/28/18 16:56 98.5 F 78 20 96/51 91 L 12/28/18 14:43 83 18 96 12/28/18 13:29 82 116/59 12/28/18 12:00 97.1 F 86 22 93/50 94 L 12/28/18 11:49 18 12/28/18 11:01 63 18 94 L Oxygen-Last 24 hours O2 Percentage 5 Liters = 40% O2 Percentage 3 Liters = 32% O2 Percentage 3 Liters = 32% O2 Percentage 3 Liters = 32% O2 Percentage 3 Liters = 32% Pain Assessment - Last Documented Pain Intensity 7 Pain Scale Used 0-10 Pain Scale Intake and Output: Intake & Output 12/26/18 12/27/18 12/28/18 12/29/18 11:59 11:59 11:59 11:59 Intake Total 2428 3937 Output Total 3600 Balance 2428 337 Weight 125.9 kg 124.5 kg Lab Results: Accuchecks Date 12/28/18 Date 12/28/18 Time 21:00 Time 11:30 Accucheck Value: 211 Accucheck Value: 270 Accucheck Value: 216 Accucheck Value: 216 Lab Results-Last 24 Hours 12/29/18 12/29/18 Range/Units 05:55 05:55 WBC 11.9 H (4.0-10.5) K/mm3 RBC 4.18 (4.1-5.4) M/mm3 Hgb 13.1 (12.0-16.0) gm/dl Hct 42.0 (35-47) % MCV 100.5 H (78-100) fl MCH 31.3 (26-32) pg MCHC 31.2 L (32-36) g/dl RDW 14.9 H (11.5-14.0) % Plt Count 248 (150-450) K/mm3 MPV 10.5 H (6-9.5) fl Gran % 91.0 H (36.0-66.0) % Eos # (Auto) 0 (0-0.5) Absolute Lymphs (auto) 0.66 L (1.0-4.6) Absolute Monos (auto) 0.40 (0.0-1.3) Lymphocytes % 5.5 L (24.0-44.0) % Monocytes % 3.4 (0.0-12.0) % Eosinophils % 0.0 (0.00-5.0) % Basophils % 0.1 (0.0-0.4) % Absolute Granulocytes 10.86 H (1.4-6.9) Basophils # 0.01 (0-0.4) Sodium 140 (137-145) mmol/L Potassium 4.4 (3.5-5.1) mmol/L Chloride 92 L (98-107) mmol/L Carbon Dioxide 37 H (22-30) mmol/L Anion Gap 15.6 H (5-15) MEQ/L BUN 30 H (7-17) mg/dL Creatinine 1.28 H (0.52-1.04) mg/dL Estimated GFR 45.2 ML/MIN Glucose 211 H (74-106) mg/dL Calcium 9.3 (8.4-10.2) mg/dL Radiology Exams: Radiology Procedures Category Date Time Status CHEST 1 VIEW (PORTABLE) Stat Exams 12/27/18 13:00 Completed VENOUS BILATERAL EXTREMITY [US] Stat Exams 12/27/18 14:28 Completed Assessment/Plan (1) Acute on chronic diastolic (congestive) heart failure Current Visit: No Status: Acute Assessment & Plan: continue current orders, diuresing and improved clinically Code(s): I50.33 - ACUTE ON CHRONIC DIASTOLIC (CONGESTIVE) HEART FAILURE (2) COPD with exacerbation Current Visit: No Status: Acute Assessment & Plan: continue solu medrol, rocephin and zithromax Code(s): J44.1 - CHRONIC OBSTRUCTIVE PULMONARY DISEASE W (ACUTE) EXACERBATION (3) Chronic respiratory failure with hypoxia Current Visit: No Status: Acute
[2018-12-29] MEDS: ROCEPHIN 1 Gm-D5w 50 ml Bag** 1 G/50 ML IVPB IV SCH (10:06)
[2018-12-29] MEDS: ENOXAPARIN SODIUM SQ SCH (10:07)
[2018-12-29] MEDS: ECOTRIN 81 MG PO SCH (10:08)
[2018-12-29] MEDS: LYRICA 100MG PO SCH ×2 (10:08→22:03)
[2018-12-29] MEDS: SYNTHROID 150 MCG PO SCH (10:08)
[2018-12-29] MEDS: ceLEXa 20 MG PO SCH (10:08)
[2018-12-29] MEDS: Pepcid 20 MG PO SCH ×2 (10:08→22:05)
[2018-12-29] MEDS: AMITIZA PO SCH (10:08)
[2018-12-29] MEDS: Toprol-Xl 25MG Tablets PO SCH ×2 (10:13→22:05)
[2018-12-29] MEDS: Zithromax 500 MG/ 250 ML NaCl Premix 500 MG/250 ML IVPB IV SCH (10:36)
[2018-12-29] MEDS: Lasix 40 MG/4 ML IV SCH ×2 (11:59→22:06)
[2018-12-29] MEDS: Nitrostat 0.4 MG Tablet SL PRN ×2 (18:37→18:42)
[2018-12-29] MEDS ORDERED: MORPHINE SULFATE 4 MG INJ IV ONE (19:03)
[2018-12-29] MEDS: Mirapex 0.5 MG Tablet PO SCH (22:04)
[2018-12-29] MEDS: ZOCOR 20MG PO SCH (22:06)
[2018-12-29] MEDS: SENOKOT 8.6 MG PO PRN (22:06)
[2018-12-30] MEDS: solu-MEDROL 125 MG IV SCH ×4 (00:21→17:05)
[2018-12-30] MEDS: NORCO 5/325 MG PO PRN ×3 (00:23→20:10)
[2018-12-30] MEDS: DUONEB 0.5-3 MG/3 ml Neb IH SCH ×6 (03:03→22:53)
[2018-12-30 06:02] LABS: BASOPHIL % 0.1 % (0.0-0.4); Basophil (Absolute #) 0.01 (0-0.4); Eosinophil (Absolute #) 0 (0-0.5); Granulocyte Absolute (ANC) 8.36 (1.4-6.9); Granulocytes % 87.6 % (36.0-66.0); Hematocrit 38.7 % (35-47); Hemoglobin 12.4 gm/dl (12.0-16.0); Lymphocytes % 7.3 % (24.0-44.0); Mean Cell Volume 99.2 fl (78-100); Mean Platelet Volume 10.6 fl (6-9.5); Monocyte (Absolute #) 0.48 (0.0-1.3); Platelet Count 219 K/mm3 (150-450); Red Cell Distribution Width 14.9 % (11.5-14.0); White Blood Count 9.6 K/mm3 (4.0-10.5)
[2018-12-30 06:20] LABS: Calcium 9.3 mg/dL (8.4-10.2); Creatinine 1 1.22 mg/dL (0.52-1.04); Potassium 4.2 mmol/L (3.5-5.1)
[2018-12-30 06:36] LABS: Mean Corpuscular Hemoglobin 31.7 pg (26-32)
[2018-12-30] MEDS: Advair Hfa 115/21 Common canister IH SCH ×2 (07:16→19:11)
[2018-12-30] MEDS: PANCRELIPASE DR 5,000 UNIT CAP PO SCH ×3 (08:33→16:20)
[2018-12-30] MEDS: Lantus Insulin SQ SCH (08:33)
[2018-12-30] MEDS: NovoLOG Insulin SQ PRN ×3 (08:34→22:23)
[2018-12-30] MEDS: Provigil 100MG Tablet PO SCH ×2 (08:36→16:20)
--- NOTE | 2018-12-30 08:39 | PCM.NOTE ---
Date and Time: 12/30/18833 Subjective Assessment: Patient reports episode of sternal chest pain that started suddenly last night. Unrelieved by nitro but then somewhat relieved by oxygen. She reports no stool since coming into hospital Sunday. She reports she came in to have blood drawn and then they noticed she was short of breath and asked her to go to ER for evaluation. She saw Dr. Wade the day before and he increased her prednisone that day to 20 mg. She wears home oxygen and reports usually getting short of breath at night with her oxygen and cpap. She reports she started taking the torsemide on Sunday night and is not sure it had a chance to work. She reports the swelling in her legs is much better and she does urinate for 30- 60 minutes after IV lasix is given here. She reports sometimes she can wear keisha hose if they are placed first thing in the morning. Objective Exam General Appearance: no apparent distress, obese Neurologic Exam: alert, cooperative, normal mood/affect, other (very talkative) Skin Exam: normal color, warm Respiratory Exam: other (scatterred wheezes throughout; equal breath sounds, no crackles) Cardiovascular Exam: regular rate/rhythm, normal heart sounds, No murmur, No friction rub, No gallop Gastrointestinal/Abdomen Exam: soft, normal bowel sounds, other (mildly distended), No tenderness, No mass, No guarding Extremity Exam: other (trace edema bilat; trace erythema of anterior shins.) OBJECTIVE DATA Vital Signs: Vital Signs - 24 hr Temp Pulse Resp BP BP Pulse Ox 12/30/18 07:57 97.8 F 68 18 128/60 98 12/30/18 07:20 68 18 98 12/30/18 04:00 98.0 F 63 18 119/73 89 L 12/30/18 03:04 63 18 89 L 12/30/18 00:00 22 12/29/18 23:53 97.5 F 89 22 117/55 95 12/29/18 20:00 98.2 F 96 H 20 117/62 94 L 12/29/18 18:42 89 117/62 12/29/18 16:00 97.8 F 72 18 117/56 98 12/29/18 15:04 75 18 97 12/29/18 11:52 78 18 96 12/29/18 11:38 97.7 F 68 18 106/60 98 Oxygen-Last 24 hours O2 Percentage 6 Liters = 44% O2 Percentage 5 Liters = 40% O2 Percentage 5 Liters = 40% O2 Percentage 5 Liters = 40% Pain Assessment - Last Documented Pain Intensity 4 Pain Scale Used 0-10 Pain Scale Intake and Output: Intake & Output 12/28/18 12/29/18 12/30/18 12/31/18 06:59 06:59 06:59 06:59 Intake Total 2188 3937 3016 Output Total 3600 3250 Balance 2188 337 -234 Weight 125.9 kg 124.5 kg 126.1 kg Lab Results: Accuchecks Accucheck Value: 215 Accucheck Value: 202 Lab Results-Last 24 Hours 12/29/18 12/30/18 12/30/18 Range/Units 19:00 05:00 05:30 WBC 9.6 (4.0-10.5) K/mm3 RBC 3.90 L (4.1-5.4) M/mm3 Hgb 12.4 (12.0-16.0) gm/dl Hct 38.7 (35-47) % MCV 99.2 (78-100) fl MCH 31.7 (26-32) pg MCHC 32.0 (32-36) g/dl RDW 14.9 H (11.5-14.0) % Plt Count 219 (150-450) K/mm3 MPV 10.6 H (6-9.5) fl Gran % 87.6 H (36.0-66.0) % Eos # (Auto) 0 (0-0.5) Absolute Lymphs (auto) 0.70 L (1.0-4.6) Absolute Monos (auto) 0.48 (0.0-1.3) Lymphocytes % 7.3 L (24.0-44.0) % Monocytes % 5.0 (0.0-12.0) % Eosinophils % 0.0 (0.00-5.0) % Basophils % 0.1 (0.0-0.4) % Absolute Granulocytes 8.36 H (1.4-6.9) Basophils # 0.01 (0-0.4) Sodium 140 (137-145) mmol/L Potassium 4.2 (3.5-5.1) mmol/L Chloride 93 L (98-107) mmol/L Carbon Dioxide 40 H (22-30) mmol/L Anion Gap 11.0 (5-15) MEQ/L BUN 38 H (7-17) mg/dL Creatinine 1.22 H (0.52-1.04) mg/dL Estimated GFR 47.8 ML/MIN Glucose 179 H (74-106) mg/dL Calcium 9.3 (8.4-10.2) mg/dL Troponin I < 0.012 (0.000-0.034) ng/mL NT-Pro-B Natriuret Pep 1190 H (0-900) pg/mL Assessment/Plan (1) Pneumonia Current Visit: No Status: Acute Onset Date: ~09/14/18 Qualifiers: Laterality: right Lung location: lower lobe of lung Assessment & Plan: Continue ceftriaxone and azithromycin Day 4; Consult Dr. Ewa Wade, her animal rides manager. Code(s): J18.9 - PNEUMONIA, UNSPECIFIED ORGANISM (2) COPD with exacerbation Current Visit: No Status: Acute Assessment & Plan: Continue oxygen, IV steroids, IV antibiotics. Code(s): J44.1 - CHRONIC OBSTRUCTIVE PULMONARY DISEASE W (ACUTE) EXACERBATION (3) Chronic respiratory failure with hypoxia Current Visit: No Status: Acute Assessment & Plan: Continue with supportive care. (4) Chest pain Current Visit: Yes Status: Acute Assessment & Plan: Ruled out for acute PR; will consult her geriatrician, Dr. Bradford Fortune. Continue with diuresis. Code(s): R07.9 - CHEST PAIN, UNSPECIFIED (5) Constipation Current Visit: No Status: Acute Assessment & Plan: Continue senna and add miralax bid. If no improvement will give magnesium sulfate. Code(s): K59.00 - CONSTIPATION, UNSPECIFIED (6) Acute on chronic diastolic (congestive) heart failure Current Visit: No Status: Acute Assessment & Plan: Continue diuresis. Code(s): I50.33 - ACUTE ON CHRONIC DIASTOLIC (CONGESTIVE) HEART FAILURE (7) Diabetes type 2, controlled Current Visit: No Status: Acute Qualifiers: Diabetes mellitus fdc insulin use: with fdc use Diabetes mellitus complication status: without complication Qualified Code(s): E11.9 - Type 2 diabetes mellitus without complications; Z79.4 - long term care social worker (current) use of insulin Assessment & Plan: Continue with current treatment. Code(s): E11.9 - TYPE 2 DIABETES MELLITUS WITHOUT COMPLICATIONS (8) Langerhans cell histiocytoses Current Visit: No Status: Acute Code(s): C96.6 - UNIFOCAL LANGERHANS-CELL HISTIOCYTOSIS (9) Obstructive sleep apnea Current Visit: No Status: Acute Code(s): G47.33 - OBSTRUCTIVE SLEEP APNEA ( ADULT) (PEDIATRIC)
[2018-12-30] MEDS: ceLEXa 20 MG PO SCH (09:27)
[2018-12-30] MEDS: AMITIZA PO SCH (09:27)
[2018-12-30] MEDS: SYNTHROID 150 MCG PO SCH (09:28)
[2018-12-30] MEDS: ECOTRIN 81 MG PO SCH (09:28)
[2018-12-30] MEDS: ENOXAPARIN SODIUM SQ SCH (09:28)
[2018-12-30] MEDS: LYRICA 100MG PO SCH ×2 (09:28→21:09)
[2018-12-30] MEDS: Pepcid 20 MG PO SCH ×2 (09:28→21:09)
[2018-12-30] MEDS: Toprol-Xl 25MG Tablets PO SCH ×2 (09:29→21:09)
[2018-12-30] MEDS: Miralax Powder 17GM PACKET PO SCH ×2 (10:34→21:09)
[2018-12-30] MEDS: ROCEPHIN 1 Gm-D5w 50 ml Bag** 1 G/50 ML IVPB IV SCH (10:35)
[2018-12-30] MEDS: Lasix 40 MG/4 ML IV SCH (10:39)
[2018-12-30] MEDS: Zithromax 500 MG/ 250 ML NaCl Premix 500 MG/250 ML IVPB IV SCH (11:18)
[2018-12-30] MEDS: Tessalon Perles 100 MG PO PRN ×2 (12:22→20:10)
[2018-12-30] MEDS: Klor Con 10 MEQ PO SCH (17:52)
[2018-12-30] MEDS: BUMEX 1 MG IV SCH (17:52)
[2018-12-30] MEDS: Mirapex 0.5 MG Tablet PO SCH (21:09)
[2018-12-30] MEDS: ZOCOR 20MG PO SCH (21:09)
[2018-12-31] MEDS: BUMEX 1 MG IV SCH ×4 (00:55→23:02)
[2018-12-31] MEDS ORDERED: solu-MEDROL 125 MG IV SCH (02:00)
[2018-12-31] MEDS: DUONEB 0.5-3 MG/3 ml Neb IH SCH ×6 (03:09→23:31)
[2018-12-31 06:08] LABS: Hematocrit 41.5 % (35-47); Hemoglobin 12.9 gm/dl (12.0-16.0); Mean Cell Volume 101.5 fl (78-100); Mean Corpuscular Hemoglobin 31.5 pg (26-32); Mean Corpuscular Hgb Concent. 31.1 g/dl (32-36); Mean Platelet Volume 10.6 fl (6-9.5); Platelet Count 226 K/mm3 (150-450); Red Blood Count 4.09 M/mm3 (4.1-5.4); Red Cell Distribution Width 14.9 % (11.5-14.0); White Blood Count 7.5 K/mm3 (4.0-10.5)
[2018-12-31 06:19] LABS: ALBUMIN 3.7 g/dL (3.5-5.0); BILIRUBIN,TOTAL 0.3 mg/dL (0.2-1.3); Calcium 8.8 mg/dL (8.4-10.2); Creatinine 1 1.06 mg/dL (0.52-1.04); Total Protein 6.3 g/dL (6.3-8.2)
[2018-12-31] MEDS: Advair Hfa 115/21 Common canister IH SCH ×2 (07:18→19:22)
[2018-12-31] MEDS: Lantus Insulin SQ SCH (07:53)
[2018-12-31] MEDS: PANCRELIPASE DR 5,000 UNIT CAP PO SCH ×3 (07:53→16:25)
[2018-12-31] MEDS: Provigil 100MG Tablet PO SCH ×2 (07:53→15:05)
--- NOTE | 2018-12-31 08:43 | PCM.NOTE ---
Date and Time: 12/31/18837 Subjective Assessment: Patient reports that she continues to have a cough and shortness of breath with movement. She thinks her swelling is down a little in her legs. Both Dr. Wade and Dr. Thibodeaux saw her yesterday. I am awaiting their transcribed reports. Patient reports still no bowel movements. She would like to try magnesium citrate today. - Review of Systems Constitutional: No Symptoms Ears, Nose, & Throat: No Symptoms Respiratory: Orthopnea, Short Of Breath, Wheezing Cardiac: No Symptoms Abdominal/Gastrointestinal: Constipation Genitourinary Symptoms: No Symptoms Musculoskeletal: No Symptoms Skin: No Symptoms Objective Exam General Appearance: no apparent distress, alert, obese Neurologic Exam: alert, cooperative, normal mood/affect Skin Exam: normal color, warm, dry Respiratory Exam: other (few scattered wheezes throughout, no crackles, no trachpnea, equal breath sounds) Cardiovascular Exam: regular rate/rhythm, normal heart sounds, No murmur, No friction rub, No gallop Gastrointestinal/Abdomen Exam: soft, normal bowel sounds, distention, No tenderness, No mass, No guarding Extremity Exam: other (trace edema bilat; keisha hose in place) OBJECTIVE DATA Vital Signs: Vital Signs - 24 hr Temp Pulse Resp BP Pulse Ox 12/31/18 07:35 97.6 F 72 22 131/70 94 L 12/31/18 04:00 97.1 F 84 16 131/64 95 12/31/18 03:41 68 18 12/31/18 00:00 97.8 F 81 18 112/55 12/30/18 22:59 76 16 95 12/30/18 20:00 97.4 F 84 20 126/64 95 12/30/18 19:22 84 20 95 12/30/18 16:00 97.8 F 81 17 115/71 95 12/30/18 11:45 98.2 F 72 18 101/50 94 L 12/30/18 10:37 75 18 94 L Oxygen-Last 24 hours O2 Percentage 5 Liters = 40% O2 Percentage 5 Liters = 40% O2 Percentage 3 Liters = 32% O2 Percentage 3 Liters = 32% O2 Percentage 5 Liters = 40% O2 Percentage 5 Liters = 40% Pain Assessment - Last Documented Pain Intensity 6 Pain Scale Used 0-10 Pain Scale Intake and Output: Intake & Output 12/29/18 12/30/18 12/31/18 01/01/19 06:59 06:59 06:59 06:59 Intake Total 3935 3012 1634 240 Output Total 3600 1740 5067 Balance 992 -915 -8989 240 Weight 124.5 kg 126.1 kg 126.1 kg 126 kg Lab Results: Accuchecks Accucheck Value: 310 Accucheck Value: 220 Accucheck Value: 187 Lab Results-Last 24 Hours 12/30/18 12/31/18 12/31/18 Range/Units 19:00 05:30 05:30 WBC 7.5 (4.0-10.5) K/mm3 RBC 4.09 L (4.1-5.4) M/mm3 Hgb 12.9 (12.0-16.0) gm/dl Hct 41.5 (35-47) % MCV 101.5 H (78-100) fl MCH 31.5 (26-32) pg MCHC 31.1 L (32-36) g/dl RDW 14.9 H (11.5-14.0) % Plt Count 226 (150-450) K/mm3 MPV 10.6 H (6-9.5) fl Sodium 138 (137-145) mmol/L Potassium 4.0 (3.5-5.1) mmol/L Chloride 90 L (98-107) mmol/L Carbon Dioxide 39 H (22-30) mmol/L Anion Gap 13 (5-15) MEQ/L BUN 38 H (7-17) mg/dL Creatinine 1.06 H (0.52-1.04) mg/dL Estimated GFR 56.2 ML/MIN Glucose 166 H (74-106) mg/dL Calcium 8.8 (8.4-10.2) mg/dL Magnesium 2.0 (1.6-2.3) mg/dL Total Bilirubin 0.30 (0.2-1.3) mg/dL AST 22 (14-36) U/L ALT 39 H (0-35) U/L Alkaline Phosphatase 100 (38-126) U/L Serum Total Protein 6.3 (6.3-8.2) g/dL Albumin 3.7 (3.5-5.0) g/dL Ur Random Creatinine 53.0 MG/DL U Random Total Protein 14 H (0-12) mg/dL Assessment/Plan (1) Pneumonia Current Visit: No Status: Acute Onset Date: ~09/14/18 Qualifiers: Laterality: right Lung location: lower lobe of lung Assessment & Plan: Azithromycin Day 5 today (will plan to discontinue after today); continue ceftriaxone. Dr. Ewa Wade saw her yesterday and plans to see her again Sunday according to the patient. Code(s): J18.9 - PNEUMONIA, UNSPECIFIED ORGANISM (2) COPD with exacerbation Current Visit: No Status: Acute Assessment & Plan: Will start to wean steroids; continue IV antibiotics; oxygen and breathing treatments. Code(s): J44.1 - CHRONIC OBSTRUCTIVE PULMONARY DISEASE W (ACUTE) EXACERBATION (3) Chronic respiratory failure with hypoxia Current Visit: No Status: Acute (4) Chest pain Current Visit: Yes Status: Resolved Code(s): R07.9 - CHEST PAIN, UNSPECIFIED (5) Constipation Current Visit: No Status: Acute Assessment & Plan: Will try magnesium citrate today. Code(s): K59.00 - CONSTIPATION, UNSPECIFIED (6) Acute on chronic diastolic (congestive) heart failure Current Visit: No Status: Acute Code(s): I50.33 - ACUTE ON CHRONIC DIASTOLIC (CONGESTIVE) HEART FAILURE (7) Diabetes type 2, controlled Current Visit: No Status: Acute Qualifiers: Diabetes mellitus senior care insulin use: with terminal operations manager use Diabetes mellitus complication status: without complication Qualified Code(s): E11.9 - Type 2 diabetes mellitus without complications; Z79.4 - ferry terminal supervisor (current) use of insulin Assessment & Plan: Hyperglycemia due to steroids. Will start to wean steroids. Code(s): E11.9 - TYPE 2 DIABETES MELLITUS WITHOUT COMPLICATIONS (8) Langerhans cell histiocytoses Current Visit: No Status: Acute Assessment & Plan: Management per her telemarketing sales representative. Code(s): C96.6 - UNIFOCAL LANGERHANS-CELL HISTIOCYTOSIS (9) Obstructive sleep apnea Current Visit: No Status: Acute Assessment & Plan: Continue cpap at night. Code(s): G47.33 - OBSTRUCTIVE SLEEP APNEA (ADULT) (PEDIATRIC)
[2018-12-31] MEDS ORDERED: CITROMA 296 ML PO ONE (08:44)
--- NOTE | 2018-12-31 08:50 | CONS ---
CONSULT DATE: 12/30/2018 REASON FOR CONSULT: Evaluation of fluid retention, edema, fluid electrolyte imbalance. HISTORY: Patti Clifford is a very pleasant 58 year-old lady who is well known to me. The patient has multiple medical problems including chronic obstructive pulmonary disease, histiocytosis, hypertension, dyslipidemia. The patient has a component of possible secondary pulmonary hypertension and possibly diastolic congestive heart failure. She has tendency for fluid overload. She also has tendency for going into a state where she appears to be over diuresed with critical BUN. The patient had been having issues with fluid overload. Diuretics were increased. She was given loop diuretics plus metolazone plus Aldactone. Subsequently her edema did get better but her BUN went up to 100 and her diuretics were titrated. Last week she was noted to be again swollen and was seen by Dr. Cleary. At that time her Torsemide was increased to 40 mg once a day, metolazone was not initiated at that time. She took it for three to four days. Swelling was improving somewhat but not up to the noemi. She presented for routine test at the lab and was sent to the emergency room and was subsequently admitted. In the hospital she was started on Lasix but did not improve fluid retention. She was also started on high dose steroids and antibiotics. In view of intractable fluid overload, a renal consultation was called. During the stay in the hospital her creatinine has been stable at around 1.22 mg%, BUN has been around 38. REVIEW OF SYSTEMS: Complains of shortness of breath. Complains or orthopnea. Input has been more than 3 liters. She denies any vomiting or diarrhea. She denies any burning or pain while urinating. She is on 2 to 3 liters of oxygen which she uses at home. Appetite has been fair. Other than shortness of breath no major symptoms. Dyspnea on exertion is present. Orthopnea is present. She had one episode of chest pain but troponins were okay. All systems were reviewed in detail and pertinent mentioned here and in history of present illness and the rest were negative. PAST MEDICAL HISTORY: Histiocytosis. Chronic obstructive pulmonary disease. Secondary pulmonary hypertension. Primary hypertension. Fibromyalgia. Tendency for hyperkalemia. History of carpal tunnel syndrome. PAST SURGICAL HISTORY: Cardiac catheterization. Oophorectomy. Cholecystectomy. Thyroidectomy. Knee replacement (bilateral). MEDICATIONS: The patient was initially on Bumex, metolazone. Methylprednisolone and Aldactone were held. Subsequently Bumex was changed to Torsemide 40 mg once a day but she took it for only three to four days prior to this hospitalization. In the hospital has been on Lasix, steroids, antibiotics. All medications were reviewed. Details of doses were noted. ALLERGIES: PENICILLIN. LEVAQUIN. IV DYE. LEVOFLOXACIN BUT HAS BEEN TOLERATING CEFTRIAXONE WELL. SOCIAL HISTORY: She has more than 40 pack year history of smoking, quit in 2015. No alcohol abuse. No drug abuse. FAMILY HISTORY: No history of renal problems in the family. PHYSICAL EXAMINATION: Reveals a lady who is upright in bed visibly short of breath when she talks in full sentences. Blood pressure was noted to be 119/73, pulse rate was 63/minute, respiratory rate 22/minute on 3 to 4 liters nasal cannula. Temperature 98F. HEENT: Normocephalic, atraumatic, pink conjunctivae, nonicteric sclera. NECK: Supple. No JVD. Accessory muscles of respiration in use. CHEST: Bilateral wheezing, sporadic course crackles. CVS: S1, S2 normal. No rub or gallop. ABDOMEN: Soft, nontender. No organomegaly. EXTREMITIES: 2 to 3+ edema bilaterally. SKIN: No rash. Skin turgor normal. MUSCULOSKELETAL: No acute joint swelling, redness, nontender. NEUROLOGIC: The patient is alert, awake, oriented x3. LAB DATA AND TESTS: Labs were reviewed. Troponins were normal. Potassium levels were 4.2. Creatinine 1.22. BUN 38. Glucose 179. NT ProBNP was around 1200. ASSESSMENT: 1) FLUID RETENTION AND EDEMA/EXCESS TOTAL BODY WATER, MULTIFACTORIAL. It could be because of underlying chronic kidney disease with decreased free water clearance, excessive fluid intake, recent use of steroids which can cause fluid retention, possible secondary pulmonary hypertension. The patient has a significant fluid overload. Will discontinue Lasix and put her on more potent diuretic in form of Bumex 2 mg every six hours. At the same time we will follow any signs/symptoms of worsening azotemia. If every six hours bumetanide does not work she may need bumetanide drip. We will requanitfy proteinuria and make sure there is no nephrotic syndrome. In the past it was quantified and the patient did not have any overt proteinuria. I will also put her on 1800 cc fluid restriction from 2,000 cc fluid restriction. Once euvolemia is achieved we can put her back on Torsemide 40 mg once a day along with metolazone 2.5 mg twice weekly. We can increase the dose of diuretics as needed cautiously given the fact that in the past she has had critical labs because of over diuresis. 2) CHRONIC KIDNEY DISEASE, NOT OTHERWISE SPECIFIED: Most likely stage III. Creatinine of 1.2 may not be a true reflection of chronicity and severity of her chronic kidney disease, continue to monitor the trend, continue to monitor BUN and creatinine ratio, avoid nonsteroidals. 3) CHRONIC OBSTRUCTIVE PULMONARY DISEASE WITH ACUTE EXACERBATION: Cut back on the steroids as the patient has severe fluid retention. Wheezing less according to her. Continue present antibiotics. 4) ELECTROLYTE IMBALANCE/HYPOKALEMIA: Potassium levels are 4.2. In view of the fact that we are increasing diuretics, we will start potassium chloride 20 mEq daily cautiously. The patient has had high potassium in the past. 5) DIABETES MELLITUS TYPE 2: Management as per primary team. I concur with the present medications. All questions answered. Discussed with Dr. Cleary.
--- NOTE | 2018-12-31 09:12 | CONS ---
CONSULT DATE: 12/30/2018 HISTORY: Patti Clifford is a 58 year-old woman with long standing history of chronic obstructive pulmonary disease, known to me, who presented to [facility] outpatient for blood work. The patient reported she was feeling progressively more short of breath and was even worse on the day of phlebotomy. The patient reported to emergency room where she was noted to have moderate respiratory difficulty. She was suspected of having pneumonia and has since been admitted for further evaluation. The patient was noted to have significant leg edema. She was seen by Dr. Thibodeaux earlier and was changed from IV Lasix to IV Bumex at higher dosage. She has also been treated with antibiotic and other supportive care. She has been using CPAP at 14 cm of water during sleep. At the time of my evaluation today, the patient does report improvement. Appears to have clearly improved leg swelling. She denies chest pain. PAST MEDICAL HISTORY: Positive for history of chronic obstructive pulmonary disease, chronic hypoxemia for which she is on home oxygen therapy, coronary artery disease, congestive heart failure, status post pacemaker, history of diabetes mellitus, obstructive sleep apnea, hypothyroidism, hyperlipidemia, bladder dysfunction, history of Langerhans's disease. PAST SURGICAL HISTORY: She had lung biopsy in 2012. Colonoscopy. Back surgery. Thyroidectomy. Right oophorectomy. Bilateral carpal tunnel surgery. Bilateral knee surgery. PERSONAL AND SOCIAL HISTORY: The patient is a former smoker. MEDICATIONS: Home and current medications are reviewed. ALLERGIES: ALLERGIES NOTED. PHYSICAL EXAMINATION: This is a middle aged woman who appears mildly short of breath at rest, able to speak without difficulty. Vital signs noted. HEENT: Normocephalic. Oral exam is limited. NECK: Supple. CVS: First and second heart sounds are normal, regular, rhythmic. RESPIRATORY: Shows diminished breath sounds. Bilateral rhonchi are heard. ABDOMEN: Obese. EXTREMITIES: Lower extremities show 3+ leg edema is present. LABORATORY DATA AND TESTS: Chest x-ray on 12/27/2018 showed hazy right base infiltrate with atelectasis and effusion. Troponin has been negative. Sodium 144, potassium 4.2, chloride 93, bicarb 40, glucose 179, BUN 38, creatinine 1.2. White count 9.6, hemoglobin 12.4, hematocrit 38, PLT 219,000. Influenza has been negative. ASSESSMENT: This is a 58 year old woman with: 1) Long standing history of pulmonary problems admitted with increasing shortness of breath from what appears to be chronic obstructive pulmonary disease exacerbation. 2) Right lower lobe community acquired pneumonia. 3) Chronic hypoxemia. 4) Total body water excess. 5) Comorbidities listed above. RECOMMENDATIONS: It clearly appears that the patient definitely has volume overload. I agree with current treatment. Use CPAP as needed. The patient definitely will benefit from diuresis. Nephrology consultation was reviewed. Continue antibiotics. Continue Solu-Medrol although I agree with reduction in dosage. Continue non-invasive ventilation and supportive care. I will continue to follow. Discussed the plan of care with the patient.
[2018-12-31] MEDS: Miralax Powder 17GM PACKET PO SCH ×2 (09:57→23:02)
[2018-12-31] MEDS: ROCEPHIN 1 Gm-D5w 50 ml Bag** 1 G/50 ML IVPB IV SCH (09:58)
[2018-12-31] MEDS: LYRICA 100MG PO SCH ×2 (09:58→23:02)
[2018-12-31] MEDS: ceLEXa 20 MG PO SCH (09:58)
[2018-12-31] MEDS: ENOXAPARIN SODIUM SQ SCH (09:58)
[2018-12-31] MEDS: SYNTHROID 150 MCG PO SCH (09:58)
[2018-12-31] MEDS: Toprol-Xl 25MG Tablets PO SCH ×2 (09:59→23:03)
[2018-12-31] MEDS: ECOTRIN 81 MG PO SCH (09:59)
[2018-12-31] MEDS: Klor Con 10 MEQ PO SCH (09:59)
[2018-12-31] MEDS: AMITIZA PO SCH (09:59)
[2018-12-31] MEDS: solu-MEDROL 125 MG IV SCH ×2 (09:59→18:12)
[2018-12-31] MEDS: Pepcid 20 MG PO SCH ×2 (09:59→23:02)
[2018-12-31] MEDS ORDERED: FLUID RESTRICTION MISC MC SCH (10:00)
[2018-12-31] MEDS: Zithromax 500 MG/ 250 ML NaCl Premix 500 MG/250 ML IVPB IV SCH (10:29)
[2018-12-31] MEDS: NovoLOG Insulin SQ PRN ×2 (12:23→23:04)
[2018-12-31] MEDS: Tessalon Perles 100 MG PO PRN ×2 (15:10→23:33)
[2018-12-31] MEDS: NORCO 5/325 MG PO PRN ×2 (15:10→23:32)
[2018-12-31] MEDS: Sodium Chloride 0.9% 1000 ML 1,000 ML IV SCH (16:00)
[2018-12-31] MEDS: ZOCOR 20MG PO SCH (23:03)
[2018-12-31] MEDS: Mirapex 0.5 MG Tablet PO SCH (23:03)
[2019-01-01] MEDS: solu-MEDROL 125 MG IV SCH (02:39)
[2019-01-01] MEDS: DUONEB 0.5-3 MG/3 ml Neb IH SCH ×3 (03:30→11:00)
[2019-01-01 06:03] LABS: BLOOD UREA NITROGEN 39 mg/dL (7-17); CHLORIDE 87 mmol/L (98-107); Calcium 8.7 mg/dL (8.4-10.2); Creatinine 1 0.99 mg/dL (0.52-1.04); Glucose 161 mg/dL (74-106); Potassium 4.4 mmol/L (3.5-5.1); SODIUM 140 mmol/L (137-145)
[2019-01-01 06:13] LABS: ANION GAP 11.4 MEQ/L (5-15); Carbon Dioxide 46 mmol/L (22-30)
[2019-01-01] MEDS: Advair Hfa 115/21 Common canister IH SCH (06:50)
--- NOTE | 2019-01-01 08:48 | PCM.DCORD ---
- Discharge Discharge Date: 01/01/19 Disposition: Home, Self-Care Condition: Good Prescriptions: New Cefdinir [Omnicef] 300 mg PO BID #8 capsule Metolazone 2.5 mg [Zaroxolyn 2.5 MG] 2.5 mg PO UD #10 tablet Continue Ranitidine HCl [Zantac] 150 mg PO HS Pramipexole Di-HCl [Mirapex] 0.5 mg PO HS Atorvastatin Calcium [Lipitor] 20 mg PO HS Aspirin 81 mg PO DAILY Modafinil 200 mg PO BID Lubiprostone [Amitiza] 24 mg PO DAILY Levothyroxine Sodium 150 mcg PO DAILY Senna 8.6 mg [Senokot 8.6 mg] 17.2 mg PO DAILY PRN tablet PRN Reason: Constipation Nitroglycerin 0.4 mg Tablet [Nitrostat 0.4 MG Tablet] 0.4 mg SL Q5MIN PRN MR X 3 PRN #20 bottle PRN Reason: Chest Pain Metoprolol Succinate 25 mg Xl* [Toprol-Xl 25MG Tablets] 25 mg PO BID tab Benzonatate [Tessalon Perle] 100 mg PO TID PRN #15 capsule PRN Reason: Cough Pregabalin [Lyrica 100Mg] 100 mg BID Fluticasone/Umeclidin/Vilanter [Trelegy Ellipta 100-62.5-25] 1 puff DAILY Citalopram Hydrobromide [Celexa] 20 mg DAILY Albuterol Sulfate [Ventolin Hfa] 2 puffs IH BID PRN PRN Reason: Shortness Of Breath Lipase/Protease/Amylase [Creon Dr 24,000 Units Capsule] 2 cap PO TID Ondansetron ODT 4 MG [Zofran Odt 4 mg] 1 tab SL TID PRN PRN Reason: Nausea Mirabegron [Myrbetriq] 25 mg PO DAILY Polyethylene Glycol 3350 17 gm [Miralax Powder 17GM PACKET] 17 gm PO UD Insulin Glargine,Hum.rec.anlog [Basaglar Kwikpen U-100] 10 unit SQ DAILY #1 insuln.pen Albuterol/Ipratropium 3ml Neb* [DUONEB 0.5-3 MG/3 ml Neb] 3 ml IH Q4HRT # 50 ampul.neb Torsemide 40 mg PO DAILY Prednisone 20 mg [Deltasone 20 mg] 20 mg PO UD #6 tablet Discontinued Metformin HCl 500 mg [Glucophage 500 MG] 500 mg PO DAILY Additional Instructions: BMP on Sunday, diagnosis peripheral edema; 1800 mL fluid restriction daily; weight yourself daily and call Dr. Thibodeaux or Dr. Spaulding if weight increases 3 lbs or more from baseline. Your baseline weight at discharge is 122.6 kg (269.7 lb) . Weigh yourself when you first get home so you know your weight on your scale. Follow up with: ILA SPAULDING [Primary Care Provider] - 1 Week EVELYN THIBODEAUX [CONSULTING PHYSICIAN] - 1 Week JOSE BANEGAS [ACTIVE STAFF] - 1 Week
[2019-01-01] MEDS: PANCRELIPASE DR 5,000 UNIT CAP PO SCH (09:07)
[2019-01-01] MEDS: Lantus Insulin SQ SCH (09:07)
[2019-01-01] MEDS: Provigil 100MG Tablet PO SCH (09:07)
[2019-01-01] MEDS: AMITIZA PO SCH (09:08)
[2019-01-01] MEDS: ECOTRIN 81 MG PO SCH (09:09)
[2019-01-01] MEDS: BUMEX 1 MG IV SCH (09:09)
[2019-01-01] MEDS: ENOXAPARIN SODIUM SQ SCH (09:09)
[2019-01-01] MEDS: ceLEXa 20 MG PO SCH (09:09)
[2019-01-01] MEDS: Pepcid 20 MG PO SCH (09:10)
[2019-01-01] MEDS: Klor Con 10 MEQ PO SCH (09:10)
[2019-01-01] MEDS: LYRICA 100MG PO SCH (09:10)
[2019-01-01] MEDS: SYNTHROID 150 MCG PO SCH (09:11)
[2019-01-01] MEDS: ROCEPHIN 1 Gm-D5w 50 ml Bag** 1 G/50 ML IVPB IV SCH (09:11)
[2019-01-01] MEDS: SENOKOT 8.6 MG PO PRN (09:11)
[2019-01-01] MEDS: Toprol-Xl 25MG Tablets PO SCH (09:11)
--- NOTE | 2019-01-01 09:20 | DS ---
DISCHARGE DIAGNOSES: 1) PNEUMONIA, RIGHT LOWER LOBE. 2) CHRONIC OBSTRUCTIVE PULMONARY DISEASE WITH EXACERBATION. 3) CHRONIC RESPIRATORY FAILURE WITH HYPOXIA. 4) CHEST PAIN. 5) CONSTIPATION. 6) ACUTE ON CHRONIC DIASTOLIC CONGESTIVE HEART FAILURE. 7) DIABETES MELLITUS TYPE 2, CONTROLLED. 8) LANGERHAN CELL HISTIOCYTOSIS. 9) OBSTRUCTIVE SLEEP APNEA. DISCHARGE PHYSICAL EXAMINATION: VITALS: Temperature current 97.8F, temperature max 98.2F, heart rate 73 to 88, respiratory rate 17 to 18, blood pressure 118 to 142 over 52 to 68. Discharge weight is 122.6 kg. Oxygen saturation 94 to 98% currently 97% on 3 liters. GENERAL: The patient is a pleasant talkative lady sitting up in bed in no acute distress. CVS: She has a regular rate and rhythm. No murmurs, gallops or rubs. CHEST: She has a few scattered wheezes throughout. No retractions. No tachypnea. Speaking in full sentences. ABDOMEN: Soft, nontender, nondistended with normal bowel sounds. EXTREMITIES: No clubbing or cyanosis. She does have +1 edema to her shins bilaterally but much improved. She has some venous stasis along the front of her shins bilaterally. HOSPITAL COURSE: 1) RIGHT LOWER LOBE PNEUMONIA: When she was admitted she was started on azithromycin and ceftriaxone. She finished out five day course of azithromycin while in the hospital. Will continue with four more days of cefdinir 300 mg p.o. b.i.d. She has been on ceftriaxone while she was here in the hospital. 2) CHRONIC OBSTRUCTIVE PULMONARY DISEASE WITH EXACERBATION: She was on IV steroids which we started to wean the day before her discharge. I have given her a script for prednisone 20 mg tablet p.o. daily for six days and then she is to resume her home dose of prednisone 10 mg tablet daily. 3) CHRONIC RESPIRATORY FAILURE WITH HYPOXIA: Her retanner, Dr. Abner Wade, saw her while she was here in the hospital and agreed with the current treatment. 4) CHEST PAIN: She had an episode of chest pain and ruled out for an acute myocardial infarction. Her sheet metal duct installer helper was consulted but I have not seen his consult note yet if he was able to see her. She is chest pain free at the time of discharge. We will resume her home cardiac medications and have her follow up with her sheet metal duct installer helper as scheduled. 5) CONSTIPATION: We tried magnesium citrate the day before discharge and she still did not have a stool. She is on Amitiza at baseline as well as MiraLAX, Senna and will continue with those. 6) ACUTE ON CHRONIC DIASTOLIC CONGESTIVE HEART FAILURE: She was volume overloaded and Dr. Thibodeaux, her cat swamper, saw her and changed her to Bumex every six hours for a day and then every 12 hours. She seemed to diurese very well. Her weight went down from 126 kg to 122.6 kg and she had good urine output the past two days before her discharge. She was on an 1800 ml fluid restriction which she worked hard to follow and we tried NERI hose and she was able to tolerate this for about 24 hours. At the time of discharge she states she feels much better and would like to go home. 7) DIABETES MELLITUS TYPE 2, CONTROLLED: Usually her diabetes is well controlled. Usually her diabetes is well controlled. She has some hyperglycemia due to the steroids which we are weaning and having her stop the Metformin at discharge, continue with the Lantus. Will have to follow up with this as an outpatient. 8) LANGERHAN CELL HISTIOCYTOSIS: Again, she follows with her retanner, Dr. Abner Wade. 9) OBSTRUCTIVE SLEEP APNEA: Will continue with CPAP at night. DISCHARGE MEDICATIONS: Please see the discharge order. DISPOSITION: The patient was discharged to home in fair to good condition, to follow up with myself, Dr. Thibodeaux and Dr. Wade next week.
[2019-01-01] MEDS: NORCO 5/325 MG PO PRN (09:40)
[2019-01-01] MEDS: Tessalon Perles 100 MG PO PRN (09:41)
[2019-01-01] MEDS: Zithromax 500 MG/ 250 ML NaCl Premix 500 MG/250 ML IVPB IV SCH (10:03)
[2019-01-01 12:12] VITALS: O2SAT 96
[2019-01-01 12:16] VITALS: BP 132/70; PULSE 82
== END 2019-01-01 12:20 | disposition home or self-care (01) | DRG 194 ==
LOC: ED 12:32 → MED SURG 14:56 → OBSVTOIN 12-28 12:20
PROVIDERS: ADMIT Internal Medicine; ATTEND Internal Medicine
DX: J18.9 Pneumonia, unspecified organism (principal); J96.11 Chronic respiratory failure with hypoxia; C96.6 Unifocal Langerhans-cell histiocytosis; I50.32 Chronic diastolic (congestive) heart failure; L03.116 Cellulitis of left lower limb; L03.115 Cellulitis of right lower limb; J44.9 Chronic obstructive pulmonary disease, unspecified; I10 Essential (primary) hypertension; E78.00 Pure hypercholesterolemia, unspecified; R60.9 Edema, unspecified; E87.8 Other disorders of electrolyte and fluid balance, not elsewhere classified; E78.5 Hyperlipidemia, unspecified; N18.9 Chronic kidney disease, unspecified; E87.6 Hypokalemia; E11.9 Type 2 diabetes mellitus without complications; Z99.81 Dependence on supplemental oxygen; E03.9 Hypothyroidism, unspecified; Z79.4 Long term (current) use of insulin; R07.9 Chest pain, unspecified; K59.00 Constipation, unspecified; G47.33 Obstructive sleep apnea (adult) (pediatric); Z95.0 Presence of cardiac pacemaker; Z79.899 Other long term (current) drug therapy
CPT/HCPCS: 36000; 36415; 71045; 80048; 80053; 82570; 82805; 82962; 83036; 83605; 83735; 83880; 84156; 84484; 85025; 85027; 85610; 87040; 87631; 93005; 93970; 94150; 94640; 94660; 94760; 94762; 96360; 96365; 96367; 96374; 96375; 99285; G0378; J0456; J0696; J1650; J1940; J2270; J2405; J2930; Q3014; A9270-GY